=== PATIENT | female | born 1935 | race Caucasian/White ===

== ENCOUNTER 2019-11-11 15:57 | Outpatient (CLI) | payer MEDICARE, OTHER, SELFPAY ==
--- NOTE | ~2019-11-11 | XR_ITS ---
EXAMINATION: XR lumbar spine 2-3V DATE: 11/11/2019 16:27 INDICATION: Chronic back pain TECHNIQUE: Anteroposterior and lateral views of the lumbar spine, and cone-down lateral view of the l umbosacral junction were obtained. COMPARISON: None. FINDINGS: There is grade 1 anterolisthesis of L4 on L5. There is moderate loss of intervertebral disc space height at L4-5 and L5-S1 and mild loss of intervertebral disc space height throughout the tory scott of the lumbar spine. The vertebral body heights are normal. There is no fracture. Surgical clip s in the right upper quadrant are likely from prior cholecystectomy. IMPRESSION: 1. Moderate lumbar spondylosis without acute findings. Reviewed, dictated and finalized at location A.
== END 2019-11-11 15:58 | disposition home or self-care (01) ==
LOC: CHSIMG 16:03
PROVIDERS: PCP Internal Medicine; Visit Provider Internal Medicine
DX: M54.5 Low back pain (principal); G62.9 Polyneuropathy, unspecified
CPT/HCPCS: 72100

== ENCOUNTER 2019-11-17 09:48 | Outpatient (CLI) | payer MEDICARE, OTHER, SELFPAY | END 2019-11-17 09:49 | disposition home or self-care (01) | PROVIDERS: PCP Internal Medicine; Visit Provider Internal Medicine | DX: I48.91 Unspecified atrial fibrillation (principal); R00.8 Other abnormalities of heart beat | CPT/HCPCS: 93306 ==

== ENCOUNTER 2019-11-19 09:56 | Outpatient (CLI) | payer MEDICARE, OTHER, SELFPAY ==
--- NOTE | ~2019-11-19 | MR_ITS ---
EXAMINATION: MR lumbar spine wo [facility] EXAM DATE: 11/19/2019 11:41 INDICATION: Low back pain down into both hips and legs with numbness and tingling. TECHNIQUE: Multi-sequential, multiplanar MR images of the lumbar spine were obtained without contrast . Sagittal T1, T2, T2 fat saturation images. Axial T2 weighted images. There is no prior study for comparison. FINDINGS: There is moderate disc disease with 5 mm anterolisthesis L4 on L5. There is moderate to sev ere disc disease at L5-S1 with 3 mm retrolisthesis. There is 2 mm anterolisthesis L2 on L3. The verte bral bodies are otherwise aligned. Mild to moderate disc disease L3-4 and mild at the upper lumbar le vels. The conus medullaris terminates at the L1/2 level and has normal signal intensity and morpholog y. There are no suspicious marrow signal abnormalities. Paraspinal soft tissue is unremarkable. Level by level evaluation: T12-L1: Disc does not extend beyond the endplate margin. Facet arthropathy: Mild. Neural foraminal stenosis: No stenosis. Central canal stenosis: No stenosis. L1-L2: Disc does not extend beyond the endplate margin. Facet arthropathy: Mild. Neural foraminal stenosis: No stenosis. Central canal stenosis: No stenosis. L2-L3: There is a mild diffuse disc bulge. Facet arthropathy: Mild to moderate. Neural foraminal stenosis: No stenosis. Central canal stenosis: Mild. L3-L4: There is a mild to moderate diffuse disc bulge. Facet arthropathy: Moderate. Neural foraminal stenosis: Mild bilateral. Central canal stenosis: Mild to moderate. L4-L5: There is a moderate to large diffuse disc bulge. Facet arthropathy: Severe . Ligamentum flavum enlargement. Neural foraminal stenosis: Moderate left, mild to moderate right. Central canal stenosis: Severe. L5-S1: There is a moderate diffuse disc bulge. Facet arthropathy: Mild to moderate. Neural foraminal stenosis: Moderate bilateral. Central canal stenosis: Mild to moderate. IMPRESSION: 1. L4-5 grade 1 anterolisthesis, severe central canal stenosis. Reviewed, dictated and finalized at location A.
== END 2019-11-19 09:57 | disposition home or self-care (01) ==
LOC: CHSIMG 09:58
PROVIDERS: PCP Internal Medicine; Visit Provider Internal Medicine
DX: M54.5 Low back pain (principal); G62.9 Polyneuropathy, unspecified
CPT/HCPCS: 72148

== ENCOUNTER 2019-11-26 11:19 | Outpatient (CLI) | payer MEDICARE, OTHER, SELFPAY ==
--- NOTE | ~2019-11-26 | MR_ITS ---
EXAMINATION: MR brain/brain stem wo con DATE: 11/26/2019 12:04 INDICATION: Dizziness TECHNIQUE: Magnetic resonance imaging (MRI) of the brain and brainstem was performed without intraven ous contrast. Sequences included sagittal and axial T1-weighted SE, axial diffusion-weighted FS SE, a xial T2*-weighted GRE, axial T2-weighted FLAIR Propeller, and axial T2-weighted Propeller. Apparent d iffusion coefficient (ADC) maps were created. COMPARISON: CT dated 11/30/2017 FINDINGS: Mild generalized atrophy. There are scattered moderate periventricular and subcortical whit e matter changes, most likely related to small vessel ischemic disease (microangiopathy). No ventricu lomegaly or midline shift. Structures of the posterior fossa including 7/8th cranial nerve complexes are within normal limits. No evidence for acute infarction or hemorrhage. No abnormal masses or mass effect. Midline sagittal images are unremarkable. Orbits are symmetric without disconjugate gaze. Par anasal sinuses are unremarkable. IMPRESSION: 1. No acute intracranial abnormality. 2: Chronic age-related findings. Reviewed, dictated and finalized at location A.
== END 2019-11-26 11:20 | disposition home or self-care (01) ==
LOC: CHSIMG 11:22
PROVIDERS: PCP Internal Medicine; Visit Provider Internal Medicine
DX: R42 Dizziness and giddiness (principal); I27.20 Pulmonary hypertension, unspecified
CPT/HCPCS: 70551

== ENCOUNTER 2019-11-28 10:27 | Outpatient (CLI) | payer MEDICARE, OTHER, SELFPAY ==
--- NOTE | ~2019-11-28 | CT_ITS ---
EXAMINATION: CT chest w con EXAM DATE: 11/28/2019 11:23 INDICATION: Dizziness, pulmonary hypertension. TECHNIQUE: Spiral CT of the chest following intravenous injection of 75 mL Omnipaque 350. Axial, cor onal and sagittal images were reviewed. Coronal maximum intensity pixel images of chest reviewed. T he dose-length product (DLP) for this examination was 241.90 mGy-cm. The exposure was tailored accor ding to patient size (auto mA exposure control), and iterative reconstruction (ASIR) was used as brad tional dose reduction technique. There is no prior study for comparison. FINDINGS: The lungs are clear. There are no pleural or pericardial effusions. Tracheobronchial t ree is patent. There is no mediastinal, hilar or axillary lymphadenopathy. There is no pneumothor ax. There is cardiomegaly. There is mild coronary arterial calcification, arterial sclerosis. The main, central pulmonary arteries are dilated which can indicate elevated pulmonary arterial pressure, pulmonary arterial hypertension. There are cholecystectomy clips. There is mild to moderate thora cic spondylosis without osteoblastic or osteolytic lesions identified. There is a goiter. IMPRESSION: 1. No acute cardiopulmonary findings. 2. Cardiomegaly. Dilated central pulmonary arteries. 3. Goiter. Reviewed, dictated and finalized at location A.
[2019-11-28 11:10] LABS: Estimated Glomerular Filt Rate 53
== END 2019-11-28 10:28 | disposition home or self-care (01) ==
LOC: CHSIMG 10:29
PROVIDERS: PCP Internal Medicine; Visit Provider Internal Medicine
DX: I27.20 Pulmonary hypertension, unspecified (principal); R42 Dizziness and giddiness
CPT/HCPCS: 71260; Q9965

== ENCOUNTER 2021-07-17 10:46 | Outpatient (CLI) | payer MEDICARE, SELFPAY ==
[2021-07-17 11:08] LABS: Hematocrit 28.5 % (35.0-42.0); Hemoglobin 9.1 g/dL (11.7-13.8); Mean Corpuscular HGB Conc 31.9 g/dL (32.0-36.0); Mean Corpuscular Hemoglobin 31.7 pg (27.0-31.0); Mean Corpuscular Volume 99.3 fL (78.0-102.0); Mean Platelet Volume 9.3 fl (9.2-11.8); Platelet Count Result 197 K/mm3 (150-420); Red Blood Count 2.87 M/mm3 (4.20-5.40); Red Cell Distribution Width 14.7 % (11.6-14.4); White Blood Count 7.5 K/mm3 (4.8-10.8)
[2021-07-17 12:05] LABS: Anion Gap 13 mmol/L (8-16); Blood Urea Nitrogen 31 mg/dL (7-18); Calcium 9.6 mg/dL (8.5-10.1); Carbon Dioxide 27 mmol/L (21-32); Chloride 102 mmol/L (98-108); Estimated Glomerular Filt Rate 41; Glucose 117 mg/dL (70-99); Osmolality Calculated 301 mOsm/kg (285-295); Sodium 142 mmol/L (136-145)
[2021-07-17 16:40] LABS: Immature Reticulocyte Fraction 34.3 % (2.0-16.52); Reticulocyte Hemoglobin Conten 34.6 pg (28.0-35.0); Reticulocyte Percent 5.14 % (0.50-1.50); Reticulocytes Absolute 0.15 M/mm3 (0.02-0.1)
[2021-07-17 17:23] LABS: Ferritin 60 ng/mL (8-252); Iron 136 ug/dL (50-170); Vitamin B12 657 pg/mL (193-986)
[2021-07-21 07:52] LABS: Red Blood Cell Folate >1000 ng/mL RBC (>280)
== END 2021-07-17 10:47 | disposition home or self-care (01) ==
LOC: CHSLAB 10:50
PROVIDERS: PCP Internal Medicine; Visit Provider Internal Medicine Cardiovascular Disease
DX: D64.9 Anemia, unspecified (principal)
CPT/HCPCS: 36415; 80048; 82607; 82728; 82747; 83540; 85027; 85046

== ENCOUNTER 2021-09-23 11:44 | Outpatient (CLI) | payer MEDICARE, OTHER, SELFPAY ==
--- NOTE | ~2021-09-23 | US_ITS ---
EXAMINATION: US venous doppler [facility] DATE: 09/23/2021 12:25 INDICATION: Bilateral lower limb swelling TECHNIQUE: Grayscale ultrasound images without and with compression and Doppler ultrasound images of the bilateral lower extremity veins were obtained. COMPARISON: None. FINDINGS: The visualized portions of right common femoral vein, profunda (deep) femoral vein, femoral vein, pop liteal vein, posterior tibial veins, peroneal veins, gastrocnemius vein and greater saphenous vein ou tflow are patent. The visualized portions of left common femoral vein, profunda femoral vein, femoral vein, popliteal v ein, posterior tibial veins, peroneal veins, gastrocnemius vein and greater saphenous vein outflow ar e patent. IMPRESSION: 1. No deep venous thrombosis in either lower limb. Reviewed, dictated and finalized at location A.
[2021-09-23 12:10] LABS: Basophils Absolute Auto 0.05 K/mm3 (0.00-0.10); Basophils Percent Auto 0.7 % (0.0-1.0); Eosinophils Absolute Auto 0.19 K/mm3 (0.02-0.50); Eosinophils Percent Auto 2.5 % (1.0-6.0); Hematocrit 33.3 % (35.0-42.0); Hemoglobin 10.2 g/dL (11.7-13.8); Immature Granulocyte Absolute 0.03 K/mm3 (0.00-0.00); Immature Granulocyte Percent A 0.4 % (0.0-0.0); Lymphocytes Absolute Auto 1.16 K/mm3 (1.10-4.50); Lymphocytes Percent Auto 15.2 % (18.0-42.0); Mean Corpuscular HGB Conc 30.6 g/dL (32.0-36.0); Mean Corpuscular Volume 91.5 fL (78.0-102.0); Mean Platelet Volume 9.6 fl (9.2-11.8); Monocytes Absolute Auto 0.62 K/mm3 (0.10-0.90); Monocytes Percent Auto 8.1 % (2.0-11.0); Neutrophils Absolute Auto 5.6 K/mm3 (1.7-7.2); Neutrophils Percent Auto 73.1 % (50.0-70.0); Platelet Count Result 190 K/mm3 (150-420); Red Blood Count 3.64 M/mm3 (4.20-5.40); Red Cell Distribution Width 17.2 % (11.6-14.4); White Blood Count 7.6 K/mm3 (4.8-10.8)
[2021-09-23 12:29] LABS: NT Pro B Type Natriuretic Pept 1390 pg/mL (0-450)
== END 2021-09-23 11:45 | disposition home or self-care (01) ==
LOC: CHSLAB 11:46
PROVIDERS: PCP Internal Medicine; Visit Provider Internal Medicine
DX: M79.89 Other specified soft tissue disorders (principal); I50.9 Heart failure, unspecified
CPT/HCPCS: 36415; 83880; 85025; 93970

== ENCOUNTER 2021-10-01 10:57 | Outpatient (CLI) | payer MEDICARE, OTHER, SELFPAY ==
[2021-10-01] MEDS: IRON SUCROSE COMPLEX 500 MG in SODIUM CHLORIDE 0.9% IV 250 ML 62.5 MG IVPB (11:25)
[2021-10-01 11:28] VITALS: BMI 26.3
[2021-10-01 11:43] VITALS: BP 129/53; PULSE 76; RESP 14; TEMP 36.6; O2SAT 98
--- NOTE | 2021-10-01 15:05 | PC.NURSE ---
Patient here for # 1 of 2 IV Venofer infusions 2 weeks apart. Education on medication given. All concerns answered. Patient accompanied by daughter. IV Venofer administered SEE MAR. Tolerated well. Safe exit of hospital. Will return October 15, 2021 at 10:30.
== END 2021-10-01 10:58 | disposition home or self-care (01) ==
LOC: CHSTREATRM 11:00
PROVIDERS: PCP Internal Medicine; Visit Provider Internal Medicine
DX: D50.9 Iron deficiency anemia, unspecified (principal)
CPT/HCPCS: 96365; 96366; J1756; J7050

== ENCOUNTER 2021-10-15 10:46 | Outpatient (CLI) | payer MEDICARE, OTHER, SELFPAY ==
[2021-10-15 10:50] VITALS: BMI 26.3
[2021-10-15 11:05] VITALS: BP 110/62; PULSE 72; RESP 14; TEMP 36.4; O2SAT 96
[2021-10-15] MEDS: IRON SUCROSE COMPLEX 500 MG in SODIUM CHLORIDE 0.9% IV 250 ML 62.5 MG IVPB (11:30)
--- NOTE | 2021-10-15 11:50 | PC.NURSE ---
Patient here for #2 of 2 IV Venofer infusions. Education given. No concerns voiced. IV Venofer administered SEE MAR.
--- NOTE | 2021-10-15 15:14 | PC.NURSE ---
Tolerated IV Venofer infusion well. Safe exit of hospital.
== END 2021-10-15 10:47 | disposition home or self-care (01) ==
LOC: CHSTREATRM 10:48
PROVIDERS: PCP Internal Medicine; Visit Provider Internal Medicine
DX: D50.9 Iron deficiency anemia, unspecified (principal)
CPT/HCPCS: 96365; 96366; J1756; J7050

== ENCOUNTER 2022-01-02 10:06 | Outpatient (CLI) | payer MEDICARE, OTHER, SELFPAY ==
--- NOTE | ~2022-01-02 | CT_ITS ---
EXAMINATION: CT diagnostic chest wo con DATE: 01/02/2022 10:34 INDICATION: Mediastinal lymph node enlargement TECHNIQUE: Computed tomography (CT) of the chest was performed without intravenous contrast. The dose -length product (DLP) was 156.14 mGy-cm. Automated exposure control and iterative reconstruction tech nique were employed. COMPARISON: 11/28/2019 FINDINGS: Multinodular goiter is again noted. There is enlargement of the main and central pulmonary arteries, consistent with pulmonary hypertension. There are no pathologically enlarged thoracic lymph nodes. Cardiomegaly is noted. Calcified pulmonary nodules and calcified right hilar lymph nodes are consistent with old granulomatous disease. No pleural effusion or pneumothorax. There is moderate tho racic spondylosis. The gallbladder is surgically absent. Surgical changes are noted in the proximal r ight humerus. IMPRESSION: 1. No thoracic lymphadenopathy is identified. 2. Findings consistent with pulmonary hypertension. Reviewed, dictated and finalized at location B.
== END 2022-01-02 10:07 | disposition home or self-care (01) ==
PROVIDERS: PCP Internal Medicine; Visit Provider Internal Medicine
DX: R59.0 Localized enlarged lymph nodes (principal)
CPT/HCPCS: 71250

== ENCOUNTER 2022-03-13 10:00 | Outpatient (RCR) | payer MEDICARE, OTHER, SELFPAY ==
--- NOTE | 2022-02-04 14:53 | OTOPEVAL ---
Thank you for referring Starr Whyte to [facility].? The patient is scheduled to be seen for therapy? ____x/week for ___ weeks. Please review, sign, date and return this plan of care HELEN. I agree with and certify that the following plan of care is medically necessary. Referring Physician Date Admitting Provider: Attending Provider: Jimbo Rey MD Referring Provider: *OT Outpatient Evaluation Start: 02/04/22 11:02 Freq: Status: Active Protocol: Document 02/04/22 10:59 [facility] (Rec: 02/04/22 12:03 [facility] [email or web address]) Therapy Assessment Status Assessment Status Assessment Status Evaluation Outpatient Past Medical History Past Medical History Source of Past Medical History Patient Other Source of Past Medical History Patient reports a R shoulder surgery in 2018. Neurological History Hx Cerebrovascular Accident (CVA) Yes Evaluation Information Problem Diagnosis CVA Onset July 2021 Cause UE weakness Additional Evaluation Detail 2x/week for 8 visits Subjective Information The patient reports that she Query Text:As Reported By Patient/ is unsure the exact date of Family her CVA, the patient thinks the stroke was in August of 2021. The patient has recieved skilled PT and OT at [facility] and in home health treatment. The patient has assistance from her children with bathing, housekeeping, meal preparation, laundry. The patient reported performing dressing, toileting, grooming. Prior Level of Function Activity Level (Last 3 Months) Hand Dominance Right Activity of Daily Living Ability Independent Indoor/Home Mobility Independent Community Mobility Independent Stairs Ability Independent Functional Cognition (Planning, Shopping Independent , Taking Medications) Cooking Yes Cleaning Yes Laundry Yes Shopping Yes Driving Yes Home Setting Home Type House Environmental Barriers Stairs, 2-4 Living Situation Alone Support Available Local Family Support Cargiver Responsibilities Comment Housekeeping, meal preparation , bathing, and laundry/grocery shopping. Mobility Assistive Devices (Used Last 3 Cane Months)
--- NOTE | 2022-02-04 14:54 | OTOPEVAL ---
Thank you for referring Starr Whyte to [facility].? The patient is scheduled to be seen for therapy? ____x/week for ___ weeks. Please review, sign, date and return this plan of care HELEN. I agree with and certify that the following plan of care is medically necessary. Referring Physician Date Admitting Provider: Attending Provider: Jimbo Rey MD Referring Provider: *OT Outpatient Evaluation Start: 02/04/22 11:02 Freq: Status: Active Protocol: Document 02/04/22 10:59 [facility] (Rec: 02/04/22 12:03 [facility] [email or web address]) Therapy Assessment Status Assessment Status Assessment Status Evaluation Outpatient Past Medical History Past Medical History Source of Past Medical History Patient Other Source of Past Medical History Patient reports a R shoulder surgery in 2018. Neurological History Hx Cerebrovascular Accident (CVA) Yes Evaluation Information Problem Diagnosis CVA Onset July 2021 Cause UE weakness Additional Evaluation Detail 2x/week for 8 visits Subjective Information The patient reports that she Query Text:As Reported By Patient/ is unsure the exact date of Family her CVA, the patient thinks the stroke was in August of 2021. The patient has recieved skilled PT and OT at [facility] and in home health treatment. The patient has assistance from her children with bathing, housekeeping, meal preparation, laundry. The patient reported performing dressing, toileting, grooming. Prior Level of Function Activity Level (Last 3 Months) Hand Dominance Right Activity of Daily Living Ability Independent Indoor/Home Mobility Independent Community Mobility Independent Stairs Ability Independent Functional Cognition (Planning, Shopping Independent , Taking Medications) Cooking Yes Cleaning Yes Laundry Yes Shopping Yes Driving Yes Home Setting Home Type House Environmental Barriers Stairs, 2-4 Living Situation Alone Support Available Local Family Support C[employer] Responsibilities Comment Housekeeping, meal preparation , bathing, and laundry/grocery shopping. Mobility Assistive Devices (Used Last 3 Cane Months)
--- NOTE | 2022-02-04 20:48 | PTOPEVAL ---
Thank you for referring Starr Whyte to [facility].? The patient is scheduled to be seen for therapy? ____x/week for ___ weeks. Please review, sign, date and return this plan of care HELEN. I agree with and certify that the following plan of care is medically necessary. Referring Physician Date Admitting Provider: Attending Provider: Jimbo Rey MD Referring Provider: *PT Outpatient Evaluation Start: 02/04/22 10:06 Freq: Status: Active Protocol: Document 02/04/22 10:05 [facility] (Rec: 02/04/22 11:03 [facility] [id number]) Therapy Assessment Status Assessment Status Assessment Status Evaluation Evaluation Information Problem Diagnosis CVA, gait abnormality, generalized weakness Onset 08/27/21 Subjective Information patient reports she had a Query Text:As Reported By Patient/ stroke CVA back in August of Family 2021. she reports she has had quite a bit of therapy since her stroke. she reports she is unsure how bad her stroke was . she reports she does not remember if she had any weakness. she reports now she continues to struggle with feeling like she is back to normal. she reports she feels unsteady walking in the yard, she is not cooking, and is just a little slower and weaker with home ADL's. she reports she is not driving. Prior Level of Function Comments Additional Prior Level of Function prior to her stroke, she was Comments independent with nearly all activities. she reports she still had a then, but reports he has since . she reports she has family close by that stops by to help with things like compression stockings, cooking , and cleaning. Pain Assessment Timing of Pain Assessment Timing of Pain Assessment Assessment Self Report Self Report Pain Level 0 Pain Score Pain Score 0: Self Report Lower Extremity Range of Motion General Lower Extremity Range of Motion Reason Not Measured WFL/Left,WFL/Right Lower Extremity Muscle Strength Testing Hip Strength Bilateral Hip Flexion Strength 4 Good Hip Extension Strength 4 Good Hip Abdu
--- NOTE | 2022-02-11 14:33 | STOPEVAL ---
Thank you for referring Starr Whyte to [facility].? The patient is scheduled to be seen for therapy? 2x/week for 10 sessions. Please review, sign, date and return this plan of care HELEN. I agree with and certify that the following plan of care is medically necessary. Referring Physician Date Admitting Provider: Attending Provider: Jimbo Rey MD Referring Provider: * Outpatient Evaluation Start: 02/11/22 14:12 Freq: Status: Active Protocol: Document 02/11/22 13:00 [facility] (Rec: 02/11/22 14:33 [facility] [id number]) Therapy Assessment Status Assessment Status Assessment Status Evaluation Outpatient Past Medical History Past Medical History Source of Past Medical History Patient Other Source of Past Medical History Patient reports a R shoulder surgery in 2018. Neurological History Hx Cerebrovascular Accident (CVA) Yes Cardiovascular History Hx Congestive Heart Failure Yes Hx Hypertension Yes Respiratory History Hx Respiratory Disorders No Significant History Gastrointestinal History Hx Gastrointestinal Disorders No Significant History Genitourinary History Hx Genitourinary Disorders No Significant History Musculoskeletal History Hx Musculoskeletal Disorders No Significant History Hematological History Hx Hematological Disorders No Significant History Endocrine History Hx Endocrine Disorders No Significant History HEENT History Hx HEENT Disorders No Significant History Integumentary History Hx Skin Disorders No Significant History Reproductive History Hx Reproductive Disorders No Significant History Psychosocial History Hx Psychiatric Disorders No Significant History Pain History History of Any Previous or Ongoing No Significant History Instance of Pain Anesthesia History Hx Anesthesia Reactions No Significant History Evaluation Information Problem Diagnosis CVA I63.9 Onset July 2021 Subjective Information Patient was referred for an ST Query Text:As Reported By Patient/ evaluation due to a CVA with Family continued difficulties in short term memory skills. Pain Assessment Timing of Pain Assessment Timing of Pain Assessment Assessment Self Report Self Report Pain Level 0 Pain Score Pain Score 0: Self Report Cognitive Evaluation Attention Assessment Selective Attention Overall Attention Ability No Impairment Orientation/Memory Assessment Immediate Memory 70 Query Text:% Accuracy Recent Memory 100 Query Text:% Accuracy Remote Memory 100 Query Text:% Accuracy Prospective Memory
--- NOTE | 2022-03-06 15:55 | PTOPEVAL1 ---
Evaluation Information Assessment Status Discharge Diagnosis CVA, gait abnormality, generalized weakness Onset 08/27/21 Subjective Information patient and her daughter report 3 therapies in one day is a bit much for the patient. the daughter reports she would like to consider DC PT and continue with OT and ST therapies. Reported Pain Level Pain Score 0: Self Report Pain Score 0: Self Report Additional Pain Score Comments Pt. has no c/o pain. Assessment PT Clinical Summary mrs. ruiz presents to skilled PT services for her 6th skilled PT visit. as of this date, she has made progress towards nearly all goals, but has only met 25-40% of goals as of this date. due to patient inability to perform 3 therapies in 1 day, and needing more UE and speech rehab at this time , she will DC skilled PT and continue with PT HEP independent at home. Plan of Care Treatment Frequency and DC to independent PT HEP Duration These treatments will address the objective and functional deficits as defined above. The patient will be advanced safely and appropriately in order for the patient to progress towards his/her prior level of function. Additional exercises will be introduced and as well as a comprehensive home exercise program upon discharge, if needed, ?to ensure carryover of functional gains achieved in the clinic. This treatment plan has been reviewed and agreement upon by the patient.
--- NOTE | 2022-03-11 09:29 | PCSTNOTE ---
Appointment cancelled on March 06 due to KETTLE GIRL being out of the office.
--- NOTE | 2022-03-24 11:07 | OTOPEVDC ---
Assessment and note entered by Delicia Glover OT Thank you for referring Starr Whyte to [facility].? An evaluation has been completed. No further treatment is needed. Evaluation Information Assessment Status Discharge Reported Pain Level Pain Score 0: Self Report Assessment OT Clinical Summary The patient has demonstrated significant progress in UE strength, refueling ramp supervisor strength, pinch strength, and fine motor coordination. The patient has met UE strength and refueling ramp supervisor strength goals at this time resulting in increased independence with leisure tasks of crafting. The patient has not met goals of pinch strength and fine motor coordination but demonstrates baseline functioning at this time. The patient has demonstrated independence with opening containers, buttoning/zipping closures on clothing, and performing craft activities with good accuracy performing activities slowly, as reported by patient as normal. The patient has made continued progress with all goals and does not require OT at this time. The patient is discharged due to meeting LTGs and functioning with B UE at baseline. Plan of Care OT Services Indicated No Treatment Frequency and Discharged. Duration
--- NOTE | 2022-04-01 11:43 | STOPREEVAL ---
Assessment and note entered by Priscilla Murry UI DESIGNER Evaluation Information Assessment Status Re-evaluation Reported Pain Level Pain Score 0: Self Report Assessment ST Clinical Summary Patient was referred for an ST evaluation due to continued difficulties with memory and communication after a stroke earilier this year. The patient currently presents with mild cognitive -communication deficits through clinicial observation and testing along with informal assessment and family concerns. The SLUMS was readminstered and the patient recieved a score of 24/30 which currently is in the mid neuro cognitive disorder category (improvement from 8-16 -22 with a score of 18/30). The patient continues to demonstrat difficulty in recalling words with a delay in presentation, solving simple number tasks, divergent naming, visual perceptual tasks and sequencing tasks. Recommendation for ST 2x/wk x 10 sessions to continue to target the patient's cognitive-communication skills to improve her ability to return to prior level of function. Plan of Care Interventions Treatment for Cognitive F ST Services Indicated Yes Treatment Frequency and 2x/week for 10 sessions Duration These treatments will address the objective and functional deficits as defined above. The patient will be advanced safely and appropriately in order for the patient to progress towards his/her prior level of function. Additional exercises will be introduced and as well as a comprehensive home exercise program upon discharge, if needed, ?to ensure carryover of functional gains achieved in the clinic. This treatment plan has been reviewed and agreement upon by the patient.
--- NOTE | 2022-04-10 15:14 | PCSTNOTE ---
Patient called & cancelled scheduled appointment this date.
--- NOTE | 2022-04-15 11:52 | PCSTNOTE ---
Patient called & cancelled scheduled appointment this date due to having COVID
--- NOTE | 2022-04-17 10:00 | PCSTNOTE ---
Patient called & cancelled scheduled appointment this date due to having COVID
--- NOTE | 2022-04-22 11:05 | PCSTNOTE ---
Patient called & cancelled scheduled appointment this date due to being in the hospital.
--- NOTE | 2022-04-24 13:30 | PCSTNOTE ---
Patient called & cancelled scheduled appointment this date due to patient being in the hospital.
--- NOTE | 2022-04-29 14:28 | PCSTNOTE ---
Patient cancelled this date due to recent sickness with COVID and hospitalization.
--- NOTE | 2022-05-12 11:51 | PCSTNOTE ---
Admitting Provider: Attending Provider: Jimbo Rey MD Patient:Starr Whyte Date of :1935 Patient has not returned for any further treatments since 04/08/2022, therefore she will be discharged at this time. Patient?s initial visit was on 02/11/22. The goals have been partially met. Patient was recently re-evaluated with goals to continue to target short term, visual perceptual skills, and problem solving skills. Patient was diagnosed with COVID and was the hospitalized and has not returned for ST treatment. Patient made consistent progress while in ST treatment. Thank you for referring this patient to [facility]. Please review, sign, date and return this discharge summary HELEN. I have been updated about the patient's current status and I agree with discharge from the above service at this time. Referring Physician Date
== END 2022-04-08 23:59 | disposition home or self-care (01) ==
LOC: CHSST 10:00
PROVIDERS: PCP Internal Medicine; Visit Provider Internal Medicine
DX: R26.81 Unsteadiness on feet (principal); I69.322 Dysarthria following cerebral infarction
CPT/HCPCS: 92507; 96125; 97110; 97112; 97161; 97165; 97530

== ENCOUNTER 2022-06-14 20:23 | Emergency (ER) | payer MEDICARE, OTHER, SELFPAY ==
--- NOTE | ~2022-06-14 | XR_ITS ---
EXAMINATION: XR knee LT 3V DATE: 06/14/2022 20:59 INDICATION: Nontraumatic left knee pain TECHNIQUE: Anteroposterior, oblique and crosstable lateral views of the left knee were obtained COMPARISON: None. FINDINGS: Alignment is normal. No fracture. Mild tricompartmental osteoarthritis at the left knee with mild aidee int space narrowing at the medial compartment and small marginal osteophytes in all 3 compartments. M inimal left knee joint effusion without layering lipohemarthrosis. Small enthesophyte at the patellar insertion of the distal quadriceps tendon. Basilar calcific a cyst at the distal thigh and proximal calf. IMPRESSION: 1. Mild tricompartmental osteoarthritis at the left knee with minimal likely reactive joint effusion. Reviewed, dictated and finalized at location A. ERY TESTER FIELD IMPRESSION: 1. Mild tricompartmental osteoarthritis at the left knee with minimal likely re active joint effusion.
[2022-06-14 20:30] VITALS: BP 149/55; PULSE 65; RESP 18; TEMP 37.1; O2SAT 99
--- NOTE | 2022-06-14 20:38 | ED.LOWEXIN ---
HPI - Extremity Injury (Lower) General Chief Complaint: Extremity Injury, Lower Stated Complaint: Left Leg Pain Source: patient Mode of arrival: wheelchair History of Present Illness HPI Narrative: 86-year-old female with a history of hypertension, diabetes mellitus, dyslipidemia, diastolic dysfunction, atrial fibrillation on Eliquis, chronic low back pain with lumbar spinal stenosis presents to the ER with 1 day history of -- left knee pain which got worse while she was walking. Subsequently she was unable to walk. She has decreased range of motion of the left knee. No history of trauma. Onset (ago): day(s) ( Started 1 day ago) Injury: Left: knee Relieving factors: immobilization Exacerbating factors: weight bearing and movement Other symptoms: none Related Data Home Medications Medication Instructions Recorded Confirmed diltiazem HCl 180 mg capsule,24 180 mg PO DAILY 07/05/19 06/14/22 hr,extended release atorvastatin 10 mg tablet 10 mg PO DAILY 10/01/21 06/14/22 buspirone 5 mg tablet 10 mg PO BID 10/01/21 06/14/22 furosemide 20 mg tablet 20 mg PO EVERY OTHER DAY 10/01/21 06/14/22 linagliptin 5 mg tablet (Tradjenta) 5 mg PO QAM 10/01/21 06/14/22 pantoprazole 40 mg tablet,delayed 40 mg PO BID 10/01/21 06/14/22 release apixaban 2.5 mg tablet (Eliquis) 2.5 mg PO BID 06/14/22 06/14/22 calcitriol 0.5 mcg capsule 0.5 mcg PO DAILY 06/14/22 06/14/22 galantamine 8 mg tablet 8 mg PO BID 06/14/22 06/14/22 loteprednol etabonate 0.5 % eye 1 drp EACH EYE DAILY 06/14/22 06/14/22 drops,suspension vitamin B complex (B 1 tablet PO DAILY 06/14/22 06/14/22 Complex-Vitamin B12 tablet) Allergies Allergy/AdvReac Type Severity Reaction Status Date / Time No Known Allergies Allergy Verified 12/27/19 10:18 Review of Systems Review of Systems: All systems reviewed & are unremarkable except as noted in HPI and below Constitutional: Constitutional: Reports as per HPI and Reports no additional constitutional complaints Eyes: Eyes: Reports as per HPI and Reports no additional eye complaints ENT: Reports system reviewed and no additional complaints, except as documented and Reports as per HPI Cardiovascular: Cardiovascular: Reports as per HPI and Reports no additional cardiovascular complaints Respiratory: Respiratory: Reports as per HPI and Reports no additional respiratory complaints Gastrointestinal: Gastrointestinal: Reports as per HPI and Reports no additional gastrointestinal complaints Genitourinary: Genitourinary: Reports no additional female genitourinary complaints and Reports as per HPI Musculoskeletal: Musculoskeletal: Reports no additional musculoskeletal complaints, Reports as per HPI and Reports back pain Comments: chronic back pain. Left knee pain which has acutely become painful . unable to place weight. Integumentary/Breasts: Skin/Breast: Reports system reviewed and no additional complaints, except as docu and Reports as per HPI Neurologic: Reports system reviewed and no additional complaints, except as documented and Reports as per HPI Psychiatric: Psychiatric: Reports no additional psychiatric complaints and Reports as per HPI Endocrine: Endocrine: Reports no additional endocrine complaints and Reports as per HPI Hematologic/Lymphatic: Hematologic/Lymphatic: Reports no additional hematologic/lymphatic complaints and Reports as per HPI Allergic/Immunologic: Allergic/Immunologic: Reports no additional allergic/immunologic complaints and Reports as per HPI PMFSH Past Medical History Medical History Atrial fibrillation External hemorrhoid Hypertension Osteoarthritis Overweight Surgical History Surgical History History of cholecystectomy Hx of tonsillectomy Family History Family History Mother Hypertension Father AAA (abdomina
--- NOTE | 2022-06-14 21:34 | PC.NURSE ---
POC for f/u, ice and possible therapy discussed c pt. and family. Instructions given on minimal wt bearing next few days and use of her walker for support. Pt and daughters stated understanding.
[2022-06-14 21:37] VITALS: BP 145/68; PULSE 79; RESP 18; TEMP 37.2; O2SAT 97
== END 2022-06-14 21:45 | disposition home or self-care (01) ==
PROVIDERS: Emergency Provider Internal Medicine Critical Care Medicine; PCP Internal Medicine
DX: M17.12 Unilateral primary osteoarthritis, left knee (principal); I10 Essential (primary) hypertension; E11.9 Type 2 diabetes mellitus without complications; E78.5 Hyperlipidemia, unspecified; I48.91 Unspecified atrial fibrillation; Z79.01 Long term (current) use of anticoagulants
CPT/HCPCS: 73562; 99283

== ENCOUNTER 2022-06-17 09:49 | Outpatient (CLI) | payer MEDICARE, OTHER, SELFPAY ==
[2022-06-17] MEDS: IRON SUCROSE COMPLEX 300 MG in SODIUM CHLORIDE 0.9% IV 250 ML 125 MG IVPB (10:05)
[2022-06-17 10:08] VITALS: BMI 26.6
[2022-06-17 10:09] VITALS: BP 130/53; PULSE 72; RESP 14; TEMP 36.4; O2SAT 99
--- NOTE | 2022-06-17 12:29 | PC.NURSE ---
Patient here for #1 of 3 q 2 weeks IV Venofer. Education given. Patient had Venofer in September 2021. Reports had no problems with it. IV Venofer administered. See MAR. Tolerated well. Safe exit of hospital with dtr. Jul 01, 2022 1000.
== END 2022-06-17 09:50 | disposition home or self-care (01) ==
LOC: CHSTREATRM 09:53
PROVIDERS: PCP Internal Medicine; Visit Provider Internal Medicine
DX: D50.9 Iron deficiency anemia, unspecified (principal)
CPT/HCPCS: 96365; 96366; J1756; J7050

== ENCOUNTER 2022-07-01 09:37 | Outpatient (CLI) | payer MEDICARE, OTHER, SELFPAY ==
--- NOTE | 2022-07-01 10:54 | PC.NURSE ---
Patient here for #2 of 3 Venofer infusions. Attempted 7 times for IV with 3 nurses trying. Will hold off this week and retry Jul 08, 2022 Tue. Patient and granddaughter in agreement with decision.
== END 2022-07-01 09:38 | disposition home or self-care (01) ==
LOC: CHSTREATRM 09:40
PROVIDERS: PCP Internal Medicine; Visit Provider Internal Medicine
DX: D50.9 Iron deficiency anemia, unspecified (principal)
CPT/HCPCS: 99199; J1756; J7050

== ENCOUNTER 2022-07-07 12:19 | Outpatient (NON) | payer MEDICARE, OTHER, SELFPAY ==
[2022-07-07 13:28] LABS: Eosinophils Absolute Auto 0.02 K/mm3 (0.02-0.50); Eosinophils Percent Auto 0.3 % (1.0-6.0); Hematocrit 34.7 % (35.0-42.0); Hemoglobin 10.7 g/dL (11.7-13.8); Immature Granulocyte Absolute 0.04 K/mm3 (0.00-0.00); Immature Granulocyte Percent A 0.6 % (0.0-0.0); Lymphocytes Absolute Auto 0.63 K/mm3 (1.10-4.50); Lymphocytes Percent Auto 9.3 % (18.0-42.0); Mean Corpuscular HGB Conc 30.8 g/dL (32.0-36.0); Mean Corpuscular Volume 87.6 fL (78.0-102.0); Mean Platelet Volume 10.8 fl (9.2-11.8); Monocytes Absolute Auto 0.73 K/mm3 (0.10-0.90); Monocytes Percent Auto 10.7 % (2.0-11.0); Neutrophils Absolute Auto 5.4 K/mm3 (1.7-7.2); Neutrophils Percent Auto 79.1 % (50.0-70.0); Platelet Count Result 131 K/mm3 (150-420); Red Blood Count 3.96 M/mm3 (4.20-5.40); Red Cell Distribution Width 17.5 % (11.6-14.4); White Blood Count 6.8 K/mm3 (4.8-10.8)
[2022-07-07 13:45] LABS: Anion Gap 9 mmol/L (8-16); Blood Urea Nitrogen 33 mg/dL (7-18); Calcium 9.4 mg/dL (8.5-10.1); Carbon Dioxide 24 mmol/L (21-32); Chloride 99 mmol/L (98-108); Estimated Glomerular Filt Rate 57; Glucose 141 mg/dL (70-99); Osmolality Calculated 283 mOsm/kg (285-295); Sodium 132 mmol/L (136-145)
[2022-07-07 13:46] LABS: Potassium 5.2 mmol/L (3.5-5.1)
== END 2022-07-07 12:20 | disposition home or self-care (01) ==
LOC: CHSLAB 12:21
PROVIDERS: Visit Provider Internal Medicine
DX: R79.89 Other specified abnormal findings of blood chemistry (principal)
CPT/HCPCS: 36415; 80048; 85025

== ENCOUNTER 2022-07-08 09:12 | Outpatient (CLI) | payer MEDICARE, OTHER, SELFPAY ==
[2022-07-08 09:41] VITALS: BMI 26.6
[2022-07-08 09:47] VITALS: BP 160/69; PULSE 92; RESP 14; O2SAT 98
[2022-07-08] MEDS: IRON SUCROSE COMPLEX 300 MG in SODIUM CHLORIDE 0.9% IV 250 ML 166.67 MG IVPB (09:55)
--- NOTE | 2022-07-08 11:22 | PC.NURSE ---
Patient here for #2 of 3 IV Venofer infusions. No concerns voiced. Education given. IV Venofer administered. SEE MAR. Tolerated well. Will return 07/22/22 at 0930 for #3. Safe exit of hospital with granddaughter.
== END 2022-07-08 09:13 | disposition home or self-care (01) ==
PROVIDERS: PCP Internal Medicine; Visit Provider Internal Medicine
DX: D50.9 Iron deficiency anemia, unspecified (principal)
CPT/HCPCS: 96365; 96366; J1756; J7050

== ENCOUNTER 2022-07-22 09:17 | Outpatient (CLI) | payer MEDICARE, OTHER, SELFPAY ==
[2022-07-22 09:25] VITALS: BMI 26.6
[2022-07-22 09:32] VITALS: BP 113/58; PULSE 72; RESP 14; TEMP 36.6; O2SAT 98
[2022-07-22] MEDS: IRON SUCROSE COMPLEX 300 MG in SODIUM CHLORIDE 0.9% IV 250 ML 125 MG IVPB (10:15)
--- NOTE | 2022-07-22 12:08 | PC.NURSE ---
Patient here for #3 of 3 IV Venofer infusions. Education given. No concerns voiced. IV Venofer administered. SEE MAR. Tolerated well. Safe exit of hospital per w/c with dtr.
== END 2022-07-22 09:18 | disposition home or self-care (01) ==
LOC: CHSTREATRM 09:23
PROVIDERS: PCP Internal Medicine; Visit Provider Internal Medicine
DX: D50.9 Iron deficiency anemia, unspecified (principal)
CPT/HCPCS: 96365; 96366; J1756; J7050

== ENCOUNTER 2022-08-07 11:14 | Outpatient (NON) | payer MEDICARE, SELFPAY ==
[2022-08-07 11:31] LABS: Basophils Absolute Auto 0.04 K/mm3 (0.00-0.10); Basophils Percent Auto 0.8 % (0.0-1.0); Hematocrit 38.3 % (35.0-42.0); Hemoglobin 11.9 g/dL (11.7-13.8); Immature Granulocyte Absolute 0.02 K/mm3 (0.00-0.00); Immature Granulocyte Percent A 0.4 % (0.0-0.0); Lymphocytes Absolute Auto 0.98 K/mm3 (1.10-4.50); Mean Corpuscular HGB Conc 31.1 g/dL (32.0-36.0); Mean Corpuscular Hemoglobin 27.9 pg (27.0-31.0); Mean Corpuscular Volume 89.9 fL (78.0-102.0); Mean Platelet Volume 10.3 fl (9.2-11.8); Monocytes Absolute Auto 0.48 K/mm3 (0.10-0.90); Monocytes Percent Auto 9.8 % (2.0-11.0); Neutrophils Absolute Auto 3.3 K/mm3 (1.7-7.2); Platelet Count Result 170 K/mm3 (150-420); Red Blood Count 4.26 M/mm3 (4.20-5.40); Red Cell Distribution Width 17.6 % (11.6-14.4); White Blood Count 4.9 K/mm3 (4.8-10.8)
[2022-08-07 11:42] LABS: Anion Gap 9 mmol/L (8-16); Blood Urea Nitrogen 22 mg/dL (7-18); Calcium 9.5 mg/dL (8.5-10.1); Carbon Dioxide 30 mmol/L (21-32); Chloride 103 mmol/L (98-108); Estimated Glomerular Filt Rate 40; Glucose 188 mg/dL (70-99); Osmolality Calculated 302 mOsm/kg (285-295); Potassium 3.8 mmol/L (3.5-5.1); Sodium 142 mmol/L (136-145)
== END 2022-08-07 11:15 | disposition home or self-care (01) ==
LOC: CHSLAB 11:16
PROVIDERS: Visit Provider Internal Medicine
DX: D50.9 Iron deficiency anemia, unspecified (principal); E86.0 Dehydration
CPT/HCPCS: 80048; 85025

== ENCOUNTER 2022-09-15 10:35 | Outpatient (NON) | payer MEDICARE, SELFPAY ==
[2022-09-15 10:51] LABS: Basophils Absolute Auto 0.04 K/mm3 (0.00-0.10); Basophils Percent Auto 0.7 % (0.0-1.0); Eosinophils Absolute Auto 0.16 K/mm3 (0.02-0.50); Eosinophils Percent Auto 2.9 % (1.0-6.0); Hematocrit 37.8 % (35.0-42.0); Hemoglobin 11.9 g/dL (11.7-13.8); Immature Granulocyte Absolute 0.02 K/mm3 (0.00-0.00); Immature Granulocyte Percent A 0.4 % (0.0-0.0); Lymphocytes Absolute Auto 1.07 K/mm3 (1.10-4.50); Lymphocytes Percent Auto 19.4 % (18.0-42.0); Mean Corpuscular HGB Conc 31.5 g/dL (32.0-36.0); Mean Corpuscular Hemoglobin 28.6 pg (27.0-31.0); Mean Corpuscular Volume 90.9 fL (78.0-102.0); Mean Platelet Volume 10.7 fl (9.2-11.8); Monocytes Absolute Auto 0.57 K/mm3 (0.10-0.90); Monocytes Percent Auto 10.3 % (2.0-11.0); Neutrophils Absolute Auto 3.7 K/mm3 (1.7-7.2); Neutrophils Percent Auto 66.3 % (50.0-70.0); Platelet Count Result 159 K/mm3 (150-420); Red Blood Count 4.16 M/mm3 (4.20-5.40); Red Cell Distribution Width 16.6 % (11.6-14.4); White Blood Count 5.5 K/mm3 (4.8-10.8)
[2022-09-15 10:53] LABS: Appearance Urine Clear (Clear); Bilirubin Urine Negative (Negative); Blood Urine Trace-Intact (Negative); Color Urine Light Yellow (Yellow); Glucose Urine UA Negative (Negative); Ketones Urine Negative (Negative); Leukocyte Esterase Ur Trace LEU/UL (Negative); Nitrate Urine Negative (Negative); Protein Urine Negative (Negative); Specific Grav Ur 1.025 (1.010-1.020); Urobilinogen Urine 0.2 mg/dL (0.2-1.0)
[2022-09-15 11:04] LABS: Add Urine Microscopic? YES; Bacteria Urine Trace /hpf; Squamous Epithelial Cell Urine Few /hpf (Few)
[2022-09-15 11:13] LABS: MALB Creatinine Ratio 12.2 mg/g (0-30); Microalbumin Urine Random < 13.0 mg/L
[2022-09-15 11:40] LABS: Alanine Aminotransferase 23 U/L (14-59); Albumin Level 3.9 g/dL (3.4-5.0); Alkaline Phosphatase 42 U/L (46-116); Anion Gap 10 mmol/L (8-16); Aspartate Amino Transferase 19 U/L (15-37); Bilirubin,Total 0.6 mg/dL (0.00-1.00); Blood Urea Nitrogen 26 mg/dL (7-18); Calcium 10.1 mg/dL (8.5-10.1); Carbon Dioxide 30 mmol/L (21-32); Chloride 106 mmol/L (98-108); Cholesterol 135 mg/dL (0-200); Creatine Kinase 50 U/L (26-192); Estimated Glomerular Filt Rate 42; Ferritin 170 ng/mL (8-252); Free T3 3.03 pg/mL (2.18-3.98); Free T4 Free Thyroxine 1.05 ng/dL (0.76-1.46); Glucose 137 mg/dL (70-99); HDL Direct 67 mg/dL (40-60); Iron 64 ug/dL (50-170); LDL Cholesterol Calculated 53 mg/dL (<130); Magnesium 1.8 mg/dL (1.8-2.4); Osmolality Calculated 308 mOsm/kg (285-295); Potassium 4.3 mmol/L (3.5-5.1); Sodium 146 mmol/L (136-145); Thyroid Stimulating Hormone 2.39 uIU/mL (0.36-3.74); Triglycerides 74 mg/dL (0-150); Vitamin B12 127 pg/mL (193-986)
[2022-09-15 16:33] LABS: Hemoglobin A1C 7.2 % (<5.7)
[2022-09-15 16:40] LABS: NT Pro B Type Natriuretic Pept 1437 pg/mL (0-450)
[2022-09-17 21:17] LABS: Vitamin D 25 Hydroxy 26 ng/mL (30-100)
== END 2022-09-15 10:36 | disposition home or self-care (01) ==
LOC: CHSLAB 10:38
PROVIDERS: Internal Medicine; Visit Provider Specialist
DX: I48.0 Paroxysmal atrial fibrillation (principal); I50.32 Chronic diastolic (congestive) heart failure; Z79.899 Other long term (current) drug therapy
CPT/HCPCS: 36415; 80053; 80061; 81001; 82043; 82306; 82550; 82607; 82728; 83036; 83540; 83735; 83880; 84439; 84443; 84481; 85025

== ENCOUNTER 2022-12-25 10:36 | Outpatient (NON) | payer MEDICARE, SELFPAY ==
[2022-12-25 10:48] LABS: Basophils Absolute Auto 0.05 K/mm3 (0.00-0.10); Basophils Percent Auto 0.8 % (0.0-1.0); Eosinophils Absolute Auto 0.16 K/mm3 (0.02-0.50); Eosinophils Percent Auto 2.6 % (1.0-6.0); Hematocrit 38.6 % (35.0-42.0); Hemoglobin 12.7 g/dL (11.7-13.8); Immature Granulocyte Absolute 0.01 K/mm3 (0.00-0.00); Immature Granulocyte Percent A 0.2 % (0.0-0.0); Lymphocytes Absolute Auto 1.42 K/mm3 (1.10-4.50); Lymphocytes Percent Auto 22.7 % (18.0-42.0); Mean Corpuscular HGB Conc 32.9 g/dL (32.0-36.0); Mean Corpuscular Hemoglobin 30.9 pg (27.0-31.0); Mean Corpuscular Volume 93.9 fL (78.0-102.0); Mean Platelet Volume 10.7 fl (9.2-11.8); Monocytes Absolute Auto 0.55 K/mm3 (0.10-0.90); Monocytes Percent Auto 8.8 % (2.0-11.0); Neutrophils Absolute Auto 4.1 K/mm3 (1.7-7.2); Neutrophils Percent Auto 64.9 % (50.0-70.0); Platelet Count Result 156 K/mm3 (150-420); Red Blood Count 4.11 M/mm3 (4.20-5.40); White Blood Count 6.3 K/mm3 (4.8-10.8)
[2022-12-25 10:56] LABS: Appearance Urine Clear (Clear); Bilirubin Urine Negative (Negative); Blood Urine Trace-Intact (Negative); Color Urine Light Yellow (Yellow); Glucose Urine UA Negative (Negative); Ketones Urine Negative (Negative); Leukocyte Esterase Ur Trace LEU/UL (Negative); Nitrate Urine Negative (Negative); Protein Urine Negative (Negative); Specific Grav Ur 1.015 (1.010-1.020); Urobilinogen Urine 0.2 mg/dL (0.2-1.0)
[2022-12-25 11:08] LABS: Hemoglobin A1C 7.3 % (<5.7)
[2022-12-25 11:10] LABS: Add Urine Microscopic? YES; RBC Urine 0-2 /hpf (0-2); Squamous Epithelial Cell Urine Occasional /hpf (Few); WBC Urine 0-3 /hpf (0-3)
[2022-12-25 11:11] LABS: Bacteria Urine Rare /hpf
[2022-12-25 11:48] LABS: Alanine Aminotransferase 25 U/L (14-59); Albumin Level 4.1 g/dL (3.4-5.0); Alkaline Phosphatase 41 U/L (46-116); Anion Gap 7 mmol/L (8-16); Aspartate Amino Transferase 20 U/L (15-37); Bilirubin,Total 0.5 mg/dL (0.00-1.00); Blood Urea Nitrogen 34 mg/dL (7-18); Calcium 10.1 mg/dL (8.5-10.1); Carbon Dioxide 32 mmol/L (21-32); Chloride 106 mmol/L (98-108); Cholesterol 135 mg/dL (0-200); Creatine Kinase 58 U/L (26-192); Estimated Glomerular Filt Rate 39; Ferritin 122 ng/mL (8-252); Free T3 2.76 pg/mL (2.18-3.98); Glucose 144 mg/dL (70-99); HDL Direct 67 mg/dL (40-60); Iron 64 ug/dL (50-170); LDL Cholesterol Calculated 55 mg/dL (<130); NT Pro B Type Natriuretic Pept 1093 pg/mL (0-450); Osmolality Calculated 310 mOsm/kg (285-295); Potassium 4.4 mmol/L (3.5-5.1); Sodium 145 mmol/L (136-145); Thyroid Stimulating Hormone 3.71 uIU/mL (0.36-3.74); Total Protein 7.2 g/dL (6.4-8.2); Triglycerides 64 mg/dL (0-150); Vitamin B12 1256 pg/mL (193-986)
[2022-12-28 06:43] LABS: Vitamin D 25 Hydroxy 30 ng/mL (30-100)
== END 2022-12-25 10:37 | disposition home or self-care (01) ==
LOC: CHSLAB 10:38
PROVIDERS: Visit Provider Internal Medicine
DX: I50.9 Heart failure, unspecified (principal); D50.9 Iron deficiency anemia, unspecified; E03.9 Hypothyroidism, unspecified; N39.0 Urinary tract infection, site not specified; M81.0 Age-related osteoporosis without current pathological fracture; E11.65 Type 2 diabetes mellitus with hyperglycemia
CPT/HCPCS: 36415; 80053; 80061; 81001; 82306; 82550; 82607; 82728; 83036; 83540; 83880; 84439; 84443; 84481; 85025

== ENCOUNTER 2023-03-30 10:19 | Outpatient (NON) | payer MEDICARE, SELFPAY ==
[2023-03-30 11:18] LABS: Basophils Absolute Auto 0.07 K/mm3 (0.00-0.10); Basophils Percent Auto 1.1 % (0.0-1.0); Eosinophils Absolute Auto 0.22 K/mm3 (0.02-0.50); Eosinophils Percent Auto 3.4 % (1.0-6.0); Hematocrit 38.1 % (35.0-42.0); Hemoglobin 12.1 g/dL (11.7-13.8); Immature Granulocyte Absolute 0.02 K/mm3 (0.00-0.00); Immature Granulocyte Percent A 0.3 % (0.0-0.0); Lymphocytes Absolute Auto 1.62 K/mm3 (1.10-4.50); Mean Corpuscular HGB Conc 31.8 g/dL (32.0-36.0); Mean Corpuscular Hemoglobin 29.7 pg (27.0-31.0); Mean Corpuscular Volume 93.4 fL (78.0-102.0); Mean Platelet Volume 10.9 fl (9.2-11.8); Monocytes Percent Auto 10.8 % (2.0-11.0); Neutrophils Absolute Auto 3.8 K/mm3 (1.7-7.2); Neutrophils Percent Auto 59.4 % (50.0-70.0); Platelet Count Result 152 K/mm3 (150-420); Red Blood Count 4.08 M/mm3 (4.20-5.40); Red Cell Distribution Width 13.2 % (11.6-14.4); White Blood Count 6.5 K/mm3 (4.8-10.8)
[2023-03-30 11:19] LABS: Appearance Urine Clear (Clear); Bilirubin Urine Negative (Negative); Blood Urine Trace-Intact (Negative); Color Urine Light Yellow (Yellow); Glucose Urine UA Negative (Negative); Ketones Urine Negative (Negative); Leukocyte Esterase Ur Trace LEU/UL (Negative); Nitrate Urine Negative (Negative); Protein Urine Negative (Negative); Specific Grav Ur 1.025 (1.010-1.020); Urobilinogen Urine 0.2 mg/dL (0.2-1.0)
[2023-03-30 11:25] LABS: Add Urine Microscopic? YES
[2023-03-30 11:26] LABS: Bacteria Urine Trace /hpf; Creatinine Urine 93.87 mg/dL (40-278); MALB Creatinine Ratio 18.7 mg/g (0-30); Microalbumin Urine Random 17.6 mg/L; RBC Urine 0-2 /hpf (0-2); Squamous Epithelial Cell Urine Few /hpf (Few); WBC Urine 0-3 /hpf (0-3)
[2023-03-30 12:06] LABS: Alanine Aminotransferase 20 U/L (14-59); Albumin Level 3.9 g/dL (3.4-5.0); Alkaline Phosphatase 46 U/L (46-116); Anion Gap 11 mmol/L (8-16); Aspartate Amino Transferase 15 U/L (15-37); Bilirubin,Total 0.4 mg/dL (0.00-1.00); Blood Urea Nitrogen 33 mg/dL (7-18); Calcium 11.1 mg/dL (8.5-10.1); Carbon Dioxide 27 mmol/L (21-32); Chloride 106 mmol/L (98-108); Cholesterol 137 mg/dL (0-200); Estimated Glomerular Filt Rate 35; Ferritin 86 ng/mL (8-252); Glucose 128 mg/dL (70-99); HDL Direct 61 mg/dL (40-60); Iron 47 ug/dL (50-170); LDL Cholesterol Calculated 61 mg/dL (<130); NT Pro B Type Natriuretic Pept 1713 pg/mL (0-450); Osmolality Calculated 307 mOsm/kg (285-295); Potassium 4.3 mmol/L (3.5-5.1); Sodium 144 mmol/L (136-145); Triglycerides 73 mg/dL (0-150); Vitamin B12 1325 pg/mL (193-986)
== END 2023-03-30 10:20 | disposition home or self-care (01) ==
LOC: CHSLAB 10:22
PROVIDERS: Visit Provider Internal Medicine
DX: D50.9 Iron deficiency anemia, unspecified (principal); I50.9 Heart failure, unspecified; I10 Essential (primary) hypertension; E53.8 Deficiency of other specified B group vitamins; E11.65 Type 2 diabetes mellitus with hyperglycemia; N39.0 Urinary tract infection, site not specified; E78.2 Mixed hyperlipidemia
CPT/HCPCS: 36415; 80053; 80061; 81001; 82043; 82607; 82728; 83036; 83540; 83880; 85025

== ENCOUNTER 2023-04-17 09:16 | Outpatient (CLI) | payer MEDICARE, OTHER, SELFPAY ==
[2023-04-17 09:37] VITALS: BMI 27.3
[2023-04-17] MEDS: IRON SUCROSE COMPLEX 300 MG in SODIUM CHLORIDE 0.9% IV 250 ML 125 MG IVPB (09:40)
[2023-04-17 09:47] VITALS: BP 122/69; PULSE 68; RESP 14; TEMP 36.4; O2SAT 98
--- NOTE | 2023-04-17 11:54 | PC.NURSE ---
Patient here for IV Venofer infusion. Education given. No concerns voiced. IV Venofer infusion administered. SEE MAR. Tolerated well. Safe exit of hospital ambulatory with dtr.
== END 2023-04-17 09:17 | disposition home or self-care (01) ==
LOC: CHSTREATRM 09:18
PROVIDERS: PCP Internal Medicine; Visit Provider Internal Medicine
DX: D50.9 Iron deficiency anemia, unspecified (principal)
CPT/HCPCS: 96365; 96366; J1756; J7050

== ENCOUNTER 2023-07-09 10:39 | Outpatient (NON) | payer MEDICARE, SELFPAY ==
[2023-07-09 11:05] LABS: Basophils Absolute Auto 0.06 K/mm3 (0.00-0.10); Basophils Percent Auto 1.2 % (0.0-1.0); Eosinophils Absolute Auto 0.24 K/mm3 (0.02-0.50); Eosinophils Percent Auto 4.7 % (1.0-6.0); Hematocrit 36.5 % (35.0-42.0); Immature Granulocyte Absolute 0.01 K/mm3 (0.00-0.00); Immature Granulocyte Percent A 0.2 % (0.0-0.0); Lymphocytes Absolute Auto 1.08 K/mm3 (1.10-4.50); Lymphocytes Percent Auto 21.1 % (18.0-42.0); Mean Corpuscular HGB Conc 32.9 g/dL (32.0-36.0); Mean Corpuscular Hemoglobin 30.4 pg (27.0-31.0); Mean Corpuscular Volume 92.4 fL (78.0-102.0); Mean Platelet Volume 10.5 fl (9.2-11.8); Monocytes Absolute Auto 0.57 K/mm3 (0.10-0.90); Monocytes Percent Auto 11.1 % (2.0-11.0); Neutrophils Absolute Auto 3.2 K/mm3 (1.7-7.2); Neutrophils Percent Auto 61.7 % (50.0-70.0); Platelet Count Result 152 K/mm3 (150-420); Red Blood Count 3.95 M/mm3 (4.20-5.40); Red Cell Distribution Width 13.9 % (11.6-14.4); White Blood Count 5.1 K/mm3 (4.8-10.8)
[2023-07-09 11:06] LABS: Appearance Urine Clear (Clear); Bilirubin Urine Negative (Negative); Blood Urine Negative (Negative); Color Urine Light Yellow (Yellow); Glucose Urine UA Negative (Negative); Ketones Urine Negative (Negative); Leukocyte Esterase Ur Trace (Negative); Nitrate Urine Negative (Negative); Protein Urine Negative (Negative); Urobilinogen Urine 0.2 mg/dL (0.2-1.0); pH Urine 5.5 (5.0-8.0)
[2023-07-09 11:13] LABS: Add Urine Microscopic? YES; Bacteria Urine Trace /hpf; RBC Urine None seen /hpf (0-2); Squamous Epithelial Cell Urine Occasional /hpf (Few); WBC Urine 0-3 /hpf (0-3)
[2023-07-09 13:32] LABS: Creatinine Urine 98.19 mg/dL (40-278); MALB Creatinine Ratio 13.2 mg/g (0-30); Microalbumin Urine Random < 13.0 mg/L
[2023-07-09 13:44] LABS: Alanine Aminotransferase 26 U/L (14-59); Albumin Level 3.6 g/dL (3.4-5.0); Alkaline Phosphatase 33 U/L (46-116); Anion Gap 8 mmol/L (8-16); Aspartate Amino Transferase 16 U/L (15-37); Bilirubin,Total 0.6 mg/dL (0.00-1.00); Blood Urea Nitrogen 31 mg/dL (7-18); Calcium 9.9 mg/dL (8.5-10.1); Carbon Dioxide 29 mmol/L (21-32); Chloride 105 mmol/L (98-108); Cholesterol 136 mg/dL (0-200); Creatine Kinase 52 U/L (26-192); Estimated Glomerular Filt Rate 33; Ferritin 141 ng/mL (8-252); Free T3 2.42 pg/mL (2.18-3.98); Free T4 Free Thyroxine 1.04 ng/dL (0.76-1.46); Glucose 132 mg/dL (70-99); HDL Direct 63 mg/dL (40-60); Iron 64 ug/dL (50-170); LDL Cholesterol Calculated 56 mg/dL (<130); NT Pro B Type Natriuretic Pept 1337 pg/mL (0-450); Osmolality Calculated 302 mOsm/kg (285-295); Sodium 142 mmol/L (136-145); Thyroid Stimulating Hormone 2.49 uIU/mL (0.36-3.74); Total Protein 7.3 g/dL (6.4-8.2); Triglycerides 84 mg/dL (0-150)
== END 2023-07-09 10:40 | disposition home or self-care (01) ==
LOC: CHSLAB 10:43
PROVIDERS: Visit Provider Internal Medicine
DX: E11.42 Type 2 diabetes mellitus with diabetic polyneuropathy (principal); E06.1 Subacute thyroiditis; D50.9 Iron deficiency anemia, unspecified; I48.19 Other persistent atrial fibrillation; I50.812 Chronic right heart failure; N18.30 Chronic kidney disease, stage 3 unspecified
CPT/HCPCS: 36415; 80053; 80061; 81001; 82043; 82550; 82728; 83036; 83540; 83880; 84439; 84443; 84481; 85025

== ENCOUNTER 2023-10-22 12:34 | Outpatient (NON) | payer MEDICARE, SELFPAY ==
[2023-10-22 13:27] LABS: Basophils Absolute Auto 0.06 K/mm3 (0.00-0.10); Eosinophils Absolute Auto 0.21 K/mm3 (0.02-0.50); Eosinophils Percent Auto 3.6 % (1.0-6.0); Hematocrit 40.5 % (35.0-42.0); Hemoglobin 12.5 g/dL (11.7-13.8); Immature Granulocyte Absolute 0.02 K/mm3 (0.00-0.00); Immature Granulocyte Percent A 0.3 % (0.0-0.0); Lymphocytes Absolute Auto 1.41 K/mm3 (1.10-4.50); Lymphocytes Percent Auto 24.3 % (18.0-42.0); Mean Corpuscular HGB Conc 30.9 g/dL (32-36); Mean Corpuscular Hemoglobin 28.7 pg (27.0-31.0); Mean Corpuscular Volume 92.9 fL (78.0-102.0); Monocytes Absolute Auto 0.59 K/mm3 (0.10-0.90); Monocytes Percent Auto 10.2 % (2.0-11.0); Neutrophils Absolute Auto 3.52 K/mm3 (1.70-7.20); Neutrophils Percent Auto 60.6 % (50.0-70.0); Platelet Count Result 163 K/mm3 (150-420); Red Blood Count 4.36 M/mm3 (4.20-5.40); Red Cell Distribution Width 13.2 % (11.6-14.4); White Blood Count 5.8 K/mm3 (4.8-10.8)
[2023-10-22 13:37] LABS: Appearance Urine Clear (Clear); Bilirubin Urine Negative (Negative); Blood Urine Negative (Negative); Color Urine Light Yellow (Yellow); Glucose Urine UA Negative (Negative); Ketones Urine Negative (Negative); Leukocyte Esterase Ur Trace LEU/UL (Negative); Nitrate Urine Negative (Negative); Protein Urine Negative (Negative); Specific Grav Ur 1.025 (1.010-1.020); Urobilinogen Urine 0.2 mg/dL (0.2-1.0)
[2023-10-22 14:11] LABS: Add Urine Microscopic? YES; Bacteria Urine Trace /hpf; RBC Urine None seen /hpf (0-2); Squamous Epithelial Cell Urine Few /hpf (Few); WBC Urine None seen /hpf (0-3)
[2023-10-22 14:14] LABS: Alanine Aminotransferase 24 U/L (14-59); Albumin Level 4.1 g/dL (3.4-5.0); Alkaline Phosphatase 42 U/L (46-116); Anion Gap 7 mmol/L (4-12); Aspartate Amino Transferase 31 U/L (15-37); Bilirubin,Total 0.6 mg/dL (0.00-1.00); Blood Urea Nitrogen 30 mg/dL (7-18); Calcium 10.3 mg/dL (8.5-10.1); Carbon Dioxide 32 mmol/L (21-32); Chloride 105 mmol/L (98-108); Cholesterol 136 mg/dL (0-200); Creatine Kinase 86 U/L (26-192); Estimated Glomerular Filt Rate 41; Ferritin 87 ng/mL (8-252); Glucose 118 mg/dL (70-99); HDL Direct 63 mg/dL (40-60); Iron 69 ug/dL (50-170); LDL Cholesterol Calculated 54 mg/dL (<130); NT Pro B Type Natriuretic Pept 1530 pg/mL (0-450); Osmolality Calculated 305 mOsm/kg (285-295); Potassium 4.6 mmol/L (3.5-5.1); Sodium 144 mmol/L (136-145); Total Protein 7.8 g/dL (6.4-8.2); Triglycerides 94 mg/dL (0-150)
[2023-10-22 14:20] LABS: Hemoglobin A1C 6.7 % (<5.7)
== END 2023-10-22 12:35 | disposition home or self-care (01) ==
LOC: CHSLAB 12:36
PROVIDERS: Visit Provider Internal Medicine
DX: D50.9 Iron deficiency anemia, unspecified (principal); I50.812 Chronic right heart failure; G62.9 Polyneuropathy, unspecified; I48.19 Other persistent atrial fibrillation; I10 Essential (primary) hypertension; E11.42 Type 2 diabetes mellitus with diabetic polyneuropathy
CPT/HCPCS: 36415; 80053; 80061; 81001; 82550; 82728; 83036; 83540; 83880; 85025

== ENCOUNTER 2024-02-04 10:46 | Outpatient (NON) | payer MEDICARE, SELFPAY ==
[2024-02-04 11:04] LABS: Hematocrit 37.3 % (35.0-42.0); Hemoglobin 12.4 g/dL (11.7-13.8); Mean Corpuscular HGB Conc 33.2 g/dL (32-36); Mean Corpuscular Hemoglobin 30.4 pg (27.0-31.0); Mean Corpuscular Volume 91.4 fL (78.0-102.0); Mean Platelet Volume 10.4 fl (9.2-11.8); Platelet Count Result 140 K/mm3 (150-420); Red Blood Count 4.08 M/mm3 (4.20-5.40); Red Cell Distribution Width 13.8 % (11.6-14.4)
[2024-02-04 11:05] LABS: Add Urine Microscopic? YES; Appearance Urine Clear (Clear); Bilirubin Urine Negative (Negative); Blood Urine Negative (Negative); Color Urine Light Yellow (Yellow); Glucose Urine UA Negative (Negative); Ketones Urine Negative (Negative); Leukocyte Esterase Ur Trace LEU/UL (Negative); Nitrate Urine Negative (Negative); Protein Urine Negative (Negative); Specific Grav Ur 1.015 (1.010-1.020); Urobilinogen Urine 0.2 mg/dL (0.2-1.0)
[2024-02-04 11:14] LABS: Bacteria Urine Trace /hpf; RBC Urine None seen /hpf (0-2); Squamous Epithelial Cell Urine Rare /hpf (Few); WBC Urine 0-3 /hpf (0-3)
[2024-02-04 11:45] LABS: Hemoglobin A1C 6.9 % (<5.7)
[2024-02-04 11:50] LABS: Alanine Aminotransferase 21 U/L (14-59); Albumin Level 3.9 g/dL (3.4-5.0); Alkaline Phosphatase 49 U/L (46-116); Anion Gap 6 mmol/L (4-12); Aspartate Amino Transferase 21 U/L (15-37); Bilirubin,Total 0.6 mg/dL (0.00-1.00); Blood Urea Nitrogen 33 mg/dL (7-18); Carbon Dioxide 33 mmol/L (21-32); Chloride 105 mmol/L (98-108); Estimated Glomerular Filt Rate 30; Ferritin 84 ng/mL (8-252); Glucose 141 mg/dL (70-99); Iron 58 ug/dL (50-170); NT Pro B Type Natriuretic Pept 1760 pg/mL (0-450); Osmolality Calculated 307 mOsm/kg (285-295); Potassium 4.4 mmol/L (3.5-5.1); Sodium 144 mmol/L (136-145); Total Protein 7.4 g/dL (6.4-8.2); Vitamin B12 1399 pg/mL (193-986)
== END 2024-02-04 10:47 | disposition home or self-care (01) ==
LOC: CHSLAB 10:48
PROVIDERS: Visit Provider Internal Medicine
DX: G62.9 Polyneuropathy, unspecified (principal); D50.9 Iron deficiency anemia, unspecified; I10 Essential (primary) hypertension; I48.19 Other persistent atrial fibrillation; E11.9 Type 2 diabetes mellitus without complications; E53.8 Deficiency of other specified B group vitamins; I50.9 Heart failure, unspecified
CPT/HCPCS: 80053; 81001; 82607; 82728; 83036; 83540; 83880; 85027

== ENCOUNTER 2024-04-19 10:55 | Outpatient (CLI) | payer MEDICARE, SELFPAY ==
--- NOTE | ~2024-04-19 | XR_ITS ---
EXAMINATION: XR bone survey comp/metastic DATE: 04/19/2024 12:10 INDICATION: Hypercalcemia. TECHNIQUE: 30 views of a skeletal survey were obtained. COMPARISON: None. FINDINGS: There is no pneumonia, pleural effusion, or pneumothorax. Cardiomegaly is noted. There is a n old healed fracture of proximal right humerus with instrumentation. There are anterior and posterio r fusion procedures at L4-L5. Surgical clips in the right upper quadrant are likely from cholecystect tonia. IMPRESSION: 1. No evidence of malignancy. Reviewed, dictated and finalized at location A.
== END 2024-04-19 10:56 | disposition home or self-care (01) ==
PROVIDERS: PCP Internal Medicine; Visit Provider Internal Medicine
DX: E83.52 Hypercalcemia (principal)
CPT/HCPCS: 77075

== ENCOUNTER 2024-06-01 12:26 | Outpatient (CLI) | payer MEDICARE, OTHER, SELFPAY ==
[2024-06-01 12:50] LABS: Basophils Absolute Auto 0.06 K/mm3 (0.00-0.10); Basophils Percent Auto 0.8 % (0.0-1.0); Eosinophils Absolute Auto 0.26 K/mm3 (0.02-0.50); Eosinophils Percent Auto 3.3 % (1.0-6.0); Hematocrit 39.1 % (35.0-42.0); Hemoglobin 12.5 g/dL (11.7-13.8); Immature Granulocyte Absolute 0.04 K/mm3 (0.00-0.00); Immature Granulocyte Percent A 0.5 % (0.0-0.0); Lymphocytes Absolute Auto 0.99 K/mm3 (1.10-4.50); Lymphocytes Percent Auto 12.4 % (18.0-42.0); Mean Corpuscular Hemoglobin 28.7 pg (27.0-31.0); Mean Corpuscular Volume 89.7 fL (78.0-102.0); Mean Platelet Volume 9.9 fl (9.2-11.8); Monocytes Absolute Auto 0.71 K/mm3 (0.10-0.90); Monocytes Percent Auto 8.9 % (2.0-11.0); Neutrophils Absolute Auto 5.91 K/mm3 (1.70-7.20); Neutrophils Percent Auto 74.1 % (50.0-70.0); Platelet Count Result 176 K/mm3 (150-420); Red Blood Count 4.36 M/mm3 (4.20-5.40); Red Cell Distribution Width 13.6 % (11.6-14.4)
[2024-06-01 13:34] LABS: Alanine Aminotransferase 18 U/L (14-59); Albumin Level 4.1 g/dL (3.4-5.0); Alkaline Phosphatase 61 U/L (46-116); Anion Gap 8 mmol/L (4-12); Aspartate Amino Transferase 18 U/L (15-37); Bilirubin,Total 0.8 mg/dL (0.00-1.00); Blood Urea Nitrogen 23 mg/dL (7-18); Calcium 10.1 mg/dL (8.5-10.1); Carbon Dioxide 30 mmol/L (21-32); Chloride 103 mmol/L (98-108); Estimated Glomerular Filt Rate 36; Glucose 117 mg/dL (70-99); Osmolality Calculated 296 mOsm/kg (285-295); Sodium 141 mmol/L (136-145); Total Protein 7.8 g/dL (6.4-8.2)
[2024-06-02 07:43] LABS: Vitamin D 25 Hydroxy 23 ng/mL (30-100)
[2024-06-02 09:23] LABS: Protein, Total 7.7 g/dL (6.1-8.1)
[2024-06-02 11:33] LABS: Ionized Calcium 5.4 mg/dL (4.7-5.5)
[2024-06-03 04:14] LABS: Immunoglobulin A 280 mg/dL (70-320); Immunoglobulin G 1476 mg/dL (600-1540); Immunoglobulin M 289 mg/dL (50-300)
[2024-06-03 05:38] LABS: Creatinine, Random Urine 25 mg/dL (20-275); Total Protein/Creatinine Ratio 160 mg/g creat (24-184)
[2024-06-03 11:55] LABS: Kappa\\Lambda Light Chains 2.94 (0.26-1.65); Lambda Light Chain 19.1 mg/L (5.7-26.3)
[2024-06-03 13:09] LABS: Abnormal Protein Band 1 0.2 g/dL (NONE DETECTED); Albumin 4.2 g/dL (3.8-4.8); Alpha 1 Globulin 0.4 g/dL (0.2-0.3); Alpha 2 Globulin 0.9 g/dL (0.5-0.9); Beta 1 Globulin 0.5 g/dL (0.4-0.6); Gamma Globulin 1.3 g/dL (0.8-1.7)
== END 2024-06-01 12:27 | disposition home or self-care (01) ==
PROVIDERS: PCP Internal Medicine; Visit Provider Internal Medicine Hematology
DX: D47.2 Monoclonal gammopathy (principal); M81.0 Age-related osteoporosis without current pathological fracture
CPT/HCPCS: 36415; 80053; 82306; 82330; 82570; 82784; 83883; 84155; 84156; 84165; 84166; 85025; 86334

== ENCOUNTER 2024-08-22 15:11 | Outpatient (CLI) | payer MEDICARE, OTHER, SELFPAY ==
--- NOTE | ~2024-08-22 | XR_ITS ---
Thoracic spine: Clinical Indication: Back pain AP and lateral views were performed. Probable mild compression deformity of T11. There is mild to moderate degenerative disc change throug hout the thoracic spine. 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 Paravertebral soft tissues appear n ormal. Impression: Probable mild compression deformity of T11, age indeterminate. Moderate degenerative spondylitic changes, as above. Reviewed, dictated and finalized at location . IC RELATIONS COORDINATOR Impression: Probable mild compression deformity of T11, age indeterminate. Moderate degenerative spondylitic changes, as above.
--- NOTE | ~2024-08-22 | XR_ITS ---
Lumbosacral Spine: AP and lateral views Clinical History: Pain COMPARISON: 11/11/2019 Findings: Status post interval posterior and interbody fusion from L4 to L5. Underlying 9 mm anteroli sthesis of L4 over L5 persists. There is moderate degenerative disc narrowing at L3-L4. There is adva nced degenerative disc narrowing at L5-S1. There is moderate facet arthropathy throughout the lumbar spine. The sacroiliac joints are normally outlined. Impression: Status post L4-L5 fusion, as above, with persistent underlying anterolisthesis of L4 over L5. Moderate degenerative spondylitic changes otherwise, as above. Reviewed, dictated and finalized at location M. DRIVER Impression: Status post L4-L5 fusion, as above, with persistent underlying anterolisthesis of L4 over L5. Moderate degenerative spondylitic changes otherwise, as above.
--- OUTSIDE RECORDS SUMMARY | 2024-08-22 17:47 | XMS_ITS | Patient Health Record ---
Author Organization [facility] Address [address] [place], [place] [id number] Care Team Providers Care Adult Remedial Education Instructor Name Role Phone Jimbo Rey Unavailable Unavailable LUCY MELCHOR Unavailable [phone] MANNY GUERRERO Unavailable [phone] Allergies No Known Allergies Reason For Referral No Information Medications Medication SIG (Take, Route, Frequency, Duration) Notes Start Date End Date Status Galantamine Hydrobromide 8 MG Oral for 90 Days Active Tradjenta 5 MG TAKE 1 TABLET BY KATIE TH EVERY DAY Oral for 30 Days Active Klor-Con M20 20 MEQ Oral for 90 Days Active Atorvastatin Calcium 10 MG TAKE 1 TABLET BY MOUTH EVERY DAY Oral for 90 Days Active Losartan Potassium 100 MG Oral for 90 Days Active Vitamin B-12 1000 MCG DISSOLVE 1 TABLET UNDER TONGUE EVERY DAY Sublingual for 90 Days Active Metoprolol Succinate ER 25 MG Oral for 90 Days Active Clotrimazole-Betamethasone 1-0.05 % 1 application Externally Twice a day 11/19/2023 Active Furosemide 40 MG TAKE 1 TABLET BY KATIE TH EVERY DAY Oral for 90 Days Active Calcitriol 0.5 MCG TAKE 1 CAPSULE BY MO UTH EVERY DAY Oral for 90 Days Active busPIRone HCl 10 MG Oral for 90 Days Active Pantoprazole Sodium 40 MG Oral for 90 Days Active Eliquis 2.5 MG TAKE 1 TABLET BY KATIE TH TWICE A DAY Oral for 90 Days Active Loteprednol Etabonate 0.5 % Ophthalmic for 50 Days Active dilTIAZem HCl ER Coated Beads 180 MG TAKE 1 CAPSULE BY MOUTH EVERY DAY Oral for 90 Days Active Immunizations Vaccine Route Administration Date Status Comme nts Influenza, high dose seasonal Unknown 04/30/2023 Admini stered Vital Signs Height-cm 160.02 cm 11/19/2023 Weight-kg 69.4 kg 11/19/2023 Height 63 in 11/19/2023 Weight 153 lbs 11/19/2023 BMI 27.1 kg/m2 11/19/2023 Encounters Encounter Location Date Provider Diagnosis [address] [id number] 09/17/2023 MANNY GUERRERO Pain in left foot M79.672 ; Onychomycosis B35.1 ; Other hammer toe(s) (acquired), right foot M20.41 ; Other hammer toe(s) (acquired), left foot M20.42 ; Pain in right toe(s) M79.674 ; Pain in left toe(s) M79.675 ; 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, bilateral legs I70.203 and Acquired keratosis [keratoderma] palmaris et plantaris L85.[address] [id number] 11/19/2023 MANNY GUERRERO Onychomycosis B35.1 ; Tinea pedis B35.3 ; Pain in left foot M79.672 ; Other hammer toe(s) (acquired), right foot M20.41 ; Other hammer toe(s) (acquired), left foot M20.42 ; Pain in right toe(s) M79.674 ; Pain in left toe(s) M79.675 ; 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 The patient was told to keep feet dry and change socks. The patient was told to be careful with old shoes and excessive sweating. The patient was educated regarding both OTC and prescription treatments. 11/19/2023 Onychomycosis (ICD-10 - B35.1) Aseptic debridement of elongated thickened nails x 10 using sterile nippers, nails were debrided in length and thickness by 30% utilizing a nail nipper without incident. The patient was educated regarding all treatment options that include topical and oral antifungal treatments. I discussed the options of taking a sample of the nail to confirm diagnosis. Nail clippings were not sent for pathology analysis. The patient was educated why and how the fungal infection evolved in their feet and the patient was given information regarding how to prevent further infection. The patient was told to keep feet dry and change socks. The patient was told to be careful with old shoes and excessive sweating. The patient was educated regarding both OTC and prescription treatments. 11/19/2023 Pain in left foot (ICD-10 - M79.672) 09/17/2023 Other hammer toe(s) (acquired), right foot (ICD-10 - M20.41) The patient was educated regarding how to mechanically stabilize their deformity. The patient was given education about shoe recommendations specific for the condition. The patient was educated about custom orthotics and how appropriate shoes and orthotics can prevent further worsening of the deformity. The patient was educated about how bad shoe habits can worsen the condition. NSAIDS, P.T., injections and other conservative treatments were discussed. Both surgical and non surgical treatments were discussed, but conservative options were emphasized. 09/17/2023 Other hammer toe(s) (acquired), left foot (ICD-10 - M20.42) 11/19/2023 Other hammer toe(s) (acquired), right foot (ICD-10 - M20.41) The patient was educated regarding how to mechanically stabilize their deformity. The patient was given education about shoe recommendations specific for the condition. The patient was educated about custom orthotics and how appropriate shoes and orthotics can prevent further worsening of the deformity. The patient was educated about how bad shoe habits can worsen the condition. NSAIDS, P.T., injections and other conservative treatments were discussed. Both surgical and non surgical treatments were discussed, but conservative options were emphasized. 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 After removal of overlying extensive hyperkeratosis, healthy tissue was noted and care was taken to assure that no undermining or probing was present. It should be noted that no probing was noted and no infection or drainage was noted. 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 After removal of overlying extensive hyperkeratosis, healthy tissue was noted and care was taken to assure that no undermining or probing was present. It should be noted that no probing was noted and no infection or drainage was noted. Plan Of Treatment No Information Insurance Providers Payer Name Payer Address Payer Phone Subscriber Number Group Number Insured Name Patient Relationship to Insured Coverage Start Date Coverage End Date Medicare Part B [facility] [address] [id number], [place] Self - patient is the insured [place] [employer] [address] [place] [id number] [place] Self - patient is the insured Medical (General) History Medical History History ICD Code stroke Open sores hypertension
--- OUTSIDE RECORDS SUMMARY | 2024-08-22 17:47 | XMS_ITS | Referral Summary ---
Author Organization [facility] Address [address] [place] [address] Care Team Providers Care Social Contact Worker Name Role Phone Jimbo Rey MD Primary Care Provider [phone] Allergies No known active allergies Medications dilTIAZem CD 180 mg 24 hr capsule 1 capsule 0 Active losartan (COZAAR) 100 mg tablet Take 1 tablet by mouth daily 0 Active potassium chloride ER 20 mEq CR tablet Take 1 tablet by mouth daily with breakfast [address] (PROTONIX) 40 mg EC tablet 2 Active atorvastatin (LIPITOR) 40 mg tablet Take 1 tablet (40 mg total) by mouth nightly 30 tablet 2 Active linaGLIPtin (TRADJENTA) 5 mg tabletIndications :type 2 diabetes mellitus 5 mg Active loteprednol (LOTEMAX) 0.5 % ophthalmic suspension INSTILL 1 DROP INTO BOTH EYES DAILY 2 Active furosemide (LASIX) 20 mg tablet Take 20 mg by mouth daily 2 Active cyanocobalamin (Vitamin B-12) 50 mcg tablet Take 500 mcg by mouth daily Active busPIRone (BUSPAR) 5 mg tablet Take 10 mg by mouth 2 (two) times a day 2 Active calcitRIOL (ROCALTROL) 0.5 mcg capsule Take by mouth daily 2 Active metoprolol XL (TOPROL-XL) 25 mg extended release tablet Take 25 mg by mouth daily Active apixaban (ELIQUIS) 2.5 mg tabletIndications :atrial fibrillation Take 1 tablet (2.5 mg total) by mouth 2 (two) times a day 60 tablet 3 2 Active Active Problems Problem Noted Date Diagnosed Date GIB (gastrointestinal bleeding) 01/04/2022 Assessment & Plan (01/04/2022 9:34 PM CDT): Having rectal bleeding after being placed on Xarelto for Afib and h/o MCA stroke. Was on Xarelto previously, had rectal bleeding, and it was being held. Xarelto was just restarted again 2 weeks ago and now she returns with rectal bleeding -- Had cscope June 2020 that was unremarkable -- EGD in September 2021 showed acute gastritis -- Capsule in October 2021 was unremarkable -- CTA at OSH showed concern for bleeding in ascending colon -- Hg today dropped from 11 to 7.4 -- s/p K centra and 1 unit pRBC at the OSH -- hg now stabilized -- Hold aspirin and Xarelto -- NPO, IVF -- Follow H/H and transfuse to keep hemoglobin > 7. -- Consult GI -- IV PPI BID -- Have discussed with her daughters the challenge over the risk/benefit of anticoagulation going forward if she continues to bleed with anticoagulation History of right MCA stroke 01/04/2022 Assessment & Plan (01/04/2022 9:37 PM CDT): S/p thrombectomy. Holding anticoagulation and ASA as above. Continue statin. Non-toxic multinodular goiter 10/10/2021 Assessment & Plan (10/10/2021 2:21 PM CDT): Diagnosed during hospitalization in August/2021 Thyroid ultrasound showed 3 nodules Right lobe nodule 2.5 cm Left mid lobe 2.1 cm Left inferior lobe nodule 2.0 cm Patient is clinically euthyroid TSH 1.7 on 09/11/21 Plan: The abnormal thyroid ultrasound reviewed and explained to patient Thyroid cancer will need to be ruled out. I recommended FNA biopsy of the 2 nodules identified by radiology as meet criteria for biopsy ( right lobe and left inferior lobe) Nodules then can be monitored with ultrasound in 6 month, if benign, but surgery will be needed if biopsy showing cancer Patient and her daughter understand and agree with above plan. Melena 09/13/2021 Overview (09/13/2021): Added automatically from request for surgery [id number] Encounter for screening colonoscopy 09/13/2021 Overview (09/13/2021): Added automatically from request for surgery [id number] Chest pain 09/08/2021 Enlarged thyroid gland 09/08/2021 Overview (09/08/2021): Per CT angiogram of chest on 09/08/2021: Enlarged nodular thyroid gland, left greater than right Lymphadenopathy 09/08/2021 Overview (09/08/2021): Per CT angiogram of chest on 09/08/2021: Nonspecific, mildly enlarged right paratracheal lymph node measuring 1.3 cm. Recommend follow-up chest CT in 3 months for further evaluation. Acute ischemic right middle cerebral artery (MCA ) stroke 08/21/2021 Overview (09/08/2021): s/p thrombectomy for M1 occlusion, TICI 3 at [facility] on 08/21/2021. Acute stroke due to ischemia 08/21/2021 Coronary artery calcification seen on CT scan Polyneuropathy, unspecified 06/11/2020 Presbycusis, bilateral 06/11/2020 Essential hypertension 06/11/2020 Assessment & Plan (01/04/2022 9:38 PM CDT): Continue home metoprolol. Holding losartan and dilt - will restart as pressures allow. Assessment & Plan (10/10/2021 2:21 PM CDT): Controlled with medication - continue medication per PCP Paroxysmal atrial fibrillation (CMS/HCC) 020 Assessment & Plan (01/04/2022 9:36 PM CDT): Continue home metoprolol. Holding dilt to watch her BP. Will monitor on tele. Holding xarelto and aspirin as above. 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 Will follow with SSI and accuchecks. Deficiency of other specified B group vitamins 1 08/12/2019 Vitamin D deficiency, unspecified 06/11/2020 Body mass index (BMI) of 30.0-30.9 in adult 05/29 Type 2 diabetes mellitus with unspecified compli cations 06/11/2020 Positive colorectal cancer screening using Colog uard test 06/11/2020 Overview (06/11/2020): Added automatically from request for surgery [id number] Chronic diastolic heart failure 01/05/2020 Assessment & Plan (01/04/2022 9:46 PM CDT): Currently euvolemic. Holding lasix for now. Acute blood loss anemia Immunizations Immunization Administration Dates Next Due Influenza, Quadrivalent, Rosalie l Culture-based MDCK, Antibiotic Free, Intramuscular 05/02/2021 Social History Tobacco Use Types Packs/Day Years Used Date Smoking Tobacco: Never Smokeless Tobacco: Never Social Connection and Isolat ion Panel [NHANES] Answer Date Recorded In a typical week, how many times do you talk on the phone with family, friends, or neighbors? More than three times a week 01/07/2022 How often do you get togethe r with friends or relatives? Never 01/07/2022 How often do you attend chur or tenriism services? 1 to 4 times per year 01/07/2022 Do you belong to any clubs o r organizations such as baptism groups, unions, fraternal or athletic groups, or school groups? No 01/07/2022 How often do you attend meet ings of the clubs or organizations you belong to? Never 01/07/2022 Are you , , di vorced, , never , or living with a partner? 01/07/2022 AUDIT-C Answer Date Recorded Q1: How often do you have a drink containing alc ohol? Monthly or less 09/08/2021 Q2: How many drinks containi ng alcohol do you have on a typical day when you are drinking? 1 or 2 09/08/2021 Q3: How often do you have si x or more drinks on one occasion? Never 09/08/2021 Overall Financial Resource Strain (CARDIA) Answe r Date Recorded How hard is it for you to pa y for the very basics like food, housing, medical care, and heating? Not hard at all 01/07/2022 PHQ-2 Answer Date Recorded PHQ-2 Total Score (If total score is 3 or more points, staff should administer the PHQ-9) 0 08/22/2021 PRAPARE - Transportation Answer Date Re corded In the past 12 months, has l ack of transportation kept you from medical appointments or from getting medications? No 12/27 In the past 12 months, has l ack of transportation kept you from meetings, work, or from getting things needed for daily living? 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 Not on file Not on file Not on file Last Filed Vital Signs Vital Sign Reading Time Taken Comments Blood Pressure 130/64 04/12/2022 3:10 PM CDT Pulse 69 04/12/2022 3:10 PM CDT Temperature 36.7 C (98 F) 04/12/2022 3:10 PM CDT Respiratory Rate 16 04/12/2022 3:10 PM CDT Oxygen Saturation 94% 04/12/2022 3:10 PM CDT Inhaled Oxygen Concentration - - Weight 68 kg (150 lb) 04/12/2022 3:10 PM CDT Height 160 cm (5' 3 ) 04/12/2022 3:10 PM CDT Body Mass Index 26.57 04/12/2022 3:10 PM CDT Plan of Treatment Not on file Medical Devices Implanted Type Area Consultant Technology Device Identifier Shelf Expiration Date Model / Serial / Lot [employer] [id number] Parametric 4mm 50mm 40mm Radiopaque Revascularization - [id number] Implanted:Qty: 1 on 08/21/2021 at [facility] [employer] 06/12/2024 [id number] / / [id number] Description:NOT INPLANT Angio-Seal Evolution 8fr Vascular Closure - [id number] Implanted:Qty: 1 on 08/21/2021 at [facility] Gen9 04/28/2022 [id number] / / [id number] Procedures Procedure Name Priority Date/Time Associated Diagnosis Comments EGFR Routine 01/07/2022 7:10 AM CDT HEMOGLOBIN A1C STAT 08/21/2021 11:01 AM HOME HEALTH SCHEDULER LIPID PANEL STAT 08/21/2021 11:01 AM HOME HEALTH SCHEDULER from Last 3 Months or Most Recently Relevant to Health Maintenance Results * eGFR (01/07/2022 7:10 AM CDT) eGFR 48 mL/min/1. 73 m2 [facility] Comment: Interpretive Data Reference Interval Normal >/= 90 mL/min/1.73m2 Mildly decreased* 60 - 89 mL/min/1.73m2 Mildly to moderately decreased 45 - 59 mL/min/1.73m2 Moderately to severely decreased 30 - 44 mL/min/1.73m2 Severely decreased 15 - 29 mL/min/1.73m2 Kidney Failure < 15 mL/min/1.73m2 *Relative to young adult level Estimated glomerular filtration rate is determined by the 2020 CKD-EPI equation recommended by the National Kidney Foundation (A Unifying Approach to GFR Estimation: Recommendations of the NKF-ASK Task Force on Reassessing the Inclusion of Race in Diagnosing Kidney Disease, JASN 2020). The CKD-EPI equation should not be used for patients with unstable renal function and has not been validated in children and those over 70. Current interpretive data was last reviewed 2021. Blood 01/07/2022 7:10 AM CDT 01/07/2022 8:04 AM CDT Michel Deutsch MD LAB BLOOD ORDERABLES Final Result [facility] [address] Department [place] [address] * (ABNORMAL) Hemoglobin A1c (08/21/2021 11:01 AM HOME HEALTH SCHEDULER) Hgb A1C 6.6(H) 4.0 - 5.6 % [facility] ([place]) Estimated Average Glucose 143 mg/dL [facility] ([place]) Comment: The ADA recommends reporting an estimated Average Glucose (eAG) with all Hemoglobin A1c results using the equation derived from a study of 507 normal and diabetic adults. Minority populations were underrepresented and children were not included. (Diabetes Care 31:2646-8034, 2008). The eAG is not equivalent to a fasting glucose. Blood 08/21/2021 11:0 1 AM HOME HEALTH SCHEDULER 08/21/2021 11:04 AM HOME HEALTH SCHEDULER Tor Esteban MD LAB BLOOD ORDERABLES Fi nal Result Performing Organization Address City/[facility]/ZIP Co de Phone Number [facility] ([place]) 1 [facility] Department [place] [address] * Lipid panel (08/21/2021 11:01 AM HOME HEALTH SCHEDULER) Cholesterol 153 30 - 199 mg/dL [facility] ([place]) Comment: Interpretive Data Ages < or = 19 years Acceptable: <170 mg/dL Borderline high: 170-199 mg/dL High: >or= 200 mg/dL Ages > or = 20 years Desirable: <200 mg/dL Borderline high: 200-239 mg/dL High: >or= 240 mg/dL Literature References: 1. Expert Panel on Integrated Guidelines for Cardiovascular Health and Risk Reduction in Children and Adolescents. Pediatrics 2011;128:S213 2. NCEP Expert Panel. Circulation 2004;110:227 Current Interpretive Data was last revised on 2018. Triglycerides 65 <=149 mg/dL [facility] ([place]) Comment: Interpretive Data Ages < or = 9 years Acceptable: <75 mg/dL Borderline high: 75-99 mg/dL High: >or= 100 mg/dL Ages 10 to 20 years Acceptable: <90 mg/dL Borderline high: 90-129 mg/dL High: >or= 130 mg/dL Ages > or = 20 years Desirable: <150 mg/dL Borderline high: 150-199 mg/dL High: 200-499 mg/dL Very high: >or= 499 mg/dL Literature References: 1. Expert Panel on Integrated Guidelines for Cardiovascular Health and Risk Reduction in Children and Adolescents. Pediatrics 2011;128:S213 2. NCEP Expert Panel. Circulation 2004;110:227 Current Interpretive Data was last revised on 2018. HDL 65 >=40 mg/dL [facility] ([place]) Comment: Interpretive Data Ages < or = 19 years Acceptable: >45 mg/dL Borderline low: 40-45 mg/dL Low: <40 mg/dL Ages > or = 20 years Desirable: >or= 60 mg/dL Low: <40 mg/dL Literature References: 1. Expert Panel on Integrated Guidelines for Cardiovascular Health and Risk Reduction in Children and Adolescents. Pediatrics 2011;128:S213 2. NCEP Expert Panel. Circulation 2004;110:227 Current Interpretive Data was last revised on 2018. LDL, calculated 75 <=129 mg/dL [facility] ([place]) Comment: Interpretive Data Ages < or = 19 years Acceptable: <110 mg/dL Borderline high: 110-129 mg/dL High: >or= 130 mg/dL Ages > or = 20 years Optimal: <100 mg/dL Near optimal: 100-129 mg/dL Borderline high: 130-159 mg/dL High: >160 mg/dL Literature References: 1. Expert Panel on Integrated Guidelines for Cardiovascular Health and Risk Reduction in Children and Adolescents. Pediatrics 2011;128:S213 2. NCEP Expert Panel. Circulation 2004;110:227 Current Interpretive Data was last revised on 2018. Non-HDL Cholesterol 88 mg/dL [facility] ([place]) Comment: Interpretive Data Ages < or = 19 years Acceptable: <120 mg/dL Borderline high: 120-144 mg/dL High: >145 mg/dL Ages > or = 20 years When triglycerides are >200 mg/dL, Non-HDL cholesterol is a secondary target of therapy with treatment goals that are 30 mg/dL greater than the LDL cholesterol target. Literature References: 1. Expert Panel on Integrated Guidelines for Cardiovascular Health and Risk Reduction in Children and Adolescents. Pediatrics 2011;128:S213 2. NCEP Expert Panel. Circulation 2004;110:227 Current Interpretive Data was last revised on 2018. Chol/HDL ratio 2 [facility] ([place]) Blood 08/21/2021 11:0 1 AM HOME HEALTH SCHEDULER 08/21/2021 11:04 AM HOME HEALTH SCHEDULER us Tor Esteban MD LAB BLOOD ORDERABLES Fi nal Result [facility] ([place]) 1 [facility] Department [place] [address] from Last 3 Months or Most Recently Relevant to Health Maintenance Insurance [facility]ICARE [facility] MEDICARE [place] MEDICARE [place] Advance Directives For more information, please contact: [phone] * Full Code (Latest Code Status on File) Date Activated Date Inactivated Comments 01/04/2022 5:06 PM 01/07/2022 7:58 PM * Full Code Date Activated Date Inactivated Comments 09/27/2021 10:16 AM 09/27/2021 4:46 PM * Full Code Date Activated Date Inactivated Comments 09/27/2021 10:16 AM 09/27/2021 10:16 AM * Full Code Date Activated Date Inactivated Comments 09/08/2021 4:06 AM 09/10/2021 12:20 AM * Full Code Date Activated Date Inactivated Comments 08/21/2021 3:08 PM 08/27/2021 9:07 PM Care Teams Social Contact Worker Relationship Specialty Start Date End Date Jimbo Rey MD [address] [place] [address] PCP - General Internal Medicine 06/11/20
--- OUTSIDE RECORDS SUMMARY | 2024-08-22 17:47 | XMS_ITS ---
Author Organization [facility] Address [address] [place], [place] [id number] Care Team Providers Care Generation Mechanic Helper Name Role Phone Jimbo Rey Unavailable Unavailable SNOOK, LUCY Unavailable [phone] REASON FOR VISIT *General care Encounters Encounter Location Date Provider Diagnosis [address] [id number] 08/18/2024 LUCY NORMANK Plan Of Treatment No Information Progress Notes * Nimisha WHYTEOB:[birth year] (88 yo F)Acc No.[id number]:08/18/2024 Patient: Starr MCGRAW Provider: Yinka Melchor DPM :1935 A ge:88 Y S ex:Female Date:08/18/2024 Address:[address] [id number] Subjective: * Chief Complaints: * 1 . *General care. * Medical History: Objective: * Vitals: Assessment: Plan: * Treatment: * Billing Information: * Visit Code: * Procedure Codes: * Electronic signature of LUCY MELCHOR DPM on 08/22/2024 at 05:47 PM BIOCHEMISTRY SPECIALIST Sign off status: Pending * Provider: Yinka Melchor DPM Date: 08/18/2024 Generated for Printi ng/Faxing/eTransmitting on: 0 08/22/2024 05:47 PM BIOCHEMISTRY SPECIALIST
--- OUTSIDE RECORDS SUMMARY | 2024-08-22 17:47 | XMS_ITS | Encounter Summary ---
Author Organization [facility] Address [address] [place] [address] Care Team Providers Care Supervisor Name Role Phone Jimbo Rey MD Primary Care Provider [phone] Encounter Details Date Type Department Care Team (Late st Contact Info) Description 10/16/2021 Telephone [facility] [address] [place] [id number] Mary Castellano, LORENZO Social History Tobacco Use Types Packs/Day Years Used Date Smoking Tobacco: Never Smokeless Tobacco: Never AUDIT-C Answer Date Recorded Q1: How often do you have a drink containing alc ohol? Monthly or less 09/08/2021 Q2: How many drinks containi ng alcohol do you have on a typical day when you are drinking? 1 or 2 09/08/2021 Q3: How often do you have si x or more drinks on one occasion? 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
--- OUTSIDE RECORDS SUMMARY | 2024-08-22 17:47 | XMS_ITS ---
Author Organization [facility] Address [address] [place], [place] [id number] Care Team Providers Care Mesh Cutter Name Role Phone Jimbo Rey Unavailable Unavailable MANNY GUERRERO Unavailable [phone] REASON FOR VISIT *General care Encounters Encounter Location Date Provider Diagnosis [address] [phone] 01/21/2024 MANNY GUERRERO Plan Of Treatment No Information Progress Notes * Nimisha WHYTEOB:[birth year] (88 yo F)Acc No.[id number]:01/21/2024 Patient: Starr MCGRAW Provider: Tori GUERRERO :1935 A ge:88 Y S ex:Female Date:01/21/2024 Address:[address] [id number] Subjective: * Chief Complaints: * 1 . *General care. * Medical History: Objective: * Vitals: Assessment: Plan: * Treatment: * Billing Information: * Visit Code: * Procedure Codes: * Electronic signature of ANNA GUERRERO DPM on 08/22/2024 at 05:46 PM MUSIC PROFESSIONALS Sign off status: Pending * Provider: Tori GUERRERO Date: 0 01/21/2024 Generated for Dora ng/Famarug/eTransmitting on: 0 08/22/2024 05:46 PM MUSIC PROFESSIONALS
--- OUTSIDE RECORDS SUMMARY | 2024-08-22 17:47 | XMS_ITS ---
Author Organization [facility] Address [address] [place], [place] [id number] Care Team Providers Care Die Engraver Name Role Phone Racquel Reyilya Unavailable Unavailable MANNY GUERRERO Unavailable [phone] REASON FOR VISIT *General care Medications Medication SIG (Take, Route, Frequency, Duration) Notes Start Date End Date Status Losartan Potassium 100 MG Oral for 90 Days Active Metoprolol Succinate ER 25 MG Oral for 90 Days Active Calcitriol 0.5 MCG TAKE 1 CAPSULE BY MO UTH EVERY DAY Oral for 90 Days Active Loteprednol Etabonate 0.5 % Ophthalmic for 50 Days Active dilTIAZem HCl ER Coated Beads 180 MG TAKE 1 CAPSULE BY MOUTH EVERY DAY Oral for 90 Days Active Tradjenta 5 MG TAKE 1 TABLET BY KATIE TH EVERY DAY Oral for 30 Days Active Klor-Con M20 20 MEQ Oral for 90 Days Active Galantamine Hydrobromide 8 MG Oral for 90 Days Active Pantoprazole Sodium 40 MG Oral for 90 Days Active Eliquis 2.5 MG TAKE 1 TABLET BY KATIE TH TWICE A DAY Oral for 90 Days Active Atorvastatin Calcium 10 MG TAKE 1 TABLET BY MOUTH EVERY DAY Oral for 90 Days Active Vitamin B-12 1000 MCG DISSOLVE 1 TABLET UNDER TONGUE EVERY DAY Sublingual for 90 Days Active Clotrimazole-Betamethasone 1-0.05 % 1 application Externally Twice a day 11/19/2023 Active Furosemide 40 MG TAKE 1 TABLET BY KATIE TH EVERY DAY Oral for 90 Days Active busPIRone HCl 10 MG Oral for 90 Days Active Vital Signs Weight 153 lbs 11/19/2023 Weight-kg 69.4 kg 11/19/2023 Height 63 in 11/19/2023 Height-cm 160.02 cm 11/19/2023 BMI 27.1 kg/m2 11/19/2023 Encounters Encounter Location Date Provider Diagnosis [address] [id number] 11/19/2023 MANNY GUERRERO Onychomycosis B35.1 ; Tinea pedis B35.3 ; Pain in left foot M79.672 ; Other hammer toe(s) (acquired), right foot M20.41 ; Other hammer toe(s) (acquired), left foot M20.42 ; Pain in right toe(s) M79.674 ; Pain in left toe(s) M79.675 ; Unspecified atherosclerosis of [place] arteries of extremities, bilateral legs I70.203 and Acquired keratosis [keratoderma] palmaris et plantaris L85.1 Assessments Encounter Date Diagnosis (ICD Code) Assessment Notes Treatment Notes Treatment Clinical Notes Section Notes 11/19/2023 Onychomycosis (ICD-10 - B35.1) Aseptic debridement [...] regarding both OTC and prescription treatments. 11/19/2023 Tinea pedis (ICD-10 - B35.3) The [...] Pain in left foot (ICD-10 - M79.672) 11/19/2023 Other hammer toe(s) (acquired), right foot [...] (acquired), left foot (ICD-10 - M20.42) 11/19/2023 Pain in right toe(s) (ICD-10 - M79.674) 11/19/2023 Pain in left toe(s) (ICD-10 - M79.675) 11/19/2023 Unspecified atherosclerosis of [place] arteries of extremities, bilateral legs (ICD-10 - [...] or drainage was noted. Plan Of Treatment Medication Medication Name Sig Start Date Stop Date Notes Clotrimazole-Betamethasone 1-0.05 % 1 application Externally Twice a day 11/19/2023 Treatment Notes Assessment Notes Onychomycosis Aseptic debridement of elongated thickened nails x [...] educated regarding both OTC and prescription treatments. Tinea pedis The patient was educ ated why and how the fungal infection evolved in their feet and the patient was given information regarding how to prevent further infection. The patient was told to keep feet dry and change socks. The patient was told to be careful with old shoes and excessive sweating. The patient was educated regarding both OTC and prescription treatments. Other hammer toe(s) (acquired), right fo ot The patient was educated regarding how to [...] were discussed, but conservative options were emphasized. 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 After removal of overlying extensive hyperkeratosis, healthy tissue was noted and care was taken to assure that no undermining or probing was present. It should be noted that no probing was noted and no infection or drainage was noted. Next Appt Details Follow Up: 3 Months, Reason: Progress Notes * Nimisha WHYTEOB:[birth year] (88 yo F)Acc No.[id number]:11/19/2023 Patient: Shanon MCGRAWn Provider: Tori GUERRERO :1935 A ge:88 Y S ex:Female Date:11/19/2023 Address:[facility] [address] [facility], [id number] Subjective: * Chief Complaints: * 1 . *General care. * HPI: H PI: General care P atient presents to the office for diabetic foot care. Patient states that their nails are thickened, elongated and painful. Patient states that it is aggravated by shoe gear. Onset is gradual., Patient is taking prescription blood thinners., Date last seen by Dr. Rey was October., Initials As. * ROS: G eneral / Constitutional: Patient denies w eakness. R espiratory: Patient denies c hronic cough, shortness of breath, sputum production. C ardiovascular: Patient denies c hest pain, history of HI, irregular heartbeat. M usculoskeletal: Patient denies a rthritis, joint stiffness. P atient complains of h ammertoes. P eripheral Vascular: Patient denies b lanching of skin, cold extremities, decreased sensation in extremities. S kin: Patient complains of f ungal nails, nail changes, calluses and corns. N eurologic: Patient denies d izziness, gait abnormality, headache. * Medical History: * Medications: T aking Atorvastatin Calcium 10 MG Tablet TAKE 1 TABLET BY MOUTH EVERY DAY Oral , Taking Vitamin B-12 1000 MCG Tablet Sublingual DISSOLVE 1 TABLET UNDER TONGUE EVERY DAY Sublingual , Taking Furosemide 40 MG Tablet TAKE 1 TABLET BY MOUTH EVERY DAY Oral , Taking busPIRone HCl 10 MG Tablet Oral , Taking Galantamine Hydrobromide 8 MG Tablet Oral , Taking Tradjenta 5 MG Tablet TAKE 1 TABLET BY MOUTH EVERY DAY Oral , Taking Klor-Con M20 20 MEQ Tablet Extended Release Oral , Taking Pantoprazole Sodium 40 MG Tablet Delayed Release Oral , Taking Eliquis 2.5 MG Tablet TAKE 1 TABLET BY MOUTH TWICE A DAY Oral , Taking Loteprednol Etabonate 0.5 % Suspension Ophthalmic , Taking dilTIAZem HCl ER Coated Beads 180 MG Capsule Extended Release 24 Hour TAKE 1 CAPSULE BY MOUTH EVERY DAY Oral , Taking Losartan Potassium 100 MG Tablet Oral , Taking Metoprolol Succinate ER 25 MG Tablet Extended Release 24 Hour Oral , Taking Calcitriol 0.5 MCG Capsule TAKE 1 CAPSULE BY MOUTH EVERY DAY Oral Objective: * Vitals: W t: 153 lbs, Wt-k.4 kg, Ht: 63 in, Ht-cm: 160.02 cm, BMI: 27.1 Index, Body Surface Area: 1.75. * Examination: P hysical Examination: V ascular: Dorsalis Pedis pulse noted at 1/4 right foot and 1/4 left foot and Posterior Tibial pulse noted at 1/4 right foot and 1/4 left foot, Capillary refill times noted to be less than three seconds x ten, Temperature gradient noted to be warm to cool to bilateral foot, pedal hair present to bilateral foot and no varicosities are noted Dermatologic: there are no open lesions, no signs of active clinical infection, no erythema noted, no ecchymoses, nails are elongated thickened and dystrophic with subungual debris x ten, hyperkeratotic tissue plantar first metatarsal head left foot, diffuse xerosis with annular scaling noted to left ankle Musculoskeletal: there is pain to palpation onto nail plate x ten, no calf pain noted bilaterally, arch height noted at 2/5 non-weight bearing bilaterally, first metatarsophalangeal joint range of motion 30 deg non-weight bearing bilaterally, flexible fifth digit hammer toe deformity noted to bilateral foot reducible with kelikian push up test, pain to palpation sub first metatarsal head hyperkeratotic tissue left foot Neurology: protective sensation intact to light touch bilateral digits one through five, vibratory sensation intact to first metatarsophalangeal joint bilaterally. Assessment: * Assessment: 1. O nychomycosis - B35.1 (Primary) 2 . T inea pedis - B35.3 3 . P ain in left foot - M79.672 4 . O ther hammer toe(s) (acquired), right foot - M20.41 5 . O ther hammer toe(s) (acquired), left foot - M20.42 6 . P ain in right toe(s) - M79.674 7 . P ain in left toe(s) - M79.675 8 . U nspecified atherosclerosis of [place] arteries of extremities, bilateral legs - I70.203 9 . A cquired keratosis [keratoderma] palmaris et plantaris - L85.1 Plan: * Treatment: 2. T inea pedis Notes: The patient was educated why and how the fungal infection evolved in their feet and the patient was given information regarding how to prevent further infection. The patient was told to keep feet dry and change socks. The patient was told to be careful with old shoes and excessive sweating. The patient was educated regarding both OTC and prescription treatments. 3. O ther hammer toe(s) (acquired), right foot Notes: The patient was educated regarding how to [...] were discussed, but conservative options were emphasized. 4. U nspecified atherosclerosis of [place] arteries of extremities, bilateral legs Notes: Patient educated on risks and aggravating factors of PVD, including conservative treatment options such as a diet and exercise regimen to aid in slowing progression of vascular disease ? 5. 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 After removal of overlying extensive hyperkeratosis, healthy tissue was noted and care was taken to assure that no undermining or probing was present. It should be noted that no probing was noted and no infection or drainage was noted. 6. O thers Start Clotrimazole-Betamethasone Cream, 1-0.05 %, 1 application, Externally, Twice a day, 1, Refills 2. * Procedure Codes: 1 1056 TRIM SKIN LESIONS, 2 TO 4, Modifiers: Q8 , 29486 DEBRIDE NAIL, 6 OR MORE, Modifiers: 59 , Q8 * Follow Up: 3 Months * Billing Information: * Visit Code: * Procedure Codes: 04597 TRIM SKIN LESIONS, 2 TO 4. Modifiers: Q8 59579 DEBRIDE NAIL, 6 OR MORE. 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 Patient states that their nails are thickened, elongated and painful. Patient states that it is aggravated by shoe gear. Onset is gradual., Patient is taking prescription blood thinners., Date last seen by Dr. Rey was October., Initials As Examination Category Sub-Category Detail Notes Category Not es Physical Examination Vascular: Dorsalis Pedis pulse noted at 1/4 right foot and 1/4 left foot and Posterior Tibial pulse noted at 1/4 right foot and 1/4 left foot, Capillary refill times noted to be less than three seconds x ten, Temperature gradient noted to be warm to cool to bilateral foot, pedal hair present to bilateral foot and no varicosities are noted Dermatologic: there are no open lesions, no signs of active clinical infection, no erythema noted, no ecchymoses, nails are elongated thickened and dystrophic with subungual debris x ten, hyperkeratotic tissue plantar first metatarsal head left foot, diffuse xerosis with annular scaling noted to left ankle Musculoskeletal: there is pain to palpation onto nail plate x ten, no calf pain noted bilaterally, arch height noted at 2/5 non-weight bearing bilaterally, first metatarsophalangeal joint range of motion 30 deg non-weight bearing bilaterally, flexible fifth digit hammer toe deformity noted to bilateral foot reducible with kelikian push up test, pain to palpation sub first metatarsal head hyperkeratotic tissue left foot Neurology: protective sensation intact to light touch bilateral digits one through five, vibratory sensation intact to first metatarsophalangeal joint bilaterally
--- OUTSIDE RECORDS SUMMARY | 2024-08-22 17:47 | XMS_ITS | Clinical Summary ---
Author Organization [facility] Address [address] [place] [address] Care Team Providers Care Lining Layer Name Role Phone Jimbo Rey MD Primary Care Provider Allergies No known active allergies Medications dilTIAZem [...] (09/13/2021): Added automatically from request for surgery [id number] Encounter for screening colonoscopy 09/13/2021 Overview (09/13/2021): Added automatically from request for surgery [id number] Chest pain 09/08/2021 Enlarged thyroid gland 09/08/2021 [...] thrombectomy for M1 occlusion, TICI 3 at [facility] on 08/21/2021. Acute stroke due to [...] (06/11/2020): Added automatically from request for surgery [id number] Chronic diastolic heart failure 01/05/2020 Assessment & Plan (01/04/2022 9:46 PM CDT): Currently euvolemic. Holding lasix for now. Acute blood loss anemia Immunizations Immunization Administration Dates Next Due Influenza, Quadrivalent, Rosalie l Culture-based MDCK, Antibiotic Free, Intramuscular 05/02/2021 Surgical History Surgery Date Site/Laterality Comments CATARACT EXTRACTION, BILATERAL HUMERUS FRACTURE SURGERY dx'd in 2018; surgical reduction, internal fixation: Right: CHOLECYSTECTOMY OPEN COLONOSCOPY 06/29/2009 - 06/28/2010 [place] Medical History Medical History Date Comments Polyneuropathy, unspecified 06/11/2020 Presbycusis, bilateral 06/11/2020 Essential hypertension 06/11/2020 Paroxysmal atrial fibrillati on (CMS/HCC) (HCC) 06/11/2020 Other premature depolarization 06/11/2020 Leukoderma, not elsewhere classified 06/11/2020 Low back pain 06/11/2020 Age-related osteoporosis wit hout current pathological fracture 06/11/2020 Dizziness and giddiness 06/11/2020 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 0-30.9 in adult 06/11/2020 Type 2 diabetes mellitus wit h unspecified complications (HCC) 06/11/2020 Enlarged thyroid gland 09/08/[address] an giogram of chest on 09/07/2021: Enlarged nodular thyroid gland, left greater than right Lymphadenopathy 09/08/[address] angiogram of chest on 09/08/2021: Nonspecific, mildly enlarged right paratracheal lymph node measuring 1.3 cm. Recommend follow-up chest CT in 3 months for further evaluation. CHF (congestive heart failur e) (CMS/HCC) (HCC) Stroke (HCC) 5 weeks ago Family History Medical History Relation Name Comments Stroke Father Hypertension Mother Nonhealing lower extremity wound Mother Stroke Paternal Grandfather Relation Name Status Comments Father Mother Paternal Grandfather Social History Tobacco Use Types Packs/Day Years [...] How often do you attend chur or moravian services? 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 Not on file Not on file Obstetrics History Last Filed Vital Signs Vital Sign Reading [...] 04/12/2022 3:10 PM CDT Plan of Treatment Health Maintenance Due Date Last Done Comments Albumin Creatinine Ratio, Urine 1935 Dilated Eye Exam 1935 Foot Exam 1935 DTaP/Tdap/Td Vaccine (1 - Tdap) 1948 Hepatitis B Screening 11/14/1955 Pneumococcal vaccine 65+ (1 of 2 - PCV) 1956 Zoster Vaccine (1 of 2) 11/14/1987 Well Visit 65+ 2002 Hemoglobin A1C 02/18/2022 08/21/2021, 08/21/2021 Depression Screening 08/21/2022 08/21/2021 Lipid Panel 08/21/2022 08/21/2021, 08/21/2021 Fall Risk Assessment 01/07/2023 01/07/2022 eGFR 01/07/2023 01/07/2022, 12/27, 01/05/2022, Additional history exists Covid-19 Vaccine (3 - 2023-2 5 season) 2024 10/06/2020, 09/13/2020 Influenza Vaccine (#1) 2024 05/02/2021 Medical Devices Implanted Type Area Race And Sports Book Writer Device Identifier Shelf Expiration Date Model / Serial / Lot [employer] [id number] Parametric 4mm 50mm 40mm Radiopaque Revascularization - [id number] Implanted:Qty: 1 on 08/21/[address] [facility] [employer] 06/12/2024 [id number] / / [id number] Description:NOT INPLANT Angio-Seal Evolution 8fr Vascular Closure - [id number] Implanted:Qty: 1 on 08/21/[address] [facility] Home [employer]fort Zones Yenifer 04/28/2022 [id number] / / [id number] Procedures Procedure Name Priority Date/Time Associated Diagnosis Comments EGFR Routine 01/07/2022 7:10 AM CDT HEMOGLOBIN A1C STAT 08/21/2021 11:01 AM SUGAR CANE PLANTER LIPID PANEL STAT 08/21/2021 11:01 AM SUGAR CANE PLANTER from Last 3 Months or Most Recently Relevant to Health Maintenance Results * eGFR (01/07/2022 7:10 AM CDT) eGFR 48 mL/min/1. 73 m2 [facility] Comment: Interpretive Data Reference Interval Normal >/= [...] Deutsch MD LAB BLOOD ORDERABLES Final Result [facility] [address] Department [place] [address] * (ABNORMAL) Hemoglobin A1c (08/21/2021 11:01 AM SUGAR CANE PLANTER) Hgb A1C 6.6(H) 4.0 - 5.6 % [facility] ([facility]) Estimated Average Glucose 143 mg/dL [facility] ([facility]) Comment: The ADA recommends reporting an estimated Average Glucose (eAG) with all Hemoglobin A1c results using the equation derived from a study of 507 normal and diabetic adults. Minority populations were underrepresented and children were not included. (Diabetes Care 31:1197-2784, 2008). The eAG is not equivalent to a fasting glucose. Blood 08/21/2021 11:0 1 AM SUGAR CANE PLANTER 08/21/2021 11:04 AM SUGAR CANE PLANTER Tor Esteban MD LAB BLOOD ORDERABLES Fi nal Result [facility] ([facility]) [facility] Department [place] [address] * Lipid panel (08/21/2021 11:01 AM SUGAR CANE PLANTER) Cholesterol 153 30 - 199 mg/dL [facility] ([facility]) Comment: Interpretive Data Ages < or [...] on 2018. HDL 65 >=40 mg/dL [facility] ([facility]) Comment: Interpretive Data Ages < or [...] on 2018. LDL, calculated 75 <=129 mg/dL [facility] ([facility]) Comment: Interpretive Data Ages < or [...] [facility] ([facility]) Blood 08/21/2021 11:0 1 AM SUGAR CANE PLANTER 08/21/2021 11:04 AM SUGAR CANE PLANTER us Tor Esteban MD LAB BLOOD ORDERABLES Fi nal Result [facility] ([facility]) 1 [facility] Department [place] [address] from Last 3 Months or Most Recently Relevant to Health Maintenance Insurance MEDICARE [facility] MEDICARE [facility] MEDICARE [facility] Advance Directives For more information, please contact: [phone] * Full Code (Latest Code Status on [...] 3:08 PM 08/27/2021 9:07 PM Care Teams Lining Layer Relationship Specialty Start Date End Date Jimbo Rey MD [address] [place] [address] PCP - General Internal Medicine 06/11/20
== END 2024-08-22 15:12 | disposition home or self-care (01) ==
PROVIDERS: PCP Internal Medicine; Visit Provider Nurse Practitioner Family
DX: M54.6 Pain in thoracic spine (principal); Z98.1 Arthrodesis status; M43.16 Spondylolisthesis, lumbar region
CPT/HCPCS: 72072; 72100

== ENCOUNTER 2024-08-25 07:32 | Outpatient (CLI) | payer MEDICARE, OTHER, SELFPAY | END 2024-08-25 07:33 | disposition home or self-care (01) | LOC: CHSIMG 07:33 | PROVIDERS: PCP Internal Medicine; Visit Provider Nurse Practitioner Family | DX: M54.6 Pain in thoracic spine (principal); S22.080A Wedge compression fracture of T11-T12 vertebra, initial encounter for closed fracture; S32.010A Wedge compression fracture of first lumbar vertebra, initial encounter for closed fracture; M43.04 Spondylolysis, thoracic region; M48.04 Spinal stenosis, thoracic region | CPT/HCPCS: 72146 ==

== ENCOUNTER 2024-09-22 10:09 | Outpatient (CLI) | payer MEDICARE, OTHER, SELFPAY ==
--- NOTE | ~2024-09-22 | MR_ITS ---
EXAMINATION: MR lumbar spine wo/w con DATE: 09/22/2024 12:39 INDICATION: Low back pain. TECHNIQUE: Magnetic resonance imaging (MRI) of the lumbar spine was performed without and with intrav enous contrast. COMPARISON: Lumbar spine MRI 11/19/2019, thoracic spine MRI 08/25/2024, radiographs 08/22/2024 FINDINGS: There is 3 mm anterolisthesis of L3 on L4, 5 mm anterolisthesis of L4 on L5, and 3 mm retro listhesis of L5 on S1. There is a compression fracture of T11 with 1/5 loss of height and changes of vertebroplasty. There is a burst fracture of L1 with 3/5 loss of height and changes of vertebroplasty . There is a burst fracture of superior endplate of L3 with less than 1/5 loss of height and edema-li ke marrow signal intensity. There are changes of anterior and posterior fusion procedures at L4-L5 wi th instrumentation. There is moderately decreased disc height at L3-L4 and severely decreased disc he ight at L5-S1. The following disc levels are specifically discussed: L1-L2: The disc is bulging. There is mild bilateral facet joint osteoarthritis. There is mild bilater al neural foraminal stenosis. There is mild central canal stenosis. L2-L3: The disc is bulging. There is severe bilateral facet joint osteoarthritis. There is mild bilat eral neural foraminal stenosis. There is mild central canal stenosis. L3-L4: The disc is bulging. There is severe bilateral facet joint osteoarthritis. There is mild bilat eral neural foraminal stenosis. There is mild central canal stenosis. L4-L5: There is severe bilateral facet joint hypertrophy. There is mild bilateral neural foraminal st enosis. There is moderate central canal stenosis. L5-S1: The disc is bulging with superimposed right central extrusion. There is severe bilateral facet joint osteoarthritis. There is mild bilateral neural foraminal stenosis. There is mild central canal stenosis. IMPRESSION: 1. Acute versus subacute L3 burst fracture. 2. T11 compression fracture and L1 burst fracture with changes of recent vertebroplasty. 3. Anterior and posterior fusion procedures at L4-L5. 4. Severe lumbar spondylosis. Reviewed, dictated and finalized at location A. IMPRESSION: 1. Acute versus subacute L3 burst fracture. 2. T11 compression fracture and L1 burst fracture with changes of recent verteb roplasty. 3. Anterior and posterior fusion procedures at L4-L5. 4. Severe lumbar spondylosis.
--- OUTSIDE RECORDS SUMMARY | 2024-09-22 11:09 | XMS_ITS ---
Author Organization [facility] Address [address] [place], [place] [id number] Care Team Providers Care Silk Screen Printer Name Role Phone Racquel Reyilya Unavailable Unavailable MANNY GUERRERO Unavailable [phone] REASON FOR VISIT *General care Medications Medication [...] 11/19/2023 Encounters Encounter Location Date Provider Diagnosis [address] [id number] 11/19/2023 MANNY GUERRERO Onychomycosis B35.1 ; Tinea pedis B35.3 ; Pain in left foot M79.672 ; Other hammer toe(s) (acquired), right foot M20.41 ; Other hammer toe(s) (acquired), left foot M20.42 ; Pain in right toe(s) M79.674 ; Pain in left toe(s) M79.675 ; 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 Unspecified atherosclerosis of greenville arteries of extremities, bilateral legs Patient educated [...] * Nimisha WHYTEOB:[birth year] (88 yo F)Acc No.[id number]:11/19/2023 Patient: Shanon MCGRAWn Provider: Tori GUERRERO :1935 A ge:88 Y S ex:Female Date:11/19/2023 Address:[facility] [place], [facility], [id number] Subjective: * Chief Complaints: * 1 . [...] Patient denies c hest pain, history of MN, irregular heartbeat. M usculoskeletal: Patient denies a [...] M79.675 8 . U nspecified atherosclerosis of green[place] arteries of extremities, bilateral legs - I70.203 [...] were emphasized. 4. U nspecified atherosclerosis of greenville arteries of extremities, bilateral legs Notes: Patient [...] LESIONS, 2 TO 4, Modifiers: Q8 , 86330 DEBRIDE NAIL, 6 OR MORE, Modifiers: 59 , Q8 * Follow Up: 3 Months * Billing Information: * Visit Code: * Procedure Codes: 05747 TRIM SKIN LESIONS, 2 TO 4. Modifiers: Q8 45925 DEBRIDE NAIL, 6 OR MORE. Modifiers: 59, Q8 * Sign off status: Completed true * Provider: Tori GUERRERO Date: 0 11/19/2023 Generated for Dora mata/Wang/Naldo on: 0 09/22/2024 11:09 AM CDT History and Physical Notes * HPI (History [...]
--- OUTSIDE RECORDS SUMMARY | 2024-09-22 11:09 | XMS_ITS ---
Author Organization [facility] Address [address] [place], [place] [address] Care Team Providers Care County Sheriff Name Role Phone Jimbo Rey Unavailable Unavailable MANNY GUERRERO Unavailable [phone] REASON FOR VISIT *General care Encounters Encounter Location Date Provider Diagnosis [address] [id number] 01/21/2024 MANNY GUERRERO Plan Of Treatment No Information Progress Notes * Nimisha WHYTEOB:[birth year] (88 yo F)Acc No.[id number]:01/21/2024 Patient: Starr MCGRAW Provider: Tori GUERRERO :1935 A ge:88 Y S ex:Female Date:01/21/2024 Address:[address] [facility] Subjective: * Chief Complaints: * 1 . *General care. * Medical History: Objective: * Vitals: Assessment: Plan: * Treatment: * Billing Information: * Visit Code: * Procedure Codes: * Electronic signature of ANNA GUERRERO DPM on 09/22/2024 at 11:09 AM CDT Sign off status: Pending * Provider: Tori GUERRERO Date: 0 01/21/2024 Generated for Dora mata/Wang/eTransmitting on: 0 09/22/2024 11:09 AM CDT
--- OUTSIDE RECORDS SUMMARY | 2024-09-22 11:10 | XMS_ITS ---
Author Organization [facility] Address [address] [place], [place] [id number] Care Team Providers Care Transplant Worker Name Role Phone Jimbo Rey Unavailable Unavailable SNOOK, LUCY Unavailable [phone] REASON FOR VISIT *General care Encounters Encounter Location Date Provider Diagnosis [address] [id number] 08/18/2024 LUCY NORMANK Plan Of Treatment No Information Progress Notes * Nimisha WHYTEOB:[birth year] (88 yo F)Acc No.[id number]:08/18/2024 Patient: Starr MCGRAW Provider: Yinka Melchor DPM :1935 A ge:88 Y S ex:Female Date:08/18/2024 [facility]:[address] [facility] Subjective: * Chief Complaints: * 1 . *General care. * Medical History: Objective: * Vitals: Assessment: Plan: * Treatment: * Billing Information: * Visit Code: * Procedure Codes: * Electronic signature of LUCY MELCHOR DPM on 09/22/2024 at 11:10 AM CDT Sign off status: Pending * Provider: Yinka Melchor DPM Date: 0 08/18/2024 Generated for Printi ng/Faxing/eTransmitting on: 0 09/22/2024 11:10 AM CDT
--- OUTSIDE RECORDS SUMMARY | 2024-09-22 11:10 | XMS_ITS | Encounter Summary ---
Author Organization [facility] Address [address] [place] [address] Care Team Providers Care Mounted Police Name Role Phone Jimbo Rey MD Primary Care Provider [phone] Encounter Details Date Type Department Care Team (Late st Contact Info) Description 10/16/2021 Telephone [facility] [address] [place] [address] Mary Castellano, LORENZO Social History Tobacco Use [...] on file Legal Sex Female 7:02 PM BUSINESS APPLICATIONS DEVELOPER Gender Identity Not on file Sexual Orientation [...] on filedocumented in this encounter Care Teams Mounted Police Relationship Specialty Start Date End Date Jimbo Rey MD [address] [place] [address] PCP - General Internal Medicine 06/11/20 documented as of this encounter
--- OUTSIDE RECORDS SUMMARY | 2024-09-22 11:10 | XMS_ITS | Clinical Summary ---
Author Organization [facility] Address [address] [place] [address] Care Team Providers Care Director Of Transportation Name Role Phone Jimbo Rey MD Primary [...] (09/13/2021): Added automatically from request for surgery [id number] Encounter for screening colonoscopy 09/13/2021 Overview (09/13/2021): Added automatically from request for surgery [id number] Chest pain 09/08/2021 Enlarged thyroid gland 09/08/2021 [...] thrombectomy for M1 occlusion, TICI 3 at [facility] on 08/21/2021. Acute stroke due to ischemia [...] (06/11/2020): Added automatically from request for surgery [id number] Chronic diastolic heart failure 01/05/2020 Assessment & Plan (01/04/2022 9:46 PM CDT): Currently euvolemic. Holding lasix for now. Acute blood loss anemia Encounters Date Type Department Care Team Description 09/06/2024 8:00 AM CDT - 09/06/2024 11:59 PM [place] [address] Discharge Disposition: Discharge to home or self care from Last 3 Months Immunizations Immunization Administration Dates Next Due Influenza, Quadrivalent, Rosalie l Culture-based MDCK, Antibiotic Free, Intramuscular 05/02/2021 Surgical History Surgery Date Site/Laterality Comments CATARACT EXTRACTION, BILATERAL HUMERUS FRACTURE SURGERY dx'd in 2018; surgical reduction, internal fixation: Right: CHOLECYSTECTOMY OPEN COLONOSCOPY 06/29/2009 - 06/28/2010 Nikole Medical History Medical History Date Comments Polyneuropathy, unspecified 06/11/2020 Presbycusis, bilateral 06/11/2020 Essential hypertension 06/11/2020 Paroxysmal atrial fibrillation (HCC) 06/11/2020 Other premature depolarization 06/11/2020 Leukoderma, [...] months for further evaluation. CHF (congestive heart failure) (HCC) Stroke (HCC) 5 weeks ago Family [...] 01/07/2022 How often do you attend chur ch or rastafari services? 1 to 4 times per year 01/07/2022 Do you belong to any clubs o r organizations such as anabaptist groups, unions, fraternal or athletic groups, or [...] on file Legal Sex Female 7:02 PM MAIL DISTRIBUTOR Gender Identity Not on file Sexual Orientation [...] 2024 05/02/2021 Medical Devices Implanted Type Area Wheel Mill Operator Device Identifier Shelf Expiration Date Model / Serial / Lot Med[employer]onic [employer] [id number] Parametric 4mm 50mm 40mm Radiopaque Revascularization - [id number] Implanted:Qty: 1 on 08/21/2021 at [facility] [employer] 06/12/2024 SFR4-4 -40- 10 / / [id number] Description:NOT INPLANT Angio-Seal Evolution 8fr Vascular Closure - [id number] Implanted:Qty: 1 on 08/21/2021 at [facility] [employer] 04/28/2022 [id number] / / [id number] Procedures Procedure Name Priority Date/Time Associated Diagnosis Comments SURGICAL PATHOLOGY Routine 09/06/2024 9: 15 AM CDT EGFR Routine 01/07/2022 7:10 AM CDT HEMOGLOBIN A1C STAT 08/21/2021 11:01 AM MAIL DISTRIBUTOR LIPID PANEL STAT 08/21/2021 11:01 AM MAIL DISTRIBUTOR from Last 3 Months or Most Recently Relevant to Health Maintenance Results * Surgical pathology (09/06/2024 9:15 AM CDT) Bone - Biopsy / Curettings 09/06/2024 9:15 AM CDT 09/07/2024 9:15 AM CDT Narrative 09/13/2024 4:24 PM CDT EPIC results best viewed via link to PDF [facility] Department of Pathology [address] [place], [place] [address] Note to Patients: This report may contain a detailed description of human tissue sent by a health care provider to the laboratory for pathologic evaluation. The content of this report is essential for diagnosis and may provide important critical findings. This information may be unfamiliar to patients to review without a medical professional present. It is advised that the patient review this report in the presence of a health care provider who can answer questions and explain the details. Final Report Patient Name: STRAR WHYTE Address: [address] [place], [place] [id number] Gender: F : 1935 (Age: 88) Service: Location: N : [id number] [facility] #: [id number] Patient Type: SPECIMEN Taken: 09/06/2024 Received: 09/07/2024 Accessioned: 09/07/2024 Reported: 09/13/2024 Physician(s):Douglas Kim M.D. Diagnosis: A. Vertebral body, T11, biopsy: - Predominantly blood B. Vertebral body, L1, biopsy: - Fragmented bone marrow with scattered hematopoietic elements, plasma cells, reactive changes and intramedullary fibrosis - No definitive evidence of metastatic carcinoma - See microscopic description Andi Cantu M.D. Report Electronically Reviewed and Signed Out By Andi Cantu M.D. 09/13/2024 16:24:15 Specimen(s) Received: A: T 11 vertebral body biopsy B: L 1 vertebral body biopsy Microscopic Description: Microscopic examination substantiates the above diagnosis. Part B: Histologic sections of the submitted bone marrow show rare hematopoietic elements with scattered plasma cells. Appropriately controlled immunohistochemical stains were performed. CD117 shows weak staining, raising the possibility of possible mast cells. AE1/AE3 is negative for a metastatic carcinoma, S100 is negative, Actin highlights the area of fibrosis and CD34 highlights the vessels. Clinical and radiologic correlation is recommended with continued clinical follow-up as needed. Intradepartmental consultation: Dr. Ron who concurs with the above findings. Clinical History: T 11 & L 1 fractureT 11 & L 1 kypholasty & vertebral body biopsy Gross Description: The specimen is submitted in two formalin containers labeled STARR WHYTE . A. The first container is labeled T11 and L1 kypho (T11 on lid) . It is a core of hemorrhagic softened bone measuring 1 cm. All in A. B. The second container is labeled T11 and L1 kypho (L1 on lid) . It is 1 core cortez tissue measuring 7 mm. The specimen is decalcified.. All in B. T.Bette. Monico Luna PStacy/Meghann Barrera M.D. REPORT IMAGES AND SCANNED DOCUMENTS, IF INCLUDED, ONLY VIEWABLE IN PDF VERSION OF REPORT The performance characteristics of some immunohistochemical stains, fluorescence in-situ hybridization tests and immunophenotyping by flow cytometry cited in this report (if any) were determined by the Surgical Pathology Department at [facility] as part of an ongoing lead quality technician program and in compliance with federally mandated regulations drawn from the Clinical Laboratory Improvement Act of 1988 (CLIA '88). Some of these tests rely on the use of analyte specific reagents and are subject to specific labeling requirements by the US Food and Drug Administration. Such diagnostic tests may only be performed in a facility that is certified by the Department of Health and Human Services as a high complexity laboratory under CLIA '88. The FDA has determined that such clearance or approval is not necessary. This test is used for clinical purposes. It should not be regarded as investigational or for research. Nevertheless, federal rules concerning the medical use of analyte specific reagents require that the following disclaimer be attached to the report: This test was developed and its performance characteristics determined by the Surgical Pathology Department [facility]. It has not been cleared or approved by the U. S. Food and Drug Administration. Note for decalcified specimens: This assay has not been validated on decalcified tissues. Results should be interpreted with caution given the possibility of false negativity on decalcified specimens us Delfina Kim MD LAB PATHOLOGY ORDERABLES F inal Result * eGFR (01/07/2022 7:10 AM CDT) eGFR 48 mL/min/1. 73 m2 [facility] Comment: Interpretive Data Reference Interval [...] 7:10 AM CDT 01/07/2022 8:04 AM CDT us Michel Deutsch MD LAB BLOOD ORDERABLES Final Result [facility] [address] Department [place] [address] * (ABNORMAL) Hemoglobin A1c (08/21/2021 11:01 AM MAIL DISTRIBUTOR) Hgb A1C 6.6(H) 4.0 - 5.6 % [facility] ([facility]) Estimated Average Glucose 143 mg/dL [facility] ([place]) Comment: The ADA recommends reporting an estimated Average Glucose (eAG) with all Hemoglobin A1c results using the equation derived from a study of 507 normal and diabetic adults. Minority populations were underrepresented and children were not included. (Diabetes Care 31:4219-0852, 2008). The eAG is not equivalent to a fasting glucose. Blood 08/21/2021 11:0 1 AM MAIL DISTRIBUTOR 08/21/2021 11:04 AM MAIL DISTRIBUTOR us Tor Esteban MD LAB BLOOD ORDERABLES Fi nal Result [facility] ([place]) 1 [facility] Department [place] [address] * Lipid panel (08/21/2021 11:01 AM MAIL DISTRIBUTOR) Cholesterol 153 30 - 199 mg/dL [facility] [...] on 2018. HDL 65 >=40 mg/dL [facility] ([facility]) Comment: Interpretive Data Ages < [...] [facility] (BUDDY) Blood 08/21/2021 11:0 1 AM MAIL DISTRIBUTOR 08/21/2021 11:04 AM MAIL DISTRIBUTOR us Tor Esteban MD LAB BLOOD ORDERABLES Fi nal Result [facility] ([place]) 1 [facility] Department [place] [address] from Last 3 Months or Most Recently Relevant to Health Maintenance Insurance MEDICARE [place] MEDICARE [facility] MEDICARE [facility] Advance Directives For more information, please contact: [phone] * Full Code (Latest Code Status on [...] 3:08 PM 08/27/2021 9:07 PM Care Teams Director Of Transportation Relationship Specialty Start Date End Date Jimbo Rey MD [address] [place] [address] PCP - General Internal Medicine 06/11/20
--- OUTSIDE RECORDS SUMMARY | 2024-09-22 11:10 | XMS_ITS | Patient Health Record ---
Author Organization [facility] Address [address] [place], [place] [address] Care Team Providers Care Mat Repairer Name Role Phone Jimbo Rey Unavailable Unavailable LUCY MELCHOR Unavailable [phone] MANNY GUERRERO Unavailable [phone] Allergies No Known Allergies Reason For Referral [...] 11/19/2023 Encounters Encounter Location Date Provider Diagnosis [address] [id number] 11/19/2023 MANNY GUERRERO Onychomycosis B35.1 ; Tinea pedis B35.3 ; Pain in left foot M79.672 ; Other hammer toe(s) (acquired), right foot M20.41 ; Other hammer toe(s) (acquired), left foot M20.42 ; Pain in right toe(s) M79.674 ; Pain in left toe(s) M79.675 ; Unspecified atherosclerosis of qu[place] arteries of extremities, bilateral legs I70.203 and Acquired keratosis [keratoderma] palmaris et plantaris L85.1 Assessments Encounter Date Diagnosis (ICD Code) Assessment Notes Treatment Notes Treatment Clinical Notes Section Notes 11/19/2023 Tinea pedis (ICD-10 - B35.3) The [...] (ICD-10 - M79.675) 11/19/2023 Unspecified atherosclerosis of quile[place] arteries of extremities, bilateral legs (ICD-10 - [...] Date Coverage End Date Medicare Part B [facility] [address] [place] [address] [id number] Starr Whyte Self - patient is the insured [facility] [employer] [address] [place] [id number] Starr Whyte Self - patient is the insured Medical (General) History Medical History History ICD Code stroke Open sores hypertension
--- OUTSIDE RECORDS SUMMARY | 2024-09-22 11:10 | XMS_ITS | Referral Summary ---
Author Organization [facility] Address [address] [place] [address] Care Team Providers Care Marketing Development Manager Name Role Phone Jimbo Rey MD Primary Care Provider [phone] Encounters Date Type Department Care Team Description 09/06/2024 8:00 AM CDT - 09/06/2024 11:59 PM CDT Hospital Encounter [address] [address] Discharge Disposition: Discharge to home or self care from Last 3 Months Allergies No known active allergies Medications dilTIAZem [...] (09/13/2021): Added automatically from request for surgery [id number] Encounter for screening colonoscopy 09/13/2021 Overview (09/13/2021): Added automatically from request for surgery [id number] Chest pain 09/08/2021 Enlarged thyroid gland 09/08/2021 [...] thrombectomy for M1 occlusion, TICI 3 at [facility] on 08/21/2021. Acute stroke due [...] continue medication per PCP Paroxysmal atrial fibrillation ([facility]/HCC) 020 Assessment & Plan (01/04/2022 9:36 PM [...] (06/11/2020): Added automatically from request for surgery [id number] Chronic diastolic heart failure 01/05/2020 Assessment & [...] often do you attend chur ch or church services? 1 to 4 times per year 01/07/2022 Do you belong to any clubs o r organizations such as jewish groups, unions, fraternal or athletic groups, or [...] on file Legal Sex Female 7:02 PM RUG REPAIRER Gender Identity Not on file Sexual Orientation [...] on file Medical Devices Implanted Type Area Ski Lift Attendant Device Identifier Shelf Expiration Date Model / Serial / Lot [employer] [id number] Parametric 4mm 50mm 40mm Radiopaque Revascularization - [id number] Implanted:Qty: 1 on 08/21/2021 at [facility] [employer] 06/12/2024 SFR4-4 -40- 10 / / [id number] Description:NOT INPLANT Angio-Seal Evolution 8fr Vascular Closure - [id number] Implanted:Qty: 1 on 08/21/2021 at [facility] [employer] 04/28/2022 [id number] / / [id number] Procedures Procedure Name Priority Date/Time Associated Diagnosis Comments SURGICAL PATHOLOGY Routine 09/06/2024 9: 15 AM CDT EGFR Routine 01/07/2022 7:10 AM CDT HEMOGLOBIN A1C STAT 08/21/2021 11:01 AM RUG REPAIRER LIPID PANEL STAT 08/21/2021 11:01 AM RUG REPAIRER from Last 3 Months or Most Recently Relevant to Health Maintenance Results * Surgical pathology (09/06/2024 9:15 AM CDT) Bone - Biopsy / Curettings 09/06/2024 9:15 AM CDT 09/07/2024 9:15 AM CDT Narrative 09/13/2024 4:24 PM CDT EPIC results best viewed via link to PDF [facility] Department of Pathology [address] [place] [address], [place] [address] Note to Patients: This report may contain [...] explain the details. Final Report Patient Name: STARR WHYTE Address: [address] [place] [id number] Gender: F : 1935 (Age: 88) Service: Location: N : [id number] [facility] #: [id number] Patient Type: SPECIMEN Taken: 09/06/2024 Received: 09/07/2024 [...] in two formalin containers labeled STARR WHYTE Ruben Amos. The first container is labeled T11 and L1 kypho (T11 on lid) . It is a core of hemorrhagic softened bone measuring 1 cm. All in A. B. The second container is labeled T11 and L1 kypho (L1 on lid) . It is 1 core cortez tissue measuring 7 mm. The specimen is decalcified.. All in B. T.A. Fidel Luna., P.Bette./Meghann Barrera M.D. REPORT IMAGES AND SCANNED DOCUMENTS, IF INCLUDED, ONLY VIEWABLE IN PDF VERSION OF REPORT The performance characteristics of some immunohistochemical stains, fluorescence in-situ hybridization tests and immunophenotyping by flow cytometry cited in this report (if any) were determined by the Surgical Pathology Department at [facility] as part of an ongoing quality control checker program and in compliance with federally mandated [...] characteristics determined by the Surgical Pathology Department [facility]. It has not been cleared or approved [...] CDT) eGFR 48 mL/min/1. 73 m2 [facility] Comment: Interpretive Data Reference Interval Normal [...] Deutsch MD LAB BLOOD ORDERABLES Final Result Performing Organization Address City/[facility]/ZIP Co de Phone Number [facility] [address] Department [place] [address] * (ABNORMAL) Hemoglobin A1c (08/21/2021 11:01 AM RUG REPAIRER) Hgb A1C 6.6(H) 4.0 - 5.6 % [facility] (BUDDY) Estimated Average Glucose 143 mg/dL [facility] ([place]) Comment: The ADA recommends reporting an estimated Average Glucose (eAG) with all Hemoglobin A1c results using the equation derived from a study of 507 normal and diabetic adults. Minority populations were underrepresented and children were not included. (Diabetes Care 31:8742-7042, 2008). The eAG is not equivalent to a fasting glucose. Blood 08/21/2021 11:0 1 AM RUG REPAIRER 08/21/2021 11:04 AM RUG REPAIRER Tor Esteban MD LAB BLOOD ORDERABLES Fi nal Result [facility] ([place]) 1 [facility] Department [place] [address] * Lipid panel (08/21/2021 11:01 AM RUG REPAIRER) Cholesterol 153 30 - 199 mg/dL [facility] [...] revised on 2018. Chol/HDL ratio 2 [facility] (BUDDY) Blood 08/21/2021 11:0 1 AM RUG REPAIRER 08/21/2021 11:04 AM RUG REPAIRER Tor Esteban MD LAB BLOOD ORDERABLES Fi nal Result [facility] ([place]) 1 [facility] Department [place] [address] from Last 3 Months or Most Recently Relevant to Health Maintenance Insurance MEDICARE [place]IC[place] MEDICARE [employer] [facility] Advance Directives For more information, please contact: [phone] * Full Code (Latest Code Status on [...] 3:08 PM 08/27/2021 9:07 PM Care Teams Marketing Development Manager Relationship Specialty Start Date End Date Jimbo Rey MD [address] [place] [address] PCP - General Internal Medicine 06/11/20
== END 2024-09-22 10:10 | disposition home or self-care (01) ==
PROVIDERS: PCP Internal Medicine; Visit Provider Pain Medicine Pain Medicine
DX: M80.08XS Age-related osteoporosis with current pathological fracture, vertebra(e), sequela (principal); Z98.1 Arthrodesis status; M47.816 Spondylosis without myelopathy or radiculopathy, lumbar region
CPT/HCPCS: 72158; A9577

== ENCOUNTER 2024-10-19 10:08 | Outpatient (CLI) | payer MEDICARE, OTHER, SELFPAY ==
[2024-10-19 10:27] LABS: Hematocrit 38.7 % (35.0-42.0); Hemoglobin 12.2 g/dL (11.7-13.8); Mean Corpuscular HGB Conc 31.5 g/dL (32-36); Mean Corpuscular Hemoglobin 28.8 pg (27.0-31.0); Mean Corpuscular Volume 91.3 fL (78.0-102.0); Mean Platelet Volume 9.9 fl (9.2-11.8); Platelet Count Result 188 K/mm3 (150-420); Red Blood Count 4.24 M/mm3 (4.20-5.40); Red Cell Distribution Width 14.6 % (11.6-14.4); White Blood Count 6.5 K/mm3 (4.8-10.8)
[2024-10-19 11:16] LABS: Alanine Aminotransferase 19 U/L (14-59); Albumin Level 3.7 g/dL (3.4-5.0); Alkaline Phosphatase 108 U/L (46-116); Anion Gap 13 mmol/L (4-12); Aspartate Amino Transferase 20 U/L (15-37); Bilirubin,Total 0.7 mg/dL (0.00-1.00); Blood Urea Nitrogen 26 mg/dL (7-18); Calcium 9.6 mg/dL (8.5-10.1); Carbon Dioxide 24 mmol/L (21-32); Chloride 105 mmol/L (98-108); Estimated Glomerular Filt Rate 29; Glucose 138 mg/dL (70-99); Magnesium 1.9 mg/dL (1.8-2.4); Osmolality Calculated 300 mOsm/kg (285-295); Potassium 4.6 mmol/L (3.5-5.1); Sodium 142 mmol/L (136-145); Total Protein 7.6 g/dL (6.4-8.2)
--- OUTSIDE RECORDS SUMMARY | 2024-10-19 11:31 | XMS_ITS ---
Author Organization [facility] Address [address] [place], [place] [address] Care Team Providers Care Silk Printer Name Role Phone Racquel Reyilya Unavailable Unavailable MANNY GUERRERO Unavailable [phone] REASON FOR VISIT *General care Medications Medication [...] Oral for 90 Days Active Vital Signs Height 63 in 11/19/2023 Weight 153 lbs 11/19/2023 BMI 27.1 kg/m2 11/19/2023 Height-cm 160.02 cm 11/19/2023 Weight-kg 69.4 kg 11/19/2023 Encounters Encounter Location Date Provider Diagnosis [address] [id number] 11/19/2023 MANNY GUERRERO Onychomycosis B35.1 ; Tinea pedis B35.3 ; Pain in left foot M79.672 ; Other hammer toe(s) (acquired), right foot M20.41 ; Other hammer toe(s) (acquired), left foot M20.42 ; Pain in right toe(s) M79.674 ; Pain in left toe(s) M79.675 ; Unspecified atherosclerosis of [place] arteries of extremities, bilateral legs I70.203 and [...] (ICD-10 - M79.675) 11/19/2023 Unspecified atherosclerosis of [place] arteries of extremities, bilateral legs (ICD-10 - [...] conservative options were emphasized. Unspecified atherosclerosis of [place] arteries of extremities, bilateral legs Patient educated [...] * Nimisha WHYTEOB:[birth year] (88 yo F)Acc No.[id number]:11/19/2023 Patient: Shanon MCGRAWn Provider: Tori GUERRERO :1935 A ge:88 Y S ex:Female Date:11/19/2023 Address:[facility] [address], [facility], [id number] Subjective: * Chief Complaints: * 1 . [...] M79.675 8 . U nspecified atherosclerosis of [place] arteries of extremities, bilateral legs - I70.203 [...] were emphasized. 4. U nspecified atherosclerosis of [place] arteries of extremities, bilateral legs Notes: Patient [...] LESIONS, 2 TO 4, Modifiers: Q8 , 01126 DEBRIDE NAIL, 6 OR MORE, Modifiers: 59 , Q8 * Follow Up: 3 Months * Billing Information: * Visit Code: * Procedure Codes: 10054 TRIM SKIN LESIONS, 2 TO 4. Modifiers: Q8 24570 DEBRIDE NAIL, 6 OR MORE. Modifiers: 59, Q8 * Sign off status: Completed true * Provider: Tori GUERRERO Date: 0 11/19/2023 Generated for Dora mata/Wang/Naldo on: 0 10/19/2024 11:31 AM CDT History and Physical Notes * [...]
--- OUTSIDE RECORDS SUMMARY | 2024-10-19 11:32 | XMS_ITS | Referral Summary ---
Author Organization [facility] Address [address] [place] [address] Care Team Providers Care Probation Officer Name Role Phone Jimbo Rey MD Primary Care Provider Encounters Date Type Department Care Team Description 10/03/2024 8:00 AM CDT - 10/03/2024 11:59 PM CDT Hospital Encounter [place] [id number] Discharge Disposition: Discharge to home or self care 09/06/2024 8:00 AM CDT - 09/06/2024 11:59 PM CDT Hospital Encounter [address] [address] Discharge Disposition: Discharge to home or self [...] (09/13/2021): Added automatically from request for surgery [id number] Encounter for screening colonoscopy 09/13/2021 Overview (09/13/2021): Added automatically from request for surgery [id number] Chest pain 09/08/2021 Enlarged thyroid gland 09/08/2021 [...] thrombectomy for M1 occlusion, TICI 3 at [facility] on 08/21/2021. Acute stroke due to [...] (06/11/2020): Added automatically from request for surgery [id number] Chronic diastolic heart failure 01/05/2020 Assessment & [...] often do you attend chur ch or restorationist services? 1 to 4 times per year 01/07/2022 Do you belong to any clubs o r organizations such as pentecostal groups, unions, fraternal or athletic groups, or [...] on file Legal Sex Female 7:02 PM DOGGER Gender Identity Not on file Sexual Orientation [...] on file Medical Devices Implanted Type Area Chicle Grinder Feeder Device Identifier Shelf Expiration Date Model / Serial / Lot [employer] [id number] Parametric 4mm 50mm 40mm Radiopaque Revascularization - [id number] Implanted:Qty: 1 on 08/21/2021 at [facility] [employer] 06/12/2024 [id number] / / [id number] Description:NOT INPLANT Angio-Seal Evolution 8fr Vascular Closure - [id number] Implanted:Qty: 1 on 08/21/2021 at [facility] [employer] 04/28/2022 [id number] / / [id number] Procedures Procedure Name Priority Date/Time Associated Diagnosis Comments SURGICAL PATHOLOGY Routine 10/03/2024 10 :33 AM CDT SURGICAL PATHOLOGY Routine 09/06/2024 9: 15 AM CDT EGFR Routine 01/07/2022 7:10 AM CDT HEMOGLOBIN A1C STAT 08/21/2021 11:01 AM DOGGER LIPID PANEL STAT 08/21/2021 11:01 AM DOGGER from Last 3 Months or Most Recently Relevant to Health Maintenance Results * Surgical pathology (10/03/2024 10:33 AM CDT) Bone - Biopsy / Curettings 10/03/2024 10:33 AM CDT 10/04/2024 10:33 AM CDT Narrative 10/07/2024 5:00 PM CDT EPIC results best viewed via link to PDF [facility] Department of Pathology [address] [place] [address] Note to Patients: This report may [...] Final Report Patient Name: STARR WHYTE Address: [address] [place] [id number] Gender: F : 1935 (Age: 88) Service: Location: N : [id number] [facility] #: [id number] Patient Type: SPECIMEN Taken: 10/03/2024 Received: 10/04/2024 Accessioned: 10/04/2024 Reported: 10/07/2024 Physician(s):Douglas Kim M.D. Diagnosis: Vertebral body, L3, kyphoplasty: - Fragmented bony trabeculae, bony remodeling and reactive fibrosis, clinically L3 vertebral fracture. Meghann Barrera M.D. Report Electronically Reviewed and Signed Out By Meghann Barrera M.D. 10/07/2024 17:00:23 Specimen(s) Received: A: L3 vertebral body biopsy Microscopic Description: Microscopic examination of the decalcified sections from the L3 vertebral body, examined at multiple levels show a core bone with fragmented bony trabeculae, bone remodeling, reactive fibrosis and hemorrhage, compatible with a healing fracture. There is no evidence of metastatic carcinoma by routine light microscopy on review of the negative pankeratin AE1/AE3 (performed with appropriate controls). Recommend follow up as clinically indicated. Clinical History: L3 vertebral fracture Procedure: L3 kyphoplastyt / L3 vertebral biopsy Gross Description: The specimen is submitted in a single container labeled STARR ARORALEY and L3 vertebral biopsy . It is a core of red-cortez bone measuring 1.2 in length. The specimen is decalcified and all in one cassette. Maryuri Luna R.N., P.A./Vidya Gilmore M.D. REPORT IMAGES AND SCANNED DOCUMENTS, IF INCLUDED, ONLY VIEWABLE IN PDF VERSION OF REPORT The performance characteristics of some immunohistochemical stains, fluorescence in-situ hybridization tests and immunophenotyping by flow cytometry cited in this report (if any) were determined by the Surgical Pathology Department at [facility] as part of an ongoing quality assurance analyst program and in compliance with federally mandated [...] characteristics determined by the Surgical Pathology Department [facility]. It has not been cleared or approved by the U. S. Food and Drug Administration. Note for decalcified specimens: This assay has not been validated on decalcified tissues. Results should be interpreted with caution given the possibility of false negativity on decalcified specimens Delfina Kim MD LAB PATHOLOGY ORDERABLES F inal Result * Surgical pathology (09/06/2024 9:15 AM CDT) Bone - Biopsy / Curettings 09/06/2024 9:15 AM CDT 09/07/2024 9:15 AM CDT Narrative 09/13/2024 4:24 PM CDT EPIC results best viewed via link to PDF [facility] Department of Pathology [address] [place] [address] Note to Patients: This report may [...] Final Report Patient Name: STARR WHYTE Address: [address] [place] [id number] Gender: F : 1935 (Age: 88) Service: Location: N : [id number] [facility] #: [id number] Patient Type: SPECIMEN Taken: 09/06/2024 Received: 09/07/2024 [...] specimen is decalcified.. All in B. T.Bette. Fidel Luna., David.Bette./Meghann Barrera M.D. REPORT IMAGES AND SCANNED DOCUMENTS, IF INCLUDED, ONLY VIEWABLE IN PDF VERSION OF REPORT The performance characteristics of some immunohistochemical stains, fluorescence in-situ hybridization tests and immunophenotyping by flow cytometry cited in this report (if any) were determined by the Surgical Pathology Department at [facility] as part of an ongoing quality assurance analyst program and in compliance with federally mandated [...] characteristics determined by the Surgical Pathology Department [facility]. It has not been cleared or approved [...] CDT) eGFR 48 mL/min/1. 73 m2 [facility] Comment: Interpretive Data Reference Interval Normal [...] BLOOD ORDERABLES Final Result Performing Organization Address City/[facility]/ZIP Co de Phone Number [facility] [address] Department [place] [address] * (ABNORMAL) Hemoglobin A1c (08/21/2021 11:01 AM DOGGER) Hgb A1C 6.6(H) 4.0 - 5.6 % [facility] Estimated Average Glucose 143 mg/dL [facility] Comment: The ADA recommends reporting an estimated Average Glucose (eAG) with all Hemoglobin A1c results using the equation derived from a study of 507 normal and diabetic adults. Minority populations were underrepresented and children were not included. (Diabetes Care 31:7367-8952, 2008). The eAG is not equivalent to a fasting glucose. Blood 08/21/2021 11:0 1 AM DOGGER 08/21/2021 11:04 AM DOGGER Tor Esteban MD LAB BLOOD ORDERABLES Fi nal Result [facility] ([place]) 1 [facility] Department [place] [address] * Lipid panel (08/21/2021 11:01 AM DOGGER) Cholesterol 153 30 - 199 mg/dL [facility] ([place]) Comment: Interpretive Data Ages < or = [...] [facility] ([place]) Blood 08/21/2021 11:0 1 AM DOGGER 08/21/2021 11:04 AM DOGGER us Tor Esteban MD LAB BLOOD ORDERABLES nal Result [facility] ([place]) 1 [facility] Department [place] [address] from Last 3 Months or Most Recently Relevant to Health Maintenance Insurance [facility]IC[facility] Address: [facility] [address] [place] [address] [facility] [facility] [place] [facility] Advance Directives For more information, please contact: [phone] * Full Code (Latest Code Status on [...] 3:08 PM 08/27/2021 9:07 PM Care Teams Probation Officer Relationship Specialty Start Date End Date Jimbo Rey MD [address] [place] [address] PCP - General Internal Medicine 06/11/20
--- OUTSIDE RECORDS SUMMARY | 2024-10-19 11:32 | XMS_ITS ---
Author Organization [facility] Address [address] [place], [place] [phone] Care Team Providers Care Order Processing Clerk Name Role Phone Jimbo Rey Unavailable Unavailable SNOOK, LUCY Unavailable [phone] REASON FOR VISIT *General care Encounters Encounter Location Date Provider Diagnosis [address] [id number] 08/18/2024 LUCY NORMANK Plan Of Treatment No Information Progress Notes * Nimisha WHYTEOB:[birth year] (88 yo F)Acc No.[id number]:08/18/2024 Patient: Starr MCGRAW Provider: Yinka Melchor DPM :1935 A ge:88 Y S ex:Female Date:08/18/2024 [facility]:[address] [id number] Subjective: * Chief Complaints: * 1 . *General care. * Medical History: Objective: * Vitals: Assessment: Plan: * Treatment: * Billing Information: * Visit Code: * Procedure Codes: * Electronic signature of LUCY MELCHOR DPM on 10/19/2024 at 11:31 AM CDT Sign off status: Pending * Provider: Yinka Melchor DPM Date: 0 08/18/2024 Generated for Printi ng/Faxing/eTransmitting on: 0 10/19/2024 11:31 AM CDT
--- OUTSIDE RECORDS SUMMARY | 2024-10-19 11:32 | XMS_ITS ---
Author Organization [facility] Address [address] [place], [place] [phone] Care Team Providers Care Dust Collector Ore Crushing Name Role Phone Jimbo Rey Unavailable Unavailable MANNY GUERRERO Unavailable [phone] REASON FOR VISIT *General care Encounters Encounter Location Date Provider Diagnosis [address] [id number] 01/21/2024 MANNY GUERRERO Plan Of Treatment No Information Progress Notes * Nimisha WHYTEOB:[birth year] (88 yo F)Acc No.[id number]:01/21/2024 Patient: Shanon MCGRAWn Provider: Tori GUERRERO :1935 A ge:88 Y S ex:Female Date:01/21/2024 Address:[address] [id number] Subjective: * Chief Complaints: * 1 . *General care. * Medical History: Objective: * Vitals: Assessment: Plan: * Treatment: * Billing Information: * Visit Code: * Procedure Codes: * Electronic signature of ANNA GUERRERO DPM on 10/19/2024 at 11:31 AM CDT Sign off status: Pending * Provider: Tori GUERRERO Date: 0 01/21/2024 Generated for Dora ng/Falow/eTransmitting on: 0 10/19/2024 11:31 AM CDT
--- OUTSIDE RECORDS SUMMARY | 2024-10-19 11:32 | XMS_ITS | Encounter Summary ---
Author Organization [facility] Address [address] [place] [address] Care Team Providers Care Analysis Tester Name Role Phone Jimbo Rey MD Primary Care Provider [phone] Encounter Details Date Type Department Care Team (Late st Contact Info) Description 10/16/2021 Telephone [facility] [address] [place] [address] Mary Castellano, LORENZO Social History Tobacco Use [...] on file Legal Sex Female 7:02 PM COMMUNITY CULTURAL DEVELOPMENT OFFICER Gender Identity Not on file Sexual Orientation [...] on filedocumented in this encounter Care Teams Analysis Tester Relationship Specialty Start Date End Date Jimbo Rey MD [address] [place] [address] PCP - General Internal Medicine 06/11/20 documented as of this encounter
--- OUTSIDE RECORDS SUMMARY | 2024-10-19 11:32 | XMS_ITS | Patient Health Record ---
Author Organization [facility] Address [address] [place], [place] [address] Care Team Providers Care Shaper Setter Name Role Phone Jimbo Rey Unavailable Unavailable LUCY MELCHOR Unavailable [phone] MANNY GUERRERO Unavailable [phone] Allergies No Known Allergies Reason For Referral [...] 11/19/2023 Encounters Encounter Location Date Provider Diagnosis [address] [id number] 11/19/2023 MANNY GUERRERO Onychomycosis B35.1 ; Tinea pedis B35.3 ; Pain in left foot M79.672 ; Other hammer toe(s) (acquired), right foot M20.41 ; Other hammer toe(s) (acquired), left foot M20.42 ; Pain in right toe(s) M79.674 ; Pain in left toe(s) M79.675 ; Unspecified atherosclerosis of [place] arteries of extremities, bilateral legs I70.203 and [...] (ICD-10 - M79.675) 11/19/2023 Unspecified atherosclerosis of [place] arteries of extremities, bilateral legs (ICD-10 - [...] Date Coverage End Date Medicare Part B [facility] [address] [place] [address] [id number] Starr Whyte Self - patient is the insured [employer] [facility] [address] [place] [id number] Starr Whyte Self - patient is the insured Medical (General) History Medical History History ICD Code stroke Open sores hypertension
--- OUTSIDE RECORDS SUMMARY | 2024-10-19 11:32 | XMS_ITS | Clinical Summary ---
Author Organization [facility] Address [address] [place] [address] Care Team Providers Care Mineralogy Professor Name Role Phone Jimbo Rey MD Primary [...] (09/13/2021): Added automatically from request for surgery [id number] Encounter for screening colonoscopy 09/13/2021 Overview (09/13/2021): Added automatically from request for surgery [id number] Chest pain 09/08/2021 Enlarged thyroid gland 09/08/2021 [...] thrombectomy for M1 occlusion, TICI 3 at [facility] on 08/21/2021. Acute stroke due to [...] (06/11/2020): Added automatically from request for surgery [id number] Chronic diastolic heart failure 01/05/2020 Assessment & Plan (01/04/2022 9:46 PM CDT): Currently euvolemic. Holding lasix for now. Acute blood loss anemia Encounters Date Type Department Care Team Description 10/03/2024 8:00 AM CDT - 10/03/2024 11:59 PM CDT Hospital Encounter [place] [id number] Discharge Disposition: Discharge to home or self care 09/06/2024 8:00 AM CDT - 09/06/2024 11:59 PM CDT Hospital Encounter [address] [id number] Discharge Disposition: Discharge to home or self [...] How often do you attend chur or nondenominational services? 1 to 4 times per year 01/07/2022 Do you belong to any clubs o r organizations such as jainism groups, unions, fraternal or athletic groups, or [...] on file Legal Sex Female 7:02 PM AUDITING SPECIALIST Gender Identity Not on file Sexual Orientation [...] 12/27, 01/05/2022, Additional history exists Covid-19 Vaccine (2023-2 5 season) 2024 10/06/2020, 09/13/2020 Influenza Vaccine (Season Ended) 2025 05/02/20 21 Medical Devices Implanted Type Area Electrolysis Operator Device Identifier Shelf Expiration Date Model / Serial / Lot Medtronic Inc [id number] Parametric 4mm 50mm 40mm Radiopaque Revascularization - [id number] Implanted:Qty: 1 on 08/21/2021 at [facility] [employer] 06/12/2024 SFR4-4 -40- 10 / / [id number] Description:NOT INPLANT Angio-Seal Evolution 8fr Vascular Closure - [id number] Implanted:Qty: 1 on 08/21/2021 at [facility] [employer] 04/28/2022 [id number] / / [id number] Procedures Procedure Name Priority Date/Time Associated Diagnosis Comments SURGICAL PATHOLOGY Routine 10/03/2024 10 :33 AM CDT SURGICAL PATHOLOGY Routine 09/06/2024 9: 15 AM CDT EGFR Routine 01/07/2022 7:10 AM CDT HEMOGLOBIN A1C STAT 08/21/2021 11:01 AM AUDITING SPECIALIST LIPID PANEL STAT 08/21/2021 11:01 AM AUDITING SPECIALIST from Last 3 Months or Most Recently Relevant to Health Maintenance Results * Surgical pathology (10/03/2024 10:33 AM CDT) Bone - Biopsy / Curettings 10/03/2024 10:33 AM CDT 10/04/2024 10:33 AM CDT Narrative 10/07/2024 5:00 PM CDT EPIC results best viewed via link to PDF [facility] Department of Pathology [address] [place], [place] [id number] Note to Patients: This report may contain [...] Final Report Patient Name: STARR WHYTE Address: [address] [place] [address] Gender: F : 1935 (Age: 88) Service: Location: [facility] : [id number] [facility] #: [id number] Patient Type: SPECIMEN Taken: 10/03/2024 Received: 10/04/2024 [...] submitted in a single container labeled STARR WHYTE and L3 vertebral biopsy . It is [...] determined by the Surgical Pathology Department at [facility] as part of an ongoing food quality technician program and in compliance with [...] characteristics determined by the Surgical Pathology Department [facility]. It has not been cleared or approved [...] results best viewed via link to PDF [facility] Department of Pathology [address] [place] [address] Note to Patients: This report may [...] Final Report Patient Name: STARR WHYTE Address: [address] [place] [address] Gender: F : 1935 (Age: 88) Service: Location: N : [id number] [facility] #: [id number] Patient Type: SPECIMEN Taken: 09/06/2024 Received: 09/07/2024 [...] decalcified.. All in B. T.Bette. Monico Luna P.A./Meghann Barrera M.D. REPORT IMAGES AND SCANNED DOCUMENTS, IF INCLUDED, ONLY VIEWABLE IN PDF VERSION OF REPORT The performance characteristics of some immunohistochemical stains, fluorescence in-situ hybridization tests and immunophenotyping by flow cytometry cited in this report (if any) were determined by the Surgical Pathology Department at [facility] as part of an ongoing food quality technician program and in compliance with [...] characteristics determined by the Surgical Pathology Department [facility]. It has not been cleared or approved [...] AM CDT) eGFR 48 mL/min/1. 73 m2 [facility] Comment: Interpretive Data Reference Interval [...] Deutsch MD LAB BLOOD ORDERABLES Final Result [facility] [address] Department [place] [address] * (ABNORMAL) Hemoglobin A1c (08/21/2021 11:01 AM AUDITING SPECIALIST) Hgb A1C 6.6(H) 4.0 - 5.6 % [facility] ([place]) Estimated Average Glucose 143 mg/dL [facility] ([place]) Comment: The ADA recommends reporting an estimated Average Glucose (eAG) with all Hemoglobin A1c results using the equation derived from a study of 507 normal and diabetic adults. Minority populations were underrepresented and children were not included. (Diabetes Care 31:4805-3308, 2008). The eAG is not equivalent to a fasting glucose. Blood 08/21/2021 11:0 1 AM AUDITING SPECIALIST 08/21/2021 11:04 AM AUDITING SPECIALIST us Tor Esteban MD LAB BLOOD ORDERABLES Fi nal Result [facility] ([place]) 1 [facility] Department [place] [address] * Lipid panel (08/21/2021 11:01 AM AUDITING SPECIALIST) Cholesterol 153 30 - 199 mg/dL [facility] [...] [facility] ([place]) Blood 08/21/2021 11:0 1 AM AUDITING SPECIALIST 08/21/2021 11:04 AM AUDITING SPECIALIST us Tor Esteban MD LAB BLOOD ORDERABLES Fi nal Result [facility] ([place]) 1 [facility] Department [place] [address] from Last 3 Months or Most Recently Relevant to Health Maintenance Insurance MEDICARE [place] [employer] [place] MEDICARE [place] [address] [facility] Advance Directives For more information, please contact: [phone] * Full Code (Latest Code Status on [...] 3:08 PM 08/27/2021 9:07 PM Care Teams Mineralogy Professor Relationship Specialty Start Date End Date Jimbo Rey MD [address] [place] [address] PCP - General Internal Medicine 06/11/20
--- NOTE | 2024-10-19 14:15 | PC.NURSE ---
1100 here for fleets enema from local doctor office. tolerated enema fair. did have mod-large soft brown stool. encouraged fluids and extra fiber and to follow up with her family doctor his recommendations. dc per wc to family auto. verbalizes an understanding.
== END 2024-10-19 10:09 | disposition home or self-care (01) ==
PROVIDERS: PCP Internal Medicine; Visit Provider Internal Medicine
DX: N18.2 Chronic kidney disease, stage 2 (mild) (principal); E83.52 Hypercalcemia; K59.00 Constipation, unspecified
CPT/HCPCS: 36415; 80053; 83735; 85027

== ENCOUNTER 2024-12-11 20:19 | Emergency (ER) | payer MEDICARE, OTHER, SELFPAY ==
[2024-12-11] VITALS (9 sets, daily range): BP systolic 130–166; BP diastolic 60–94; PULSE 62–72; RESP 14–20; TEMP 36.4–36.7; O2SAT 94–98
--- NOTE | ~2024-12-11 | CT_ITS ---
History: Fall PROCEDURE: CT head without contrast. COMPARISON: 11/30/2017. Reference is made to an MRI examination of the brain dated 11/26/2019 TECHNIQUE: Axial imaging of the head performed from the skull base to the vertex without IV contrast. Sagittal a nd coronal reformations obtained. DLP: 681 mGy-cm FINDINGS: The ventricles are enlarged. The dilatation of the ventricles is proportional to the degree of sulcal prominence, not uncommon in the senescent brain. Decreased attenuation is identified within the periventricular white matter, likely secondary to micr ovascular ischemic disease, in a patient of this age. There is no mass, mass effect or midline shift. There is no abnormal extra-axial fluid collection or intracranial hemorrhage. Visualized paranasal sinuses are clear. The mastoid air cells are well aerated. No acute displaced fractures within the overlying cranium. Right posterior parietal scalp hematoma. Impression: No acute intracranial hemorrhage or suspicious mass effect. Reviewed, dictated and finalized at location A. Impression: No acute intracranial hemorrhage or suspicious mass effect.
--- NOTE | ~2024-12-11 | CT_ITS ---
History: Fall PROCEDURE: CT cervical spine without intravenous contrast. COMPARISON: None TECHNIQUE: Multiple contiguous axial images of the cervical spine were performed without the administration of i ntravenous contrast. DLP: 149 mGy-cm FINDINGS: Preservation of the normal curvature of the cervical spine is identified. Significant degenerative disease is identified, with osteophyte formation, disc space narrowing, endp late changes, vacuum phenomenon and facet hypertrophy. No acute fractures are present. Biapical scarring. No soft tissue abnormality is present. The airway is patent. Impression: Significant degenerative disease, without acute fracture. Reviewed, dictated and finalized at location A. Impression: Significant degenerative disease, without acute fracture.
--- NOTE | ~2024-12-11 | CT_ITS ---
CLINICAL INDICATION: Fall COMPARISON: 01/02/2022 (CT examination of the chest). Reference is also made to MRI examination of the thoracic spine dated 08/25/2024 which demonstrated acute/subacute compression fractures at T11 and L1 and MRI examination of the lumbar spine performed 09/22/2024, which demonstrated acute/subacute L3 bur st fracture, as well as T11 and L1 fractures post vertebroplasty. TECHNIQUE: Multiple contiguous axial images of the chest, abdomen and pelvis were performed without t he administration of intravenous contrast The dose-length product (DLP) was 679.22 mGy-cm. Automated exposure control and iterative reconstruction technique were employed. FINDINGS/OBSERVATIONS: LUNG:Interstitial thickening is detected bilaterally. The remainder of the lungs are otherwise clear. No evidence of contusion, pneumothorax or hemothorax. MEDIASTINUM: Limited evaluation without intravenous contrast. HEART:No retrosternal hematoma. The heart is enlarged, without pericardial effusion. SOFT TISSUES OF THE CHEST: Unremarkable. Liver: The liver demonstrates homogeneous attenuation and is not enlarged. No perihepatic fluid to suggest acute traumatic injury. Gallbladder and biliary system: The gallbladder is surgically absent. Pancreas: Limited evaluation of the pancreas secondary to the lack of intravenous contrast. No peripancreatic fluid is identified to suggest acute traumatic injury. Spleen: The spleen demonstrates homogeneous attenuation and is not enlarged. No perisplenic fluid is identified to suggest acute traumatic injury. Kidneys: Atrophy of the left kidney, in comparison to the right. The remainder of the bilateral kidneys are unremarkable, without hydronephrosis or renal calculi. No perirenal fluid is identified to suggest acute traumatic injury. Adrenal glands: Unremarkable. Gastrointestinal tract: Fecal stasis within the colon. No free fluid within the abdomen or pelvis. Vasculature: Densely calcified atherosclerotic disease.. Lymph nodes: Limited evaluation without intravenous contrast. Pelvic structures: The bladder is decompressed, and otherwise unremarkable. The uterus is anteverted and anteflexed, and contains multiple bulky calcifications suggesting prior fibroid disease. Body wall and musculoskeletal: No umbilical hernia. Fat-containing supraumbilical hernia. Within the lower thoracic and lumbar spines: Findings consistent with recent vertebroplasty of the vertebral bodies of T11, L1, and L3. Posterior fixation hardware identified within the vertebral bodies of L4 and L5 with intervertebral d isc spacers. Slight compression of the superior endplate of T12 and L2 are now identified, with transverse lucenci es suggesting possible acute fractures. No acute compression fractures are identified within the remainder of the thoracic spine. No acute rib fractures. No acute sternal fracture. IMPRESSION: Possible acute compression fractures within the superior endplates of T12 and L2 for which MRI may be performed for confirmation. No hollow or solid visceral organ injury. No additional acute fracture deformities. Reviewed, dictated and finalized at location A. IMPRESSION: Possible acute compression fractures within the superior endplates of T12 and L 2 for which MRI may be performed for confirmation. No hollow or solid visceral organ injury. No additional acute fracture deformities.
--- OUTSIDE RECORDS SUMMARY | 2024-12-11 20:20 | XMS_ITS ---
Author Organization [facility] Address [address] [place], [place] [id number] Care Team Providers Care Final Assembly Inspector Name Role Phone Jimbo Rey Unavailable Unavailable MANNY GUERRERO Unavailable [phone] REASON FOR VISIT *General care Encounters Encounter Location Date Provider Diagnosis [address] [id number] 01/21/2024 MANNY GUERRERO Plan Of Treatment No Information Progress Notes * Nimisha WHYTEOB:[birth year] (89 yo F)Acc No.[id number]:01/21/2024 Patient: Starr MCGRAW Provider: Tori GUERRERO :1935 A ge:88 Y S ex:Female Date:01/21/2024 Address:[address] [facility] Subjective: * Chief Complaints: * 1 . *General care. * Medical History: Objective: * Vitals: Assessment: Plan: * Treatment: * Billing Information: * Visit Code: * Procedure Codes: * Electronic signature of ANNA GUERRERO DPM on 12/11/2024 at 08:20 PM CDT Sign off status: Pending * Provider: Tori GUERRERO Date: 0 01/21/2024 Generated for Dora ng/Falow/eTransmitting on: 0 12/11/2024 08:20 PM CDT
--- OUTSIDE RECORDS SUMMARY | 2024-12-11 20:20 | XMS_ITS | Referral Summary ---
Author Organization [facility] Address [address] [place] [address] Care Team Providers Care Tool Dispatcher Name Role Phone Jimbo Rey MD Primary Care Provider [phone] Encounters Date Type Department Care Team Description 10/03/2024 8:00 AM CDT - 10/03/2024 11:59 PM CDT Hospital Encounter [address] [address] Discharge Disposition: Discharge to home or self [...] (09/13/2021): Added automatically from request for surgery [id number] Encounter for screening colonoscopy 09/13/2021 Overview (09/13/2021): Added automatically from request for surgery [id number] Chest pain 09/08/2021 Enlarged thyroid gland 09/08/2021 [...] thrombectomy for M1 occlusion, TICI 3 at [facility] on 08/21/2021. Acute stroke due to ischemia 08/21/2021 Coronary artery calcification seen on CT scan Polyneuropathy, unspecified 06/11/2020 Presbycusis, bilateral 06/11/2020 Essential hypertension 06/11/2020 Assessment & Plan (01/04/2022 9:38 PM CDT): Continue home metoprolol. Holding losartan and dilt - will restart as pressures allow. Assessment & Plan (10/10/2021 2:21 PM CDT): Controlled with medication - continue medication per PCP Paroxysmal atrial fibrillation ([facility]/HCC) 020 Assessment & Plan (01/04/2022 9:36 [...] (06/11/2020): Added automatically from request for surgery [id number] Chronic diastolic heart failure 01/05/2020 Assessment & [...] often do you attend chur ch or worship services? 1 to 4 times per year 01/07/2022 Do you belong to any clubs o r organizations such as congregation groups, unions, fraternal or athletic groups, or [...] on file Legal Sex Female 7:02 PM ADMINISTRATIVE MANAGER Gender Identity Not on file Sexual Orientation [...] 3:10 PM CDT Height 160 cm (5' 3) 04/12/2022 3:10 PM CDT Body Mass Index 26.57 04/12/2022 3:10 PM CDT Plan of Treatment Not on file Medical Devices Implanted Type Area Nuclear Design Engineer Device Identifier Shelf Expiration Date Model / Serial / Lot Med[employer]onic Inc [id number] Parametric 4mm 50mm 40mm Radiopaque Revascularization - [id number] Implanted:Qty: 1 on 08/21/2021 at [facility] [employer] 06/12/2024 SFR4-4 -40- 10 / / [id number] Description:NOT INPLANT Angio-Seal Evolution 8fr Vascular Closure - [id number] Implanted:Qty: 1 on 08/21/2021 at [facility] [employer] 04/28/2022 [id number] / / [id number] Procedures Procedure Name Priority Date/Time Associated Diagnosis Comments SURGICAL PATHOLOGY Routine 10/03/2024 10 :33 AM CDT EGFR Routine 01/07/2022 7:10 AM CDT HEMOGLOBIN A1C STAT 08/21/2021 11:01 AM ADMINISTRATIVE MANAGER LIPID PANEL STAT 08/21/2021 11:01 AM ADMINISTRATIVE MANAGER from Last 3 Months or Most Recently Relevant to Health Maintenance Results * Surgical pathology (10/03/2024 10:33 AM CDT) Bone - Biopsy / Curettings 10/03/2024 10:33 AM CDT 10/04/2024 10:33 AM CDT Narrative 10/07/2024 5:00 PM CDT EPIC results best viewed via link to PDF [facility] Department of Pathology [address] [place] [address], [place] [address] Note to Patients: This report may [...] Final Report Patient Name: STARR WHYTE Address: [address] [place] [id number] Gender: F : 1935 (Age: 88) Service: Location: N : [id number] [facility] #: [id number] Patient Type: SPECIMEN Taken: 10/03/2024 Received: 10/04/2024 [...] container labeled STARR WHYTE and L3 vertebral biopsy. It is a core of red-cortez bone [...] determined by the Surgical Pathology Department at [facility] as part of an ongoing quality control program and in compliance with federally mandated [...] characteristics determined by the Surgical Pathology Department [facility]. It has not been cleared or [...] CDT) eGFR 48 mL/min/1. 73 m2 [facility] Comment: Interpretive Data Reference Interval Normal [...] MD LAB BLOOD ORDERABLES Final Result [facility] [address] Department [place] [address] * (ABNORMAL) Hemoglobin A1c (08/21/2021 11:01 AM ADMINISTRATIVE MANAGER) Hgb A1C 6.6(H) 4.0 - 5.6 % [facility]) Estimated Average Glucose 143 mg/dL [facility] ([place]) Comment: The ADA recommends reporting an estimated Average Glucose (eAG) with all Hemoglobin A1c results using the equation derived from a study of 507 normal and diabetic adults. Minority populations were underrepresented and children were not included. (Diabetes Care 31:5108-5243, 2008). The eAG is not equivalent to a fasting glucose. Blood 08/21/2021 11:0 1 AM ADMINISTRATIVE MANAGER 08/21/2021 11:04 AM ADMINISTRATIVE MANAGER Tor Esteban MD LAB BLOOD ORDERABLES Fi nal Result Performing Organization Address City/[facility] [address]/ZIP Co de Phone Number [facility] ([place]) 1 [facility] Department [place] [address] * Lipid panel (08/21/2021 11:01 AM ADMINISTRATIVE MANAGER) Cholesterol 153 30 - 199 mg/dL [facility] [...] on 2018. Chol/HDL ratio 2 [facility] ([place]) Blood 08/21/2021 11:0 1 AM ADMINISTRATIVE MANAGER 08/21/2021 11:04 AM ADMINISTRATIVE MANAGER us Tor Esteban MD LAB BLOOD ORDERABLES Fi nal Result [facility] ([place]) 1 [facility] Department [place] [address] from Last 3 Months or Most Recently Relevant to Health Maintenance Insurance MEDICARE [facility] MEDICARE [employer] [place] MEDICARE [place] Advance Directives For more information, please contact: [phone] * Full Code (Latest Code Status on [...] 3:08 PM 08/27/2021 9:07 PM Care Teams Tool Dispatcher Relationship Specialty Start Date End Date Jimbo Rey MD [address] [place] [address] PCP - General Internal Medicine 06/11/20
--- OUTSIDE RECORDS SUMMARY | 2024-12-11 20:21 | XMS_ITS ---
Author Organization [facility] Address [address] [place], [place] [id number] Care Team Providers Care Owner Operator Name Role Phone Jimbo Rey Unavailable Unavailable SNOOK, LUCY Unavailable [phone] REASON FOR VISIT *General care Encounters Encounter Location Date Provider Diagnosis [address] [phone] 08/18/2024 LUCY NORMANK Plan Of Treatment No Information Progress Notes * Nimisha WHYTEOB:[birth year] (89 yo F)Acc No.[id number]:08/18/2024 Patient: Starr MCGRAW Provider: Yinka Melchor DPM :1935 A ge:88 Y S ex:Female Date:08/18/2024 Address:[address] [facility] Subjective: * Chief Complaints: * 1 . *General care. * Medical History: Objective: * Vitals: Assessment: Plan: * Treatment: * Billing Information: * Visit Code: * Procedure Codes: * Electronic signature of LUCY MELCHOR DPM on 12/11/2024 at 08:21 PM CDT Sign off status: Pending * Provider: Yinka Melchor DPM Date: 0 08/18/2024 Generated for Printi ng/Faxing/eTransmitting on: 0 12/11/2024 08:21 PM CDT
--- OUTSIDE RECORDS SUMMARY | 2024-12-11 20:21 | XMS_ITS | Encounter Summary ---
Author Organization [facility] Address [address] [place] [address] Care Team Providers Care Computational Mathematician Name Role Phone Jimbo Rey MD Primary Care Provider [phone] Encounter Details Date Type Department Care Team (Late st Contact Info) Description 10/16/2021 Telephone [facility] [address] [place] [address] Mary Castellano, LORENZO Social History Tobacco Use [...] on file Legal Sex Female 7:02 PM SAMPLE BOOK MAKER Gender Identity Not on file Sexual Orientation [...] on filedocumented in this encounter Care Teams Computational Mathematician Relationship Specialty Start Date End Date Jimbo Rey MD [address] [place] [address] PCP - General Internal Medicine 06/11/20 documented as of this encounter
--- OUTSIDE RECORDS SUMMARY | 2024-12-11 20:21 | XMS_ITS | Clinical Summary ---
Author Organization [facility] Address [address] [place] [address] Care Team Providers Care Dioramist Name Role Phone Jimbo Rey MD Primary [...] (09/13/2021): Added automatically from request for surgery [id number] Encounter for screening colonoscopy 09/13/2021 Overview (09/13/2021): Added automatically from request for surgery [id number] Chest pain 09/08/2021 Enlarged thyroid gland 09/08/2021 [...] thrombectomy for M1 occlusion, TICI 3 at [facility] on 08/21/2021. Acute stroke due [...] (06/11/2020): Added automatically from request for surgery [id number] Chronic diastolic heart failure 01/05/2020 Assessment & Plan (01/04/2022 9:46 PM CDT): Currently euvolemic. Holding lasix for now. Acute blood loss anemia Encounters Date Type Department Care Team Description 10/03/2024 8:00 AM CDT - 10/03/2024 11:59 PM [place] [address] Discharge Disposition: Discharge to home or self [...] often do you attend chur ch or restoration services? 1 to 4 times per year 01/07/2022 Do you belong to any clubs o r organizations such as taoist groups, unions, fraternal or athletic groups, or [...] on file Legal Sex Female 7:02 PM TEXTILE CHEMIST Gender Identity Not on file Sexual Orientation [...] 12/27, 01/05/2022, Additional history exists Covid-19 Vaccine ( - 2023-2 5 season) 2024 10/06/2020, 09/13/2020 Influenza Vaccine (Season Ended) 2025 05/02/20 21 Medical Devices Implanted Type Area Middle School Tutor Device Identifier Shelf Expiration Date Model / Serial / Lot Med[employer]onic Inc [id number] Parametric 4mm 50mm 40mm Radiopaque Revascularization - [id number] Implanted:Qty: 1 on 08/21/2021 at [facility] [employer] 06/12/2024 SFR4-4 -40- 10 / / [id number] Description:NOT INPLANT Angio-Seal Evolution 8fr Vascular Closure - [id number] Implanted:Qty: 1 on 08/21/2021 at [facility] [employer] 04/28/2022 [id number] / / [id number] Procedures Procedure Name Priority Date/Time Associated Diagnosis Comments SURGICAL PATHOLOGY Routine 10/03/2024 10 :33 AM CDT EGFR Routine 01/07/2022 7:10 AM CDT HEMOGLOBIN A1C STAT 08/21/2021 11:01 AM TEXTILE CHEMIST LIPID PANEL STAT 08/21/2021 11:01 AM TEXTILE CHEMIST from Last 3 Months or Most Recently Relevant to Health Maintenance Results * Surgical pathology (10/03/2024 10:33 AM CDT) Bone - Biopsy / Curettings 10/03/2024 10:33 AM CDT 10/04/2024 10:33 AM CDT Narrative 10/07/2024 5:00 PM CDT EPIC results best viewed via link to PDF [facility] Department of Pathology [address] [place] [address] Note to Patients: This report may [...] Final Report Patient Name: STARR WHYTE Address: [address] [place], [place] [id number] Gender: F : 1935 (Age: 88) Service: Location: N : [id number] [facility] #: [id number] Patient Type: SPECIMEN Taken: 10/03/2024 Received: 10/04/2024 [...] Center as part of an ongoing quality rep program and in compliance with federally mandated [...] determined by the Surgical Pathology Department [facility]. It has not been cleared or approved [...] CDT) eGFR 48 mL/min/1. 73 m2 [facility] Comment: Interpretive Data Reference Interval Normal [...] BLOOD ORDERABLES Final Result Performing Organization Address City/[facility]/ZIP Co de Phone Number [facility] [address] Department [place] [address] * (ABNORMAL) Hemoglobin A1c (08/21/2021 11:01 AM TEXTILE CHEMIST) Hgb A1C 6.6(H) 4.0 - 5.6 % [facility] ([place]) Estimated Average Glucose 143 mg/dL [facility] ([place]) Comment: The ADA recommends reporting an estimated Average Glucose (eAG) with all Hemoglobin A1c results using the equation derived from a study of 507 normal and diabetic adults. Minority populations were underrepresented and children were not included. (Diabetes Care 31:0216-9838, 2008). The eAG is not equivalent to a fasting glucose. Blood 08/21/2021 11:0 1 AM TEXTILE CHEMIST 08/21/2021 11:04 AM TEXTILE CHEMIST Tor Esteban MD LAB BLOOD ORDERABLES Fi nal Result [facility] ([place]) 1 [facility] Department [place] [address] * Lipid panel (08/21/2021 11:01 AM TEXTILE CHEMIST) Cholesterol 153 30 - 199 mg/dL [facility] [...] 2018. Non-HDL Cholesterol 88 mg/dL [facility] ([place]) Comment: Interpretive Data Ages < or = [...] on 2018. Chol/HDL ratio 2 [facility] ([place]) Blood 08/21/2021 11:0 1 AM TEXTILE CHEMIST 08/21/2021 11:04 AM TEXTILE CHEMIST us Tor Esteban MD LAB BLOOD ORDERABLES Fi nal Result [facility] ([place]) 1 [facility] [place] [address] from Last 3 Months or Most Recently Relevant to Health Maintenance Insurance MEDICARE [place] MEDICARE [place] MEDICARE [facility] Advance Directives For more information, please contact: [phone] * Full Code (Latest Code Status on [...] 3:08 PM 08/27/2021 9:07 PM Care Teams Dioramist Relationship Specialty Start Date End Date Jimbo Rey MD [address] [place] [address] PCP - General Internal Medicine 06/11/20
--- OUTSIDE RECORDS SUMMARY | 2024-12-11 20:21 | XMS_ITS | Patient Health Record ---
Author Organization [facility] Address [address] [place], [place] [id number] Care Team Providers Care Transmitter Engineer In Charge Name Role Phone Jimbo Rey Unavailable Unavailable LUCY MELCHOR Unavailable [phone] MANNY GUERRERO Unavailable [phone] Allergies No Known Allergies Reason For Referral [...] high dose seasonal Unknown 04/30/2023 Admini stered Plan Of Treatment No Information Insurance Providers Payer Name Payer Address Payer Phone Subscriber Number Group Number Insured Name Patient Relationship to Insured Coverage Start Date Coverage End Date Medicare Part B [facility] [address] [place] [id number] Starr Whyte Self - patient is the insured [place] [employer] [address] [employer] [employer] [place] [address] [id number] Starr Whyte Self - patient is the insured Medical (General) History Medical History History ICD Code stroke Open sores hypertension
--- NOTE | 2024-12-11 20:30 | ECG_ITS ---
Test Date: 2024-12-11 20:51:37 Measurements Intervals [place] Rate: 66 P: 0 UT: 0 QRS: 41 QRSD: 101 T: 128 QT: 381 QTc: 400 Interpretive Statements ATRIAL FLUTTER/TACHYCARDIA WITH ORMAL VENTRICULAR RESPONSE ANTEROSEPTAL INFARCT, AGE INDETERMINATE BORDERLINE ST-T WAVE ABNORMALITY- INF/HIGH LAT LEADS BASELINE ARTIFACT- I, II, III, AVR, AVL ,AVF, V1 ABNORMAL ECG No previous ECG available for comparison Electronically Signed On 12-12-2024 06:18:25 CDT by Jorge Houser D.O.
--- NOTE | 2024-12-11 20:30 | ED_ITS ---
HPI - Dizziness General Chief Complaint: Dizziness Stated Complaint: Dizzy Time Seen by Provider: 12/11/24 20:28 Source: patient Mode of arrival: wheelchair Limitations: no limitations History of Present Illness HPI Narrative: patient is an 89-year-old female with dizziness events and then a fall onto a door frame and then concrete floor. This was a ground level fall. She landed on the back of her head and her right upper back. She has pain particularly in the right upper back near the ribs closer to the spine. She has had 3 recent kyphoplasties in the last year. She has prior fractures of the thoracic lower and upper lumbar spine. No further complaints. No dizziness or chest pain. Patient is on Eliquis for AFib. family knows that there is 3 kyphoplasties and 2 recent needs for kyphoplasty on the spine. MD elicited complaint: dizziness Pertinent past history: other ( See med list; patient is on Eliquis) Onset (ago): hour(s) ( 1) Timing: sudden onset Severity: mild Description: off-balance Context: change in body position History of similar symptoms: Yes Exacerbating factors: movement/ambulation and change in body position Relieving factors: remaining still Associated symptoms: denies other symptoms Associated neuro symptoms: other ( none except the dizziness prior to the event) Related Data Home Medications ?Medication ?Instructions ?Recorded ?Confirmed ?Last Taken ?Type diltiazem HCl 180 mg capsule,24 180 mg PO DAILY 07/05/19 10/19/24 10/19/24 History hr,extended release atorvastatin 10 mg tablet 10 mg PO DAILY 10/01/21 10/19/24 10/19/24 History buspirone 5 mg tablet 10 mg PO BID 10/01/21 10/19/24 10/19/24 History furosemide 20 mg tablet 20 mg PO EVERY OTHER DAY 10/01/21 10/19/24 10/18/24 History linagliptin 5 mg tablet (Tradjenta) 5 mg PO QAM 10/01/21 10/19/24 10/19/24 History pantoprazole 40 mg tablet,delayed 40 mg PO BID 10/01/21 10/19/24 10/19/24 History release apixaban 2.5 mg tablet (Eliquis) 2.5 mg PO BID 06/14/22 10/19/24 10/19/24 History calcitriol 0.5 mcg capsule 0.5 mcg PO DAILY 06/14/22 10/19/24 10/19/24 History galantamine 8 mg tablet 8 mg PO BID 06/14/22 10/19/24 10/19/24 History loteprednol etabonate 0.5 % eye 1 drp EACH EYE DAILY 06/14/22 10/19/24 10/19/24 History drops,suspension vitamin B complex (B 1 tablet PO DAILY 06/14/22 10/19/24 10/19/24 History Complex-Vitamin B12 tablet) Allergies Allergy/AdvReac Type Severity Reaction Status Date / Time No Known Allergies Allergy Verified 12/27/19 10:18 Review of Systems 2 Review of Systems: All systems reviewed & are unremarkable except as noted in HPI and below Constitutional: Constitutional: Reports no additional constitutional complaints Eyes: Eyes: Reports no additional eye complaints ENT: Reports system reviewed and no additional complaints, except as documented Cardiovascular: Cardiovascular: Reports no additional cardiovascular complaints Respiratory: Respiratory: Reports no additional respiratory complaints Gastrointestinal: Gastrointestinal: Reports no additional gastrointestinal complaints Genitourinary: Genitourinary: Reports no additional female genitourinary complaints Musculoskeletal: Musculoskeletal: Reports no additional musculoskeletal complaints Integumentary/Breasts: Skin/Breast: Reports system reviewed and no additional complaints, except as docu Neurologic: Reports system reviewed and no additional complaints, except as documented Psychiatric: Psychiatric: Reports no additional psychiatric complaints Endocrine: Endocrine: Reports no additional endocrine complaints Hematologic/Lymphatic: Hematologic/Lymphatic: Reports no additional hematologic/lymphatic complaints Allergic/Immunologic: Allergic/Immunologic: Reports no additional allergic/immunologic complaints PMFSH Past Medical History Medical History External hemorrhoid Atrial fibrillation Osteoarthritis Hypertension Overweight Surgical History Surgical History Hx of tonsillectomy History of cholecystectomy Family History Family History Mother Hypertension Father AAA (abdominal aortic aneurysm) Mother Hypertension Social History Social History Smoking status: Never smoker Living arrangements: with family Additional living arrangements comments: Lives with her . 4 adult children. Occupation/Education: retired Exam 2 Const: General: healthy appearing Nutritional Appearance: well nourished Orientation/consciousness: patient oriented x3 HENMT: Head: normal to inspection Ears: TM's normal bilaterally F arcadio/Nose/Sinus: Normal external nose present Eyes: Conjunctivae: conjunctivae normal Pupils: Equal, round and reactive pupils present EOM: EOMs intact bilaterally Neck: Neck: normal visual inspection Chest: Chest palpation & inspection: normal inspection of the chest Resp: Effort & Inspection: normal respiratory effort and not labored A uscultation: clear to auscultation bilaterally and no crackles Cardio: Rate: regular rate Rhythm: abnormal rhythm Heart sounds: no murmurs GI: Inspection: non-distended GI Palp: Yes Soft to palpation and No Tenderness to palpation present (GI) Auscultation: normal bowel sounds : General: Yes bladder normal to palpation Back/Spine/Pelvis: Back: no CVA tenderness Skin: General skin exam: normal color Rashes: no rashes Wounds: no wounds Neuro: General: patient oriented x3, moves all extremities, no meningeal signs, no focal motor deficits and CN's II-XI intact bilaterally Cranial nerves: Yes Nystagmus not present Speech: normal speech Gait exam (Neuro): gait abnormal ( brought in by wheelchair due to pain) Extrem: General: normal to inspection Psych: Mental Status: mental status grossly normal Affect: normal affect Attitude: cooperative Course Vital Signs Vital signs: Vital Signs Temperature 36.4 C 12/11/24 20:19 Pulse Rate 69 12/11/24 20:19 Respiratory Rate 18 12/11/24 20:19 Blood Pressure 166/74 H 12/11/24 20:19 Pulse Oximetry 96 12/11/24 20:19 Oxygen Delivery Room Air 12/11/24 20:19 Temperature 36.7 C 12/11/24 20:29 Pulse Rate 66 12/11/24 23:00 Respiratory Rate 16 12/11/24 23:00 Blood Pressure 130/94 H 12/11/24 23:00 Pulse Oximetry 96 12/11/24 23:00 Oxygen Delivery Room Air 12/11/24 22:15 MDM - Dizziness MDM Narrative Medical decision making narrative: patient is an 89-year-old female with a ground level fall onto a hard surface and sustained right upper back midback pain. We will get CT scan over x-ray for simplicity of movement for the patient. We will treat pain. Check baseline labs and EKG. The CT scan of the chest abdomen and pelvis shows old findings only known to the family. No new fractures even though it says acute are seen. Family knows that there are 2 fractures waiting to be done. Lab Data Attestation: I reviewed the patient's lab results. 12/11/24 21:03 12/11/24 21:03 Labs: Lab Results 12/11/24 Range/Units 21:03 WBC 6.9 (4.8-10.8) K/mm3 RBC 4.18 L (4.20-5.40) M/mm3 Hgb 12.4 (11.7-13.8) g/dL Hct 41.1 (35.0-42.0) % MCV 98.3 (78.0-102.0) fL MCH 29.7 (27.0-31.0) pg MCHC 30.2 L (32-36) g/dL RDW 14.3 (11.6-14.4) % Plt Count 133 L (150-420) K/mm3 MPV 10.2 (9.2-11.8) fl Immature Gran % (Auto) 1.0 H (0.0-0.0) % Neut % (Auto) 78.2 H (50.0-70.0) % Lymph % (Auto) 9.7 L (18.0-42.0) % [place] % (Auto) 8.7 (2.0-11.0) % Eos % (Auto) 1.7 (1.0-6.0) % Baso % (Auto) 0.7 (0.0-1.0) % Lymph # (Auto) 0.67 L (1.10-4.50) K/mm3 [place] # (Auto) 0.60 (0.10-0.90) K/mm3 Eos # (Auto) 0.12 (0.02-0.50) K/mm3 Baso # (Auto) 0.05 (0.00-0.10) K/mm3 Abs Immat Gran (auto) 0.07 H (0.00-0.00) K/mm3 Absolute Neuts (auto) 5.37 (1.70-7.20) K/mm3 Absolute Nucleated RBC 0.00 (0.00-0.00) K/mm3 Nucleated RBC % 0.0 (0-0.0) % Sodium 139 (137-145) mmol/L Potassium 4.1 (3.4-5.0) mmol/L Chloride 105 (98-107) mmol/L Carbon Dioxide 25 (22-30) mmol/L Anion Gap 9 (4-12) mmol/L BUN 21 H (7-17) mg/dL Creatinine 1.11 H (0.7-1.0) mg/dL Estim Creat Clear Calc 26 ml/min Estimated GFR 46 L (59 - ) Glucose 141 H (65-110) mg/dL Calculated Osmolality 293 (285-295) mOsm/kg Calcium 10.0 (8.4-10.2) mg/dL Total Bilirubin 0.5 (0.2-1.3) mg/dL AST 31 (14-36) U/L ALT 20 (6-35) U/L Alkaline Phosphatase 45 (38-126) U/L Troponin I 0.019 (0.000-0.034) ng/mL Total Protein 7.2 (6.3-8.2) g/dL Albumin 4.3 (3.5-5.1) g/dL Urine Color Yellow (Yellow) Urine Appearance Clear (Clear) Urine pH 5.5 (5.0-8.0) Ur Specific [place] 1.025 H (1.010-1.020) Urine Protein 1+ H (Negative) Urine Glucose (UA) Negative (Negative) Urine Ketones Negative (Negative) Ur Blood (Man) Trace-intact H (Negative) Urine Nitrate Negative (Negative) Urine Bilirubin Negative (Negative) Urine Urobilinogen 0.2 (0.2-1.0) mg/dL Leukocyte Esterase Rfl Negative (Negative) VILLA/UL Urine RBC 0-2 (0-2) /hpf Ur Squamous Epith Cells Moderate H (Few) /hpf Hyaline Casts 1-2 (None) /lpf Imaging Data Attestation: I personally reviewed and interpreted this imaging study as follows: Radiologist's impression: CT scan of the chest abdomen and pelvis shows IMPRESSION: Possible acute compression fractures within the superior endplates of T12 and L2 for which MRI may be performed for confirmation. No hollow or solid visceral organ injury. No additional acute fracture deformities. as well as kyphoplasty to T11/ L1 and L3 CT scan of the head was negative for acute process CT scan of the cervical spine was negative for acute process ECG Data EKG #1: Attestation: I personally reviewed and interpreted this ECG as follows: ECG completion date: 12/11/24 ECG completion time: 21:06 EKG Interpretation: normal rate, atrial fibrillation, non-specific ST changes, normal QRS, normal QT and NL axis Discharge Plan Discharge Clinical Impression: Dizziness Fall Qualifiers: Encounter type: initial encounter Qualified Code(s): W19.XXXA - Unspecified fall, initial encounter Contusion of rib Qualifiers: Encounter type: initial encounter Laterality: right Qualified Code(s): S20.211A - Contusion of right front wall of thorax, initial encounter Head injury Qualifiers: Encounter type: initial encounter Qualified Code(s): S09.90XA - Unspecified injury of head, initial encounter Compressed spine fracture Qualifiers: Encounter type: initial encounter Fracture of vertebra location: thoracic T horacic vertebra fracture level: unspecified thoracic vertebra Qualified Code(s): S22.000A - Wedge compression fracture of unspecified thoracic vertebra, initial encounter for closed fracture Patient Disposition: Home Condition: Stable Instructions: Vertebral Compression Fracture (ED), Fall Prevention for Older Adults (ED), Head Injury (DC) Additional Instructions: Please follow-up with primary doctor in the next week. She will need further MRI picture of the the spine verses recent MRI done with results at a different facility. It appears the patient will need kyphoplasty again. Please touch base with your primary doctor and your spine physician for further planning. Patient Language: Uzbek Prescriptions: New hydrocodone-acetaminophen 5-325 mg tablet 1 tablet PO Q8H PRN (Reason: pain) Qty: 20 0RF No Action calcitriol 0.5 mcg capsule 0.5 mcg PO DAILY vitamin B complex [B Complex-Vitamin B12] Tablet 1 tablet PO DAILY loteprednol etabonate 0.5 % drops,suspension 1 drp EACH EYE DAILY galantamine 8 mg tablet 8 mg PO BID Eliquis 2.5 mg tablet 2.5 mg PO BID diclofenac sodium 3 % gel 1 applic topical BID Qty: 100 0RF buspirone 5 mg Tablet 10 mg PO BID atorvastatin 10 mg Tablet 10 mg PO DAILY pantoprazole 40 mg Tablet,Delayed Release (Dr/Ec) 40 mg PO BID furosemide 20 mg Tablet 20 mg PO EVERY OTHER DAY Tradjenta 5 mg Tablet 5 mg PO QAM losartan 100 mg tablet 100 mg PO DAILY Qty: 90 1RF diltiazem HCl 180 mg capsule,extended release 24 hr 180 mg PO DAILY potassium chloride 20 mEq tablet,ER particles/crystals See Rx Instructions .ROUTE .COMPLEX Qty: 90 0RF Dose Instruction: TAKE ONE TABLET BY MOUTH DAILY Rx Instructions: TAKE ONE TABLET BY MOUTH DAILY metoprolol succinate 25 mg tablet extended release 24 hr See Rx Instructions .ROUTE .COMPLEX Qty: 90 0RF Dose Instruction: TAKE ONE TABLET BY MOUTH EVERY DAY Rx Instructions: TAKE ONE TABLET BY MOUTH EVERY DAY Follow-up/Referrals: Jimbo Rey MD [Primary Care Provider] - Time of Disposition: 23:13
[2024-12-11] MEDS: HYDROcodone/acetaminophen (*CRX) 5-325 MG TABLET 1 TAB PO (20:44)
--- NOTE | 2024-12-11 20:52 | PC.NURSE ---
LAB AT THE BEDSIDE
[2024-12-11 21:12] LABS: Basophils Absolute Auto 0.05 K/mm3 (0.00-0.10); Basophils Percent Auto 0.7 % (0.0-1.0); Eosinophils Absolute Auto 0.12 K/mm3 (0.02-0.50); Eosinophils Percent Auto 1.7 % (1.0-6.0); Hematocrit 41.1 % (35.0-42.0); Hemoglobin 12.4 g/dL (11.7-13.8); Immature Granulocyte Absolute 0.07 K/mm3 (0.00-0.00); Lymphocytes Absolute Auto 0.67 K/mm3 (1.10-4.50); Lymphocytes Percent Auto 9.7 % (18.0-42.0); Mean Corpuscular HGB Conc 30.2 g/dL (32-36); Mean Corpuscular Hemoglobin 29.7 pg (27.0-31.0); Mean Corpuscular Volume 98.3 fL (78.0-102.0); Mean Platelet Volume 10.2 fl (9.2-11.8); Monocytes Percent Auto 8.7 % (2.0-11.0); Neutrophils Absolute Auto 5.37 K/mm3 (1.70-7.20); Neutrophils Percent Auto 78.2 % (50.0-70.0); Platelet Count Result 133 K/mm3 (150-420); Red Blood Count 4.18 M/mm3 (4.20-5.40); Red Cell Distribution Width 14.3 % (11.6-14.4); White Blood Count 6.9 K/mm3 (4.8-10.8)
--- NOTE | 2024-12-11 21:23 | PC.NURSE ---
CURRENTLY IN CT VIA STRETCHER. FAMILY IN THE ROOM
[2024-12-11 22:00] LABS: Add Urine Microscopic? YES; Appearance Urine Clear (Clear); Bilirubin Urine Negative (Negative); Blood Urine Trace-intact (Negative); Color Urine Yellow (Yellow); Glucose Urine UA Negative (Negative); Ketones Urine Negative (Negative); Leukocyte Esterase Ur Negative LEU/UL (Negative); Nitrate Urine Negative (Negative); Protein Urine 1+ (Negative); Specific Grav Ur 1.025 (1.010-1.020); Urobilinogen Urine 0.2 mg/dL (0.2-1.0); pH Urine 5.5 (5.0-8.0)
[2024-12-11 22:04] LABS: RBC Urine 0-2 /hpf (0-2); Squamous Epithelial Cell Urine Moderate /hpf (Few)
[2024-12-11 22:34] LABS: Alanine Aminotransferase 20 U/L (6-35); Albumin Level 4.3 g/dL (3.5-5.1); Alkaline Phosphatase 45 U/L (38-126); Anion Gap 9 mmol/L (4-12); Aspartate Amino Transferase 31 U/L (14-36); Bilirubin,Total 0.5 mg/dL (0.2-1.3); Blood Urea Nitrogen 21 mg/dL (7-17); Carbon Dioxide 25 mmol/L (22-30); Chloride 105 mmol/L (98-107); Estimated CRCL calculation 26 ml/min; Estimated Glomerular Filt Rate 46; Glucose 141 mg/dL (65-110); Osmolality Calculated 293 mOsm/kg (285-295); Potassium 4.1 mmol/L (3.4-5.0); Sodium 139 mmol/L (137-145); Total Protein 7.2 g/dL (6.3-8.2)
[2024-12-11 22:45] LABS: Troponin I 0.019 ng/mL (0.000-0.034)
== END 2024-12-11 23:18 | disposition home or self-care (01) ==
PROVIDERS: Emergency Provider Emergency Medicine; PCP Internal Medicine
DX: R42 Dizziness and giddiness (principal); S20.211A Contusion of right front wall of thorax, initial encounter; S22.000A Wedge compression fracture of unspecified thoracic vertebra, initial encounter for closed fracture; S09.90XA Unspecified injury of head, initial encounter; I48.91 Unspecified atrial fibrillation; I10 Essential (primary) hypertension; W18.39XA Other fall on same level, initial encounter
CPT/HCPCS: 36415; 70450; 71250; 72125; 74176; 80053; 81001; 84484; 85025; 93005; 99284; A9270

== ENCOUNTER 2025-03-09 14:48 | Outpatient (CLI) | payer MEDICARE, OTHER, SELFPAY ==
--- OUTSIDE RECORDS SUMMARY | 2024-01-21 05:30 | XMS_ITS ---
Author Organization [facility] Address [address] [place], [place] [phone] Care Team Providers Care Floral Designer Name Role Phone Jimbo Rey Unavailable Unavailable MANNY GUERRERO Unavailable [phone] REASON FOR VISIT *General care Encounters Encounter Location Date Provider Diagnosis [address] [id number] 01/21/2024 MANNY GUERRERO Plan Of Treatment No Information Progress Notes * Nimisha WHYTEOB:[birth year] (89 yo F)Acc No.[id number]:01/21/2024 Patient: Starr MCGRAW Provider: Tori GUERRERO :1935 A ge:88 Y S ex:Female Date:01/21/2024 Address:[address] [facility] Subjective: * Chief Complaints: * 1 . *General care. * Medical History: Objective: * Vitals: Assessment: Plan: * Treatment: * Billing Information: * Visit Code: * Procedure Codes: * Electronic signature of ANNA GUERRERO DPM on 03/09/2025 at 04:30 PM CDT Sign off status: Pending * Provider: Tori GUERRERO Date: 0 01/21/2024 Generated for Dora ng/Falow/eTransmitting on: 0 03/09/2025 04:30 PM CDT
--- OUTSIDE RECORDS SUMMARY | 2024-08-18 06:30 | XMS_ITS ---
Author Organization [facility] Address [address] [place], [place] [address] Care Team Providers Care Event Executive Name Role Phone Jimbo Rey Unavailable Unavailable SNOOK, LUCY Unavailable [phone] REASON FOR VISIT *General care Encounters Encounter Location Date Provider Diagnosis [address] [id number] 08/18/2024 LUCY JILL Plan Of Treatment No Information Progress Notes * Nimisha WHYTEOB:[birth year] (89 yo F)Acc No.[id number]:08/18/2024 Patient: Starr MCGRAW Provider: Yinka Melchor DPM :1935 A ge:88 Y S ex:Female Date:08/18/2024 Address:[address] [facility] Subjective: * Chief Complaints: * 1 . *General care. * Medical History: Objective: * Vitals: Assessment: Plan: * Treatment: * Billing Information: * Visit Code: * Procedure Codes: * Electronic signature of LUCY MELCHOR DPM on 03/09/2025 at 04:30 PM CDT Sign off status: Pending * Provider: Yinka Melchor DPM Date: 0 08/18/2024 Generated for Printi ng/Faxing/eTransmitting on: 0 03/09/2025 04:30 PM CDT
[2025-03-09 15:06] LABS: Hematocrit 34.9 % (35.0-42.0); Hemoglobin 11.0 g/dL (11.7-13.8); Mean Corpuscular HGB Conc 31.5 g/dL (32-36); Mean Corpuscular Hemoglobin 29.0 pg (27.0-31.0); Mean Corpuscular Volume 92.1 fL (78.0-102.0); Platelet Count Result 161 K/mm3 (150-420); Red Blood Count 3.79 M/mm3 (4.20-5.40); White Blood Count 6.3 K/mm3 (4.8-10.8)
[2025-03-09 15:25] LABS: Alanine Aminotransferase 23 U/L (6-35); Albumin Level 4.0 g/dL (3.5-5.1); Alkaline Phosphatase 46 U/L (38-126); Anion Gap 11 mmol/L (4-12); Aspartate Amino Transferase 29 U/L (14-36); Bilirubin,Total 0.7 mg/dL (0.2-1.3); Blood Urea Nitrogen 20 mg/dL (7-17); Calcium 9.3 mg/dL (8.4-10.2); Carbon Dioxide 23 mmol/L (22-30); Chloride 110 mmol/L (98-107); Estimated Glomerular Filt Rate 46; Glucose 135 mg/dL (65-110); Osmolality Calculated 302 mOsm/kg (285-295); Potassium 4.1 mmol/L (3.4-5.0); Sodium 144 mmol/L (137-145); Total Protein 7.3 g/dL (6.3-8.2)
[2025-03-09 15:35] LABS: NT Pro B Type Natriuretic Pept 6100 pg/mL (19.9-100)
--- OUTSIDE RECORDS SUMMARY | 2025-03-09 16:31 | XMS_ITS | Clinical Summary ---
Author Organization [facility] Address [address] [place] [address] Care Team Providers Care Trailer Assembler Name Role Phone Jimbo Rey MD Primary Care Provider [phone] Allergies No known active allergies Medications dilTIAZem [...] (09/13/2021): Added automatically from request for surgery [id number] Encounter for screening colonoscopy 09/13/2021 Overview (09/13/2021): Added automatically from request for surgery [id number] Chest pain 09/08/2021 Enlarged thyroid gland 09/08/2021 [...] thrombectomy for M1 occlusion, TICI 3 at [facility] on 08/21/2021. 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 More than three times a week 01/07/2022 How often do you get togethe r with friends or relatives? Never 01/07/2022 How often do you attend chur or jainism services? 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 Gender Identity Not on file Sexual Orientation [...] Done Comments Albumin Creatinine Ratio, Urine 1937 Osteoporosis Screening-Bone Density Scan 1937 Dilated Eye Exam 1935 Foot Exam [...] Additional history exists Covid-19 Vaccine ( - 2024-2 6 season) 2025 10/06/2020, 09/13/2020 Influenza Vaccine (#1) 2025 05/02/2021 Medical Devices Implanted Type Area Sports Medicine Trainer Device Identifier Shelf Expiration Date Model / Serial / Lot [employer] [id number] Parametric 4mm 50mm 40mm Radiopaque Revascularization - [id number] Implanted:Qty: 1 on 08/21/2021 at [facility] [employer] 06/12/2024 [id number] / / [id number] Description:NOT INPLANT Angio-Seal Evolution 8fr Vascular Closure - [id number] Implanted:Qty: 1 on 08/21/2021 at [facility] [employer] 04/28/2022 [id number] / / [id number] Procedures Procedure Name Priority Date/Time Associated Diagnosis Comments EGFR Routine 01/07/2022 7:10 AM CDT HEMOGLOBIN A1C STAT 08/21/2021 11:01 AM PIPE COVERER HELPER LIPID PANEL STAT 08/21/2021 11:01 AM PIPE COVERER HELPER from Last 3 Months or Most Recently Relevant to Health Maintenance Results * eGFR (01/07/2022 7:10 AM CDT) [facility] eGFR 48 mL/min/1. 73 m2 [facility] Comment: Interpretive Data Reference Interval Normal [...] MD LAB BLOOD ORDERABLES Final Result [facility] [address] Department [place] [address] * (ABNORMAL) Hemoglobin A1c (08/21/2021 11:01 AM PIPE COVERER HELPER) Hgb A1C 6.6(H) 4.0 - 5.6 % [facility] ([place]) Estimated Average Glucose 143 mg/dL [facility] ([place]) Comment: The ADA recommends reporting an estimated Average Glucose (eAG) with all Hemoglobin A1c results using the equation derived from a study of 507 normal and diabetic adults. Minority populations were underrepresented and children were not included. (Diabetes Care 31:5847-2668, 2008). The eAG is not equivalent to a fasting glucose. Blood 08/21/2021 11:0 1 AM PIPE COVERER HELPER 08/21/2021 11:04 AM PIPE COVERER HELPER us Tor Esteban MD LAB BLOOD ORDERABLES Fi nal Result [facility] ([place]) [address] [facility] Department [place] [address] * Lipid panel (08/21/2021 11:01 AM PIPE COVERER HELPER) Cholesterol 153 30 - 199 mg/dL [facility] [...] 2018. LDL, calculated 75 <=129 mg/dL [facility] ([place]) Comment: Interpretive Data Ages < or [...] [facility] ([place]) Blood 08/21/2021 11:0 1 AM PIPE COVERER HELPER 08/21/2021 11:04 AM PIPE COVERER HELPER Tor Esteban MD LAB BLOOD ORDERABLES Fi nal Result [facility] ([place]) [address] [facility] Department [place] [address] from Last 3 Months or Most Recently Relevant to Health Maintenance Insurance MEDICARE [employer] MEDICARE [facility] MEDICARE [facility] Advance Directives For more information, please contact: [phone] * Full Code (Latest Code Status on [...] 3:08 PM 08/27/2021 9:07 PM Care Teams Trailer Assembler Relationship Specialty Start Date End Date Jimbo Rey MD [address] [place] [address] PCP - General Internal Medicine 06/11/20
--- OUTSIDE RECORDS SUMMARY | 2025-03-09 16:31 | XMS_ITS | Encounter Summary ---
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
--- OUTSIDE RECORDS SUMMARY | 2025-03-09 16:31 | XMS_ITS | Patient Health Record ---
Author Organization [facility] Address [address] [place], [place] [id number] Care Team Providers Care Progress Developer Name Role Phone Jimbo Rey Unavailable Unavailable LUCY MELCHOR Unavailable [phone] Allergies No Known Allergies Reason For Referral No Information Medications Medication SIG (Take, Route, Frequency, Duration) Notes Start Date End Date Status Galantamine Hydrobromide 8 MG Oral; Duration: 90 Days Acti ve Tradjenta 5 MG TAKE 1 TABLET BY KATIE TH EVERY DAY Oral; Duration: 30 Days Active Klor-Con M20 20 MEQ Oral; Duration: 90 Days Active Atorvastatin Calcium 10 MG TAKE 1 TABLET BY MOUTH EVERY DAY Oral; Duration: 90 Days Active Losartan Potassium 100 MG Oral; Duration: 90 Days Active Vitamin B-12 1000 MCG DISSOLVE 1 TABLET UNDER TONGUE EVERY DAY Sublingual; Duration: 90 Days Active Metoprolol Succinate ER 25 MG Oral; Duration: 90 Days Acti ve Clotrimazole-Betamethasone 1-0.05 % 1 application Externally Twice a day 11/19/2023 Active Furosemide 40 MG TAKE 1 TABLET BY KATIE TH EVERY DAY Oral; Duration: 90 Days Active Calcitriol 0.5 MCG TAKE 1 CAPSULE BY MO UTH EVERY DAY Oral; Duration: 90 Days Active busPIRone HCl 10 MG Oral; Duration: 90 Days Active Pantoprazole Sodium 40 MG Oral; Duration: 90 Days Active Eliquis 2.5 MG TAKE 1 TABLET BY KATIE TH TWICE A DAY Oral; Duration: 90 Days Active Loteprednol Etabonate 0.5 % Ophthalmic; Duration: 50 Days Active dilTIAZem HCl ER Coated Beads 180 MG TAKE 1 CAPSULE BY MOUTH EVERY DAY Oral; Duration: 90 Days Active Immunizations Vaccine Route Administration Date Status Comme nts Influenza, high dose seasonal Unknown 04/30/2023 Admini stered Plan Of Treatment No Information Insurance Providers Payer Name Payer Address Payer Phone Subscriber Number Group Number Insured Name Patient Relationship to Insured Coverage Start Date Coverage End Date Medicare Part B [facility] [address] [place] [address] [id number] Starr Whyte Self - patient is the insured [place] [employer] [address] [place] [address] [id number] Starr Whyte Self - patient is the insured Medical (General) History Medical History History ICD Code stroke Open sores hypertension
== END 2025-03-09 14:49 | disposition home or self-care (01) ==
LOC: CHSLAB 14:51
PROVIDERS: PCP Internal Medicine; Visit Provider Nurse Practitioner Family
DX: M79.89 Other specified soft tissue disorders (principal); R22.41 Localized swelling, mass and lump, right lower limb; I50.9 Heart failure, unspecified
CPT/HCPCS: 36415; 80053; 83880; 85027; 85380

== ENCOUNTER 2025-03-10 09:27 | Outpatient (CLI) | payer MEDICARE, OTHER, SELFPAY ==
--- OUTSIDE RECORDS SUMMARY | 2024-01-21 05:30 | XMS_ITS ---
Author Organization [facility] Address [address] [place], [place] [phone] Care Team Providers Care Waxing Machine Operator Name Role Phone Jimbo Rey Unavailable Unavailable MANNY GUERRERO Unavailable [phone] REASON FOR VISIT *General care Encounters Encounter Location Date Provider Diagnosis [address] [id number] 01/21/2024 MANNY GUERRERO Plan Of Treatment No Information Progress Notes * Nimisha WHYTEOB:[birth year] (89 yo F)Acc No.[id number]:01/21/2024 Patient: Starr MCGRAW Provider: Tori GUERRERO :1935 A ge:88 Y S ex:Female Date:01/21/2024 Address:[address] [facility] Subjective: * Chief Complaints: * 1 . *General care. * Medical History: Objective: * Vitals: Assessment: Plan: * Treatment: * Billing Information: * Visit Code: * Procedure Codes: * Electronic signature of ANNA GUERRERO DPM on 03/10/2025 at 09:58 AM CDT Sign off status: Pending * Provider: Tori GUERRERO Date: 0 01/21/2024 Generated for Dora ng/Falow/eTransmitting on: 0 03/10/2025 09:58 AM CDT
--- OUTSIDE RECORDS SUMMARY | 2024-08-18 06:30 | XMS_ITS ---
Author Organization [facility] Address [address] [place], [place] [phone] Care Team Providers Care Gericare Aide Name Role Phone Jimbo Rey Unavailable Unavailable SNOOK, LUCY Unavailable [phone] REASON FOR VISIT *General care Encounters Encounter Location Date Provider Diagnosis [address] [id number] 08/18/2024 LUCY NORMANK Plan Of Treatment No Information Progress Notes * Nimisha WHYTEOB:[birth year] (89 yo F)Acc No.[id number]:08/18/2024 Patient: Starr MCGRAW Provider: Yinka Melchor DPM :1935 A ge:88 Y S ex:Female Date:08/18/2024 Address:[address] [facility] Subjective: * Chief Complaints: * 1 . *General care. * Medical History: Objective: * Vitals: Assessment: Plan: * Treatment: * Billing Information: * Visit Code: * Procedure Codes: * Electronic signature of LUCY MELCHOR DPM on 03/10/2025 at 09:58 AM CDT Sign off status: Pending * Provider: Yinka Melchor DPM Date: 0 08/18/2024 Generated for Printi ng/Faxing/eTransmitting on: 0 03/10/2025 09:58 AM CDT
--- NOTE | ~2025-03-10 | US_ITS ---
RIGHT LOWER EXTREMITY VENOUS DUPLEX Clinical History: right lower extremity swelling COMPARISON: Venous Doppler 09/23/2021 TECHNIQUE: Grayscale, color, duplex/spectral Doppler sonography right leg FINDINGS: Right leg common femoral, femoral, popliteal, and calf veins compressible and color Doppler patent. Normal augmentation with distal compression. No internal echoes. IMPRESSION: 1. No right leg DVT. Reviewed, dictated and finalized at location R. IMPRESSION: 1. No right leg DVT.
--- OUTSIDE RECORDS SUMMARY | 2025-03-10 09:58 | XMS_ITS | Patient Health Record ---
Author Organization [facility] Address [address] [place], [place] [address] Care Team Providers Care Biodiesel Division Manager Name Role Phone Jimbo Rey Unavailable Unavailable LUCY MELCHOR Unavailable [phone] Allergies No Known Allergies Reason For Referral [...] Date Coverage End Date Medicare Part B [facility] [address] [place] [address] [id number] Starr Whyte Self - patient is the insured [place] [employer] [address] [employer] [place] [id number] Starr Whyte Self - patient is the insured Medical (General) History Medical History History ICD Code stroke Open sores hypertension
--- OUTSIDE RECORDS SUMMARY | 2025-03-10 09:58 | XMS_ITS | Clinical Summary ---
Author Organization [facility] Address [address] [place] [address] Care Team Providers Care Geographic Information System Surveyor Name Role Phone Jimbo Rey MD Primary Care Provider [phone] Allergies No known active allergies Medications dilTIAZem [...] (09/13/2021): Added automatically from request for surgery [id number] Encounter for screening colonoscopy 09/13/2021 Overview (09/13/2021): Added automatically from request for surgery [id number] Chest pain 09/08/2021 Enlarged thyroid gland 09/08/2021 [...] thrombectomy for M1 occlusion, TICI [address] [facility] on 08/21/2021. Acute stroke due to ischemia [...] (06/11/2020): Added automatically from request for surgery [id number] Chronic diastolic heart failure 01/05/2020 Assessment & [...] How often do you attend chur or zoroastrian services? 1 to 4 times per year 01/07/2022 Do you belong to any clubs o r organizations such as adventism groups, unions, fraternal or athletic groups, or [...] on file Legal Sex Female 7:02 PM MANAGER ENERGY Gender Identity Not on file Sexual Orientation [...] 2025 05/02/2021 Medical Devices Implanted Type Area Outside Salesperson Device Identifier Shelf Expiration Date Model / Serial / Lot Medtronic Inc [id number] Parametric 4mm 50mm 40mm Radiopaque Revascularization - [id number] Implanted:Qty: 1 on 08/21/2021 at [facility] [employer] Inc 06/12/2024 SFR4-4 -40- 10 / / [id number] Description:NOT INPLANT Angio-Seal Evolution 8fr Vascular Closure - [id number] Implanted:Qty: 1 on 08/21/2021 at [facility] [employer] 04/28/2022 [id number] / / [id number] Procedures Procedure Name Priority Date/Time Associated Diagnosis Comments EGFR Routine 01/07/2022 7:10 AM CDT HEMOGLOBIN A1C STAT 08/21/2021 11:01 AM MANAGER ENERGY LIPID PANEL STAT 08/21/2021 11:01 AM MANAGER ENERGY from Last 3 Months or Most Recently Relevant to Health Maintenance Results * eGFR (01/07/2022 7:10 AM CDT) [facility] eGFR 48 mL/min/1. 73 m2 [facility] Comment: Interpretive Data Reference Interval [...] MD LAB BLOOD ORDERABLES Final Result [facility] [address] Department [place] [address] * (ABNORMAL) Hemoglobin A1c (08/21/2021 11:01 AM MANAGER ENERGY) Hgb A1C 6.6(H) 4.0 - 5.6 % [facility] ([place]) Estimated Average Glucose 143 mg/dL [facility] ([place]) Comment: The ADA recommends reporting an estimated Average Glucose (eAG) with all Hemoglobin A1c results using the equation derived from a study of 507 normal and diabetic adults. Minority populations were underrepresented and children were not included. (Diabetes Care 31:9108-4511, 2008). The eAG is not equivalent to a fasting glucose. Blood 08/21/2021 11:0 1 AM MANAGER ENERGY 08/21/2021 11:04 AM MANAGER ENERGY us Tor Esteban MD LAB BLOOD ORDERABLES Fi nal Result [facility] ([place]) 1 [facility] Department [place] [address] * Lipid panel (08/21/2021 11:01 AM MANAGER ENERGY) Cholesterol 153 30 - 199 mg/dL EF[facility] [...] 2018. LDL, calculated 75 <=129 mg/dL [facility] ([place]) Comment: Interpretive Data Ages < or [...] [facility] ([place]) Blood 08/21/2021 11:0 1 AM MANAGER ENERGY 08/21/2021 11:04 AM MANAGER ENERGY Tor Esteban MD LAB BLOOD ORDERABLES Fi nal Result [facility] ([place]) 1 [facility] Department [place] [address] from Last 3 Months or Most Recently Relevant to Health Maintenance Insurance MEDICARE [place] MEDICARE [facility] MEDICARE [facility] Advance Directives For more information, please contact: [phone] * Full Code (Latest Code Status on [...] 3:08 PM 08/27/2021 9:07 PM Care Teams Geographic Information System Surveyor Relationship Specialty Start Date End Date Jimbo Rey MD [address] [place] [address] PCP - General Internal Medicine 06/11/20
--- OUTSIDE RECORDS SUMMARY | 2025-03-10 09:58 | XMS_ITS | Encounter Summary ---
Author Organization [facility] Healthcare Address [address] [place] [address] Care Team Providers Care Brim Greaser Operator Name Role Phone Jimbo Rey MD Primary Care Provider [phone] Encounter Details Date Type Department Care Team (Late st Contact Info) Description 10/16/2021 Telephone [facility] [address] [place] [address] Mary Castellano, LORENZO Social History Tobacco Use [...] on file Legal Sex Female 7:02 PM FILTER CHANGER Gender Identity Not on file Sexual Orientation [...] on filedocumented in this encounter Care Teams Brim Greaser Operator Relationship Specialty Start Date End Date Jimbo Rey MD [address] [place] [address] PCP - General Internal Medicine 06/11/20 documented as of this encounter
[2025-03-10 10:18] LABS: Anion Gap 12 mmol/L (4-12); Blood Urea Nitrogen 18 mg/dL (7-17); Calcium 9.8 mg/dL (8.4-10.2); Carbon Dioxide 25 mmol/L (22-30); Chloride 109 mmol/L (98-107); Estimated Glomerular Filt Rate 47; Glucose 142 mg/dL (65-110); Osmolality Calculated 305 mOsm/kg (285-295); Potassium 4.2 mmol/L (3.4-5.0); Sodium 146 mmol/L (137-145)
[2025-03-10 10:27] LABS: NT Pro B Type Natriuretic Pept 5270 pg/mL (19.9-100)
== END 2025-03-10 09:28 | disposition home or self-care (01) ==
PROVIDERS: PCP Internal Medicine; Visit Provider Nurse Practitioner Family
DX: M79.89 Other specified soft tissue disorders (principal); I50.9 Heart failure, unspecified
CPT/HCPCS: 36415; 80048; 83880; 93971

== ENCOUNTER 2025-03-13 10:01 | Outpatient (CLI) | payer MEDICARE, OTHER, SELFPAY ==
--- OUTSIDE RECORDS SUMMARY | 2024-01-21 05:30 | XMS_ITS ---
Author Organization [facility] Address [address] [place], [place] [phone] Care Team Providers Care Manager Drilling Name Role Phone Jimbo Rey Unavailable Unavailable MANNY GUERRERO Unavailable [phone] REASON FOR VISIT *General care Encounters Encounter Location Date Provider Diagnosis [address] [id number] 01/21/2024 MANNY GUERRERO Plan Of Treatment No Information Progress Notes * Nimisha WHYTEOB:[birth year] (89 yo F)Acc No.[id number]:01/21/2024 Patient: Starr MCGRAW Provider: Tori GUERRERO :1935 A ge:88 Y S ex:Female Date:01/21/2024 Address:[address] [facility] Subjective: * Chief Complaints: * 1 . *General care. * Medical History: Objective: * Vitals: Assessment: Plan: * Treatment: * Billing Information: * Visit Code: * Procedure Codes: * Electronic signature of ANNA GUERRERO DPM on 03/13/2025 at 11:16 AM CDT Sign off status: Pending * Provider: Tori GUERRERO Date: 0 01/21/2024 Generated for Dora ng/Falow/eTransmitting on: 0 03/13/2025 11:16 AM CDT
--- OUTSIDE RECORDS SUMMARY | 2024-08-18 06:30 | XMS_ITS ---
Author Organization [facility] Address [address] [place], [place] [address] Care Team Providers Care Scientific Software Developer Name Role Phone Jimbo Rey Unavailable Unavailable SNOOK, LUCY Unavailable [phone] REASON FOR VISIT *General care Encounters Encounter Location Date Provider Diagnosis [address] [id number] 08/18/2024 LUCY NORMANK Plan Of Treatment No Information Progress Notes * Nimisha WHYTEOB:[birth year] (89 yo F)Acc No.[id number]:08/18/2024 Patient: Starr MCGRAW Provider: Yinka Melchor DPM :1935 A ge:88 Y S ex:Female Date:08/18/2024 Address:[address] [facility] Subjective: * Chief Complaints: * 1 . *General care. * Medical History: Objective: * Vitals: Assessment: Plan: * Treatment: * Billing Information: * Visit Code: * Procedure Codes: * Electronic signature of LUCY MELCHOR DPM on 03/13/2025 at 11:16 AM CDT Sign off status: Pending * Provider: Yinka Melchor DPM Date: 0 08/18/2024 Generated for Printi ng/Faxing/eTransmitting on: 0 03/13/2025 11:16 AM CDT
[2025-03-13 10:33] LABS: Anion Gap 9 mmol/L (4-12); Blood Urea Nitrogen 16 mg/dL (7-17); Calcium 10.0 mg/dL (8.4-10.2); Carbon Dioxide 28 mmol/L (22-30); Chloride 106 mmol/L (98-107); Estimated Glomerular Filt Rate 47; Glucose 136 mg/dL (65-110); Osmolality Calculated 299 mOsm/kg (285-295); Potassium 4.6 mmol/L (3.4-5.0); Sodium 143 mmol/L (137-145)
[2025-03-13 10:43] LABS: NT Pro B Type Natriuretic Pept 4070 pg/mL (19.9-100)
--- OUTSIDE RECORDS SUMMARY | 2025-03-13 11:17 | XMS_ITS | Patient Health Record ---
Author Organization [facility] Address [address] [place], [place] [address] Care Team Providers Care Technical Sales Support Specialist Name Role Phone Jimbo Rey Unavailable Unavailable LUCY MELCHOR Unavailable [phone] Allergies No Known Allergies Reason For Referral [...] Date Coverage End Date Medicare Part B [facility] [address] [place] [address] [id number] Starr Whyte Self - patient is the insured [place] [employer] [address] [place] [employer] [place] [id number] Starr Whyte Self - patient is the insured Medical (General) History Medical History History ICD Code stroke Open sores hypertension
--- OUTSIDE RECORDS SUMMARY | 2025-03-13 11:17 | XMS_ITS | Encounter Summary ---
Author Organization [facility] Healthcare Address [address] [place] [address] Care Team Providers Care Evp Business Development Name Role Phone Jimbo Rey MD Primary Care Provider [phone] Encounter Details Date Type Department Care Team (Late st Contact Info) Description 10/16/2021 Telephone [facility] [address] [place] [address] Mary Castellano, LORENZO Social History Tobacco Use [...] on file Legal Sex Female 7:02 PM POULTRY TRIMMER Gender Identity Not on file Sexual Orientation [...] on filedocumented in this encounter Care Teams Evp Business Development Relationship Specialty Start Date End Date Jimbo Rey MD [address] [place] [address] PCP - General Internal Medicine 06/11/20 documented as of this encounter
--- OUTSIDE RECORDS SUMMARY | 2025-03-13 11:17 | XMS_ITS | Clinical Summary ---
Author Organization [facility] Address [address] [place] [address] Care Team Providers Care Coal Screener Name Role Phone Jimbo Rey MD Primary [...] (09/13/2021): Added automatically from request for surgery [id number] Encounter for screening colonoscopy 09/13/2021 Overview (09/13/2021): Added automatically from request for surgery [id number] Chest pain 09/08/2021 Enlarged thyroid gland 09/08/2021 [...] thrombectomy for M1 occlusion, TICI 3 at [facility] on 08/21/2021. Acute stroke due [...] (06/11/2020): Added automatically from request for surgery [id number] Chronic diastolic heart failure 01/05/2020 Assessment & [...] How often do you attend chur or worship services? 1 to 4 times per year 01/07/2022 Do you belong to any clubs o r organizations such as worship groups, unions, fraternal or athletic groups, or [...] on file Legal Sex Female 7:02 PM FITNESS/WELLNESS DIRECTOR Gender Identity Not on file Sexual Orientation [...] 2025 05/02/2021 Medical Devices Implanted Type Area Gear Hobber Device Identifier Shelf Expiration Date Model / Serial / Lot Medtronic Inc [id number] Parametric 4mm 50mm 40mm Radiopaque Revascularization - [id number] Implanted:Qty: 1 on 08/21/2021 at [facility] [employer] 06/12/2024 SFR4-4 -40- 10 / / [id number] Description:NOT INPLANT Angio-Seal Evolution 8fr Vascular Closure - [id number] Implanted:Qty: 1 on 08/21/2021 at [facility] [employer] 04/28/2022 [id number] / / [id number] Procedures Procedure Name Priority Date/Time Associated Diagnosis Comments EGFR Routine 01/07/2022 7:10 AM CDT HEMOGLOBIN A1C STAT 08/21/2021 11:01 AM FITNESS/WELLNESS DIRECTOR LIPID PANEL STAT 08/21/2021 11:01 AM FITNESS/WELLNESS DIRECTOR from Last 3 Months or Most Recently Relevant to Health Maintenance Results * eGFR (01/07/2022 7:10 AM CDT) [facility] eGFR 48 mL/min/1. 73 m2 [facility] Comment: Interpretive Data Reference Interval [...] MD LAB BLOOD ORDERABLES Final Result [facility] [address] Department [place] [address] * (ABNORMAL) Hemoglobin A1c (08/21/2021 11:01 AM FITNESS/WELLNESS DIRECTOR) Hgb A1C 6.6(H) 4.0 - 5.6 % [facility] ([place]) Estimated Average Glucose 143 mg/dL [facility] ([place]) Comment: The ADA recommends reporting an estimated Average Glucose (eAG) with all Hemoglobin A1c results using the equation derived from a study of 507 normal and diabetic adults. Minority populations were underrepresented and children were not included. (Diabetes Care 31:3195-7908, 2008). The eAG is not equivalent to a fasting glucose. Blood 08/21/2021 11:0 1 AM FITNESS/WELLNESS DIRECTOR 08/21/2021 11:04 AM FITNESS/WELLNESS DIRECTOR us Tor Esteban MD LAB BLOOD ORDERABLES Fi nal Result [facility] ([place]) 1 [facility] [place] [address] * Lipid panel (08/21/2021 11:01 AM FITNESS/WELLNESS DIRECTOR) Cholesterol 153 30 - 199 mg/dL [facility] [...] 2018. LDL, calculated 75 <=129 mg/dL [facility] ([place]) Comment: Interpretive Data Ages < or [...] [facility] ([place]) Blood 08/21/2021 11:0 1 AM FITNESS/WELLNESS DIRECTOR 08/21/2021 11:04 AM FITNESS/WELLNESS DIRECTOR Tor Esteban MD LAB BLOOD ORDERABLES Fi nal Result [facility] ([place]) 1 [facility] [place] [address] from Last 3 Months or Most Recently Relevant to Health Maintenance Insurance MEDICARE [place] MEDICARE [facility] MEDICARE [facility] Advance Directives For more information, please contact: [phone] * Full Code (Latest Code Status on [...] 3:08 PM 08/27/2021 9:07 PM Care Teams Coal Screener Relationship Specialty Start Date End Date Jimbo Rey MD [address] [place] [address] PCP - General Internal Medicine 06/11/20
== END 2025-03-13 10:02 | disposition home or self-care (01) ==
LOC: CHSLAB 10:04
PROVIDERS: PCP Internal Medicine; Visit Provider Nurse Practitioner Family
DX: I50.9 Heart failure, unspecified (principal)
CPT/HCPCS: 36415; 80048; 83880

== ENCOUNTER 2025-03-17 09:32 | Outpatient (CLI) | payer MEDICARE, SELFPAY ==
--- OUTSIDE RECORDS SUMMARY | 2025-03-17 09:37 | XMS_ITS | Encounter Summary ---
Author Organization [facility] Healthcare Address [address] [place] [address] Care Team Providers Care Foster Care Social Worker Name Role Phone Jimbo Rey MD Primary Care Provider [phone] Encounter Details Date Type Department Care Team (Late st Contact Info) Description 10/16/2021 Telephone [facility] [address] [place] [phone] Mary Castellano, LORENZO Social History Tobacco Use [...] on file Legal Sex Female 7:02 PM JAR CAPPER Gender Identity Not on file Sexual Orientation [...] on filedocumented in this encounter Care Teams Foster Care Social Worker Relationship Specialty Start Date End Date Jimbo Rey MD [address] [place] [address] PCP - General Internal Medicine 06/11/20 documented as of this encounter
--- OUTSIDE RECORDS SUMMARY | 2025-03-17 09:37 | XMS_ITS | Clinical Summary ---
Author Organization [facility] Address [address] [place] [address] Care Team Providers Care Automation Machine Operator Name Role Phone Jimbo Rey MD [...] (09/13/2021): Added automatically from request for surgery [id number] Encounter for screening colonoscopy 09/13/2021 Overview (09/13/2021): Added automatically from request for surgery [id number] Chest pain 09/08/2021 Enlarged thyroid gland 09/08/2021 [...] for M1 occlusion, TICI [address] [facility] on 08/21/2021. Acute stroke due [...] (06/11/2020): Added automatically from request for surgery [id number] Chronic diastolic heart failure 01/05/2020 Assessment & [...] How often do you attend chur or episcopalian services? 1 to 4 times per year 01/07/2022 Do you belong to any clubs o r organizations such as restorationism groups, unions, fraternal or athletic groups, or [...] on file Legal Sex Female 7:02 PM TREASURY SPECIALIST Gender Identity Not on file Sexual [...] 2025 05/02/2021 Medical Devices Implanted Type Area Remnants Cutter Device Identifier Shelf Expiration Date Model / Serial / Lot Medtronic Inc [id number] Parametric 4mm 50mm 40mm Radiopaque Revascularization - [id number] Implanted:Qty: 1 on 08/21/2021 at [facility] [employer] 06/12/2024 SFR4-4 -40- 10 / / [id number] Description:NOT INPLANT Angio-Seal Evolution 8fr Vascular Closure - [id number] Implanted:Qty: 1 on 08/21/2021 at [facility] [employer] 04/28/2022 [id number] / / [id number] Procedures Procedure Name Priority Date/Time Associated Diagnosis Comments EGFR Routine 01/07/2022 7:10 AM CDT HEMOGLOBIN A1C STAT 08/21/2021 11:01 AM TREASURY SPECIALIST LIPID PANEL STAT 08/21/2021 11:01 AM TREASURY SPECIALIST from Last 3 Months or Most Recently Relevant to Health Maintenance Results * eGFR (01/07/2022 7:10 AM CDT) [facility] eGFR 48 mL/min/1. 73 m2 [facility] Comment: Interpretive Data Reference Interval Normal [...] MD LAB BLOOD ORDERABLES Final Result [facility] [address] Department [place] [address] * (ABNORMAL) Hemoglobin A1c (08/21/2021 11:01 AM TREASURY SPECIALIST) Hgb A1C 6.6(H) 4.0 - 5.6 % [facility] ([place]) Estimated Average Glucose 143 mg/dL [facility] ([place]) Comment: The ADA recommends reporting an estimated Average Glucose (eAG) with all Hemoglobin A1c results using the equation derived from a study of 507 normal and diabetic adults. Minority populations were underrepresented and children were not included. (Diabetes Care 31:0510-5103, 2008). The eAG is not equivalent to a fasting glucose. Blood 08/21/2021 11:0 1 AM TREASURY SPECIALIST 08/21/2021 11:04 AM TREASURY SPECIALIST us Tor Esteban MD LAB BLOOD ORDERABLES Fi nal Result [facility] ([place]) 1 [facility] [place] [address] * Lipid panel (08/21/2021 11:01 AM TREASURY SPECIALIST) Cholesterol 153 30 - 199 mg/dL [...] 2018. LDL, calculated 75 <=129 mg/dL [facility] ([place]) Comment: Interpretive Data Ages < [...] [facility] ([place]) Blood 08/21/2021 11:0 1 AM TREASURY SPECIALIST 08/21/2021 11:04 AM TREASURY SPECIALIST Tor Esteban MD LAB BLOOD ORDERABLES Fi nal Result [facility] ([place]) 1 [facility] [place] [address] from Last 3 Months or Most Recently Relevant to Health Maintenance Insurance MEDICARE [place] [facility] [place] MEDICARE [facility] MEDICARE [facility] Advance Directives For more information, please contact: [phone] * Full Code (Latest Code Status on [...] 3:08 PM 08/27/2021 9:07 PM Care Teams Automation Machine Operator Relationship Specialty Start Date End Date Jimbo Rey MD [address] [place] [address] PCP - General Internal Medicine 06/11/20
[2025-03-17 10:06] LABS: Anion Gap 11 mmol/L (4-12); Blood Urea Nitrogen 15 mg/dL (7-17); Calcium 10.0 mg/dL (8.4-10.2); Carbon Dioxide 26 mmol/L (22-30); Chloride 107 mmol/L (98-107); Estimated Glomerular Filt Rate 47; Glucose 149 mg/dL (65-110); Osmolality Calculated 301 mOsm/kg (285-295); Potassium 4.5 mmol/L (3.4-5.0); Sodium 144 mmol/L (137-145)
[2025-03-17 10:15] LABS: NT Pro B Type Natriuretic Pept 2670 pg/mL (19.9-100)
== END 2025-03-17 09:33 | disposition home or self-care (01) ==
LOC: CHSLAB 09:34
PROVIDERS: PCP Internal Medicine; Visit Provider Nurse Practitioner Family
DX: I50.9 Heart failure, unspecified (principal)
CPT/HCPCS: 36415; 80048; 83880

== ENCOUNTER 2025-03-22 10:05 | Outpatient (CLI) | payer MEDICARE, SELFPAY ==
--- OUTSIDE RECORDS SUMMARY | 2024-01-21 05:30 | XMS_ITS ---
Author Organization [facility] Address [address] [place], [place] [phone] Care Team Providers Care Field Sales Manager Name Role Phone Jimbo Rey Unavailable Unavailable MANNY GUERRERO Unavailable [phone] REASON FOR VISIT *General care Encounters Encounter Location Date Provider Diagnosis [address] [id number] 01/21/2024 MANNY GUERRERO Plan Of Treatment No Information Progress Notes * Nimisha WHYTEOB:[birth year] (89 yo F)Acc No.[id number]:01/21/2024 Patient: Starr MCGRAW Provider: Tori GUERRERO :1935 A ge:88 Y S ex:Female Date:01/21/2024 Address:[address] [facility] Subjective: * Chief Complaints: * 1 . *General care. * Medical History: Objective: * Vitals: Assessment: Plan: * Treatment: * Billing Information: * Visit Code: * Procedure Codes: * Electronic signature of ANNA GUERRERO DPM on 03/22/2025 at 11:01 AM CDT Sign off status: Pending * Provider: Tori GUERRERO Date: 0 01/21/2024 Generated for Dora mata/Wang/eTransmitting on: 0 03/22/2025 11:01 AM CDT
--- OUTSIDE RECORDS SUMMARY | 2024-08-18 06:30 | XMS_ITS ---
Author Organization [facility] Address [address] [place], [place] [address] Care Team Providers Care Food Service Team Member Name Role Phone Jimbo Rey Unavailable Unavailable SNOOK, LUCY Unavailable [phone] REASON FOR VISIT *General care Encounters Encounter Location Date Provider Diagnosis [address] [id number] 08/18/2024 LUCY NORMANK Plan Of Treatment No Information Progress Notes * Nimisha WHYTEOB:[birth year] (89 yo F)Acc No.[id number]:08/18/2024 Patient: Starr MCGRAW Provider: Yinka Melchor DPM :1935 A ge:88 Y S ex:Female Date:08/18/2024 Address:[address] [facility] Subjective: * Chief Complaints: * 1 . *General care. * Medical History: Objective: * Vitals: Assessment: Plan: * Treatment: * Billing Information: * Visit Code: * Procedure Codes: * Electronic signature of LUCY MELCHOR DPM on 03/22/2025 at 11:01 AM CDT Sign off status: Pending * Provider: Yinka Melchor DPM Date: 0 08/18/2024 Generated for Printi ng/Faxing/eTransmitting on: 0 03/22/2025 11:01 AM CDT
[2025-03-22 10:44] LABS: Anion Gap 13 mmol/L (4-12); Blood Urea Nitrogen 20 mg/dL (7-17); Calcium 9.9 mg/dL (8.4-10.2); Carbon Dioxide 23 mmol/L (22-30); Chloride 109 mmol/L (98-107); Estimated Glomerular Filt Rate 46; Glucose 131 mg/dL (65-110); Osmolality Calculated 304 mOsm/kg (285-295); Potassium 4.1 mmol/L (3.4-5.0); Sodium 145 mmol/L (137-145)
[2025-03-22 10:53] LABS: NT Pro B Type Natriuretic Pept 2310 pg/mL (19.9-100)
--- OUTSIDE RECORDS SUMMARY | 2025-03-22 11:02 | XMS_ITS | Patient Health Record ---
Author Organization [facility] Address [address] [place], [place] [address] Care Team Providers Care Non Destructive Evaluation Technician Name Role Phone Jimbo Rey Unavailable Unavailable LUCY MELCHOR Unavailable [phone] Allergies No Known Allergies Reason For Referral [...] Date Coverage End Date Medicare Part B [facility] [place] [address] [place] [address] [id number] Starr Whyte Self - patient is the insured [place] [employer] [address] [employer] [facility] [id number] Starr Whyte Self - patient is the insured Medical (General) History Medical History History ICD Code stroke Open sores hypertension
--- OUTSIDE RECORDS SUMMARY | 2025-03-22 11:02 | XMS_ITS | Encounter Summary ---
Author Organization [facility] Healthcare Address [address] [place] [address] Care Team Providers Care Braider Tender Name Role Phone Jimbo Rey MD Primary Care Provider [phone] Encounter Details Date Type Department Care Team (Late st Contact Info) Description 10/16/2021 Telephone [facility] [address] [place] [address] Mary Castellano, LORENZO Social History Tobacco Use [...] on file Legal Sex Female 7:02 PM YARN EXAMINER SKEINS Gender Identity Not on file Sexual Orientation [...] on filedocumented in this encounter Care Teams Braider Tender Relationship Specialty Start Date End Date Jimbo Rey MD [address] [place] [address] PCP - General Internal Medicine 06/11/20 documented as of this encounter
--- OUTSIDE RECORDS SUMMARY | 2025-03-22 11:02 | XMS_ITS | Clinical Summary ---
Author Organization [facility] Address [address] [place] [address] Care Team Providers Care Security Operations Manager Name Role Phone Jimbo Rey MD Primary Care Provider [phone] Allergies No known active allergies Medications dilTIAZem [...] (09/13/2021): Added automatically from request for surgery [id number] Encounter for screening colonoscopy 09/13/2021 Overview (09/13/2021): Added automatically from request for surgery [id number] Chest pain 09/08/2021 Enlarged thyroid gland 09/08/2021 [...] thrombectomy for M1 occlusion, TICI 3 at [facility] on 08/21/2021. Acute stroke due [...] (06/11/2020): Added automatically from request for surgery [id number] Chronic diastolic heart failure 01/05/2020 Assessment & [...] How often do you attend chur or synagogue services? 1 to 4 times per year 01/07/2022 Do you belong to any clubs o r organizations such as holiness groups, unions, fraternal or athletic groups, or [...] on file Legal Sex Female 7:02 PM ELEMENTARY SCHOOL SCIENCE TEACHER Gender Identity Not on file Sexual Orientation [...] 2025 05/02/2021 Medical Devices Implanted Type Area Chilling Hood Operator Device Identifier Shelf Expiration Date Model / Serial / Lot Medtronic Inc Bcr8-6-32-10solitaire Parametric 4mm 50mm 40mm Radiopaque Revascularization - [id number] Implanted:Qty: 1 on 08/21/2021 at [facility] [employer] 06/12/2024 SFR4-4 -40- 10 / / [id number] Description:NOT INPLANT Angio-Seal Evolution 8fr Vascular Closure - [id number] Implanted:Qty: 1 on 08/21/2021 at [facility] [employer] 04/28/2022 [id number] / / [id number] Procedures Procedure Name Priority Date/Time Associated Diagnosis Comments EGFR Routine 01/07/2022 7:10 AM CDT HEMOGLOBIN A1C STAT 08/21/2021 11:01 AM ELEMENTARY SCHOOL SCIENCE TEACHER LIPID PANEL STAT 08/21/2021 11:01 AM ELEMENTARY SCHOOL SCIENCE TEACHER from Last 3 Months or Most Recently Relevant to Health Maintenance Results * eGFR (01/07/2022 7:10 AM CDT) [facility] eGFR 48 mL/min/1. 73 m2 EFRAIN [facility] [...] Final Result EFRAIN [facility] [address] [place] [address] * (ABNORMAL) Hemoglobin A1c (08/21/2021 11:01 AM ELEMENTARY SCHOOL SCIENCE TEACHER) Hgb A1C 6.6(H) 4.0 - 5.6 % EFRAIN [facility] ([place]) Estimated Average Glucose 143 mg/dL [facility] ([place]) Comment: The ADA recommends reporting an estimated Average Glucose (eAG) with all Hemoglobin A1c results using the equation derived from a study of 507 normal and diabetic adults. Minority populations were underrepresented and children were not included. (Diabetes Care 31:6307-5057, 2008). The eAG is not equivalent to a fasting glucose. Blood 08/21/2021 11:0 1 AM ELEMENTARY SCHOOL SCIENCE TEACHER 08/21/2021 11:04 AM ELEMENTARY SCHOOL SCIENCE TEACHER us Tor Esteban MD LAB BLOOD ORDERABLES Fi nal Result EFRAIN [facility] ([place]) 1 [facility] Department [place] [address] * Lipid panel (08/21/2021 11:01 AM ELEMENTARY SCHOOL SCIENCE TEACHER) Cholesterol 153 30 - 199 mg/dL EFRAIN [...] 2018. LDL, calculated 75 <=129 mg/dL EFRA[facility] ([place]) Comment: Interpretive Data Ages < or [...] [facility] ([place]) Blood 08/21/2021 11:0 1 AM ELEMENTARY SCHOOL SCIENCE TEACHER 08/21/2021 11:04 AM ELEMENTARY SCHOOL SCIENCE TEACHER Tor Esteban MD LAB BLOOD ORDERABLES Fi nal Result EFRAIN [facility] ([place]) 1 [facility] Department [place] [address] from Last 3 Months or Most Recently Relevant to Health Maintenance Insurance MEDICARE [place] MEDICARE [facility] MEDICARE [facility] Advance Directives For more information, please contact: [phone] * Full Code (Latest Code Status on [...] 3:08 PM 08/27/2021 9:07 PM Care Teams Security Operations Manager Relationship Specialty Start Date End Date Jimbo Rey MD [address] [place] [address] PCP - General Internal Medicine 06/11/20
== END 2025-03-22 10:06 | disposition home or self-care (01) ==
LOC: CHSLAB 10:08
PROVIDERS: PCP Internal Medicine; Visit Provider Nurse Practitioner Family
DX: I50.9 Heart failure, unspecified (principal)
CPT/HCPCS: 36415; 80048; 83880

== ENCOUNTER 2025-03-27 08:17 | Outpatient (CLI) | payer MEDICARE, SELFPAY ==
--- OUTSIDE RECORDS SUMMARY | 2024-01-21 05:30 | XMS_ITS ---
Author Organization [facility] Address [address] [place], [place] [phone] Care Team Providers Care Conveyor Mechanic Name Role Phone Jimbo Rey Unavailable Unavailable MANNY GUERRERO Unavailable [phone] REASON FOR VISIT *General care Encounters Encounter Location Date Provider Diagnosis [address] [id number] 01/21/2024 MANNY GUERRERO Plan Of Treatment No Information Progress Notes * Nimisha WHYTEOB:[birth year] (89 yo F)Acc No.[id number]:01/21/2024 Patient: Starr MCGRAW Provider: Tori GUERRERO :1935 A ge:88 Y S ex:Female Date:01/21/2024 Address:[address] [facility] Subjective: * Chief Complaints: * 1 . *General care. * Medical History: Objective: * Vitals: Assessment: Plan: * Treatment: * Billing Information: * Visit Code: * Procedure Codes: * Electronic signature of ANNA GUERRERO DPM on 03/27/2025 at 08:27 AM CDT Sign off status: Pending * Provider: Tori GUERRERO Date: 0 01/21/2024 Generated for Dora ng/Falow/eTransmitting on: 0 03/27/2025 08:27 AM CDT
--- OUTSIDE RECORDS SUMMARY | 2024-08-18 06:30 | XMS_ITS ---
Author Organization [facility] Address [address] [place], [place] [phone] Care Team Providers Care Computer Animator Name Role Phone Jimbo Rey Unavailable Unavailable SNOOK, LUCY Unavailable [phone] REASON FOR VISIT *General care Encounters Encounter Location Date Provider Diagnosis [address] [id number] 08/18/2024 LUCY NORMANK Plan Of Treatment No Information Progress Notes * Nimisha WHYTEOB:[birth year] (89 yo F)Acc No.[id number]:08/18/2024 Patient: Starr MCGRAW Provider: Yinka Melchor DPM :1935 A ge:88 Y S ex:Female Date:08/18/2024 Address:[address] [facility] Subjective: * Chief Complaints: * 1 . *General care. * Medical History: Objective: * Vitals: Assessment: Plan: * Treatment: * Billing Information: * Visit Code: * Procedure Codes: * Electronic signature of LUCY MELCHOR DPM on 03/27/2025 at 08:28 AM CDT Sign off status: Pending * Provider: Yinka Melchor DPM Date: 0 08/18/2024 Generated for Printi ng/Faxing/eTransmitting on: 0 03/27/2025 08:28 AM CDT
--- OUTSIDE RECORDS SUMMARY | 2025-03-27 08:28 | XMS_ITS | Encounter Summary ---
Author Organization [facility] Healthcare Address [address] [place] [address] Care Team Providers Care Poker Machine Attendant Name Role Phone Jimbo Rey MD Primary Care Provider [phone] Encounter Details Date Type Department Care Team (Late st Contact Info) Description 10/16/2021 Telephone [facility] [address] [place] [id number] Mary Castellano, LORENZO Social History Tobacco Use [...] on file Legal Sex Female 7:02 PM ENTERTAINER OR VARIETY ARTIST Gender Identity Not on file Sexual Orientation [...] on filedocumented in this encounter Care Teams Poker Machine Attendant Relationship Specialty Start Date End Date Jimbo Rye MD [address] [place] [address] PCP - General Internal Medicine 06/11/20 documented as of this encounter
--- OUTSIDE RECORDS SUMMARY | 2025-03-27 08:28 | XMS_ITS | Clinical Summary ---
Author Organization [facility] Address [address] [place] [address] Care Team Providers Care Oral Surgery Physician Name Role Phone Jimbo Rey MD Primary Care Provider [phone] Allergies No known active allergies Medications dilTIAZem [...] (09/13/2021): Added automatically from request for surgery [id number] Encounter for screening colonoscopy 09/13/2021 Overview (09/13/2021): Added automatically from request for surgery [id number] Chest pain 09/08/2021 Enlarged thyroid gland 09/08/2021 [...] thrombectomy for M1 occlusion, TICI 3 at [facility] on 08/21/2021. Acute stroke due to [...] (06/11/2020): Added automatically from request for surgery [id number] Chronic diastolic heart failure 01/05/2020 Assessment & [...] any clubs o r organizations such as jew groups, unions, fraternal or athletic groups, or [...] on file Legal Sex Female 7:02 PM MANAGING PARTNER Gender Identity Not on file Sexual Orientation [...] 2025 05/02/2021 Medical Devices Implanted Type Area Quenching Car Operator Device Identifier Shelf Expiration Date Model / Serial / Lot Med[employer]onic Inc Gob1-3-71-10solitaire Parametric 4mm 50mm 40mm Radiopaque Revascularization - [id number] Implanted:Qty: 1 on 08/21/2021 at [facility] [employer] 06/12/2024 SFR4-4 -40- 10 / / [id number] Description:NOT INPLANT Angio-Seal Evolution 8fr Vascular Closure - [id number] Implanted:Qty: 1 on 08/21/2021 at [facility] [employer] 04/28/2022 [id number] / / [id number] Procedures Procedure Name Priority Date/Time Associated Diagnosis Comments EGFR Routine 01/07/2022 7:10 AM CDT HEMOGLOBIN A1C STAT 08/21/2021 11:01 AM MANAGING PARTNER LIPID PANEL STAT 08/21/2021 11:01 AM MANAGING PARTNER from Last 3 Months or Most Recently Relevant to Health Maintenance Results * eGFR (01/07/2022 7:10 AM CDT) [facility] eGFR 48 mL/min/1. 73 m2 EFRAIN [facility] Comment: Interpretive Data Reference Interval Normal [...] MD LAB BLOOD ORDERABLES Final Result EF[facility] [address] Department [place] [address] * (ABNORMAL) Hemoglobin A1c (08/21/2021 11:01 AM MANAGING PARTNER) Hgb A1C 6.6(H) 4.0 - 5.6 % EFRA[facility] ([place]) Estimated Average Glucose 143 mg/dL [facility]RA[facility] ([place]) Comment: The ADA recommends reporting an estimated Average Glucose (eAG) with all Hemoglobin A1c results using the equation derived from a study of 507 normal and diabetic adults. Minority populations were underrepresented and children were not included. (Diabetes Care 31:9978-9144, 2008). The eAG is not equivalent to a fasting glucose. Blood 08/21/2021 11:0 1 AM MANAGING PARTNER 08/21/2021 11:04 AM MANAGING PARTNER us Tor Esteban MD LAB BLOOD ORDERABLES Fi nal Result EFRAIN [facility] ([place]) 1 [facility] Department [place] [address] * Lipid panel (08/21/2021 11:01 AM MANAGING PARTNER) Cholesterol 153 30 - 199 mg/dL EFRAIN [...] 2018. LDL, calculated 75 <=129 mg/dL EFRAIN [facility] ([place]) Comment: Interpretive Data Ages < [...] [facility] ([place]) Blood 08/21/2021 11:0 1 AM MANAGING PARTNER 08/21/2021 11:04 AM MANAGING PARTNER Tor Esteban MD LAB BLOOD ORDERABLES Fi nal Result EFRAIN [facility] ([place]) 1 [facility] Department [place] [address] from Last 3 Months or Most Recently Relevant to Health Maintenance Insurance MEDICARE [place] MEDICARE [facility] MEDICARE [facility] Advance Directives For more information, please contact: [phone] * Full Code (Latest Code Status on [...] 3:08 PM 08/27/2021 9:07 PM Care Teams Oral Surgery Physician Relationship Specialty Start Date End Date Jimbo Rey MD [address] [place] [address] PCP - General Internal Medicine 06/11/20
--- OUTSIDE RECORDS SUMMARY | 2025-03-27 08:28 | XMS_ITS | Patient Health Record ---
Author Organization [facility] Address [address] [place], [place] [address] Care Team Providers Care Surg Physician Asst Name Role Phone Jimbo Rey Unavailable Unavailable LUCY MELCHOR Unavailable [phone] Allergies No Known Allergies Reason For Referral [...] Date Coverage End Date Medicare Part B [facility] [address] [place] [address] [id number] Starr Whyte Self - patient is the insured [place] [employer] [address] [employer] [facility] [place] [address] [id number] Starr Whyte Self - patient is the insured Medical (General) History Medical History History ICD Code stroke Open sores hypertension
[2025-03-27 08:40] LABS: Hematocrit 35.7 % (35.0-42.0); Hemoglobin 11.3 g/dL (11.7-13.8); Mean Corpuscular HGB Conc 31.7 g/dL (32-36); Mean Corpuscular Hemoglobin 29.1 pg (27.0-31.0); Mean Corpuscular Volume 92.0 fL (78.0-102.0); Platelet Count Result 158 K/mm3 (150-420); Red Blood Count 3.88 M/mm3 (4.20-5.40); White Blood Count 6.2 K/mm3 (4.8-10.8)
[2025-03-27 08:54] LABS: Add Urine Microscopic? YES; Appearance Urine Clear (Clear); Glucose Urine UA Negative (Negative); Leukocyte Esterase Ur Negative (Negative); Nitrate Urine Negative (Negative); Specific Grav Ur 1.025 (1.010-1.020)
[2025-03-27 09:10] LABS: MALB Creatinine Ratio 29.7 mg/g (0-30)
[2025-03-27 09:15] LABS: Hemoglobin A1C 6.2 % (<5.7)
[2025-03-27 09:30] LABS: Alanine Aminotransferase 15 U/L (6-35); Albumin Level 4.4 g/dL (3.5-5.1); Alkaline Phosphatase 50 U/L (38-126); Anion Gap 11 mmol/L (4-12); Aspartate Amino Transferase 27 U/L (14-36); Bilirubin,Total 0.7 mg/dL (0.2-1.3); Blood Urea Nitrogen 21 mg/dL (7-17); Calcium 10.3 mg/dL (8.4-10.2); Carbon Dioxide 25 mmol/L (22-30); Chloride 109 mmol/L (98-107); Cholesterol 148 mg/dL (0-200); Creatine Kinase 39 U/L (30-135); Estimated Glomerular Filt Rate 43; Glucose 110 mg/dL (65-110); HDL Direct 78 mg/dL; Iron 69 ug/dL (37-170); Osmolality Calculated 304 mOsm/kg (285-295); Potassium 3.4 mmol/L (3.4-5.0); Sodium 145 mmol/L (137-145); Total Protein 9.0 g/dL (6.3-8.2); Triglycerides 97 mg/dL (<150)
[2025-03-27 09:38] LABS: NT Pro B Type Natriuretic Pept 2660 pg/mL (19.9-100)
[2025-03-27 09:45] LABS: Free T4 Free Thyroxine 1.39 ng/dL (0.78-2.19)
[2025-03-27 09:58] LABS: Thyroid Stimulating Hormone 2.210 uIU/mL (0.465-4.680)
[2025-03-27 10:02] LABS: Ferritin 21.70 ng/mL (11.1-264)
[2025-03-27 10:18] LABS: Vitamin B12 886.0 pg/mL (239-931)
== END 2025-03-27 08:18 | disposition home or self-care (01) ==
PROVIDERS: PCP Internal Medicine; Visit Provider Nurse Practitioner Family
DX: D50.9 Iron deficiency anemia, unspecified (principal); E53.8 Deficiency of other specified B group vitamins; D47.2 Monoclonal gammopathy; E78.2 Mixed hyperlipidemia; M81.0 Age-related osteoporosis without current pathological fracture; I50.812 Chronic right heart failure; E11.42 Type 2 diabetes mellitus with diabetic polyneuropathy; I11.0 Hypertensive heart disease with heart failure
CPT/HCPCS: 36415; 80053; 80061; 81001; 82043; 82306; 82550; 82607; 82728; 83036; 83540; 83880; 84439; 84443; 85027

== ENCOUNTER 2025-04-08 08:09 | Outpatient (CLI) | payer MEDICARE, SELFPAY ==
--- OUTSIDE RECORDS SUMMARY | 2024-08-18 06:30 | XMS_ITS ---
Author Organization [facility] Address [address] [place], [place] [address] Care Team Providers Care Wax Pattern Repairer Name Role Phone Jimbo Rey Unavailable Unavailable SNOOK, LUCY Unavailable [phone] REASON FOR VISIT *General care Encounters Encounter Location Date Provider Diagnosis [address] [id number] 08/18/2024 LUCY JILL Plan Of Treatment No Information Progress Notes * Nimisha WHYTEOB:[birth year] (89 yo F)Acc No.[id number]:08/18/2024 Patient: Starr MCGRAW Provider: Yinka Melchor DPM :1935 A ge:88 Y S ex:Female Date:08/18/2024 Address:[address] [facility] Subjective: * Chief Complaints: * 1 . *General care. * Medical History: Objective: * Vitals: Assessment: Plan: * Treatment: * Billing Information: * Visit Code: * Procedure Codes: * Electronic signature of LUCY MELCHOR DPM on 04/08/2025 at 08:13 AM CDT Sign off status: Pending * Provider: Yinka Melchor DPM Date: 0 08/18/2024 Generated for Printi ng/Faxing/eTransmitting on: 1 08:13 AM CDT
--- OUTSIDE RECORDS SUMMARY | 2025-04-08 08:14 | XMS_ITS | Clinical Summary ---
Author Organization [facility] Address [address] [place] [address] Care Team Providers Care Greenhouse Instructor Name Role Phone Jimbo Rey MD Primary [...] (09/13/2021): Added automatically from request for surgery [id number] Encounter for screening colonoscopy 09/13/2021 Overview (09/13/2021): Added automatically from request for surgery [id number] Chest pain 09/08/2021 Enlarged thyroid gland 09/08/2021 [...] thrombectomy for M1 occlusion, TICI 3 at [facility] on 08/21/2021. Acute stroke due [...] (06/11/2020): Added automatically from request for surgery [id number] Chronic diastolic heart failure 01/05/2020 Assessment & [...] How often do you attend chur or buddhist services? 1 to 4 times per year 01/07/2022 Do you belong to any clubs o r organizations such as mandaen groups, unions, fraternal or athletic groups, or [...] on file Legal Sex Female 7:02 PM MINING PROFESSIONALS Gender Identity Not on file Sexual Orientation [...] 2025 05/02/2021 Medical Devices Implanted Type Area Child Care Worker Device Identifier Shelf Expiration Date Model / Serial / Lot Med[employer]onic Inc Pix0-7-24-10solitaire Parametric 4mm 50mm 40mm Radiopaque Revascularization - [id number] Implanted:Qty: 1 on 08/21/2021 at [facility] [employer] 06/12/2024 SFR4-4 -40- 10 / / [id number] Description:NOT INPLANT Angio-Seal Evolution 8fr Vascular Closure - [id number] Implanted:Qty: 1 on 08/21/2021 at [facility] [employer] 04/28/2022 [id number] / / [id number] Procedures Procedure Name Priority Date/Time Associated Diagnosis Comments EGFR Routine 01/07/2022 7:10 AM CDT HEMOGLOBIN A1C STAT 08/21/2021 11:01 AM MINING PROFESSIONALS LIPID PANEL STAT 08/21/2021 11:01 AM MINING PROFESSIONALS from Last 3 Months or Most Recently Relevant to Health Maintenance Results * eGFR (01/07/2022 7:10 AM CDT) [facility] eGFR 48 mL/min/1. 73 m2 EFRAIN [facility] Comment: Interpretive Data Reference Interval [...] MD LAB BLOOD ORDERABLES Final Result EF[facility] [address] Department [place] [address] * (ABNORMAL) Hemoglobin A1c (08/21/2021 11:01 AM MINING PROFESSIONALS) Hgb A1C 6.6(H) 4.0 - 5.6 % [facility]RAIN [facility] ([place]) Estimated Average Glucose 143 mg/dL [facility]RA[facility] ([place]) Comment: The ADA recommends reporting an estimated Average Glucose (eAG) with all Hemoglobin A1c results using the equation derived from a study of 507 normal and diabetic adults. Minority populations were underrepresented and children were not included. (Diabetes Care 31:4398-5919, 2008). The eAG is not equivalent to a fasting glucose. Blood 08/21/2021 11:0 1 AM MINING PROFESSIONALS 08/21/2021 11:04 AM MINING PROFESSIONALS us Tor Esteban MD LAB BLOOD ORDERABLES Fi nal Result EFRAIN [facility] ([place]) 1 [facility] Department [place] [address] * Lipid panel (08/21/2021 11:01 AM MINING PROFESSIONALS) Cholesterol 153 30 - 199 mg/dL EFRAIN [...] 2018. LDL, calculated 75 <=129 mg/dL EFRAIN [facility] ([place]) Comment: Interpretive Data Ages < [...] [facility] ([place]) Blood 08/21/2021 11:0 1 AM MINING PROFESSIONALS 08/21/2021 11:04 AM MINING PROFESSIONALS Tor Esteban MD LAB BLOOD ORDERABLES Fi nal Result EFRAIN [facility] ([place]) 1 [facility] Department [place] [address] from Last 3 Months or Most Recently Relevant to Health Maintenance Insurance MEDICARE [place] MEDICARE [facility] MEDICARE [facility] Advance Directives For more information, please contact: [phone] * Full Code (Latest Code Status on [...] 3:08 PM 08/27/2021 9:07 PM Care Teams Greenhouse Instructor Relationship Specialty Start Date End Date Jimbo Rey MD [address] [place] [address] PCP - General Internal Medicine 06/11/20
--- OUTSIDE RECORDS SUMMARY | 2025-04-08 08:14 | XMS_ITS | Patient Health Record ---
Author Organization [facility] Address [address] [place], [place] [id number] Care Team Providers Care Wood Lather Name Role Phone Jimbo Rey Unavailable Unavailable LUCY MELCHOR Unavailable [phone] Allergies No Known Allergies Reason For Referral [...] Date Coverage End Date Medicare Part B [facility] [address] [place] [address] [id number] Starr Whyte Self - patient is the insured [place] [employer] [address] [employer] [employer] [facility] [place] [address] [id number] Starr Whyte Self - patient is the insured Medical (General) History Medical History History ICD Code stroke Open sores hypertension
--- OUTSIDE RECORDS SUMMARY | 2025-04-08 08:14 | XMS_ITS | Encounter Summary ---
Author Organization [facility] Healthcare Address [address] [place] [address] Care Team Providers Care Upholstery Handler Name Role Phone Jimbo Rey MD Primary Care Provider [phone] Encounter Details Date Type Department Care Team (Late st Contact Info) Description 10/16/2021 Telephone [facility] [address] [place] [id number] Mary Castellano, LORENZO Social History Tobacco Use [...] on file Legal Sex Female 7:02 PM GLASS OR MIRROR INSPECTOR Gender Identity Not on file Sexual Orientation [...] on filedocumented in this encounter Care Teams Upholstery Handler Relationship Specialty Start Date End Date Jimbo Rey MD [address] [place] [address] PCP - General Internal Medicine 06/11/20 documented as of this encounter
[2025-04-08 10:08] LABS: Toxigenic C. Diff NEGATIVE (NEGATIVE)
== END 2025-04-08 08:10 | disposition home or self-care (01) ==
LOC: CHSLAB 08:11
PROVIDERS: PCP Internal Medicine; Visit Provider Nurse Practitioner Family
DX: A04.72 Enterocolitis due to Clostridium difficile, not specified as recurrent (principal)
CPT/HCPCS: 87493

== ENCOUNTER 2025-04-12 10:20 | Outpatient (CLI) | payer MEDICARE, SELFPAY ==
--- OUTSIDE RECORDS SUMMARY | 2024-01-21 05:30 | XMS_ITS ---
Author Organization [facility] Address [address] [place], [place] [address] Care Team Providers Care Bin Piler Name Role Phone Jimbo Rey Unavailable Unavailable MANNY GUERRERO Unavailable [phone] REASON FOR VISIT *General care Encounters Encounter Location Date Provider Diagnosis [address] [id number] 01/21/2024 MANNY GUERRERO Plan Of Treatment No Information Progress Notes * Nimisha WHYTEOB:[birth year] (89 yo F)Acc No.[id number]:01/21/2024 Patient: Starr MCGRAW Provider: Tori GUERRERO :1935 A ge:88 Y S ex:Female Date:01/21/2024 Address:[address] [facility] Subjective: * Chief Complaints: * 1 . *General care. * Medical History: Objective: * Vitals: Assessment: Plan: * Treatment: * Billing Information: * Visit Code: * Procedure Codes: * Electronic signature of ANNA GUERRERO DPM on 04/12/2025 at 08:49 AM CDT Sign off status: Pending * Provider: Tori GUERRERO Date: 0 01/21/2024 Generated for Dora ng/Falow/eTransmitting on: 1 08:49 AM CDT
--- OUTSIDE RECORDS SUMMARY | 2024-08-18 06:30 | XMS_ITS ---
Author Organization [facility] Address [address] [place], [place] [phone] Care Team Providers Care Track Laying Equipment Operator Name Role Phone Jimbo Rey Unavailable Unavailable SNOOK, LUCY Unavailable [phone] REASON FOR VISIT *General care Encounters Encounter Location Date Provider Diagnosis [address] [id number] 08/18/2024 LUCY NORMANK Plan Of Treatment No Information Progress Notes * Nimisha WHYTEOB:[birth year] (89 yo F)Acc No.[id number]:08/18/2024 Patient: Starr MCGRAW Provider: Yinka Melchor DPM :1935 A ge:88 Y S ex:Female Date:08/18/2024 Address:[address] [facility] Subjective: * Chief Complaints: * 1 . *General care. * Medical History: Objective: * Vitals: Assessment: Plan: * Treatment: * Billing Information: * Visit Code: * Procedure Codes: * Electronic signature of LUCY MELCHOR DPM on 04/12/2025 at 08:49 AM CDT Sign off status: Pending * Provider: Yinka Melchor DPM Date: 0 08/18/2024 Generated for Printi ng/Faxing/eTransmitting on: 1 08:49 AM CDT
--- OUTSIDE RECORDS SUMMARY | 2025-04-12 08:48 | XMS_ITS | Encounter Summary ---
Author Organization [facility] Address [address] [place] [address] Care Team Providers Care Loom Setter Fourdrinier Name Role Phone Jimbo Rey MD Primary Care Provider [phone] Rose Muller MD Unavailable Reason for Referral * Imaging (Routine) - Closed Specialty Diagnoses / Procedures Referred By Contac emerald Referred To Contact RADIOLOGY Diagnoses Tricuspid valve insufficiency, unspecified etiology Pulmonary hypertension ([facility]/HCC HHS/HCC) Procedures USE ECHOCARDIOGRAM Rose Muller MD [address] [place] [address] Phone: tel: fax: Referral ID Status Reason Start Date Expiration Date Visits Re quested Visits Authorized [id number] Closed 04/12/2024 05/13/2025 1 1 Reason for Visit * Imaging (Routine) - Closed Specialty Diagnoses / Procedures Referred By Sumeet corbin Referred To Contact RADIOLOGY Diagnoses Tricuspid valve insufficiency, unspecified etiology Pulmonary hypertension ([facility] HHS/HCC) Procedures USE ECHOCARDIOGRAM Rose Muller MD [address] [place] [address] Phone: tel: fax: Referral ID Status Reason Start Date Expiration Date Visits Re quested Visits Authorized [id number] Closed 04/12/2024 05/13/2025 1 1 Encounter Details Date Type Department Care Team (Late st Contact Info) Description 04/12/2025 8:48 AM CDT Hospital Encounter [facility] [address] [place] [address] Rose Muller MD [address] [place] [address] Arrived Social History Tobacco Use Types Packs/Day Years Used Date Smoking Tobacco: Never Smokeless Tobacco: Never Alcohol Use Standard Drinks/Week Comments Not Currently 0 (1 standard drink = 0.6 oz pur e alcohol) PHQ-2 Answer Date Recorded PHQ-2 Score - If the patient scores above 3, please move on to questions 3-9 0 05/29/2022 Comments No Sex and Gender Information Value Date Recorded Sex Assigned at Female 07/20/2019 12:22 PM TOBACCO DRUMMER Legal Sex Female 11:15 PM CDT Gender Identity Female 07/20/2019 12:22 PM TOBACCO DRUMMER Sexual Orientation Not on file documented as of this encounter Functional Status * RETIRED Are you deaf or do you have serious difficulty hearing Answer Date of Assessment Author Status No 04/22/2022 2:00 PM CDT Activ e * RETIRED Are you blind or do you have serious difficulty seeing, even when wearing glasses? Answer Date of Assessment Author Status No 04/22/2022 2:00 PM CDT Activ e * Do you have serious difficulty walking or climbing stairs? Answer Date of Assessment Author Status No 04/22/2022 2:00 PM CDT Kylah Ace RN Active * Do you have difficulty dressing or bathing? Answer Date of Assessment Author Status No 04/22/2022 2:00 PM CDT Klyah Ace RN Active * Because of a physical, mental, or emotional condition, do you have difficulty doing errands alone such as visiting a doctor's office or shopping? Answer Date of Assessment Author Status Yes 04/22/2022 2:00 PM CDT Kylah Ace RN Active documented as of this encounter Mental Status * Because of a physical, mental, or emotional condition, do you have serious difficulty concentrating, remembering, or making decisions? Answer Entry Date Author Status Yes 04/22/2022 2:00 PM CDT Kylah Ace RN Active documented in this encounter Plan of Treatment Upcoming Encounters Date Type Department Care Team (Late st Contact Info) Description 04/24/2025 12:30 PM CDT Office Visit [facility]-[address] [place] [address] Rose Muller MD [address] [place] [address] documented as of this encounter Procedures Procedure Name Priority Date/Time Associated Diagnosis Comments USE ECHOCARDIOGRAM Routine 04/12/2025 9: 38 AM CDT Tricuspid valve insufficiency, unspecified etiology Pulmonary hypertension ([facility]/HCC [facility]) documented in this encounter Results * USE ECHOCARDIOGRAM (04/12/2025 9:38 AM CDT) Anatomical Region Laterality Modality Cardiac Ultrasound 04/12/2025 9:10 AM CDT Narrative 04/12/2025 10:51 AM CDT Echocardiography Report Pat.Name: Starr Whyte Pat.ID: [id number] .Date: 04/12/2025 Refer.MD: [facility], [facility] Exam Time: 9:10:00 AM Study Type:OUTREACH Height: 60 in Weight: 132 lb BSA: 1.56 m2 Age: 5 1935,89Y Sex: F Sonogrphr: Am Pat. Stat.:Outpatient CPT - 4: 36594 Reason for Study:Tricuspid valve insufficiency, unspecified etiology, Pulmonary hypertension Procedures: Study performed at [place], [place] and interpreted by [facility]. 2D, M-mode, Doppler, Color Flow ++++++++++++++++++++++++++++++++++++ SUMMARY: ++++++++++++++++++++++++++++++++++++ The left ventricular size is normal. The ejection fraction is >55%. The right ventricular size is moderately enlarged. Right ventricular systolic function is depressed. Right ventricular systolic pressure is 55 mmHg. Inferior vena cava shows <50% collapse with respiration consistent with elevated right atrial pressure. Trace aortic regurgitation. Mild calcification of aortic valve leaflets. Trace to mild mitral regurgitation. Moderate calcification of mitral valve leaflets. Moderate tricuspid regurgitation. ++++++++++++++++++++++++++++++++++++ FINDINGS: ++++++++++++++++++++++++++++++++++++ LV: The left ventricular size is normal. Left ventricular function is normal. The ejection fraction is >55%. Diastolic filling is normal for age. RV: The right ventricular size is moderately enlarged. Right ventricular systolic function is depressed. Right ventricular systolic pressure is 55 mmHg. LA: The left atrial size is severely enlarged. RA: Right atrial size is severely enlarged. ROXANA: No evidence of pericardial effusion. AO: Aorta is normal. PA: Estimated right atrial pressure of 15 mmHg. SVn: Inferior vena cava is severely enlarged. Inferior vena cava shows <50% collapse with respiration consistent with elevated right atrial pressure. AV: The aortic valve is trileaflet. No evidence of aortic valve stenosis. Trace aortic regurgitation. Mild calcification of aortic valve leaflets. MV: Trace to mild mitral regurgitation. Moderate calcification of mitral valve leaflets. PV: Trace pulmonic regurgitation. Pulmonic valve not well visualized. TV: Structurally normal tricuspid valve. Moderate tricuspid regurgitation. <Electronic Signature> 04/12/2025 10:51 AM Rose Muller M.D. Procedure Note Rose Muller MD - 04/12/2025 Echocardiography Report Pat.Name: Starr Whyte Pat.ID: [id number] .Date: 04/12/2025 Refer.MD: [place] Exam Time: 9:10:00 AM Study Type:[facility] Height: 60 in Weight: 132 lb BSA: 1.56 m2 Age: 5 1935,89Y Sex: F Sonogrphr: Am Pat. Stat.:Outpatient CPT - 4: 78566 Reason for Study:Tricuspid valve insufficiency, unspecified etiology, Pulmonary hypertension Procedures: Study performed at [place], [place] and interpreted by [facility]. 2D, M-mode, Doppler, Color Flow ++++++++++++++++++++++++++++++++++++ SUMMARY: ++++++++++++++++++++++++++++++++++++ The left ventricular size is normal. The ejection fraction is >55%. The right ventricular size is moderately enlarged. Right ventricular systolic function is depressed. Right ventricular systolic pressure is 55 mmHg. Inferior vena cava shows <50% collapse with respiration consistent with elevated right atrial pressure. Trace aortic regurgitation. Mild calcification of aortic valve leaflets. Trace to mild mitral regurgitation. Moderate calcification of mitral valve leaflets. Moderate tricuspid regurgitation. ++++++++++++++++++++++++++++++++++++ FINDINGS: ++++++++++++++++++++++++++++++++++++ LV: The left ventricular size is normal. Left ventricular function is normal. The ejection fraction is >55%. Diastolic filling is normal for age. RV: The right ventricular size is moderately enlarged. Right ventricular systolic function is depressed. Right ventricular systolic pressure is 55 mmHg. LA: The left atrial size is severely enlarged. RA: Right atrial size is severely enlarged. ROXANA: No evidence of pericardial effusion. AO: Aorta is normal. PA: Estimated right atrial pressure of 15 mmHg. SVn: Inferior vena cava is severely enlarged. Inferior vena cava shows <50% collapse with respiration consistent with elevated right atrial pressure. AV: The aortic valve is trileaflet. No evidence of aortic valve stenosis. Trace aortic regurgitation. Mild calcification of aortic valve leaflets. MV: Trace to mild mitral regurgitation. Moderate calcification of mitral valve leaflets. PV: Trace pulmonic regurgitation. Pulmonic valve not well visualized. TV: Structurally normal tricuspid valve. Moderate tricuspid regurgitation. <Electronic Signature> 04/12/2025 10:51 AM Rose Muller M.D. us Rose Muller MD ECHO Final Result documented in this encounter Visit Diagnoses Diagnosis Tricuspid valve insufficiency, unspecified etiology Pulmonary hypertension (CMS/HCC HHS/HCC) Other chronic pulmonary heart diseases documented in this encounter Care Teams Loom Setter Fourdrinier Relationship Specialty Start Date End Date Jimbo Rey MD [address] [place] [address] PCP - General INTERNAL MEDICINE 12/20/20 Rose Muller MD [address] [place] [address] Consulting Physician CARDIOVASCULAR DISEASE 10/22/23 documented as of this encounter
[2025-04-12 10:36] LABS: Hematocrit 36.7 % (35.0-42.0); Hemoglobin 11.5 g/dL (11.7-13.8); Mean Corpuscular HGB Conc 31.3 g/dL (32-36); Mean Corpuscular Hemoglobin 28.5 pg (27.0-31.0); Mean Corpuscular Volume 91.1 fL (78.0-102.0); Platelet Count Result 201 K/mm3 (150-420); Red Blood Count 4.03 M/mm3 (4.20-5.40); White Blood Count 6.2 K/mm3 (4.8-10.8)
[2025-04-12 11:04] LABS: Anion Gap 11 mmol/L (4-12); Blood Urea Nitrogen 20 mg/dL (7-17); Calcium 10.2 mg/dL (8.4-10.2); Carbon Dioxide 26 mmol/L (22-30); Chloride 107 mmol/L (98-107); Estimated Glomerular Filt Rate 52; Glucose 148 mg/dL (65-110); Osmolality Calculated 303 mOsm/kg (285-295); Potassium 4.5 mmol/L (3.4-5.0); Sodium 144 mmol/L (137-145)
[2025-04-12 11:11] LABS: NT Pro B Type Natriuretic Pept 3070 pg/mL (19.9-100)
--- OUTSIDE RECORDS SUMMARY | 2025-04-12 12:10 | XMS_ITS ---
Author Organization [facility] Care Team Providers Care Event Lighting Specialist Name Role Phone Tor Leung Unavailable Unavailable Allergies and adverse reactions No Known Allergies Care Team Name Role Address Phone Organization Dates Tor Leung PCP [address], [place], [address], [place] (Office): : [facility] 04/24/2022 - 05/16/2022 Immunizations Immunization Status Vaccine Details Vaccine Code CodeSystem Clifford e Notes TB 2 Step Mantoux Skin Test completed tuberculin skin test; unspecified formulation lotNumber: [id number] expiry: 11/27/2024 Mfg: Kiana Boateng Given 0.1 ml Left Forearm intradermally Step 2 of Multi-step with next step required 98 CVX created date: 05/04/2022 consent date: 05/04/2022 administere d date: 05/04/2022 TB 2 Step Mantoux Skin Test completed tuberculin skin test; unspecified formulation lotNumber: [id number] expiry: 03/24/2024 Mfg: SANOFI PASTEUR Given 0.1 unit Right Forearm intradermally Step 1 of Multi-step with next step required 98 CVX created date: 04/27/2022 consent date: 04/27/2022 administere d date: 04/24/2022 SARS-COV-2 (COVID-19) completed SARS-COV-2 (COVID-19) vaccine, mRNA, spike protein, LNP, preservative free, 30 mcg/0.3mL dose Step 2 of Multi-step with next step required 208 CVX created date: 04/25/2022 administere d date: 10/06/2020 SARS-COV-2 (COVID-19) completed SARS-COV-2 (COVID-19) vaccine, mRNA, spike protein, LNP, preservative free, 30 mcg/0.3mL dose Step 1 of Multi-step with next step required 208 CVX created date: 04/25/2022 administere d date: 09/13/2020 SARS-COV2 (COVID-19 w Omnicron) Pfizer Booster completed SARS-COV-2 (COVID-19) vaccine, mRNA, spike protein, LNP, bivalent, preservative free, 30 mcg/0.3 mL dose, jorge alberto-sucrose formulation 300 CVX created date: 04/25/2022 administere d date: 04/24/2022 Mental Status Section Date Assessment Total Score Description 05/16/2022 BIMS 14 cognitively int act CAM 0 No delirium ind icated PHQ-9 00 04/30/2022 BIMS 13 cognitively int act CAM 0 No delirium ind icated PHQ-9 03 minimal depress ion Insurance Providers Problems Problem # Description Date of onset Resolved Date Code CodeSystem Concern Status 1 ALTERED MENTAL STATUS, UNSPECIFIED 04/24/[address] active 2 ANXIETY DISORDER, UNSPECIFIED 04/24/[address] active 3 ATHEROSCLEROTIC HEART DISEASE OF [place] CORONARY ARTERY WITHOUT ANGINA PECTORIS 04/24/[address] active 4 CHRONIC SYSTOLIC (CONGESTIVE) HEART FAILURE 04/24/[address] active 5 ENCEPHALOPATHY, UNSPECIFIED 04/24/[address] active 6 ESSENTIAL (PRIMARY) HYPERTENSION 04/24/[address] active 7 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 04/24/[address] active 8 HYPERLIPIDEMIA, UNSPECIFIED 04/24/[address] active 9 MUSCLE WEAKNESS (GENERALIZED) 04/24/[address] active 10 NEED FOR ASSISTANCE WITH PERSONAL CARE 04/24/[address] active 11 PAROXYSMAL ATRIAL FIBRILLATION 04/24/[address] active 12 PERSONAL HISTORY OF COVID-19 04/24/[address] active 13 PERSONAL HISTORY OF TRANSIENT ISCHEMIC ATTACK (TIA), AND CEREBRAL INFARCTION WITHOUT RESIDUAL DEFICITS 04/24/[address] active 14 RADICULOPATHY, LUMBOSACRAL REGION 04/24/[address] active 15 SPINAL STENOSIS, LUMBAR REGION WITHOUT NEUROGENIC CLAUDICATION 04/24/[address] active 16 SUPRAVENTRICULAR TACHYCARDIA 04/24/[address] active 17 TYPE 2 DIABETES MELLITUS WITHOUT COMPLICATIONS 04/24/[address] active Reason for Referral No Reasons for Referral Entered Social History Social History Observation Description Start Date End Date Code Code System Current Smoking Status Tobacco smoking consumption unknown 818036441 SNOMED CT Sex Assigned At Female 1935 [address]-6 [facility] Gender Identity Sexual Orientation Vital Signs Code Code System Vitals Name Values and Units Timing Information 8462-4 [facility] Blood Pressure-Diastolic Value=55 Un its=mmHg 05/16/2022 8480-6 LOINC Blood Pressure-Systolic Kfafm=201 Un its=mmHg 05/16/2022 8867-4 LOINC Heart rate Value=72.0 Units=/min 9279-1 LOINC Respiratory Rate Value=20.0 Units=/m in 05/16/2022 8310-5 LOINC Body Temperature Value=97.6 Units= F 05/16/2022 79509-6 LOINC O2 % BldC Oximetry Value=97.0 Units= % 05/16/2022 05006-0 LOINC Pain Level Value=0.0 05/16/2022 29139-8 LOINC Weight Ohnym=888.4 Units=Lbs 8302-2 LOINC Height Value=63.0 Units=Inches 04/24/2022
--- OUTSIDE RECORDS SUMMARY | 2025-04-12 12:10 | XMS_ITS | Encounter Summary ---
Author Organization [facility] Address [facility] [place] [address] Care Team Providers Care Seater Assembler Name Role Phone Jimbo Rey MD Primary Care Provider [phone] Rose Muller MD Unavailable Encounter Details Date Type Department Care Team (Late st Contact Info) Description 04/12/2025 Orders Only [facility] [address] [place], [place] [address] Rose Muller MD [address] [place] [address] Social History Tobacco Use Types Packs/Day Years [...] Sex Assigned at Female 07/20/2019 12:22 PM BOAT OUTFITTER Legal Sex Female 11:15 PM CDT Gender Identity Female 07/20/2019 12:22 PM BOAT OUTFITTER Sexual Orientation Not on file documented as [...] PM CDT Kylah Ace RN Active * Because of a [...] Description 04/24/2025 12:30 PM CDT Office Visit [facility] [place] [address] Rose Muller MD [address] [place] [address] Scheduled Orders Name Type Priority Associated Diagnoses Orde r Schedule ECG 12 lead EKG-NonRad Routine Persistent atrial fibrillation (CMS/HCC HHS/HCC) Coronary artery calcification seen on CT scan Tricuspid valve insufficiency, unspecified etiology Pulmonary hypertension (CMS/HCC HHS/HCC) Expected: 04/12/2025, Expires: 04/12/2026 documented as of this encounter Visit Diagnoses Diagnosis Persistent atrial fibrillation (CMS/HCC HHS/HCC)- Primary Atrial fibrillation Coronary artery calcification seen on CT scan Tricuspid valve insufficiency, unspecified etiology Pulmonary hypertension (CMS/HCC HHS/HCC) Other chronic pulmonary heart diseases documented in this encounter Care Teams Seater Assembler Relationship Specialty Start Date End Date Jimbo Rye MD [address] [place] [address] PCP - General INTERNAL MEDICINE 12/20/20 Rose Muller MD [address] [place] [address] Consulting Physician CARDIOVASCULAR DISEASE 10/22/23 documented as of this encounter
--- OUTSIDE RECORDS SUMMARY | 2025-04-12 12:10 | XMS_ITS | Encounter Summary ---
Author Organization [facility] Address [address] [place] [address] Care Team Providers Care Sand Cutter Name Role Phone Bernardo Quispe MD Unavailable [phone] Jimbo Rey MD Primary Care Provider [phone] Alex Peña MD Unavailable [phone] Rose Muller MD Unavailable Encounter Details Date Type Department Care Team (Late st Contact Info) Description 09/18/2022 Abstract [facility] [address] [place] [address] Bernardo Quispe MD [address] [place] [address] Social History Tobacco Use Types Packs/Day Years [...] Sex Assigned at Female 07/20/2019 12:22 PM ENCHILADA MAKER Legal Sex Female 11:15 PM CDT Gender Identity Female 07/20/2019 12:22 PM ENCHILADA MAKER Sexual Orientation Not on file COVID-19 Exposure Response Date Recorded In the last 10 days, have yo u been in contact with someone who was confirmed or suspected to have Coronavirus/COVID-19? No / Unsure 09/04/2022 10:36 AM ENCHILADA MAKER documented as of this encounter Functional Status [...] Description 04/24/2025 12:30 PM CDT Office Visit [facility] [place] [address] Rose Muller MD [address] [place] [address] documented as of this encounter Procedures Procedure Name Priority Date/Time Associated Diagnosis Comments VITAMIN D, 25 OH Routine 09/15/2022 documented in this encounter Results * VITAMIN D, 25 OH (09/15/2022) VITAMIN D 25 HYDROXY S/P/B 26 30 - 100 09/15/2022 us Default History Genericprovider LABORATORY Final Result documented in this encounter Visit Diagnoses Not on filedocumented in this encounter Care Teams Sand Cutter Relationship Specialty Start Date End Date Jimbo Rey MD [address] [place] [address] PCP - General INTERNAL MEDICINE 12/20/20 Bernardo Quispe MD [address] [place] [address] Consulting Physician CARDIOVASCULAR DISEASE 05/27/18 Alex Peña MD [address] [place] [address] HOSPITALIST 04/24/22 04/24/23 Rose Muller MD [address] [place] [address] Consulting Physician CARDIOVASCULAR DISEASE 10/22/23 documented as of this encounter
--- OUTSIDE RECORDS SUMMARY | 2025-04-12 12:10 | XMS_ITS | Encounter Summary ---
Author Organization [facility] Address [address] [place] [address] Care Team Providers Care Harnessmaker Name Role Phone Bernardo Quispe MD Unavailable [phone] Jimbo Rey MD Primary Care Provider [phone] Alex Peña MD Unavailable [phone] Rose Muller MD Unavailable Encounter Details Date Type Department Care Team (Latest Contact Info) Description 11/27/2021 Interface Security Systemst Message Enc [facility] [place] [address] Bernardo Quispe MD [address] [place] [address] capsule endoscopy test Social History Tobacco Use Types Packs/Day Years Used Date Smoking Tobacco: Never Smokeless Tobacco: Never Alcohol Use Standard Drinks/Week Comments Not Currently 0 (1 standard drink = 0.6 oz pur e alcohol) Comments No Sex and Gender Information Value Date Recorded Sex Assigned at Female 07/20/2019 12:22 PM STUMP BLOWER Legal Sex Female 11:15 PM CDT Gender Identity Female 07/20/2019 12:22 PM STUMP BLOWER Sexual Orientation Not on file documented as of this encounter Functional Status * RETIRED Are you deaf or do you have serious difficulty hearing Answer Date of Assessment Author Status No 04/12/2021 4:01 PM CDT Activ e * RETIRED Are you blind or do you have serious difficulty seeing, even when wearing glasses? Answer Date of Assessment Author Status No 04/12/2021 4:01 PM CDT Activ e * Do you have serious difficulty walking or climbing stairs? Answer Date of Assessment Author Status Yes 04/12/2021 4:01 PM CDT Carmelita Amado RN Active * Do you have difficulty dressing or bathing? Answer Date of Assessment Author Status No 04/12/2021 4:01 PM CDT Carmelita Amado RN Active * Because of a physical, mental, or emotional condition, do you have difficulty doing errands alone such as visiting a doctor's office or shopping? Answer Date of Assessment Author Status No 04/12/2021 4:01 PM IRIST Carmelita Amado RN Active documented as of this encounter Mental Status * Because of a physical, mental, or emotional condition, do you have serious difficulty concentrating, remembering, or making decisions? Answer Entry Date Author Status No 04/12/2021 4:01 PM CDT Carmelita Amado RN Active documented in this encounter Plan of Treatment Upcoming Encounters Date Type Department Care Team (Late st Contact Info) Description 04/24/2025 12:30 PM CDT Office Visit [facility] [place] [address] Rose Muller MD [address] [place] [address] documented as of this encounter Visit Diagnoses Not on filedocumented in this encounter Additional Health Concerns Infection Onset Date Last Indicated Resolved Time COVID-19 Rule Out 04/24/2022 04/24/2022 04/24/2022 6:26 PM CDT documented as of this encounter Care Teams Harnessmaker Relationship Specialty Start Date End Date Jimbo Rey MD [address] [place] [phone] PCP - General INTERNAL MEDICINE 12/20/20 Bernardo Quispe MD [address] [place] [address] Consulting Physician CARDIOVASCULAR DISEASE 05/27/18 Alex Peña MD [address] [place] [address] HOSPITALIST 04/24/22 04/24/23 Rose Muller MD [address] [place] [address] Consulting Physician CARDIOVASCULAR DISEASE 10/22/23 documented as of this encounter
--- OUTSIDE RECORDS SUMMARY | 2025-04-12 12:10 | XMS_ITS | Clinical Summary ---
Author Organization [facility] Care Team Providers Care Director Of Product Marketing Name Role Phone Unavailable Primary Care Provider Unavailabl e Social History Tobacco Use Types Packs/Day Years Used Date Smoking Tobacco: Never Assessed Comments Unknown Sex and Gender Information Value Date Recorded Sex Assigned at Not on file Legal Sex Female 9:37 PM CDT Gender Identity Not on file Sexual Orientation Not on file Plan of Treatment Not on file
--- OUTSIDE RECORDS SUMMARY | 2025-04-12 12:10 | XMS_ITS | Encounter Summary ---
Author Organization [facility] Address [address] [place] [address] Care Team Providers Care Flat Surfacer Jewel Name Role Phone Jimbo Rey MD Primary Care Provider [phone] Encounter Details Date Type Department Care Team (Late st Contact Info) Description 10/16/2021 Telephone [facility] [address] [place] [address] Mary Castellano, LORENZO Social History Tobacco Use [...] on file Legal Sex Female 7:02 PM CAREER DEVELOPMENT ENGINEER Gender Identity Not on file Sexual Orientation [...] on filedocumented in this encounter Care Teams Flat Surfacer Jewel Relationship Specialty Start Date End Date Jimbo Rey MD [address] [place] [address] PCP - General Internal Medicine 06/11/20 documented as of this encounter
--- OUTSIDE RECORDS SUMMARY | 2025-04-12 12:10 | XMS_ITS | Encounter Summary ---
Author Organization [facility] Address [address] [place] [address] Care Team Providers Care Debt Collection Specialist Name Role Phone Bernardo Quispe MD Unavailable [phone] Jimbo Rey MD Primary Care Provider [phone] Alex Peña MD Unavailable [phone] Rose Muller MD Unavailable Encounter Details Date Type Department Care Team (Late st Contact Info) Description 04/16/2021 Hospital Follow-up Call [facility] [address] [place] [address] Mami Mello RN Social History Tobacco Use Types Packs/Day Years Used Date Smoking Tobacco: Never Smokeless Tobacco: Never Alcohol Use Standard Drinks/Week Comments Not Currently 0 (1 standard drink = 0.6 oz pur e alcohol) Comments No Sex and Gender Information Value Date Recorded Sex Assigned at Female 07/20/2019 12:22 PM LANGUAGES AND LITERATURE INSTRUCTOR Legal Sex Female 11:15 PM CDT Gender Identity Female 07/20/2019 12:22 PM LANGUAGES AND LITERATURE INSTRUCTOR Sexual Orientation Not on file COVID-19 Exposure Response Date Recorded In the last month, have you been in contact with someone who was confirmed or suspected to have Coronavirus / COVID-19? No / Unsure 04/12/2021 6:17 AM CDT documented as of this encounter Functional Status [...] PM CDT Carmelita Amado RN Active documented as of [...] Description 04/24/2025 12:30 PM CDT Office Visit [facility] [place] [address] Rose Muller MD [address] [place] [address] documented as of this encounter Visit Diagnoses Not on filedocumented in this encounter Additional Health Concerns Infection Onset Date Last Indicated Resolved Time COVID-19 Rule Out 04/24/2022 04/24/2022 04/24/2022 6:26 PM CDT documented as of this encounter Care Teams Debt Collection Specialist Relationship Specialty Start Date End Date Jimbo Rey MD [address] [place] [address] PCP - General INTERNAL MEDICINE 12/20/20 Bernardo Quispe MD [address] [place] [address] Consulting Physician CARDIOVASCULAR DISEASE 05/27/18 Alex Peña MD [address] [place] [address] HOSPITALIST 04/24/22 04/24/23 Rose Muller MD [address] [place] [address] Consulting Physician CARDIOVASCULAR DISEASE 10/22/23 documented as of this encounter
--- OUTSIDE RECORDS SUMMARY | 2025-04-12 12:10 | XMS_ITS | Encounter Summary ---
Author Organization [facility] Address [address] [place] [address] Care Team Providers Care Cotton Puller Name Role Phone Jimbo Rey MD Primary Care Provider [phone] Rose Muller MD Unavailable Encounter Details Date Type Department Care Team (Latest Contact Info) Description 04/12/2025 Travel Social History Tobacco Use Types Packs/Day Years [...] Sex Assigned at Female 07/20/2019 12:22 PM DRUG ABUSE SOCIAL WORKER Legal Sex Female 11:15 PM CDT Gender Identity Female 07/20/2019 12:22 PM DRUG ABUSE SOCIAL WORKER Sexual Orientation Not on file documented as [...] Description 04/24/2025 12:30 PM CDT Office Visit [facility] [place] [address] Rose Muller MD [address] [place] [address] documented as of this encounter Visit Diagnoses Not on filedocumented in this encounter Care Teams Cotton Puller Relationship Specialty Start Date End Date Jimbo Rey MD [address] [place] [id number] PCP - General INTERNAL MEDICINE 12/20/20 Rose Muller MD [address] [place] [address] Consulting Physician CARDIOVASCULAR DISEASE 10/22/23 documented as of this encounter
--- OUTSIDE RECORDS SUMMARY | 2025-04-12 12:10 | XMS_ITS | Clinical Summary ---
Author Organization [facility] Address [address] [place] [address] Care Team Providers Care Music Professor Name Role Phone Jimbo Rey MD [...] (09/13/2021): Added automatically from request for surgery [id number] Encounter for screening colonoscopy 09/13/2021 Overview (09/13/2021): Added automatically from request for surgery [id number] Chest pain 09/08/2021 Enlarged thyroid gland 09/08/2021 [...] thrombectomy for M1 occlusion, TICI 3 at [facility] on 08/21/2021. 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 1 to 4 times per year 01/07/2022 Do you belong to any clubs o r organizations such as quaker groups, unions, fraternal or athletic groups, or [...] on file Legal Sex Female 7:02 PM SUPERVISOR TWISTING DEPARTMENT Gender Identity Not on file Sexual Orientation [...] 2025 05/02/2021 Medical Devices Implanted Type Area Management Trainee Device Identifier Shelf Expiration Date Model / Serial / Lot Medtronic Inc [id number] Parametric 4mm 50mm 40mm Radiopaque Revascularization - [id number] Implanted:Qty: 1 on 08/21/2021 at [facility] [employer] Inc 06/12/2024 [id number] / / [id number] Description:NOT INPLANT Angio-Seal Evolution 8fr Vascular Closure - [id number] Implanted:Qty: 1 on 08/21/2021 at [facility] Curse 04/28/2022 [id number] / / [id number] Procedures Procedure Name Priority Date/Time Associated Diagnosis Comments EGFR Routine 01/07/2022 7:10 AM CDT HEMOGLOBIN A1C STAT 08/21/2021 11:01 AM SUPERVISOR TWISTING DEPARTMENT LIPID PANEL STAT 08/21/2021 11:01 AM SUPERVISOR TWISTING DEPARTMENT from Last 3 Months or Most Recently Relevant to Health Maintenance Results * eGFR (01/07/2022 7:10 AM CDT) [facility] eGFR 48 mL/min/1. 73 m2 [facility] Comment: Interpretive Data Reference Interval Normal [...] MD LAB BLOOD ORDERABLES Final Result [facility] [address] Department [place] [address] * (ABNORMAL) Hemoglobin A1c (08/21/2021 11:01 AM SUPERVISOR TWISTING DEPARTMENT) Hgb A1C 6.6(H) 4.0 - 5.6 % [facility]) Estimated Average Glucose 143 mg/dL [facility] Comment: The ADA recommends reporting an estimated Average Glucose (eAG) with all Hemoglobin A1c results using the equation derived from a study of 507 normal and diabetic adults. Minority populations were underrepresented and children were not included. (Diabetes Care 31:2546-2012, 2008). The eAG is not equivalent to a fasting glucose. Blood 08/21/2021 11:0 1 AM SUPERVISOR TWISTING DEPARTMENT 08/21/2021 11:04 AM SUPERVISOR TWISTING DEPARTMENT us Tor Esteban MD LAB BLOOD ORDERABLES Fi nal Result [facility] ([place]) [address] [place] [address] * Lipid panel (08/21/2021 11:01 AM SUPERVISOR TWISTING DEPARTMENT) Cholesterol 153 30 - 199 mg/dL [facility] [...] calculated 75 <=129 mg/dL [facility] ([place]) Comment: Interpretive Data Ages < or [...] [facility] ([place]) Blood 08/21/2021 11:0 1 AM SUPERVISOR TWISTING DEPARTMENT 08/21/2021 11:04 AM SUPERVISOR TWISTING DEPARTMENT Tor Esteban MD LAB BLOOD ORDERABLES Fi nal Result [facility] ([place] [address] [place] [address] from Last 3 Months or Most Recently Relevant to Health Maintenance Insurance MEDICARE [place] MEDICARE [facility] MEDICARE [facility] Advance Directives For more information, please contact: [phone] * Full Code (Latest Code Status on [...] 3:08 PM 08/27/2021 9:07 PM Care Teams Music Professor Relationship Specialty Start Date End Date Jimbo Rey MD [address] [place] [address] PCP - General Internal Medicine 06/11/20
--- OUTSIDE RECORDS SUMMARY | 2025-04-12 12:10 | XMS_ITS | Encounter Summary ---
Author Organization [facility] Address [address] [place] [address] Care Team Providers Care Contamination Consultant Name Role Phone Bernardo Quispe MD Unavailable [phone] Jimbo Rey MD Primary Care Provider [phone] Alex Peña MD Unavailable [phone] Rose Muller MD Unavailable Encounter Details Date Type Department Care Team (Late st Contact Info) Description 09/18/2022 Abstract [facility] [address] [place] [address] Bernardo Quispe MD [address] [place] [address] Social History Tobacco Use Types [...] Sex Assigned at Female 07/20/2019 12:22 PM CAMP NURSE Legal Sex Female 11:15 PM CDT Gender Identity Female 07/20/2019 12:22 PM CAMP NURSE Sexual Orientation Not on file COVID-19 Exposure Response Date Recorded In the last 10 days, have yo u been in contact with someone who was confirmed or suspected to have Coronavirus/COVID-19? No / Unsure 09/04/2022 10:36 AM CAMP NURSE documented as of this encounter Functional Status [...] Description 04/24/2025 12:30 PM CDT Office Visit [facility] [place] [address] Rose Muller MD [address] [place] [address] documented as of this encounter Procedures Procedure Name Priority Date/Time Associated Diagnosis Comments AST (ABSTRACTED LAB) Routine 09/15/2022 CMP (ABSTRACTED LAB) Routine 09/15/2022 ALT (OUTSIDE LAB) Routine 09/15/2022 TSH (OUTSIDE LAB) Routine 09/15/2022 VITAMIN B-12 Routine 09/15/2022 FREE T3 Routine 09/15/2022 LIPID PANEL Routine 09/15/2022 THYROXINE, FREE (FT4) Routine 09/15/2022 documented in this encounter Results * FREE T3 (09/15/2022) FREE T3 3.03 2.18 - 3.98 09/15/2022 us Default History Genericprovider LABORATORY Final Result * THYROXINE, FREE (FT4) (09/15/2022) FREE T4 1.05 0.76 - 1.46 09/15/2022 us Default History Genericprovider LABORATORY Final Result * TSH (OUTSIDE LAB) (09/15/2022) TSH 2.39 0.36 - 3.74 09/15/2022 us Default History Genericprovider LAB-OUTSIDE/ABST RACTED Final Result * VITAMIN B-12 (09/15/2022) VITAMIN B12 S/P/B 127 193 - 986 09/15/2022 us Default History Genericprovider LABORATORY Final Result * CMP (ABSTRACTED LAB) (09/15/2022) CALCIUM S/P/B 10.1 8.5 - 10.1 GLUCOSE 137 70 - 99 mg/dL TOTAL PROTEIN S/P/B 7.0 6.4 - 8.2 ALBUMIN S/P/B 3.9 3.4 - 5.0 AST 19 15 - 37 ALT 23 14 - 59 ALKALINE PHOSPHATASE S/P/B 42 46 - 116 BILIRUBIN TOTAL S/P/B 0.6 0.00 - 1.00 09/15/2022 Default History Genericprovider LAB-OUTSIDE/ABST RACTED Final Result * ALT (OUTSIDE LAB) (09/15/2022) ALT 23 14 - 59 09/15/2022 Result [facility] Jimbo Rey MD LAB-OUTSIDE/ABSTRACTED Final Result * AST (ABSTRACTED LAB) (09/15/2022) Pathologist [facility] AST 19 15 - 37 09/15/2022 Jimbo Rey MD LAB-OUTSIDE/ABSTRACTED Final Result * LIPID PANEL (09/15/2022) Pathologist [facility] CHOLESTEROL 135 0 - 200 HDL 67 40 - 60 TRIGLYCERIDES 74 0 - 150 LDL (CALCULATED) 53 <130 09/15/2022 Result [facility] Jimbo Rey MD LABORATORY Final Result documented in this encounter Visit Diagnoses Not on filedocumented in this encounter Care Teams Contamination Consultant Relationship Specialty Start Date End Date Jimbo Rey MD [address] [place] [address] PCP - General INTERNAL MEDICINE 12/20/20 Bernardo Quispe MD [address] [place] [address] Consulting Physician CARDIOVASCULAR DISEASE 05/27/18 Alex Peña MD [address] [place] [address] HOSPITALIST 04/24/22 04/24/23 Rose Muller MD [address] [place] [address] Consulting Physician CARDIOVASCULAR DISEASE 10/22/23 documented as of this encounter
--- OUTSIDE RECORDS SUMMARY | 2025-04-12 12:10 | XMS_ITS | Patient Health Record ---
Author Organization [facility] Address [address] [place], [place] [address] Care Team Providers Care Formation Fracturing Operator Name Role Phone Jimbo Rey Unavailable Unavailable LUCY MELCHOR Unavailable [phone] Allergies No Known Allergies Reason For Referral [...] Date Coverage End Date Medicare Part B [facility] [place] [address] [place] [address] [id number] Starr Whyte Self - patient is the insured [place] [employer] [address] [place] [address] [id number] Starr Whyte Self - patient is the insured Medical (General) History Medical History History ICD Code stroke Open sores hypertension
--- OUTSIDE RECORDS SUMMARY | 2025-04-12 12:10 | XMS_ITS | Clinical Summary ---
Author Organization [facility] Address [address] [place] [address] Care Team Providers Care Communications Instructor Name Role Phone Jimbo Rey MD Primary Care Provider [phone] Rose Muller MD Unavailable Allergies No known active allergies Medications dilTIAZem 24 hr 180 MG capsuleIndicatio ns:Hypertension Take 1 capsule (180 mg total) by mouth daily. Indications: High Blood Pressure Disorder 8 Active losartan 100 MG tabletIndication s:Hypertension Take 1 tablet (100 mg total) by mouth daily. Indications: High Blood Pressure Disorder 8 Active metoprolol succinate 25 MG 24 hr tablet Take 1 tablet (25 mg total) by mouth daily. 90 tablet 3 8 Active calcitriol 0.5 MCG capsuleIndicatio ns:supplement Take 1 capsule (0.5 mcg total) by mouth daily. Indications: supplement 1 Active pantoprazole EC 40 MG tablet Take 1 tablet (40 mg total) by mouth 2 (two) times a day. 2 Active atorvastatin 40 MG tablet Take 1 tablet (40 mg total) by mouth daily. 2 Active loteprednol 0.5 % ophthalmic suspension INSTILL 1 DROP INTO BOTH EYES DAILY 2 Active linaGLIPtin 5 MG tablet Take 1 tablet (5 mg total) by mouth daily. Active vitamin B-12 (CYANOCOBALAMIN) 1000 MCG tablet Take 1 tablet (1,000 mcg total) by mouth daily. sublingual Active busPIRone (BUSPAR) 10 MG tablet Take 1 tablet (10 mg total) by mouth 2 (two) times daily. 90 tablet 2 Active galantamine (RAZADYNE) 8 MG tabletIndication s:Dementia without behavioral disturbance (CMS/HCC) Take 1 tablet (8 mg total) by mouth 2 (two) times daily. 60 tablet 5 2 Active acetaminophen (TYLENOL) 325 MG tablet Take 1 tablet (325 mg total) by mouth every 6 (six) hours as needed for Pain. Active ondansetron (ZOFRAN) 4 MG tablet Take 1 tablet (4 mg total) by mouth every 4 (four) hours as needed for Nausea. Active ELIQUIS 2.5 MG tablet Take 1 tablet (2.5 mg total) by mouth 2 (two) times daily. Active KLOR-CON M20 20 MEQ tablet Take 1 tablet (20 mEq total) by mouth daily. Active furosemide (LASIX) 40 MG tablet take 1 tablet by mouth every day 90 tablet 3 4 Active Additional Information Patient taking differently: 20 mgOral Daily, Reported on 04/12/2024 Active Problems Problem Noted Date Diagnosed Date CVA (cerebral vascular accident) 08/06/2022 Bacteremia 04/18/2022 Altered mental status 04/17/2022 Lumbar spinal stenosis 04/12/2021 Coronary artery calcification seen on CT scan Radiculopathy of lumbosacral region 12/17/2020 Spinal stenosis of lumbar re gion with neurogenic claudication 08/10/2020 Chronic diastolic heart failure 01/05/2020 Essential hypertension 04/07/2018 A-fib (HHS/HCC) 02/08/2018 Resolved Problems Problem Noted Date Diagnosed Date Resolved Date SOB (shortness of breath) 04/07/2018 Chest pain of uncertain etiology 04/07/2018 07/20/2019 Aftercare following surgery to body system 12/28/2017 07/20/2019 Closed displaced fracture of greater tuberosity of right humerus, sequela 12/04/2017 Acute foot pain, left 12/01/20172019 Encounter for preventive health examination 12/01/2017 07/20/2019 Proximal humerus fracture 12/01/2017 Right shoulder pain 12/01/2017 07/20/19 20 Encounters Date Type Department Care Team Description 04/12/2025 8:48 AM CDT Hospital Encounter [facility] [address] [place] [address] Rose Muller MD Arrived 04/12/2025 Orders Only [facility] [address] [place] [address] Rose Muller MD 04/12/2025 Travel 03/29/2025 Abstract [facility] [address] [place] [address] Abstract, Doc Pccl 03/27/2025 Scan [facility] [address] [place] [address] Scanned, Doc Pccl from Last 3 Months Immunizations Immunization Administration Dates Next Due PFIZER COVID-19 BIVALENT (12 +) mRNA, LNP-S, PF, 30 MCG/0.3 ML DOSE 04/24/2022 Family History Medical History Relation Comments Aneurysm Father AAA Stroke Father Hypertension Mother Relation Status Comments Father Mother Social History Tobacco Use Types Packs/Day Years Used Date Smoking Tobacco: Never Smokeless Tobacco: Never Tobacco Cessation:Counseling Given: Not Answered Alcohol Use Standard Drinks/Week Comments Not Currently 0 (1 standard drink = 0.6 oz pur e alcohol) PHQ-2 Answer Date Recorded PHQ-2 Score - If the patient scores above 3, please move on to questions 3-9 0 05/29/2022 Comments No Sex and Gender Information Value Date Recorded Sex Assigned at Female 07/20/2019 12:22 PM PIZZA COOK Legal Sex Female 11:15 PM CDT Gender Identity Female 07/20/2019 12:22 PM PIZZA COOK Sexual Orientation Not on file Last Filed Vital Signs Vital Sign Reading Time Taken Comments Blood Pressure 139/53 04/12/2024 9:35 AM CDT Pulse 56 04/12/2024 9:35 AM CDT Temperature 36.7 C (98.1 F) 04/24/2022 7:18 AM CDT Respiratory Rate 16 04/12/2024 9:35 AM CDT Oxygen Saturation 96% 04/12/2024 9:35 AM CDT Inhaled Oxygen Concentration - - Weight 67.6 kg (149 lb) 04/12/2024 9:35 AM CDT Height 160 cm (5' 3) 04/12/2024 9:35 AM CDT Body Mass Index 26.39 04/12/2024 9:35 AM CDT Plan of Treatment Upcoming Encounters Date Type Department Care Team (Late st Contact Info) Description 04/24/2025 12:30 PM CDT Office Visit [facility] [place] [address] Rose Muller MD [address] [place], [place] [id number] Health Maintenance Due Date Last Done Comments DTaP, Tdap and Td Vaccines ( 1 - Tdap) 1954 Pneumococcal Vaccine: 50+ Years (1 of 2 - PCV) 1956 Zoster Vaccines (1 of 2) 11/14/1987 Annual Medicare Wellness Visit 2002 RSV Immunization or 60+ Years (1 - 1-dose 75+ series) 2012 COVID-19 Vaccine ( - 2024-2 6 season) 2025 04/24/2022, 10/06/2020, 09/13/2020 Influenza Adult (#1) 2025 04/30/2023, 05/02/2021 Hepatitis A Vaccines Aged Out No long er eligible based on patient's age to complete this topic Meningococcal B Vaccine Aged Out No l onger eligible based on patient's age to complete this topic Meningococcal Vaccine Aged Out No ziyad karolina eligible based on patient's age to complete this topic RSV Immunizations Under 20 Months Aged Out No longer eligible b ased on patient's age to complete this topic Medical Devices Implanted Type Area Seasoner Hand Device Identifier Shelf Expiration Date Model / Serial / Lot Graft Bone Canc 15ml 1-4mm - [id number] Implanted:Qty: 1 on 04/12/2021 by Gray Henderson MD at [facility] Bone N/A: Spine Lumbar [employer] 09/30/2023 [id number] / / Screw Set 5.5/6mm Cd Horizon Soleral Voyager Nonsterile Latex Free - [id number] Implanted:Qty: 4 on 04/12/2021 by Gray Henderson MD at [facility] Screw N/A: Spine Lumbar [employer] [id number] / / Agent Hemostatic Surgiflo Thrombin 8 Ml Kit Matrix Steril - [id number] Implanted:Qty: 1 on 04/12/2021 by Gray Henderson MD at [facility] Sealant N/A: Spine Lumbar [employer] - [employer] 07/29/2022 [id number] / / [id number] Spacer 24 X 12mm Implanted:Qty: 1 on 04/12/2021 by Gray Henderson MD at [facility] N/A: Spine Lumbar [employer] 04/04/2028 [id number] / / [id number] 6.5 X 45mm Mas Implanted:Qty: 4 on 04/12/2021 by Gray Henderson MD at [facility] N/A: Spine Lumbar [employer] [id number] / / 35mm Capped Eduardo Implanted:Qty: 2 on 04/12/2021 by Gray Henderson MD at [facility] N/A: Spine Lumbar [employer] [id number] / / Explanted Type Area Seasoner Hand Device Identifier Shelf Expiration Date Model / Serial / Lot Bur Drill Neuro Blanca 3.0mm X 3.8mm - [id number] Explanted:Qty: 1 on 04/12/2021 by Gray Henderson MD at [facility] Drill N/A: Spine Lumbar [employer] - DIV BLANCA SANCHEZ [id number] / / Procedures Procedure Name Priority Date/Time Associated Diagnosis Comments USE ECHOCARDIOGRAM Routine 04/12/2025 9: 38 AM CDT Tricuspid valve insufficiency, unspecified etiology Pulmonary hypertension (CMS/HCC HHS/HCC) COMPREHENSIVE METABOLIC PANEL Routine 03/27/2025 LIPID PANEL Routine 03/27/2025 CBC, MANUAL DIFF Routine 03/27/2025 THYROXINE, FREE (FT4) Routine 03/27/2025 HEMOGLOBIN, GLYCOSYLATED Routine 03/27/2025 THYROID STIM HORMONE TSH Routine 03/27/2025 BNP Routine 03/27/2025 from Last 3 Months Results * USE ECHOCARDIOGRAM (04/12/2025 9:38 AM CDT) Anatomical Region Laterality Modality Cardiac Ultrasound 04/12/2025 9:10 AM CDT Narrative 04/12/2025 10:51 AM CDT Echocardiography Report Pat.Name: Starr Whyte Pat.ID: [id number] .Date: 04/12/2025 Refer.MD: [place], [facility] Exam Time: 9:10:00 AM Study Type:OUTREACH Height: 60 in Weight: 132 lb BSA: 1.56 m2 Age: 5 1935,89Y Sex: F Sonogrphr: Am Pat. Stat.:Outpatient CPT - 4: 67388 Reason for Study:Tricuspid valve insufficiency, unspecified etiology, Pulmonary hypertension Procedures: Study performed at [place], [place] and interpreted by [facility]. 2D, M-mode, Doppler, Color Flow [...] 04/12/2025 Echocardiography Report Pat.Name: Starr Whyte Pat.ID: [id number] .Date: 04/12/2025 Refer.MD: [place], [facility] Exam Time: 9:10:00 AM Study Type:OUTREACH Height: 60 in Weight: 132 lb BSA: 1.56 m2 Age: 5 1935,89Y Sex: F Sonogrphr: Am Pat. Stat.:Outpatient CPT - 4: 65708 Reason for Study:Tricuspid valve insufficiency, unspecified etiology, Pulmonary hypertension Procedures: Study performed at [place], [place] and interpreted by [facility]. 2D, M-mode, Doppler, Color Flow [...] Signature> 04/12/2025 10:51 AM Rose Muller M.D. Rose Muller MD ECHO Final Result * HEMOGLOBIN, GLYCOSYLATED (03/27/2025) HGB A1C 6.2 % Narrative Resulting Agency Comment [facility] Jimbo Rey MD LABORATORY Final Result * BNP (03/27/2025) [facility] B TYPE NATRIURETIC PEPTIDE 2,660 Narrative Resulting Agency Comment [facility] Jimbo Rey MD LABORATORY Final Result * (ABNORMAL) COMPREHENSIVE METABOLIC PANEL (03/27/2025) [facility] SODIUM S/P/B 145 GLUCOSE 110 mg/dL AST 27 BUN 21 CREATININE S/P/B 1.19(A) 0.5 - 1.0 CALCIUM S/P/B 10.3 POTASSIUM S/P/B 3.4 CHLORIDE S/P/B 109 ALT 15 GFR ESTIMATE 43 Narrative Resulting Agency Comment [facility] Jimbo Rey MD LABORATORY Final Result * LIPID PANEL (03/27/2025) [facility] CHOLESTEROL 148 TRIGLYCERIDES 97 HDL 78 LDL (CALCULATED) 51 Narrative Resulting Agency Comment [facility] Result [facility] Jimbo Rey MD LABORATORY Final Result * CBC, MANUAL DIFF (03/27/2025) [facility] WBC 6.2 HGB 11.3 HCT 35.7 PLT 158 Narrative Resulting Agency Comment [facility] Jimbo Rey MD LABORATORY Final Result * THYROXINE, FREE (FT4) (03/27/2025) [facility] FREE T4 1.39 Narrative Resulting Agency Comment [facility] Result [facility] Jimbo Rey MD LABORATORY Final Result * THYROID STIM HORMONE TSH (03/27/2025) [facility] TSH 2.210 Narrative Resulting Agency Comment [facility] Jimbo Rey MD LABORATORY Final Result from Last 3 Months Insurance MEDICARE MEDICARE Advance Directives * Full Code (Latest Code Status on File) Date Activated Date Inactivated Comments 04/17/2022 2:08 PM 04/24/2022 6:26 PM Care Teams Communications Instructor Relationship Specialty Start Date End Date Jimbo Rey MD [address] [place] [phone] PCP - General INTERNAL MEDICINE 12/20/20 Rose Muller MD [address] [place] [address] Consulting Physician CARDIOVASCULAR DISEASE 10/22/23
--- OUTSIDE RECORDS SUMMARY | 2025-04-12 12:10 | XMS_ITS | Encounter Summary ---
Author Organization [facility] Address [address] [place] [address] Care Team Providers Care Electrotyper Name Role Phone Keerthi Ojeda MD Primary Care Provider Bernardo Martinez MD Unavailable [phone] Houston Acosta DO Primary Care Provider [phone] Jimbo Rey MD Primary Care Provider [phone] Alex Peña MD Unavailable [phone] Rose Muller MD Unavailable Encounter Details Date Type Department Care Team (Late Contact Info) Description 12/04/2018 Abstract SFL CONVERSION [address] [place] [address] , Generic MD David Social History Tobacco Use Types Packs/Day Years Used Date Smoking Tobacco: Never Smokeless Tobacco: Never Comments Unknown Sex and Gender Information Value Date Recorded Sex Assigned at Female 07/20/2019 12:22 PM FASHION ILLUSTRATOR Legal Sex Female 11:15 PM CDT Gender Identity Female 07/20/2019 12:22 PM FASHION ILLUSTRATOR Sexual Orientation Not on file documented as of this encounter Plan of Treatment Upcoming Encounters Date Type Department Care Team (Late Contact Info) Description 04/24/2025 12:30 PM CDT [facility] [address] [place] [id number] Rose Muller MD [address] [place] [address] documented as of this encounter Visit Diagnoses Not on filedocumented in this encounter Additional Health Concerns Infection Onset Date Last Indicated Resolved Time COVID-19 Rule Out 08/28/2020 08/28/2020 08/29/2020 11:16 AM FASHION ILLUSTRATOR COVID-19 Rule Out 04/24/2022 04/24/2022 04/24/2022 6:26 PM CDT documented as of this encounter Care Teams Electrotyper Relationship Specialty Start Date End Date Keerthi Ojeda MD PCP - General SURGERY 02/09/18 07/21/19 Houston Acosta DO [address] [place] [address] PCP - General FAMILY PRACTICE 07/22/19 12/19/20 Jimbo Rey MD [address] [place] [address] PCP - General INTERNAL MEDICINE 12/20/20 Bernardo Quispe MD [address] [place] [phone] Consulting Physician CARDIOVASCULAR DISEASE 05/27/18 Alex Peña MD [address] [place] [address] HOSPITALIST 04/24/22 04/24/23 Rose Muller MD [address] [place] [address] Consulting Physician CARDIOVASCULAR DISEASE 10/22/23 documented as of this encounter
== END 2025-04-12 10:21 | disposition home or self-care (01) ==
PROVIDERS: PCP Internal Medicine; Visit Provider Nurse Practitioner Family
DX: I50.9 Heart failure, unspecified (principal)
CPT/HCPCS: 36415; 80048; 83880; 85027

== ENCOUNTER 2025-05-21 10:46 | Inpatient (IN) | payer MEDICARE, OTHER, SELFPAY ==
--- OUTSIDE RECORDS SUMMARY | 2025-05-18 04:10 | XMS_ITS ---
Author Organization [facility] Address [address] [place], [place] [id number] Care Team Providers Care Property Claim Rep Name Role Phone JHOAN PORTER Unavailable [phone] Jimbo Rey Unavailable Unavailable TORRES DAVIS Unavailable [phone] Allergies No Known Allergies REASON FOR VISIT *General care Medications Medication SIG (Take, Route, Frequency, Duration) Notes Start Date End Date Status Pantoprazole Sodium 40 MG Tablet Delayed Release Oral; Duration: 90 Days Active Klor-Con M20 20 MEQ Tablet Extended Release Oral; Duration: 90 Days Active Tradjenta 5 MG Tablet TAKE 1 TABLET BY M OUTH EVERY DAY Oral; Duration: 30 Days Active Galantamine Hydrobromide 8 MG Tablet Oral; Duration: 90 Days Acti ve busPIRone HCl 10 MG Tablet Oral; Duration: 90 Days Active Clotrimazole-Betamethasone 1-0.05 % Cream 1 application Externally Twice a day 05/18/2025 Active Atorvastatin Calcium 10 MG Tablet TAKE 1 TABLET BY MOUTH EVERY DAY Oral; Duration: 90 Days Active Furosemide 40 MG Tablet TAKE 1 TABLET BY MOUTH EVERY DAY Oral; Duration: 90 Days Active Calcitriol 0.5 MCG Capsule TAKE 1 CAPSUL E BY MOUTH EVERY DAY Oral; Duration: 90 Days Active Vitamin B-12 1000 MCG Tablet Sublingual DISSOLVE 1 TABLET UNDER TONGUE EVERY DAY Sublingual; Duration: 90 Days Active Eliquis 2.5 MG Tablet TAKE 1 TABLET BY M OUTH TWICE A DAY Oral; Duration: 90 Days Active Loteprednol Etabonate 0.5 % Suspension Ophthalmic; Duration: 50 Days Active Losartan Potassium 100 MG Tablet Oral; Duration: 90 Days Acti ve dilTIAZem HCl ER Coated Beads 180 MG Capsule Extended Release 24 Hour TAKE 1 CAPSULE BY MOUTH EVERY DAY Oral; Duration: 90 Days Active Metoprolol Succinate ER 25 MG Tablet Extended Release 24 Hour Oral; Duration: 90 Days Acti ve Vital Signs Height 63 in 05/18/2025 Weight 138 lbs 05/18/2025 BMI 24.44 kg/m2 05/18/2025 Height-cm 160.02 cm 05/18/2025 Weight-kg 62.6 kg 05/18/2025 Encounters Encounter Location Date Provider Diagnosis [address] [id number] 05/18/2025 TORRES DAVIS Tinea pedis B35.3 ; Onychomycosis B35.1 ; Pain in left foot M79.672 ; Other hammer toe(s) (acquired), right foot M20.41 ; Other hammer toe(s) (acquired), left foot M20.42 ; Pain in right toe(s) M79.674 ; Pain in left toe(s) M79.675 ; Unspecified atherosclerosis of [place] arteries of extremities, bilateral legs I70.203 and Acquired keratosis [keratoderma] palmaris et plantaris L85.1 Assessments Encounter Date Diagnosis (ICD Code) Assessment Notes Treatment Notes Treatment Clinical Notes Section Notes 05/18/2025 Tinea pedis (ICD-10 - B35.3) resolving 05/18/2025 Onychomycosis (ICD-10 - B35.1) Aseptic debridement of [...] educated regarding both OTC and prescription treatments. 05/18/2025 Pain in left foot (ICD-10 - M79.672) 05/18/2025 Other hammer toe(s) (acquired), right foot (ICD-10 [...] were discussed, but conservative options were emphasized. 05/18/2025 Other hammer toe(s) (acquired), left foot (ICD-10 - M20.42) continue her otc foot strapping which helps her a lot. consider orthotics 05/18/2025 Pain in right toe(s) (ICD-10 - M79.674) 05/18/2025 Pain in left toe(s) (ICD-10 - M79.675) 05/18/2025 Unspecified atherosclerosis of [place] arteries of extremities, bilateral legs (ICD-10 - I70.203) Patient educated on risks and aggravating factors of PVD, including conservative treatment options such as a diet and exercise regimen to aid in slowing progression of vascular disease 05/18/2025 Acquired keratosis [keratoderma] palmaris et plantaris (ICD-10 [...] and no infection or drainage was noted. Do not go bare foot Plan Of Treatment Medication Medication Name Sig Start Date Stop Date Notes Clotrimazole-Betamethasone 1-0.05 % Cream 1 application Externally Twice a day 05/18/2025 Treatment Notes Assessment Notes Tinea pedis resolving Onychomycosis Aseptic debridement of elongated thickened nails [...] were discussed, but conservative options were emphasized. Other hammer toe(s) (acquired), left everette t continue her otc foot strapping which helps her a lot. consider orthotics Unspecified atherosclerosis of [place] arteries of extremities, bilateral legs Patient educated [...] and no infection or drainage was noted. Do not go bare foot Next Appt Details Follow Up: 3 Months, Reason: Provider Name:TORRES Jeremy SALDANA, 07/20/2025 10:10:00 AM, [address] [place] [address], [id number], History and Physical Notes * HPI (History [...] Date last seen by Dr. Rey was April 2025., Initials ab Examination Category Sub-Category Detail Notes Category Not [...] sensation intact to first metatarsophalangeal joint bilaterally Progress Notes * TRACE NimishaOB:[birth year] (89 yo F)Acc No.[id number]:05/18/2025 Patient: Starr Mazariegos Provider: Moose DAVIS :1935 A ge:89 Y S ex:Female Date:05/18/2025 [facility] Subjective: * Chief Complaints: * * General care * HPI: H PI: General care P atient presents to the office for diabetic foot care. Patient states that their nails are thickened, elongated and painful. Patient states that it is aggravated by shoe gear. Onset is gradual., Patient is taking prescription blood thinners., Date last seen by Dr. Rey was April 2025., Initials ab. * ROS: G eneral / Constitutional: Patient denies w eakness. R espiratory: Patient denies c hronic cough, shortness of breath, sputum production. C ardiovascular: Patient denies c hest pain, history of AR, irregular heartbeat. M usculoskeletal: Patient denies a rthritis, joint stiffness. P atient complains of h ammertoes. P eripheral Vascular: Patient denies b lanching of skin, cold extremities, decreased sensation in extremities. S kin: Patient complains of f ungal nails, nail changes, calluses and corns. N eurologic: Patient denies d izziness, gait abnormality, headache. * Medical History: Stroke Open sores Hypertension Medical History Verified * Surgical History: Denies Past Surgical History. Surgical History verified. * Hospitalization/Major Diagno stic Procedure: Denies Past Hospitalization. Hospitalization Verified. * Family History: N on-Contributory.. * Social History: Social History Verified. No Social History documented. * Medications: T akingAtorvastatin Calcium 10 MG Tablet TAKE 1 TABLET BY MOUTH EVERY DAY Oral Vitamin B-12 1000 MCG Tablet Sublingual DISSOLVE 1 TABLET UNDER TONGUE EVERY DAY Sublingual Furosemide 40 MG Tablet TAKE 1 TABLET BY MOUTH EVERY DAY Oral busPIRone HCl 10 MG Tablet Oral Galantamine Hydrobromide 8 MG Tablet Oral Tradjenta 5 MG Tablet TAKE 1 TABLET BY MOUTH EVERY DAY Oral Klor-Con M20 20 MEQ Tablet Extended Release Oral Pantoprazole Sodium 40 MG Tablet Delayed Release Oral Eliquis 2.5 MG Tablet TAKE 1 TABLET BY MOUTH TWICE A DAY Oral Loteprednol Etabonate 0.5 % Suspension Ophthalmic dilTIAZem HCl ER Coated Beads 180 MG Capsule Extended Release 24 Hour TAKE 1 CAPSULE BY MOUTH EVERY DAY Oral Losartan Potassium 100 MG Tablet Oral Metoprolol Succinate ER 25 MG Tablet Extended Release 24 Hour Oral Calcitriol 0.5 MCG Capsule TAKE 1 CAPSULE BY MOUTH EVERY DAY Oral Clotrimazole-Betamethasone 1-0.05 % Cream 1 application Externally Twice a day Medication List reviewed and reconciled with the patientTaking Atorvastatin Calcium 10 MG Tablet TAKE 1 TABLET BY MOUTH EVERY DAY Oral Taking Vitamin B-12 1000 MCG Tablet Sublingual DISSOLVE 1 TABLET UNDER TONGUE EVERY DAY Sublingual Taking Furosemide 40 MG Tablet TAKE 1 TABLET BY MOUTH EVERY DAY Oral Taking busPIRone HCl 10 MG Tablet Oral Taking Galantamine Hydrobromide 8 MG Tablet Oral Taking Tradjenta 5 MG Tablet TAKE 1 TABLET BY MOUTH EVERY DAY Oral Taking Klor-Con M20 20 MEQ Tablet Extended Release Oral Taking Pantoprazole Sodium 40 MG Tablet Delayed Release Oral Taking Eliquis 2.5 MG Tablet TAKE 1 TABLET BY MOUTH TWICE A DAY Oral Taking Loteprednol Etabonate 0.5 % Suspension Ophthalmic Taking dilTIAZem HCl ER Coated Beads 180 MG Capsule Extended Release 24 Hour TAKE 1 CAPSULE BY MOUTH EVERY DAY Oral Taking Losartan Potassium 100 MG Tablet Oral Taking Metoprolol Succinate ER 25 MG Tablet Extended Release 24 Hour Oral Taking Calcitriol 0.5 MCG Capsule TAKE 1 CAPSULE BY MOUTH EVERY DAY Oral Taking Clotrimazole-Betamethasone 1-0.05 % Cream 1 application Externally Twice a day Medication List reviewed and reconciled with the patient * Allergies: N .Theeergies Verified. Objective: * Vitals: S hoe Size: 9, Wt: 138 lbs, Wt-k.6 kg, Ht: 63 in, Ht-cm: 160.02 cm, BMI: 24.44 Index, Body Surface Area: 1.67. * Examination: P hysical Examination: V ascular: [...] 2 . T inea pedis - B35.3 ?3. P ain in left foot - M79.672 4 . O ther hammer toe(s) (acquired), right foot - M20.41 5 . O ther hammer toe(s) (acquired), left foot - M20.42 & #160; 6 . P ain in right toe(s) - M79.674 7 . P ain in left toe(s) - M79.675 8 . U nspecified atherosclerosis of [place] arteries of extremities, bilateral legs - I70.203 9 . A cquired keratosis [keratoderma] palmaris et plantaris - L85.1 Plan: * Treatment: 2. T inea pedis Notes: resolving 3. O ther hammer toe(s) (acquired), right [...] discussed, but conservative options were emphasized. 4. O ther hammer toe(s) (acquired), left foot Notes: continue her otc foot strapping which helps her a lot. consider orthotics 5. U nspecified atherosclerosis of [place] arteries of extremities, bilateral legs Notes: Patient educated on risks and aggravating factors of PVD, including conservative treatment options such as a diet and exercise regimen to aid in slowing progression of vascular disease ? 6. 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 After removal of overlying extensive hyperkeratosis, healthy tissue was noted and care was taken to assure that no undermining or probing was present. It should be noted that no probing was noted and no infection or drainage was noted. Do not go bare foot 7. O thers Start Clotrimazole-Betamethasone Cream, 1-0.05 %, 1 application, Externally, Twice a day, 1, Refills 2. * Preventive Medicine: Screenings: F all risk screening F all Risk Assessment: N o falls in the past year, P isatu of Care: D ocumented. * Follow Up: 3 Months Billing Information: * Procedure Codes: * Electronic signature of SUKHDEEP DAVIS DPM on 05/21/2025 at 10:48 AM ORNAMENTAL PAINTER Sign off status: Pending * Provider: Moose DAVIS Date: 07/18/2024 Generated for Dora mata/Wang/Belaitting on: 07/21/2024 10:48 AM ORNAMENTAL PAINTER
[2025-05-21] VITALS (23 sets, daily range): BP systolic 96–163; BP diastolic 63–88; PULSE 74–96; RESP 18–51; TEMP 36.8–38.2; O2SAT 90–96; BMI 21.9
--- NOTE | ~2025-05-21 | CT_ITS ---
CT HEAD NON-CONTRAST Clinical History: AMS/hypoxia/diarrhea Comparison: CT brain 12/11/2024 Technique: Unenhanced axial images skull base to vertex Coronal, sagittal reformats CT images acquired with automatic exposure control for dose reduction DLP: 681 mGy-cm Findings: Age-related global atrophy and chronic white matter microvascular ischemic changes Sulci, ventricles: Unremarkable. No intracerebral hemorrhage. No evidence acute territorial infarct. No mass effect, midline shift. Bony calvarium intact. Visualized paranasal sinuses: Minimal ethmoid and right maxillary fluid. Mastoid air cells: Small fluid left side. IMPRESSION: 1. No acute intracranial findings. Reviewed, dictated and finalized at location [facility]
--- NOTE | ~2025-05-21 | XR_ITS ---
EXAMINATION: XR chest 1V portable COMPARISON: No comparisons available. HISTORY: pna/vascular congestion f/u FINDINGS: Mild pulmonary venous congestion. There are infiltrates noted of the right upper and left lower lobes. No pneumothorax. Mild cardiomegaly. Mediastinal and hilar contours are within normal limits. Bony thorax no acute abnormality. Miscellaneous: None Impression: Bilateral pneumonia. Accounting for differences in technique findings appear relatively unchanged compared to the previous CT. Reviewed, dictated and finalized at location P. CELLAR WORKER Impression: Bilateral pneumonia. Accounting for differences in technique findings appear re latively unchanged compared to the previous CT.
--- NOTE | ~2025-05-21 | CT_ITS ---
CHEST ABDOMEN PELVIS WITHOUT CONTRAST CLINICAL HISTORY: AMS/hypoxia/diarrhea . COMPARISON: 12/11/2024 TECHNIQUE: Helical CT performed from thoracic inlet to symphysis pubis Coronal, sagittal reformats CT images acquired with automatic exposure control for dose reduction DLP: 416 mGy-cm FINDINGS: CHEST- Lungs/Pleura: Dense airspace disease right middle lobe. Mild airspace disease right upper and lower lobes. Thoracic Aorta: No aneurysm. Atherosclerotic disease. Pulmonary arteries: Normal caliber. Heart: Cardiomegaly. Coronary artery calcification. Trace pericardial fluid. Tracheobronchial tree: Patent. Nodes: No enlarged nodes. Small mediastinal nodes. Bones: No acute bony abnormality. Cement augmentation T11, L1. Chronic mild superior endplate height loss T12. Soft tissues: Multiple small thyroid nodules and/or heterogeneous gland. ABDOMEN/PELVIS- Liver: Micronodular contour. Gallbladder: Removed. Spleen: Unremarkable. Pancreas: Atrophy. Adrenal glands: Mild nodular thickening left side. Kidneys: Right kidney- No hydronephrosis. No renal stones. Left kidney- No hydronephrosis. No renal stones. Distal esophagus/stomach: Unremarkable. Small bowel loops: Normal caliber and wall thickness. Colon: Minimal, if any, rectal wall thickening. Appendix not seen. Nodes: No enlarged nodes. Peritoneum: No ascites. No free air. Urinary bladder: Unremarkable. Uterus: Unremarkable. Adnexa: No masses. Bones: Minimal, if any, worsening compression deformity L2. Soft tissues: Unremarkable. Aorta: No aneurysm. Atherosclerotic disease. IVC: Unremarkable. IMPRESSION: CHEST- 1. Dense pneumonia right middle lobe, consider aspiration. Much less severe airspace disease remaining right lung. ABDOMEN/PELVIS- 1. Mild proctitis possible. 2. Otherwise no acute abnormality. 3. Additional findings as above. Reviewed, dictated and finalized at location R. FITS CONSULTING ANALYST IMPRESSION: CHEST- 1. Dense pneumonia right middle lobe, consider aspiration. Much less severe ai rspace disease remaining right lung. ABDOMEN/PELVIS- 1. Mild proctitis possible. 2. Otherwise no acute abnormality. 3. Additional findings as above.
--- OUTSIDE RECORDS SUMMARY | 2025-05-21 10:48 | XMS_ITS | Encounter Summary ---
Author Organization [facility] Address [address] [place] [address] Care Team Providers Care Street Superintendent Name Role Phone Jimbo Rey MD Primary Care Provider [phone] Encounter Details Date Type Department Care Team (Late st Contact Info) Description 10/16/2021 Telephone [facility] [address] [place] [id number] Mary Castellano, LORENZO Social History Tobacco Use [...] on file Legal Sex Female 7:02 PM TIRE SPECIALIST Gender Identity Not on file Sexual [...] on filedocumented in this encounter Care Teams Street Superintendent Relationship Specialty Start Date End Date Jimbo Rey MD [address] [place] [address] PCP - General Internal Medicine 06/11/20 documented as of this encounter
--- OUTSIDE RECORDS SUMMARY | 2025-05-21 10:48 | XMS_ITS | Patient Health Record ---
Author Organization [facility] Address [address] [place], [place] [id number] Care Team Providers Care Consulting Sales Executive Name Role Phone JHOAN PORTER Unavailable [phone] Jimbo Rey Unavailable Unavailable LUCY MELCHOR Unavailable [phone] TORRES DAVIS Unavailable [phone] Allergies No Known Allergies Reason For Referral No Information Medications Medication SIG (Take, Route, Frequency, Duration) Notes Start Date End Date Status Clotrimazole-Betamethasone 1-0.05 % Cream 1 application Externally Twice a day 05/18/2025 Active Atorvastatin Calcium 10 MG Tablet TAKE 1 TABLET BY MOUTH EVERY DAY Oral; Duration: 90 Days Active Losartan Potassium 100 MG Tablet Oral; Duration: 90 Days Acti ve dilTIAZem HCl ER Coated Beads 180 MG Capsule Extended Release 24 Hour TAKE 1 CAPSULE BY MOUTH EVERY DAY Oral; Duration: 90 Days Active Galantamine Hydrobromide 8 MG Tablet Oral; Duration: 90 Days Acti ve busPIRone HCl 10 MG Tablet Oral; Duration: 90 Days Active Furosemide 40 [...] Hour Oral; Duration: 90 Days Acti ve Eliquis 2.5 MG Tablet TAKE 1 TABLET BY M OUTH TWICE A DAY Oral; Duration: 90 Days Active Pantoprazole Sodium 40 MG Tablet Delayed Release Oral; Duration: 90 Days Active Klor-Con M20 20 MEQ Tablet Extended Release Oral; Duration: 90 Days Active Tradjenta 5 MG Tablet TAKE 1 TABLET BY M OUTH EVERY DAY Oral; Duration: 30 Days Active Loteprednol Etabonate 0.5 % Suspension Ophthalmic; Duration: 50 Days Active Immunizations Vaccine Route Administration Date Status Comme nts Influenza, high dose seasonal Unknown 04/30/2023 Admini stered Vital Signs Height-cm 160.02 cm 05/18/2025 Weight-kg 62.6 kg 05/18/2025 Height 63 in 05/18/2025 Weight 138 lbs 05/18/2025 BMI 24.44 kg/m2 05/18/2025 Encounters Encounter Location Date Provider Diagnosis [address] [id number] 05/18/2025 TORRES SUSAN Tinea pedis B35.3 ; Onychomycosis B35.1 ; Pain in left foot M79.672 ; Other hammer toe(s) (acquired), right foot M20.41 ; Other hammer toe(s) (acquired), left foot M20.42 ; Pain in right toe(s) M79.674 ; Pain in left toe(s) M79.675 ; Unspecified atherosclerosis of [place] arteries of extremities, bilateral legs I70.203 and [...] (ICD-10 - M79.675) 05/18/2025 Unspecified atherosclerosis of [place] arteries of extremities, bilateral legs (ICD-10 - [...] not go bare foot Plan Of Treatment Next Appt Details Provider Name:TORRES SALDANA, 07/20/2025 10:10:00 AM, [address] [place] [address], [id number], Insurance Providers Payer Name Payer Address Payer Phone Subscriber Number Group Number Insured Name Patient Relationship to Insured Coverage Start Date Coverage End Date Medicare Part B [facility] [address] [place] [phone] [id number] Starr Whyte Self - patient is the insured [employer] [address] [place] [address] [id number] Starr Whyte Self - patient is the insured Medical (General) History Medical History History ICD Code stroke Open sores hypertension
--- OUTSIDE RECORDS SUMMARY | 2025-05-21 10:48 | XMS_ITS | Clinical Summary ---
Author Organization [facility] Care Team Providers Care Sterile Products Processor Name Role Phone Unavailable Primary Care Provider [...]
--- OUTSIDE RECORDS SUMMARY | 2025-05-21 10:48 | XMS_ITS | Clinical Summary ---
Author Organization [facility] Address [address] [place] [address] Care Team Providers Care Physician Neonatology Name Role Phone Jimbo Rey MD Primary Care Provider [phone] Allergies No known active allergies Medications dilTIAZem [...] (09/13/2021): Added automatically from request for surgery [id number] Encounter for screening colonoscopy 09/13/2021 Overview (09/13/2021): Added automatically from request for surgery [id number] Chest pain 09/08/2021 Enlarged thyroid gland 09/08/2021 [...] thrombectomy for M1 occlusion, TICI 3 at [facility] on 08/21/2021. Acute stroke due to [...] (06/11/2020): Added automatically from request for surgery [id number] Chronic diastolic heart failure 01/05/2020 Assessment & [...] How often do you attend chur or yarsani services? 1 to 4 times per year 01/07/2022 Do you belong to any clubs o r organizations such as nondenominational groups, unions, fraternal or athletic groups, or [...] on file Legal Sex Female 7:02 PM EDUCATIONAL PSYCHOLOGY PROFESSOR Gender Identity Not on file Sexual Orientation [...] 12/27, 01/05/2022, Additional history exists Covid-19 Vaccine (2024-2 6 season) 2025 10/06/2020, 09/13/2020 Influenza Vaccine (#1) 2025 05/02/2021 Medical Devices Implanted Type Area Supervisor Grain And Yeast Plants Device Identifier Shelf Expiration Date Model / Serial / Lot [employer] [id number] Parametric 4mm 50mm 40mm Radiopaque Revascularization - [id number] Implanted:Qty: 1 on 08/21/2021 at [facility] [employer] 06/12/2024 [id number] / / [id number] Description: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 73 m2 [facility] Comment: Interpretive Data Reference Interval Normal [...] MD LAB BLOOD ORDERABLES Final Result [facility] [address] Department [place] [address] * (ABNORMAL) Hemoglobin A1c (08/21/2021 11:01 AM EDUCATIONAL PSYCHOLOGY PROFESSOR) Hgb A1C 6.6(H) 4.0 - 5.6 % [facility] Estimated Average Glucose 143 mg/dL [facility] Comment: The ADA recommends reporting an estimated Average Glucose (eAG) with all Hemoglobin A1c results using the equation derived from a study of 507 normal and diabetic adults. Minority populations were underrepresented and children were not included. (Diabetes Care 31:5167-0685, 2008). The eAG is not equivalent to a fasting glucose. Blood 08/21/2021 11:0 1 AM EDUCATIONAL PSYCHOLOGY PROFESSOR 08/21/2021 11:04 AM EDUCATIONAL PSYCHOLOGY PROFESSOR us Tor Esteban MD LAB BLOOD ORDERABLES Fi nal Result [facility] [place] [address] * Lipid panel (08/21/2021 11:01 AM EDUCATIONAL PSYCHOLOGY PROFESSOR) Cholesterol 153 30 - 199 mg/dL [facility] Comment: Interpretive Data Ages < or = [...] [facility] ([place]) Blood 08/21/2021 11:0 1 AM EDUCATIONAL PSYCHOLOGY PROFESSOR 08/21/2021 11:04 AM EDUCATIONAL PSYCHOLOGY PROFESSOR Tor Esteban MD LAB BLOOD ORDERABLES Fi nal Result [facility] [place] [address] from Last 3 Months or Most Recently Relevant to Health Maintenance Insurance MEDICARE [place] MEDICARE [place] MEDICARE [facility] Advance Directives For more information, please contact: [phone] * Full Code (Latest Code Status on [...] 3:08 PM 08/27/2021 9:07 PM Care Teams Physician Neonatology Relationship Specialty Start Date End Date Jimbo Rey MD [address] [place] [address] PCP - General Internal Medicine 06/11/20
--- NOTE | 2025-05-21 11:23 | ED.WEAKNESS ---
HPI - Weakness General Chief complaint: Weakness Stated complaint: altered mental status Time Seen by Provider: 05/21/25 11:01 Source: patient and family Mode of arrival: wheelchair Limitations: altered mental status History of Present Illness HPI Narrative: Patient is an 89-year-old female with acute on chronic changes at this time for the past few days. She has altered mental status on dementia, diarrhea on loose stool and generalized weakness on chronic weakness. She has decreased appetite to no appetite over the past few months but worse in the past few days. No fever or chills. She has been having some urinary incontinence. She has been staying in her room more and sleeping more. She has associated what appears to be shortness of breath but more so hypoxia and tachypnea on examination. MD Complaint: generalized weakness, lack of energy and difficulty walking Onset (ago): day(s) (Three) Duration: constant Location: generalized Migration: none Severity: moderate Severity scale (1-10): 2 Quality: other (No particular pain at this time) Relieving factors: none Exacerbating factors: none Context: other (Patient appears to have some acute decline over the past few days compared to her chronic decline over the past few months) Associated symptoms: shortness of breath Related Data Home Medications ?Medication ?Instructions ?Recorded ?Confirmed ?Last Taken ?Type diltiazem HCl 180 mg capsule,24 180 mg PO DAILY 07/05/19 10/19/24 10/19/24 History hr,extended release atorvastatin 10 mg tablet 10 mg PO DAILY 10/01/21 10/19/24 10/19/24 History furosemide 20 mg tablet 20 mg PO EVERY OTHER DAY 10/01/21 10/19/24 10/18/24 History linagliptin 5 mg tablet (Tradjenta) 5 mg PO QAM 10/01/21 10/19/24 10/19/24 History apixaban 2.5 mg tablet (Eliquis) 2.5 mg PO BID 06/14/22 10/19/24 10/19/24 History calcitriol 0.5 mcg capsule 0.5 mcg PO DAILY 06/14/22 10/19/24 10/19/24 History galantamine 8 mg tablet 8 mg PO BID 06/14/22 10/19/24 10/19/24 History vitamin B complex (B 1 tablet PO DAILY 06/14/22 10/19/24 10/19/24 History Complex-Vitamin B12 tablet) Lactobacillus acidophilus and 1 cap PO HS 05/21/25 Unknown History rhamnosus 15 billion cell capsule (Florajen Women) buspirone 10 mg tablet 10 mg PO BID 05/21/25 Unknown History prednisolone acetate 1 % eye 1 drp EACH EYE HS 05/21/25 Unknown History drops,suspension Allergies Allergy/AdvReac Type Severity Reaction Status Date / Time No Known Allergies Allergy Verified 05/21/25 11:26 Review of Systems Review of Systems: All systems reviewed & are unremarkable except as noted in HPI and below Constitutional: Constitutional: Reports no additional constitutional complaints Eyes: Eyes: Reports no additional eye complaints ENT: Reports system reviewed and no additional complaints, except as documented Cardiovascular: Cardiovascular: Reports no additional cardiovascular complaints Respiratory: Respiratory: Reports no additional respiratory complaints Gastrointestinal: Gastrointestinal: Reports no additional gastrointestinal complaints Genitourinary: Genitourinary: Reports no additional female genitourinary complaints Musculoskeletal: Musculoskeletal: Reports no additional musculoskeletal complaints Integumentary/Breasts: Skin/Breast: Reports system reviewed and no additional complaints, except as docu Neurologic: Reports system reviewed and no additional complaints, except as documented Psychiatric: Psychiatric: Reports no additional psychiatric complaints Endocrine: Endocrine: Reports no additional endocrine complaints Hematologic/Lymphatic: Hematologic/Lymphatic: Reports no additional hematologic/lymphatic complaints Allergic/Immunologic: Allergic/Immunologic: Reports no additional allergic/immunologic complaints PMFSH Past Medical History Medical History External hemorrhoid Atrial fibrillation Osteoarthritis Hypertension Overweight Surgical History Surgical History Hx of tonsillectomy History of cholecystectomy Family History Family History Mother Hypertension Father AAA (abdominal aortic aneurysm) Mother Hypertension Social History Social History Smoking status: Never smoker Living arrangements: with family Additional living arrangements comments: Lives with her . 4 adult children. Occupation/Education: retired Exam Const: General: no acute distress Nutritional Appearance: well nourished Orientation/consciousness: confusion Limitations: altered mental status HENMT: Head: normal to inspection Ears: external ears normal Face/Nose/Sinus: Normal external nose present Eyes: Conjunctivae: conjunctivae normal Pupils: Equal, round and reactive pupils present EOM: EOMs intact bilaterally Neck: Neck: normal visual inspection Chest: Chest palpation & inspection: normal inspection of the chest Resp: Effort & Inspection: abnormal respiratory effort, labored, no retractions, tachypneic and no use of accessory muscles Auscultation: not clear to auscultation bilaterally, crackles, no rales, rhonchi, no wheezes, breath sounds present and diminished lung sounds Other: Throughout lungs Cardio: Rate: regular rate Rhythm: regular rhythm Heart sounds: Murmur heart sound present continuous holo (Systolic), II/ and at the left sternal border GI: Inspection: non-distended GI Palp: Yes Soft to palpation, No Tenderness to palpation present (GI), No Guarding due to palpation present (GI), No Rigid due to palpation, No Hernia present, No Palpable mass present and No Rebound tenderness present Auscultation: normal bowel sounds : General: Yes bladder normal to palpation Back/Spine/Pelvis: Back: no CVA tenderness Skin: General skin exam: normal color Rashes: no rashes Wounds: no wounds Neuro: General: No patient oriented x3, moves all extremities, no meningeal signs, no focal motor deficits and CN's II-XI intact bilaterally Cranial nerves: Yes Nystagmus not present Speech: normal speech Gait exam (Neuro): gait abnormal (Generalized weakness) Other: Fast exam is negative, NIH score is 0, GCS is 15 Extrem: General: normal to inspection, no clubbing, cyanosis or edema and no pedal edema Psych: Mental Status: mental status grossly abnormal Affect: normal affect Attitude: cooperative Course Vital Signs Vital signs: Vital Signs Temperature 36.8 C 05/21/25 10:50 Pulse Rate 85 05/21/25 10:50 Respiratory Rate 20 05/21/25 10:50 Blood Pressure 158/75 H 05/21/25 10:50 Pulse Oximetry 95 05/21/25 10:50 Oxygen Delivery Room Air 05/21/25 10:50 Temperature 36.8 C 05/21/25 10:50 Pulse Rate 83 05/21/25 11:20 Respiratory Rate 20 05/21/25 10:50 Blood Pressure 158/75 H 05/21/25 10:50 Pulse Oximetry 95 05/21/25 10:50 Oxygen Delivery Room Air 05/21/25 10:50 MDM - Weakness MDM Narrative Medical decision making narrative: Patient is an 89-year-old female with generalized weakness over the past few days from chronic weakness and diarrhea over the past few days from chronic soft stool and acute altered mental status on a dementia process. We will do a general workup on multi organ system approach. Admit the patient to this hospital for further treatment planning. Troponin level has decreased. Zosyn will cross cover proctitis. Further planning with the primary hospitalist at this time. Lab Data Attestation: I reviewed the patient's lab results. 05/21/25 12:01 05/21/25 12:01 Labs: Lab Results 05/21/25 05/21/25 05/21/25 Range/Units 12:01 12:08 14:23 WBC 8.5 (4.8-10.8) K/mm3 RBC 4.25 (4.20-5.40) M/mm3 Hgb 11.9 (11.7-13.8) g/dL Hct 37.5 (35.0-42.0) % MCV 88.2 (78.0-102.0) fL MCH 28.0 (27.0-31.0) pg MCHC 31.7 L (32-36) g/dL RDW 15.0 H (11.6-14.4) % Plt Count 171 (150-420) K/mm3 MPV 9.4 (9.2-11.8) fl Immature Gran % (Auto) 0.5 H (0.0-0.0) % Neut % (Auto) 82.6 H (50.0-70.0) % Lymph % (Auto) 6.9 L (18.0-42.0) % Harmon % (Auto) 9.5 (2.0-11.0) % Eos % (Auto) 0.0 L (1.0-6.0) % Baso % (Auto) 0.5 (0.0-1.0) % Lymph # (Auto) 0.58 L (1.10-4.50) K/mm3 Harmon # (Auto) 0.80 (0.10-0.90) K/mm3 Eos # (Auto) 0.00 L (0.02-0.50) K/mm3 Baso # (Auto) 0.04 (0.00-0.10) K/mm3 Abs Immat Gran (auto) 0.04 H (0.00-0.00) K/mm3 Absolute Neuts (auto) 6.99 (1.70-7.20) K/mm3 Absolute Nucleated RBC 0.00 (0.00-0.00) K/mm3 Nucleated RBC % 0.0 (0-0.0) % PT 12.2 H (9.50-12.1) Seconds INR 1.1 APTT 35.1 H (23.9-30.70) Sec Sodium 139 (137-145) mmol/L Potassium 3.1 L (3.4-5.0) mmol/L Chloride 98 (98-107) mmol/L Carbon Dioxide 29 (22-30) mmol/L Anion Gap 12 (4-12) mmol/L BUN 13 D (7-17) mg/dL Creatinine 0.91 (0.7-1.0) mg/dL Estim Creat Clear Calc 32 ml/min Estimated GFR 58 L (59 - ) Glucose 130 H (65-110) mg/dL Calculated Osmolality 290 (285-295) mOsm/kg Lactic Acid 2.1 H 1.5 (0.7-2.0) mmol/L Calcium 9.4 (8.4-10.2) mg/dL Magnesium 1.9 (1.6-2.3) mg/dL Total Bilirubin 1.6 H (0.2-1.3) mg/dL AST 42 H (14-36) U/L ALT 22 (6-35) U/L Alkaline Phosphatase 48 (38-126) U/L Troponin I 0.054 H* 0.049 H* (0.000-0.034) ng/mL NT-Pro-B Natriuret Pep 6660 H (19.9-100) pg/mL Total Protein 8.0 (6.3-8.2) g/dL Albumin 4.6 (3.5-5.1) g/dL Lipase 123 (23-300) U/L Procalcitonin 0.2 ng/mL Urine Color Light yellow (Yellow) Urine Appearance Clear (Clear) Urine pH 6.5 (5.0-8.0) Ur Specific [place] 1.020 (1.010-1.020) Urine Protein 2+ H (Negative) Urine Glucose (UA) Negative (Negative) Urine Ketones 1+ H (Negative) Ur Blood (Man) 2+ H (Negative) Urine Nitrate Negative (Negative) Urine Bilirubin Negative (Negative) Urine Urobilinogen 0.2 (0.2-1.0) mg/dL Leukocyte Esterase Rfl Negative (Negative) VILLA/UL Urine RBC 3-5 H (0-2) /hpf Urine WBC 0-3 (0-3) /hpf Ur Squamous Epith Cells Rare (Few) /hpf Urine Bacteria Trace (None) /hpf Influenza A (RT-PCR) Negative (Negative) Influenza B (RT-PCR) Negative (Negative) RSV (RT-PCR) Negative (Negative) SARS-CoV-2 RNA (RT-PCR) Negative (Negative) Imaging Data Attestation: I personally reviewed and interpreted this imaging study as follows: Radiologist's impression: CT scan of the head is negative for acute process CT scan of the chest abdomen pelvis shows right middle lobe aspiration pneumonia; proctitis possible ECG Data EKG #1: Attestation: I personally reviewed and interpreted this ECG as follows: ECG completion date: 05/21/25 ECG completion time: 12:02 EKG Interpretation: normal rate, atrial fibrillation, non-specific ST changes, normal QRS, normal QT and NL axis Discharge Plan Discharge Clinical Impression: Proctitis Aspiration pneumonia Qualifiers: Aspiration pneumonia type: unspecified Laterality: right Lung location: middle lobe of lung Qualified Code(s): J69.0 - Pneumonitis due to inhalation of food and vomit Acute exacerbation of CHF (congestive heart failure) Qualifiers: Heart failure type: unspecified Qualified Code(s): I50.9 - Heart failure, unspecified Atrial fibrillation Qualifiers: Atrial fibrillation type: unspecified Qualified Code(s): I48.91 - Unspecified atrial fibrillation Patient Disposition: Acute Care Hospital [facility] Condition: Stable Patient Language: Yoruba Prescriptions: No Action calcitriol 0.5 mcg capsule 0.5 mcg PO DAILY vitamin B complex [B Complex-Vitamin B12] Tablet 1 tablet PO DAILY galantamine 8 mg tablet 8 mg PO BID Eliquis 2.5 mg tablet 2.5 mg PO BID buspirone 10 mg tablet 10 mg PO BID prednisolone acetate 1 % drops,suspension 1 drp EACH EYE HS Florajen Women 15 billion cell capsule 1 cap PO HS atorvastatin 10 mg Tablet 10 mg PO DAILY furosemide 20 mg Tablet 20 mg PO EVERY OTHER DAY Tradjenta 5 mg Tablet 5 mg PO QAM losartan 100 mg tablet 100 mg PO DAILY Qty: 90 1RF diltiazem HCl 180 mg capsule,extended release 24 hr 180 mg PO DAILY potassium chloride 20 mEq tablet,ER particles/crystals See Rx Instructions .ROUTE .COMPLEX Qty: 90 0RF Dose Instruction: TAKE ONE TABLET BY MOUTH DAILY Rx Instructions: TAKE ONE TABLET BY MOUTH DAILY metoprolol succinate 25 mg tablet extended release 24 hr See Rx Instructions .ROUTE .COMPLEX Qty: 90 0RF Dose Instruction: TAKE ONE TABLET BY MOUTH EVERY DAY Rx Instructions: TAKE ONE TABLET BY MOUTH EVERY DAY Follow-up/Referrals: Jimbo Rey MD [Primary Care Provider, Internal Medicine] Time of Disposition: 14:58
--- OUTSIDE RECORDS SUMMARY | 2025-05-21 11:30 | XMS_ITS | Encounter Summary ---
Author Organization [facility] Address [address] [place] [address] Care Team Providers Care Director Funds Development Name Role Phone Bernardo Quispe MD Unavailable [phone] Jimbo Rey MD Primary Care Provider [phone] Alex Peña MD Unavailable [phone] Rose Muller MD Unavailable Encounter Details Date Type Department Care Team (Late st Contact Info) Description 09/18/2022 Abstract [facility] [address] [place] [address] Bernardo Quispe MD [address] [place] [address] Social History Tobacco Use Types [...] Sex Assigned at Female 07/20/2019 12:22 PM STENOGRAPHER SECRETARY Legal Sex Female 11:15 PM CDT Gender Identity Female 07/20/2019 12:22 PM STENOGRAPHER SECRETARY Sexual Orientation Not on file COVID-19 Exposure Response Date Recorded In the last 10 days, have yo u been in contact with someone who was confirmed or suspected to have Coronavirus/COVID-19? No / Unsure 09/04/2022 10:36 AM STENOGRAPHER SECRETARY documented as of this encounter Functional Status [...] Care Team (Late st Contact Info) Description 04/18/2026 12:45 PM CDT Office Visit [facility] [place] [address] Rose Muller MD [address] [place] [address] documented as of this encounter [...] Final Result * ALT (OUTSIDE LAB) (09/15/2022) Pathologist [facility] ALT 23 14 - 59 09/15/2022 Result [facility] Jimbo Rey MD LAB-OUTSIDE/ABSTRACTED Final Result * AST (ABSTRACTED LAB) (09/15/2022) Pathologist [facility] AST 19 15 - 37 09/15/2022 Result [facility] Jimbo Rey MD LAB-OUTSIDE/ABSTRACTED Final Result * LIPID PANEL (09/15/2022) Pathologist [facility] CHOLESTEROL 135 0 - 200 HDL 67 40 - 60 TRIGLYCERIDES 74 0 - 150 LDL (CALCULATED) 53 <130 09/15/2022 Result [facility] Jimbo Rey MD LABORATORY Final Result documented in this encounter Visit Diagnoses Not on filedocumented in this encounter Care Teams Director Funds Development Relationship Specialty Start Date End Date Jimbo Rey MD [address] [place] [address] PCP - General INTERNAL MEDICINE 12/20/20 Bernardo Quispe MD [address] [place] [id number] Consulting Physician CARDIOVASCULAR DISEASE 05/27/18 Alex Peña MD [address] [place] [address] HOSPITALIST 04/24/22 04/24/23 Rose Muller MD [address] [place] [address] Consulting Physician CARDIOVASCULAR DISEASE 10/22/23 documented as of this encounter
--- OUTSIDE RECORDS SUMMARY | 2025-05-21 11:30 | XMS_ITS | Clinical Summary ---
Author Organization [facility] Address [address] [place] [address] Care Team Providers Care Lidar Scientist Name Role Phone Jimbo Rey MD Primary Care Provider [phone] Allergies No known active allergies Medications dilTIAZem [...] (09/13/2021): Added automatically from request for surgery [id number] Encounter for screening colonoscopy 09/13/2021 Overview (09/13/2021): Added automatically from request for surgery [id number] Chest pain 09/08/2021 Enlarged thyroid gland 09/08/2021 [...] thrombectomy for M1 occlusion, TICI 3 at [facility] on 08/21/2021. Acute stroke due [...] (06/11/2020): Added automatically from request for surgery [id number] Chronic diastolic heart failure 01/05/2020 Assessment & [...] How often do you attend chur or buddhism services? 1 to 4 times per year 01/07/2022 Do you belong to any clubs o r organizations such as yazidi groups, unions, fraternal or athletic groups, or [...] on file Legal Sex Female 7:02 PM SOLAR SYSTEMS DESIGNER Gender Identity Not on file Sexual Orientation [...] 2025 05/02/2021 Medical Devices Implanted Type Area Fountain Pen Nibs Inspector Device Identifier Shelf Expiration Date Model / Serial / Lot [employer] [id number] Parametric 4mm 50mm 40mm Radiopaque Revascularization - [id number] Implanted:Qty: 1 on 08/21/2021 at [facility] [employer] 06/12/2024 [id number] / / [id number] Description:NOT INPLANT Angio-Seal Evolution 8fr Vascular Closure - [id number] Implanted:Qty: 1 on 08/21/2021 at [facility] [employer] 04/28/2022 [id number] / / [id number] Procedures Procedure Name Priority Date/Time Associated Diagnosis Comments EGFR Routine 01/07/2022 7:10 AM CDT HEMOGLOBIN A1C STAT 08/21/2021 11:01 AM SOLAR SYSTEMS DESIGNER LIPID PANEL STAT 08/21/2021 11:01 AM SOLAR SYSTEMS DESIGNER from Last 3 Months or Most Recently [...] MD LAB BLOOD ORDERABLES Final Result [facility] [address] Department [place] [address] * (ABNORMAL) Hemoglobin A1c (08/21/2021 11:01 AM SOLAR SYSTEMS DESIGNER) Hgb A1C 6.6(H) 4.0 - 5.6 % [facility] ([facility]) Estimated Average Glucose 143 mg/dL [facility] ([facility]) Comment: The ADA recommends reporting an estimated Average Glucose (eAG) with all Hemoglobin A1c results using the equation derived from a study of 507 normal and diabetic adults. Minority populations were underrepresented and children were not included. (Diabetes Care 31:8527-8022, 2008). The eAG is not equivalent to a fasting glucose. Blood 08/21/2021 11:0 1 AM SOLAR SYSTEMS DESIGNER 08/21/2021 11:04 AM SOLAR SYSTEMS DESIGNER us Tor Esteban MD LAB BLOOD ORDERABLES Fi nal Result [facility] ([place]) [address] [facility] Department [place] [address] * Lipid panel (08/21/2021 11:01 AM SOLAR SYSTEMS DESIGNER) Cholesterol 153 30 - 199 mg/dL [facility] [...] [facility]WE[facility] ([place]) Blood 08/21/2021 11:0 1 AM SOLAR SYSTEMS DESIGNER 08/21/2021 11:04 AM SOLAR SYSTEMS DESIGNER Tor Esteban MD LAB BLOOD ORDERABLES Fi nal Result [facility] ([place]) 1 [facility] [place] [address] from Last 3 Months or Most Recently Relevant to Health Maintenance Insurance MEDICARE [employer] [place] [employer] [place] MEDICARE [place] MEDICARE [facility] Advance Directives For more information, please contact: [phone] * Full Code (Latest Code Status on [...] 3:08 PM 08/27/2021 9:07 PM Care Teams Lidar Scientist Relationship Specialty Start Date End Date Jimbo Rey MD [address] [place] [address] PCP - General Internal Medicine 06/11/20
--- OUTSIDE RECORDS SUMMARY | 2025-05-21 11:30 | XMS_ITS | Clinical Summary ---
Author Organization [facility] Care Team Providers Care Software Maintenance Engineer Name Role Phone Unavailable Primary Care Provider [...]
--- OUTSIDE RECORDS SUMMARY | 2025-05-21 11:30 | XMS_ITS | Clinical Summary ---
Author Organization [facility] Address [address] [place] [address] Care Team Providers Care Engraver Machine Name Role Phone Jimbo Rey MD Primary Care Provider [phone] Rose Muller MD Unavailable Allergies No known active allergies Medications dilTIAZem 24 hr 180 MG capsuleIndicati ons:Hypertensio n Take 1 capsule (180 mg total) by mouth daily. Indications: High Blood Pressure Disorder 8 Active losartan 100 MG tabletIndicatio ns:Hypertension Take 1 tablet (100 mg total) by mouth daily. Indications: High Blood Pressure Disorder 8 Active metoprolol succinate 25 MG 24 hr tablet Take 1 tablet (25 mg total) by mouth daily. 90 tablet 3 8 Active pantoprazole EC 40 MG tablet Take 1 tablet (40 mg total) by mouth 2 (two) times a day. 2 Active loteprednol 0.5 % ophthalmic suspension INSTILL 1 DROP INTO BOTH EYES DAILY 2 Active linaGLIPtin 5 MG tablet Take 1 tablet (5 mg total) by mouth daily. Active busPIRone (BUSPAR) 10 MG tablet Take 1 tablet (10 mg total) by mouth 2 (two) times daily. 90 tablet 2 Active galantamine (RAZADYNE) 8 MG tabletIndicatio ns:Dementia without behavioral disturbance (CMS/HCC) Take 1 tablet [...] every day 90 tablet 3 4 Active atorvastatin (LIPITOR) 10 MG tablet Take 1 tablet (10 mg total) by mouth daily. Active Cyanocobalamin (VITAMIN B-12) 1000 MCG SL Tab DISSOLVE 1 TABLET UNDER TONGUE EVERY DAY Active docusate sodium (COLACE) 100 MG capsule Take 1 capsule (100 mg total) by mouth 2 (two) times daily. Active psyllium (KONSYL) 100 % Pack Take 1 packet by mouth 3 (three) times daily. Active calcitriol 0.5 MCG capsuleIndicati ons:supplement Take 1 capsule (0.5 mcg total) by mouth daily. Indications: supplement 1 04/24/20 25 Discontin ued(Thera py completed ) atorvastatin 40 MG tablet Take 1 tablet (40 mg total) by mouth daily. 2 04/24/20 25 Discontin ued(Thera py completed ) vitamin B-12 (CYANOCOBALAMIN ) 1000 MCG tablet Take 1 tablet (1,000 mcg total) by mouth daily. sublingual 04/24/20 25 Discontin ued(Thera py completed ) Active Problems Problem Noted Date Diagnosed Date [...] Encounters Date Type Department Care Team Description 05/03/2025 1:01 PM BUSINESS RULES ANALYST - 05/03/2025 4:21 PM BUSINESS RULES ANALYST Emergency [facility] Emergency [address] [place] [address] Isra Rodriguez MD Fall; Fever; Confusion; Weakness Discharge Disposition: Home or Self Care (Routine Discharge) 04/24/2025 12:30 PM CDT Office Visit [facility] [address] [address] Rose Muller MD Annual 04/24/2025 12:08 PM CDT - 04/24/2025 11:59 PM CDT Hospital Encounter [facility] [address] [address] Rose Muller MD Discharge Disposition: Home or Self Care (Routine Discharge) 04/24/2025 Travel 04/21/20[facility] [address] [place] [address] Rose Muller MD Appointment Reminder 04/12/2025 8:48 AM CDT - 04/12/2025 11:59 PM CDT Hospital Encounter [facility] [address] [place] [address] Rose Muller MD Discharge Disposition: Home or Self Care (Routine Discharge) 04/12/2025 Orders Only [facility] eld [address] [place] [address] Rose Muller MD 04/12/2025 Travel 03/29/2025 Abstract [facility] [address] [place] [address] Abstract, Doc Pccl 03/27/2025 Scan [facility] [address] [place] [address] Scanned, Doc Pccl from Last 3 Months [...] Sex Assigned at Female 07/20/2019 12:22 PM BUSINESS RULES ANALYST Legal Sex Female 11:15 PM CDT Gender Identity Female 07/20/2019 12:22 PM BUSINESS RULES ANALYST Sexual Orientation Not on file Last Filed Vital Signs Vital Sign Reading Time Taken Comments Blood Pressure 121/79 05/03/2025 3:35 PM BUSINESS RULES ANALYST Pulse 78 05/03/2025 3:35 PM BUSINESS RULES ANALYST Temperature 36.7 C (98.1 F) 05/03/2025 1:15 PM BUSINESS RULES ANALYST Respiratory Rate 19 05/03/2025 3:35 PM BUSINESS RULES ANALYST Oxygen Saturation 98% 05/03/2025 3:35 PM BUSINESS RULES ANALYST Inhaled Oxygen Concentration - - Weight 61.2 kg (135 lb) 04/24/2025 12:38 PM CDT Height 162.6 cm (5' 4) 04/24/2025 12:38 PM CDT Body Mass Index 23.17 04/24/2025 12:38 PM CDT Plan of Treatment Upcoming Encounters Date Type Department Care Team (Late st Contact Info) Description 04/18/2026 12:45 PM CDT Office Visit [facility] [place] [address] Rose Muller MD [address] [place] [address] Health Maintenance Due Date Last Done Comments Zoster Vaccines (1 of 2) 11/14/1987 Annual Medicare Wellness Visit 2002 RSV Immunization or 60+ Years (1 - 1-dose 75+ series) 2012 Pneumococcal Vaccine: 50+ Years (2 of 2 - PCV) 05/15/2018 05/15/2017 COVID-19 Vaccine ( season) 2025 04/24/2022, 10/06/2020, 09/13/2020 Influenza Adult (#1) 2025 04/30/2023, 05/02/2021, 04/19/2018, Additional history exists DTaP, Tdap and Td Vaccines (2 - Td or Tdap) 12/31/2028 12/31/2018 Hepatitis A Vaccines Aged Out No long er eligible based on patient's age to complete this topic Meningococcal B Vaccine Aged Out No l onger eligible based on patient's age to complete this topic Meningococcal Vaccine Aged Out No ziyad karolina eligible based on patient's age to complete this topic RSV Immunizations Under 20 Months Aged Out No longer eligible based on patient's age to complete this topic Medical Devices Implanted Type Area Side Laster Tack Device Identifier Shelf Expiration Date Model / Serial / Lot Graft Bone Canc 15ml 1-4mm - [id number] Implanted:Qty: 1 on 04/12/2021 by Gray Henderson MD at [facility] Bone N/A: Spine Lumbar [employer] 09/30/2023 [id number] / / Screw Set 5.5/6mm Cd Horizon Soleral Voyager Nonsterile Latex Free - [id number] Implanted:Qty: 4 on 04/12/2021 by Gray Henderson MD at [facility] Screw N/A: Spine Lumbar [employer] [id number] / / Agent Hemostatic Surgiflo Thrombin 8 Ml Kit Matrix Steril - [id number] Implanted:Qty: 1 on 04/12/2021 by Gray Henderson MD at [facility] Sealant N/A: Spine Lumbar [employer] 07/29/2022 [id number] / / [id number] Spacer 24 X 12mm Implanted:Qty: 1 on 04/12/2021 by Gray Henderson MD at [facility] N/A: Spine Lumbar [employer] 04/04/2028 [id number] / / [id number] 6.5 X 45mm Mas Implanted:Qty: 4 on 04/12/2021 by Gray Henderson MD at [facility] N/A: Spine Lumbar [employer] [id number] / / 35mm Capped Eduardo Implanted:Qty: 2 on 04/12/2021 by Gray Henderson MD at [facility] N/A: Spine Lumbar [employer] [id number] / / Explanted Type Area Side Laster Tack Device Identifier Shelf Expiration Date Model / Serial / Lot Bur Drill Neuro Blanca 3.0mm X 3.8mm - [id number] Explanted:Qty: 1 on 04/12/2021 by Gray Henderson MD at [facility] Drill N/A: Spine Lumbar [employer] DIV BLANCA SANCHEZ [id number] / / Procedures Procedure Name Priority Date/Time Associated Diagnosis Comments ECG 12-LEAD STAT 05/03/2025 2:13 [address] A[address]LY[address] CT LUMB SPINE WO CON STAT 05/03/2025 1:[address] THOR SPINE WO CON STAT 05/03/2025 1:54 [address] CERV SPINE WO CON STAT 05/03/2025 1:54 [address] HEAD WO CON STAT 05/03/2025 1:54 PM BUSINESS RULES ANALYST URINALYSIS Nurse Collected Priority 05/03/2025 1:40 PM BUSINESS RULES ANALYST XR CHEST PORTABLE STAT 05/03/2025 1:4 0 PM BUSINESS RULES ANALYST URINE BACTERIA CULTURE Nurse Collected Priority 05/03/2025 1:33 PM BUSINESS RULES ANALYST LACTIC ACID W REFLEX (SEPSIS) STAT 05/03/2025 1:31 PM BUSINESS RULES ANALYST TROPONIN, QUANT STAT 05/03/2025 1:31 PM BUSINESS RULES ANALYST BASIC METABOLIC PANEL STAT 05/03/2025 1:31 PM BUSINESS RULES ANALYST CBC W/DIFF AUTOMATED STAT 05/03/2025 1:31 PM BUSINESS RULES ANALYST CULTURE, BACTERIA, BLOOD STAT 05/03/2025 1:30 PM BUSINESS RULES ANALYST ECG 12-LEAD Routine 04/24/2025 12:20 PM CDT Persistent atrial fibrillation (CMS/HCC HHS/HCC) Coronary artery calcification seen on CT scan Tricuspid valve insufficiency, unspecified etiology Pulmonary hypertension (CMS/HCC HHS/HCC) USE ECHOCARDIOGRAM Routine 04/12/2025 9: 38 AM CDT Tricuspid valve insufficiency, unspecified etiology Pulmonary hypertension (CMS/HCC HHS/HCC) COMPREHENSIVE METABOLIC PANEL Routine 03/27/2025 LIPID PANEL Routine 03/27/2025 CBC, MANUAL DIFF Routine 03/27/2025 THYROXINE, FREE (FT4) Routine 03/27/2025 HEMOGLOBIN, GLYCOSYLATED Routine 03/27/2025 THYROID STIM HORMONE TSH Routine 03/27/2025 BNP Routine 03/27/2025 from Last 3 Months Results * ECG 12 lead (05/03/2025 2:13 PM BUSINESS RULES ANALYST) Only the most recent of2 resultswithin the time period is included. Pathologist [facility] ECG QT [address] [facility] ECG QTC [address] [facility] 05/03/2025 2:13 PM BUSINESS RULES ANALYST Narrative [facility] - 05/03/2025 4:47 PM BUSINESS RULES ANALYST S-ED Test Date: 2025-05-03 Pat Name: STARR WHYTE Department: 70 Room: EXAM HH Gender: Female Tour Manager: : 1935 Requested By: SANYA HERRING Order Number: [id number] Reading MD: Gregory Hong Measurements Intervals [place] Rate: 77 P: 0 PA: 0 QRS: 29 QRSD: 90 T: 89 QT: 361 QTc: 410 Interpretive Statements ATRIAL FIBRILLATION ANTEROSEPTAL MYOCARDIAL INFARCTION , PROBABLY OLD [40+ ms Q WAVE IN V1-V4] NESS RULES ANALYST Procedure Note Gregory Hong MD - 05/03/2025 [facility] Test Date: 2025-05-03 Pat Name: STARR WHYTE Department: 70 Room: EXAM HH Gender: Female Tour Manager: : 1935 Requested By: SANYA HERRING Order Number: [id number] Reading MD: Gregory Hong Measurements Intervals [place] Rate: 77 P: 0 PA: 0 QRS: 29 QRSD: 90 T: 89 QT: 361 QTc: 410 Interpretive Statements ATRIAL FIBRILLATION ANTEROSEPTAL MYOCARDIAL INFARCTION , PROBABLY OLD [40+ ms Q WAVE INV1-V4] NESS RULES ANALYST us Sanya Herring DO ECG ORDERABLES Final Result [facility] * CT THOR SPINE WO CON (05/03/2025 1:54 PM BUSINESS RULES ANALYST) Anatomical Region Laterality Modality Spine Computed Tomogra phy 05/03/2025 3:37 PM BUSINESS RULES ANALYST Impressions 05/03/2025 3:42 PM BUSINESS RULES ANALYST IMPRESSION: 1. Age-indeterminate compression fractures of T12 and L2 with depression of superior endplates and 20% loss of height, new compared to the prior lumbar MRI 11/19/2019. No retropulsed fragments. 2. Chronic compression fractures of T11 and L1 with prior vertebroplasty. 3. Osteopenia with exaggeration of the normal thoracic kyphosis and mild to moderate multilevel degenerative changes. Referred By: Interpreted By: Bill Balbuena MD, 05/03/2025 3:37 PM Narrative 05/03/2025 3:42 PM BUSINESS RULES ANALYST [address] [address] EXAMINATION: CT of the thoracic spine without contrast 07/03/2024 INDICATION: Fall, back pain TECHNIQUE: Axial CT images of the thoracic spine were acquired with intravenous contrast. Sagittal and coronal reformats were constructed. Radiation dose reduction techniques were used. COMPARISON: Chest CT 11/28/2019, Lumbar spine MRI 11/19/2019 FINDINGS: Elevation appears to be diffusely decreased. There is exaggeration of the normal thoracic kyphosis. There is a chronic compression fracture of T11 with depression of superior endplate, 10% loss of height and prior vertebroplasty There is an age-indeterminate compression fracture of T12 with depression of superior endplate and approximately 20% loss of height. No retropulsed fragments. There is a chronic compression fracture of L1 with anterior wedging and 80% loss of height as well as prior vertebroplasty. There is an age-indeterminate compression fracture of L2 with depression of the superior endplate and approximately 20% loss of height, new compared to the prior MRI. There is a mild to moderate multilevel disc space narrowing and facet arthropathy. No significant thoracic central canal stenosis within limits of a noncontrast CT Calcification noted within the thoracic aorta and coronaries arteries. Procedure Note Bill Balbuena MD - 05/03/[address] [address] EXAMINATION: CT of the thoracic spine without contrast 07/03/2024 INDICATION: Fall, back pain TECHNIQUE: Axial CT images of the thoracic spine were acquired withintravenous contrast. Sagittal and coronal reformats were constructed.Radiation dose reduction techniques were used. COMPARISON: Chest CT 11/28/2019, Lumbar spine MRI 11/19/2019 FINDINGS: Elevation appears to be diffusely decreased. There isexaggeration of the normal thoracic kyphosis. There is a chronic compression fracture of T11 with depression of superiorendplate, 10% loss of height and prior vertebroplasty There is an age-indeterminate compression fracture of T12 with depressionof superior endplate and approximately 20% loss of height. No retropulsedfragments. There is a chronic compression fracture of L1 with anterior wedging and80% loss of height as well as prior vertebroplasty. There is an age-indeterminate compression fracture of L2 with depressionof the superior endplate and approximately 20% loss of height, newcompared to the prior MRI. There is a mild to moderate multilevel disc space narrowing and facetarthropathy. No significant thoracic central canal stenosis within limitsof a noncontrast CT Calcification noted within the thoracic aorta and coronaries arteries. IMPRESSION: 1. Age-indeterminate compression fractures of T12 and L2 with depressionof superior endplates and 20% loss of height, new compared to the priorlumbar MRI 11/19/2019. No retropulsed fragments. 2. Chronic compression fractures of T11 and L1 with prior vertebroplasty. 3. Osteopenia with exaggeration of the normal thoracic kyphosis and mildto moderate multilevel degenerative changes. Referred By: Interpreted By: Bill Balbuena MD, 05/03/2025 3:37 PM us Sanya Herring DO CT Final Result * CT LUMB SPINE WO CON (05/03/2025 1:54 PM BUSINESS RULES ANALYST) Anatomical Region Laterality Modality Spine Computed Tomogra phy 05/03/2025 3:29 PM BUSINESS RULES ANALYST Impressions 05/03/2025 3:37 PM BUSINESS RULES ANALYST IMPRESSION: 1. Age-indeterminate compression fracture of L2 with depression of superior endplate and 20% loss of height. 3 mm retropulsion the posterior superior corner of L2 causing mild central canal stenosis, new compared to prior lumbar MRI 11/19/2019. 2. Chronic compression fractures of L1 and L3 with prior vertebroplasty. 3. Osteopenia with grade 1 anterolisthesis of L4/L5. 4. Posterior fixation with interbody fusion at L4/L5. 5. At the L5/S1 level there is severe right neural foraminal stenosis and moderate left neural foraminal stenosis due to disc space narrowing, disc bulging, facet arthropathy and bilateral foraminal disc/osteophyte complexes. Referred By: Interpreted By: Bill Balbuena MD, 05/03/2025 3:29 PM Narrative 05/03/2025 3:37 PM BUSINESS RULES ANALYST [address] [address] EXAMINATION: CT lumbar spine without contrast 07/03/2024 INDICATION: Fall, back pain TECHNIQUE: Axial CT images of the lumbar spine were acquired without intravenous contrast. Sagittal coronal reformats were constructed. Radiation dose reduction techniques were used. COMPARISON: Lumbar spine MRI 11/19/2019, intraoperative lumbar fluoroscopy 04/12/2021 FINDINGS:Osseous structures appear to be diffusely demineralized. The last fully formed disc space is reasonably is L5/S1. Posterior eduardo and pedicle screw fixation hardware noted bilaterally at L4/L5. Interbody spacer noted at L4/L5. Hardware appears to be intact and unremarkable in alignment with no surrounding lucency. There is grade 1 anterolisthesis at L4/L5 measuring 5 mm, unchanged. There is a chronic burst fracture of L1 with anterior wedging and 80% loss of height with prior vertebroplasty. There is a compression fracture of L2 with depression of superior endplate and approximately 20% loss of height, new compared to the prior MRI. There is a 3 mm protrusion with posterior superior corner of the L2 causing mild central canal stenosis. There is a chronic compression fracture of L3 with depression of superior endplate, 10% loss of height and prior vertebroplasty. The sacroiliac joint spaces are unremarkable. T12/L1: Vacuum disc phenomena and disc space narrowing L1/L2: Neck and disc phenomena and posterior disc space narrowing L2/L3: Posterior disc space narrowing, vacuum disc phenomena and disc bulging causing mild bilateral foraminal stenosis L3/L4: Disc space narrowing and disc bulging causing mild bilateral foraminal stenosis L4/L5: Disc space narrowing greater 1 anterolisthesis and small bilateral foraminal disc/osteophyte complexes causing mild bilateral foraminal stenosis L5/S1: Disc space narrowing, vacuum disc phenomena, disc bulging, facet arthropathy and bilateral foraminal disc/osteophyte complexes causing severe right neural foraminal stenosis and moderate left neural foraminal stenosis. Calcification noted within the abdominal aorta. No paraspinal mass or fluid collection. Surgical clips noted within the gallbladder fossa. Procedure Note Bill Balbuena MD - 05/03/[address] [address] EXAMINATION: CT lumbar spine without contrast 07/03/2024 INDICATION: Fall, back pain TECHNIQUE: Axial CT images of the lumbar spine were acquired withoutintravenous contrast. Sagittal coronal reformats were constructed.Radiation dose reduction techniques were used. COMPARISON: Lumbar spine MRI 11/19/2019, intraoperative lumbar /15/2021 FINDINGS:Osseous structures appear to be diffusely demineralized. Thelast fully formed disc space is reasonably is L5/S1. Posterior eduardo and pedicle screw fixation hardware noted bilaterally atL4/L5. Interbody spacer noted at L4/L5. Hardware appears to be intactand unremarkable in alignment with no surrounding lucency. There is grade 1 anterolisthesis at L4/L5 measuring 5 mm, unchanged. There is a chronic burst fracture of L1 with anterior wedging and 80% lossof height with prior vertebroplasty. There is a compression fracture of L2 with depression of superior endplateand approximately 20% loss of height, new compared to the prior MRI.There is a 3 mm protrusion with posterior superior corner of the [id number] mild central canal stenosis. There is a chronic compression fracture of L3 with depression of superiorendplate, 10% loss of height and prior vertebroplasty. The sacroiliac joint spaces are unremarkable. T12/L1: Vacuum disc phenomena and disc space narrowing L1/L2: Neck and disc phenomena and posterior disc space narrowing L2/L3: Posterior disc space narrowing, vacuum disc phenomena and discbulging causing mild bilateral foraminal stenosis L3/L4: Disc space narrowing and disc bulging causing mild bilateralforaminal stenosis L4/L5: Disc space narrowing greater 1 anterolisthesis and small bilateralforaminal disc/osteophyte complexes causing mild bilateral foraminalstenosis L5/S1: Disc space narrowing, vacuum disc phenomena, disc bulging, facetarthropathy and bilateral foraminal disc/osteophyte complexes causingsevere right neural foraminal stenosis and moderate left neural foraminalstenosis. Calcification noted within the abdominal aorta. No paraspinal mass orfluid collection. Surgical clips noted within the gallbladder fossa. IMPRESSION: 1. Age-indeterminate compression fracture of L2 with depression ofsuperior endplate and 20% loss of height. 3 mm retropulsion the posteriorsuperior corner of L2 causing mild central canal stenosis, new compared toprior lumbar MRI 11/19/2019. 2. Chronic compression fractures of L1 and L3 with priorvertebroplasty. 3. Osteopenia with grade 1 anterolisthesis of L4/L5. 4. Posterior fixation with interbody fusion at L4/L5. 5. At the L5/S1 level there is severe right neural foraminal stenosis andmoderate left neural foraminal stenosis due to disc space narrowing, discbulging, facet arthropathy and bilateral foraminal disc/osteophytecomplexes. Referred By: Interpreted By: Bill Balbuena MD, 05/03/2025 3:29 PM us Sanya Herring DO CT Final Result * CT HEAD WO CON (05/03/2025 1:54 PM BUSINESS RULES ANALYST) Anatomical Region Laterality Modality Head Computed Tomogra phy 05/03/2025 3:24 PM BUSINESS RULES ANALYST Impressions 05/03/2025 3:27 PM BUSINESS RULES ANALYST IMPRESSION: 1) Atrophy with diffuse chronic small vessel ischemic change. 2. No acute intracranial abnormality. Ordered By: SANYA HERRING Interpreted By: Dennis Rico MD, 05/03/2025 3:24 PM Narrative 05/03/2025 3:27 PM BUSINESS RULES ANALYST [address] [address] Examination: CT HEAD WO CON Exam time: 05/03/2025 1:44 PM Clinical history: Trauma, patient anticoagulated Comparison: 04/17/2022 Technique: Axial images obtained from level of foramen magnum to the vertex without contrast using low-dose CT technique. Sagittal and coronal reconstruction. FINDINGS: Normal craniovertebral junction. Ventricles are dilated and symmetrical fashion. Extra-axial CSF spaces are abnormally prominent consistent with chronic diffuse atrophy. Atherosclerotic vascular calcifications are diffusely noted involving inupiat of [place]. There is no evidence of acute intracranial hemorrhage. No evidence of a focal intracranial mass lesion. No abnormal extra-axial fluid collection. Diffuse chronic small vessel ischemic change throughout the periventricular white matter/centrum semiovale and basal ganglia. No evidence of acute regional edema, mass effect or midline shift. The sella and CP angle regions are unremarkable. Mastoid air cells are clear bilaterally. Paranasal sinuses are clear. No evidence of acute depressed skull fracture. Procedure Note Dennis Rico MD - 05/03/2025 [facility] [address] [place], [place] [address] Examination: CT HEAD WO CON Exam time: 05/03/2025 1:44 PM Clinical history: Trauma, patient anticoagulated Comparison: 04/17/2022 Technique: Axial images obtained from level of foramen magnum to thevertex without contrast using low-dose CT technique. Sagittal and coronalreconstruction. FINDINGS: Normal craniovertebral junction. Ventricles are dilated and symmetricalfashion. Extra-axial CSF spaces are abnormally prominent consistent withchronic diffuse atrophy. Atherosclerotic vascular calcifications arediffusely noted involving inupiat of [place]. There is no evidence of acuteintracranial hemorrhage. No evidence of a focal intracranial mass lesion. No abnormal extra-axialfluid collection. Diffuse chronic small vessel ischemic change throughoutthe periventricular white matter/centrum semiovale and basal ganglia. Noevidence of acute regional edema, mass effect or midline shift. The sella and CP angle regions are unremarkable. Mastoid air cells areclear bilaterally. Paranasal sinuses are clear. No evidence of acutedepressed skull fracture. IMPRESSION: 1) Atrophy with diffuse chronic small vessel ischemic change. 2. No acute intracranial abnormality. Ordered By: SANYA HERRING Interpreted By: Dennis Rico MD, 05/03/2025 3:24 PM us Sanya Herring DO CT Final Result * CT CERV SPINE WO CON (05/03/2025 1:54 PM BUSINESS RULES ANALYST) Anatomical Region Laterality Modality Spine Computed Tomogra phy 05/03/2025 3:27 PM BUSINESS RULES ANALYST Impressions 05/03/2025 3:30 PM BUSINESS RULES ANALYST IMPRESSION: 1) No evidence of acute cervical spine fracture or dislocation. Ordered By: SANYA HERRING Interpreted By: Dennis Rico MD, 05/03/2025 3:27 PM Narrative 05/03/2025 3:30 PM BUSINESS RULES ANALYST [address] [address] Examination: CT CERV SPINE WO CON Exam time: 05/03/2025 1:44 PM Clinical history: Trauma, pain Comparison: None Technique: Axial images obtained through the cervical spine without contrast using low-dose CT technique. Sagittal and coronal reconstruction. Findings: There is a normal craniovertebral junction. Cervical vertebral bodies are in good alignment. Cervical vertebral body heights are well-maintained. There is no evidence of acute prevertebral soft tissue swelling. Normal relationship between the anterior arch of C1 and the odontoid with chronic degenerative change. There is no evidence of acute cervical spine fracture or dislocation. Chronic changes of degenerative disc disease/spondylosis from C4 to C7. There is no significant acute paraspinous soft tissue abnormality in the cervical region. Significant chronic bilateral common carotid bifurcation atherosclerotic calcifications. Procedure Note Dennis Rico MD - 05/03/[address] [address] Examination: CT CERV SPINE WO CON Exam time: 05/03/2025 1:44 PM Clinical history: Trauma, pain Comparison: None Technique: Axial images obtained through the cervical spine withoutcontrast using low-dose CT technique. Sagittal and coronalreconstruction. Findings: There is a normal craniovertebral junction. Cervical vertebralbodies are in good alignment. Cervical vertebral body heights arewell-maintained. There is no evidence of acute prevertebral soft tissueswelling. Normal relationship between the anterior arch of C1 and the odontoid withchronic degenerative change. There is no evidence of acute cervical spinefracture or dislocation. Chronic changes of degenerative discdisease/spondylosis from C4 to C7. There is no significant acuteparaspinous soft tissue abnormality in the cervical region. Significantchronic bilateral common carotid bifurcation atheroscleroticcalcifications. IMPRESSION: 1) No evidence of acute cervical spine fracture or dislocation. Ordered By: SANYA HERRING Interpreted By: Dennis Rico MD, 05/03/2025 3:27 PM us Sanya Herring DO CT Final Result * XR CHEST PORTABLE (05/03/2025 1:40 PM BUSINESS RULES ANALYST) Anatomical Region Laterality Modality Chest Radiographic Darlene ging 05/03/2025 2:14 PM BUSINESS RULES ANALYST Impressions 05/03/2025 2:15 PM BUSINESS RULES ANALYST IMPRESSION: 1) Cardiomegaly without evidence of CHF. Ordered By: SANYA HERRING Interpreted By: Dennis Rico MD, 05/03/2025 2:14 PM Narrative 05/03/2025 2:15 PM BUSINESS RULES ANALYST [address] [address] Examination: XR CHEST PORTABLE Exam time: 05/03/2025 1:30 PM Clinical history: Sepsis, history of A. fib, hypertension Comparison: 04/17/2022 Technique: AP chest Findings: Kyphoplasty changes are noted at the thoracolumbar junction. Borderline cardiomegaly similar to previous study. Pulmonary vasculature does not appear congested. No acute pulmonary parenchymal consolidation. No pleural effusion. No hyperinflation. Procedure Note Dennis Rico MD - 05/03/2025 [facility] [address] [place], [place] [address] Examination: XR CHEST PORTABLE Exam time: 05/03/2025 1:30 PM Clinical history: Sepsis, history of A. fib, hypertension Comparison: 04/17/2022 Technique: AP chest Findings: Kyphoplasty changes are noted at the thoracolumbar junction.Borderline cardiomegaly similar to previous study. Pulmonary vasculaturedoes not appear congested. No acute pulmonary parenchymal consolidation.No pleural effusion. No hyperinflation. IMPRESSION: 1) Cardiomegaly without evidence of CHF. Ordered By: SANYA HERRING Interpreted By: Dennis Rico MD, 05/03/2025 2:14 PM Sanya Herring DO GENERAL IMAGING Final Result * (ABNORMAL) URINALYSIS (05/03/2025 1:40 PM BUSINESS RULES ANALYST) COLOR (U) LIGHT YELLOW 05/03/2025 2:07 PM [facility] TRANSPARENCY CLEAR 05/03/2025 2:09 PM [facility] SPECIFIC GRAVITY (U) 1.009 1.002 - 1.035 05/03/2025 2:09 PM [facility] U PH 5.0 5 - 8 05/03/2025 2:09 PM [facility] PROTEIN RANDOM (U) NEGATIVE NEGATIVE 05/03/2025 2:09 PM [facility] GLUCOSE (U) NEGATIVE NEGATIVE MG/DL 05/03/2025 2:09 PM [facility] KETONES MG/DL (U) NEGATIVE NEGATIVE 05/03/2025 2:09 PM [facility] BILIRUBIN (U) NEGATIVE NEGATIVE 05/03/2025 2:09 PM [facility] BLOOD (U) TRACE(A) NEGATIVE 05/03/2025 2:09 PM [facility] NITRITES NEGATIVE NEGATIVE 05/03/2025 2:09 PM [facility] UROBILINOGEN NORMAL 0 - 1 EU/DL 05/03/2025 2:09 PM BUSINESS RULES ANALYST [facility] LEUKOCYTES (U) NEGATIVE NEGATIVE 05/03/2025 2:09 PM BUSINESS RULES ANALYST [facility] RBC/HPF 1 0 - 3 /HPF 05/03/2025 2:09 PM BUSINESS RULES ANALYST [facility] WBC/HPF NONE 0 - 6 /HPF 05/03/2025 2:09 PM BUSINESS RULES ANALYST [facility] BACTERIA (U) NONE /HPF 05/03/2025 2:09 PM BUSINESS RULES ANALYST [facility] HYALINE CASTS 2 05/03/2025 2:09 PM BUSINESS RULES ANALYST [facility] URINE SPECIMEN OBTAINED BY CLEAN CATCH PROCEDURE / Unknown 05/03/2025 1:40 PM BUSINESS RULES ANALYST us Sanya Herring DO URINE ORDERABLES Final Result Performing Organization Address [facility] de Phone Number [facility] [address] [place] [address], [place] [phone] * CULTURE URINE (05/03/2025 1:33 PM BUSINESS RULES ANALYST) SPEC DESCRIPTION URINE CLEAN CATCH 05/03/2025 1:33 PM BUSINESS RULES ANALYST [facility] SPECIAL REQUESTS NO SPECIAL REQUEST 05/03/2025 1:33 PM BUSINESS RULES ANALYST [facility] CULTURE RESULT NO GROWTH (< OR = 1,000 CFU/ML) 05/05/2025 8:08 AM BUSINESS RULES ANALYST [facility] URINE SPECIMEN OBTAINED BY CLEAN CATCH PROCEDURE / Unknown 05/03/2025 1:33 PM BUSINESS RULES ANALYST 05/03/2025 2:08 PM BUSINESS RULES ANALYST us Sanya Herring DO MICROBIOLOGY - GENERAL ORDERABLE S Final Result Performing Organization Address [facility] de Phone Number [facility] [address] [place] [address], [phone] * LACTIC ACID W REFLEX (SEPSIS) (05/03/2025 1:31 PM BUSINESS RULES ANALYST) LACTIC ACID VENOUS 1.8 0.4 - 2.0 MMOL/L 05/03/2025 2:03 PM [facility] 05/03/2025 1:31 PM BUSINESS RULES ANALYST Sanya Herring DO LABORATORY Final Result [facility] [address] [place] [address], [place] [phone] * (ABNORMAL) BASIC METABOLIC PANEL (05/03/2025 1:31 PM BUSINESS RULES ANALYST) Pathologist [facility] SODIUM S/P/B 140 136 - 145 MMOL/L 05/03/2025 2:08 PM [facility] POTASSIUM S/P/B 3.5 3.5 - 5.1 MMOL/L 05/03/2025 2:08 PM [facility] CHLORIDE S/P/B 111 97 - 115 MMOL/L 05/03/2025 2:08 PM [facility] CO2 24.1 21.0 - 32.0 MMOL/L 05/03/2025 2:08 PM [facility] GLUCOSE 123(H) 74 - 106 MG/DL 05/03/2025 2:08 PM [facility] BUN 14 7 - 18 MG/DL 05/03/2025 2:08 PM [facility] CREATININE S/P/B 1.02 0.55 - 1.02 MG/DL 05/03/2025 2:08 PM [facility] CALCIUM S/P/B 9.2 8.5 - 10.1 MG/DL 05/03/2025 2:08 PM [facility] ANION GAP 4.9 2.0 - 10.0 MMOL/L 05/03/2025 2:08 PM [facility] OSMOLALITY (CALC) 292 MOSM/KG 025 2:08 PM BUSINESS RULES ANALYST [facility] Comment:REFERENCE RANGE NOT ESTABLISHED GFR ESTIMATE 53(L) >90 ML/MIN/1. 73 M2 05/03/2025 2:08 PM BUSINESS RULES ANALY[facility] GFR NOTES GFR REFERENCE S: 05/03/2025 2:08 PM BUSINESS RULES ANALYST [facility] Comment: THE ESTIMATED GFR IS CALCULATED USING THE 2020 CKD-EPI EQUATION. THE FOLLOWING CATEGORIES FOR GRADING RENAL FUNCTION ARE RECOMMENDED BY THE INTERNATIONAL SOCIETY OF NEPHROLOGY (KDIGO 2012 CLINICAL PRACTICE GUIDELINE). G1,NORMAL OR HIGH: >89 ml/min/1.73 m2 G2,MILDLY DECREASED: 60-89 ml/min/1.73 m2 G3A,MILDLY TO MODERATELY DECREASED: 45-59 ml/min/1.73 m2 G3B,MODERATELY TO SEVERELY DECREASED: 30-44 ml/min/1.73 m2 G4,SEVERELY DECREASED: 15-29 ml/min/1.73 m2 G5,KIDNEY FAILURE: <15 ml/min/1.73 m2 05/03/2025 1:31 PM BUSINESS RULES ANALYST us Sanya Herring DO LABORATORY Final Result [facility] [address] [place] [address], [phone] * (ABNORMAL) CBC W/DIFF AUTOMATED (05/03/2025 1:31 PM BUSINESS RULES ANALYST) WBC 9.73 4.00 - 10.80 x10'3/uL 05/03/2025 1:45 PM BUSINESS RULES ANALYST [facility] RBC 4.03(L) 4.10 - 5.40 x10'6/uL 05/03/2025 1:45 PM BUSINESS RULES ANALYST [facility] HGB 11.5(L) 12.0 - 16.0 G/DL 05/03/2025 1:45 PM BUSINESS RULES ANALYST [facility] HCT 35.8(L) 36.0 - 47.0 % 05/03/2025 1:45 PM BUSINESS RULES ANALYST [facility] MCV 88.8 78.0 - 100.0 FL 05/03/2025 1:45 PM BUSINESS RULES ANA[facility] MCH 28.5 27.0 - 31.0 PG 05/03/2025 1:45 PM [facility] MCHC 32.1(L) 33.0 - 36.0 G/DL 05/03/2025 1:45 PM [facility] RDW 14.6(H) 11.5 - 14.5 % 05/03/2025 1:45 PM [facility] PLT 160 150 - 350 x10'3/uL 05/03/2025 1:45 PM [facility] MPV 9.5 7.4 - 10.4 FL 05/03/2025 1:45 PM [facility] DIFFERENTIAL TYPE AUTOMATED DIFFERENTIAL 05/03/2025 1:45 PM [facility] SEG NEUTROPHILS 86.5 % 1:45 PM [facility] LYMPHOCYTES 5.8 % 05/03/2025 1:45 PM [facility] MONOCYTES 6.8 % 05/03/2025 1:45 PM [facility] EOSINOPHILS 0.1 % 05/03/2025 1:45 PM [facility] BASOPHILS 0.4 % 05/03/2025 1:45 PM [facility] IMMATURE GRANS % 0.4 % 05/03/20 1:45 PM [facility] ABS. NEUTROPHILS 8.42(H) 1.60 - 8.30 x10'3/uL 05/03/2025 1:45 PM [facility] ABS. LYMPHOCYTES 0.56(L) 0.80 - 4.70 x10'3/uL 05/03/2025 1:45 PM [facility] RULES ANALY[facility] ABS. MONOCYTES 0.66 0.00 - 1.50 x10'3/uL 05/03/2025 1:45 PM BUSINESS RULES ANALYST [facility] ABS. EOSINOPHILS 0.01 0.00 - 0.40 x10'3/uL 05/03/2025 1:45 PM BUSINESS RULES ANALYST [facility] ABS. BASOPHILS 0.04 0.00 - 0.20 x10'3/uL 05/03/2025 1:45 PM BUSINESS RULES ANALYST [facility] ABS. IMMATURE GRANULOCYTES 0.04(H) 0.00 - 0.03 x10'3/uL 05/03/2025 1:45 PM BUSINESS RULES ANALY[facility] ABS. NUCLEATED RBC'S 0.00 0.00 - 0.01 x10'3/uL 05/03/2025 1:45 PM [facility]UL[facility] NRBC % 0.0 % 05/03/2025 1:45 PM [facility] RULES [facility] 05/03/2025 1:31 PM BUSINESS RULES ANALYST [facility] LABORATORY Final Result Performing Organization Address [facility] Co de Phone Number [facility] [address] [place] [address], [phone] * TROPONIN, QUANT (05/03/2025 1:31 PM BUSINESS RULES ANALYST) [facility] TROPONIN I HIGH SENSITIVITY 25 0 - 53 ng/L 05/03/2025 2:08 PM BUSINESS RULES ANALYST [facility] 05/03/2025 1:31 PM BUSINESS RULES ANALYST [employer] LABORATORY Final Result Performing Organization Address [facility] Co de Phone Number [facility] [address] [place] [address], [phone] * CULTURE, BACTERIA, BLOOD (05/03/2025 1:30 PM BUSINESS RULES ANALYST) Pathologist [facility] SPEC DESCRIPTION BLOOD 05/03/2025 1:12 PM BUSINESS RULES ANALYST [facility] SPECIAL REQUESTS NO SPECIAL REQUEST 05/03/2025 1:12 PM BUSINESS RULES ANALYST [facility] CULTURE RESULT NO GROWTH 5 DAYS 05/08/2025 2:18 PM BUSINESS RULES ANALYST [facility] BLOOD SPECIMEN OBTAINED FOR BLOOD CULTURE / Unknown 05/03/2025 1:30 PM BUSINESS RULES ANALYST 05/03/2025 1:31 PM BUSINESS RULES ANALYST us Sanya Herring DO MICROBIOLOGY - GENERAL ORDERABLE S Final Result [facility] [address] [place] [address], [place] [phone] * USE ECHOCARDIOGRAM (04/12/2025 9:38 AM CDT) Anatomical Region Laterality Modality Cardiac Ultrasound 04/12/2025 9:10 AM CDT Narrative 04/12/2025 10:51 AM CDT Echocardiography Report Pat.Name: Whyte Starr a Pat.ID: [id number] .Date: 04/12/2025 Refer.MD: Sarwat, [facility] Exam Time: 9:10:00 AM Study Type:[facility] Height: 60 in Weight: 132 lb BSA: 1.56 m2 Age: 5 1935,89Y Sex: F Sonogrphr: Am Pat. Stat.:Outpatient CPT - 4: 03588 Reason for Study:Tricuspid valve insufficiency, unspecified etiology, Pulmonary hypertension Procedures: Study performed at [place], [place] and interpreted by [facility]. 2D, M-mode, Doppler, Color Flow [...] 04/12/2025 Echocardiography Report Pat.Name: Starr Whyte Pat.ID: [id number] .Date: 04/12/2025 Refer.MD: Sarwat, [facility] Exam Time: 9:10:00 AM Study Type:[facility] Height: 60 in Weight: 132 lb BSA: 1.56 m2 Age: 5 1935,89Y Sex: F Sonogrphr: Ifeanyi Pat. Stat.:Outpatient CPT - 4: 51634 Reason for Study:Tricuspid valve insufficiency, unspecified etiology, Pulmonary hypertension Procedures: Study performed at [place], [place] and interpreted by [facility]. 2D, M-mode, Doppler, Color Flow [...] ECHO Final Result * HEMOGLOBIN, GLYCOSYLATED (03/27/2025) [facility] HGB A1C 6.2 % Narrative Resulting Agency Comment [facility] Jimbo Rey MD LABORATORY Final Result * BNP (03/27/2025) [facility] B TYPE NATRIURETIC PEPTIDE 2,660 Narrative Resulting Agency Comment [facility] Jimbo Rey MD LABORATORY Final Result * (ABNORMAL) COMPREHENSIVE METABOLIC PANEL (03/27/2025) [facility] SODIUM S/P/B 145 GLUCOSE 110 mg/dL AST 27 BUN 21 CREATININE S/P/B 1.19(A) 0.5 - 1.0 CALCIUM S/P/B 10.3 POTASSIUM S/P/B 3.4 CHLORIDE S/P/B 109 ALT 15 GFR ESTIMATE 43 Narrative Resulting Agency Comment [facility] Result [facility] Jimbo Rey MD LABORATORY Final Result * LIPID PANEL (03/27/2025) [facility] CHOLESTEROL 148 TRIGLYCERIDES 97 HDL 78 LDL (CALCULATED) 51 Narrative Resulting Agency Comment [facility] Result [facility] Jimbo Rey MD LABORATORY Final Result * CBC, MANUAL DIFF (03/27/2025) [facility] WBC 6.2 HGB 11.3 HCT 35.7 PLT 158 Narrative Resulting Agency Comment [facility] Result [facility] Jimbo Rey MD LABORATORY Final Result * THYROXINE, FREE (FT4) (03/27/2025) [facility] FREE T4 1.39 Narrative Resulting Agency Comment [facility] Result [facility] Jimbo Rey MD LABORATORY Final Result * THYROID STIM HORMONE TSH (03/27/2025) [facility] TSH 2.210 Narrative Resulting Agency Comment [facility] Jimbo Rey MD LABORATORY Final Result from Last 3 Months Insurance MEDICARE [facility] MEDICARE [facility] Advance Directives * Full Code (Latest Code Status on File) Date Activated Date Inactivated Comments 04/17/2022 2:08 PM 04/24/2022 6:26 PM Care Teams Engraver Machine Relationship Specialty Start Date End Date Jimbo Rey MD [address] [place] [address] PCP - General INTERNAL MEDICINE 12/20/20 Rose Muller MD [address] [place] [address] Consulting Physician CARDIOVASCULAR DISEASE 10/22/23
--- OUTSIDE RECORDS SUMMARY | 2025-05-21 11:30 | XMS_ITS | Encounter Summary ---
Author Organization [facility] Address [address] [place] [address] Care Team Providers Care 3Rd Pressman Name Role Phone Bernardo Quispe MD Unavailable [phone] Jimbo Rey MD Primary Care Provider [phone] Alex Peña MD Unavailable [phone] Rose Muller MD Unavailable Encounter Details Date Type Department Care Team (Latest Contact Info) Description 11/27/2021 [employer] Message Enc [facility] [place] [address] Bernardo Quispe MD [address] [place] [address] capsule endoscopy test Social History Tobacco Use Types Packs/Day Years Used Date Smoking Tobacco: Never Smokeless Tobacco: Never Alcohol Use Standard Drinks/Week Comments Not Currently 0 (1 standard drink = 0.6 oz pur e alcohol) Comments No Sex and Gender Information Value Date Recorded Sex Assigned at Female 07/20/2019 12:22 PM ENTERPRISE SOLUTIONS ARCHITECT Legal Sex Female 11:15 PM CDT Gender Identity Female 07/20/2019 12:22 PM ENTERPRISE SOLUTIONS ARCHITECT Sexual Orientation Not on file documented as [...] Date Author Status No 04/12/2021 4:01 PM IRIST Carmelita Amado RN Active documented in this encounter Plan of Treatment Upcoming Encounters Date Type Department Care Team (Late st Contact Info) Description 04/18/2026 12:45 PM CDT Office Visit [facility] [place] [address] Rose Muller MD [address] [place] [address] documented as of this encounter Visit Diagnoses Not on filedocumented in this encounter Additional Health Concerns Infection Onset Date Last Indicated Resolved Time COVID-19 Rule Out 04/24/2022 04/24/2022 04/24/2022 6:26 PM CDT documented as of this encounter Care Teams 3Rd Pressman Relationship Specialty Start Date End Date Jimbo Rey MD [address] [place] [address] PCP - General INTERNAL MEDICINE 12/20/20 Bernardo Quispe MD [address] [place] [address] Consulting Physician CARDIOVASCULAR DISEASE 05/27/18 Alex Peña MD [address] [place] [address] HOSPITALIST 04/24/22 04/24/23 Rose Muller MD [address] [place] [address] Consulting Physician CARDIOVASCULAR DISEASE 10/22/23 documented as of this encounter
--- OUTSIDE RECORDS SUMMARY | 2025-05-21 11:30 | XMS_ITS | Encounter Summary ---
Author Organization [facility] Address [address] [place] [address] Care Team Providers Care Store Product Demonstrator Name Role Phone Jimbo Rey MD Primary Care Provider [phone] Encounter Details Date Type Department Care Team (Late st Contact Info) Description 10/16/2021 Telephone [facility] [address] [place] [id number] Mary Castellano, LORENZO Social History Tobacco Use [...] file Legal Sex Female 7:02 PM BUSINESS DEVELOPMENT AGENT Gender Identity Not on file Sexual Orientation [...] on filedocumented in this encounter Care Teams Store Product Demonstrator Relationship Specialty Start Date End Date Jimbo Rey MD [address] [place] [address] PCP - General Internal Medicine 06/11/20 documented as of this encounter
--- OUTSIDE RECORDS SUMMARY | 2025-05-21 11:30 | XMS_ITS | Encounter Summary ---
Author Organization [facility] Address [address] [place] [address] Care Team Providers Care Exhaust And Muffler Repairer Name Role Phone Keerthi Ojeda MD Primary Care Provider Bernardo Martinez MD Unavailable [phone] Houston Acosta DO Primary Care Provider [phone] Jimbo Rey MD Primary Care Provider [phone] Alex Peña MD Unavailable [phone] Rose Muller MD Unavailable Encounter Details Date Type Department Care Team (Late Contact Info) Description 12/04/2018 Abstract [facility] [address] [place] [address] , Generic David, Social History Tobacco Use Types Packs/Day Years Used Date Smoking Tobacco: Never Smokeless Tobacco: Never Comments Unknown Sex and Gender Information Value Date Recorded Sex Assigned at Female 07/20/2019 12:22 PM CHANGE MANAGEMENT COORDINATOR Legal Sex Female 11:15 PM CDT Gender Identity Female 07/20/2019 12:22 PM CHANGE MANAGEMENT COORDINATOR Sexual Orientation Not on file documented as of this encounter Plan of Treatment Upcoming Encounters Date Type Department Care Team (Late Contact Info) Description 04/18/2026 12:45 PM CDT Office Visit [facility] [address] [place] [id number] Rose Muller MD [address] [place] [address] documented as of this encounter Visit Diagnoses Not on filedocumented in this encounter Additional Health Concerns Infection Onset Date Last Indicated Resolved Time COVID-19 Rule Out 08/28/2020 08/28/2020 08/29/2020 11:16 AM CHANGE MANAGEMENT COORDINATOR COVID-19 Rule Out 04/24/2022 04/24/2022 04/24/2022 6:26 PM CDT documented as of this encounter Care Teams Exhaust And Muffler Repairer Relationship Specialty Start Date End Date Keerthi Ojeda MD PCP - General SURGERY 02/09/18 07/21/19 Houston Acosta DO [address] [place] [address] PCP - General FAMILY PRACTICE 07/22/19 12/19/20 Jimbo Rey MD [address] [place] [address] PCP - General INTERNAL MEDICINE 12/20/20 Bernardo Quispe MD [address] [place] [address] Consulting Physician CARDIOVASCULAR DISEASE 05/27/18 Alex Peña MD [address] [place] [address] HOSPITALIST 04/24/22 04/24/23 Rose Muller MD [address] [place] [address] Consulting Physician CARDIOVASCULAR DISEASE 10/22/23 documented as of this encounter
--- OUTSIDE RECORDS SUMMARY | 2025-05-21 11:30 | XMS_ITS | Encounter Summary ---
Author Organization [facility] Address [address] [place] [address] Care Team Providers Care Director Experimental Medicine Name Role Phone Bernardo Quispe MD Unavailable [phone] Jimbo Rey MD Primary Care Provider Alex Peña MD Unavailable [phone] Rose Muller MD Unavailable Encounter Details Date Type Department Care Team (Late st Contact Info) Description 04/16/2021 Hospital Follow-up Call [facility] [address] [place] [address] Mami Mello RN Social History Tobacco Use Types Packs/Day Years Used Date Smoking Tobacco: Never Smokeless Tobacco: Never Alcohol Use Standard Drinks/Week Comments Not Currently 0 (1 standard drink = 0.6 oz pur e alcohol) Comments No Sex and Gender Information Value Date Recorded Sex Assigned at Female 07/20/2019 12:22 PM PRODUCTION SOLDERER Legal Sex Female 11:15 PM CDT Gender Identity Female 07/20/2019 12:22 PM PRODUCTION SOLDERER Sexual Orientation Not on file COVID-19 Exposure [...] Description 04/18/2026 12:45 PM CDT Office Visit [facility] [place] [address] Rose Muller MD [address] [place] [address] documented as of this encounter Visit Diagnoses Not on filedocumented in this encounter Additional Health Concerns Infection Onset Date Last Indicated Resolved Time COVID-19 Rule Out 04/24/2022 04/24/2022 04/24/2022 6:26 PM CDT documented as of this encounter Care Teams Director Experimental Medicine Relationship Specialty Start Date End Date Jimbo Rey MD [address] [place] [address] PCP - General INTERNAL MEDICINE 12/20/20 Bernardo Quispe MD [address] [place] [address] Consulting Physician CARDIOVASCULAR DISEASE 05/27/18 Alex Peña MD [address] [place] [address] HOSPITALIST 04/24/22 04/24/23 Rose Muller MD [address] [place] [address] Consulting Physician CARDIOVASCULAR DISEASE 10/22/23 documented as of this encounter
--- NOTE | 2025-05-21 11:38 | ECG_ITS ---
Test Date: 2025-05-21 11:58:11 Measurements Intervals [place] Rate: 81 P: 0 MS: 0 QRS: -3 QRSD: 98 T: 89 QT: 318 QTc: 370 Interpretive Statements ATRIAL FIBRILLATION ANTEROSEPTAL MYOCARDIAL INFARCTION , PROBABLY OLD [40+ ms Q WAVE IN V1-V4] Compared to ECG 12/11/2024 20:51:37 Atrial flutter no longer present Myocardial infarct finding still present Electronically Signed On 05-21-2025 14:23:37 RETAIL EVENT COORDINATOR by Kenney Hummel M.D.
[2025-05-21 12:05] LABS: Hematocrit 37.5 % (35.0-42.0); Hemoglobin 11.9 g/dL (11.7-13.8); Immature Granulocyte Percent A 0.5 % (0.0-0.0); Lymphocytes Absolute Auto 0.58 K/mm3 (1.10-4.50); Mean Corpuscular HGB Conc 31.7 g/dL (32-36); Mean Corpuscular Hemoglobin 28.0 pg (27.0-31.0); Mean Corpuscular Volume 88.2 fL (78.0-102.0); Nucleated Red Blood Cells Absolute Auto 0.00 K/mm3 (0.00-0.00); Nucleated Red Blood Cells Perc 0.0 % (0-0.0); Platelet Count Result 171 K/mm3 (150-420); Red Blood Count 4.25 M/mm3 (4.20-5.40); White Blood Count 8.5 K/mm3 (4.8-10.8)
[2025-05-21 12:13] LABS: Add Urine Microscopic? YES; Appearance Urine Clear (Clear); Glucose Urine UA Negative (Negative); Leukocyte Esterase Ur Negative LEU/UL (Negative); Nitrate Urine Negative (Negative); Specific Grav Ur 1.020 (1.010-1.020)
[2025-05-21 12:18] LABS: Alanine Aminotransferase 22 U/L (6-35); Albumin Level 4.6 g/dL (3.5-5.1); Alkaline Phosphatase 48 U/L (38-126); Anion Gap 12 mmol/L (4-12); Aspartate Amino Transferase 42 U/L (14-36); Bilirubin,Total 1.6 mg/dL (0.2-1.3); Blood Urea Nitrogen 13 mg/dL (7-17); Calcium 9.4 mg/dL (8.4-10.2); Carbon Dioxide 29 mmol/L (22-30); Chloride 98 mmol/L (98-107); Estimated CRCL calculation 32 ml/min; Estimated Glomerular Filt Rate 58; Glucose 130 mg/dL (65-110); Lipase 123 U/L (23-300); Magnesium 1.9 mg/dL (1.6-2.3); Osmolality Calculated 290 mOsm/kg (285-295); Potassium 3.1 mmol/L (3.4-5.0); Sodium 139 mmol/L (137-145); Total Protein 8.0 g/dL (6.3-8.2)
[2025-05-21] MEDS: SODIUM CHLORIDE 0.9% IV 1,000 ML 999 ML IV CONT (12:24)
[2025-05-21 12:30] LABS: NT Pro B Type Natriuretic Pept 6660 pg/mL (19.9-100)
[2025-05-21 12:32] LABS: INR 1.1; Partial Thromboplastin Time 35.1 Sec (23.9-30.70); Prothrombin Time 12.2 Seconds (9.50-12.1)
[2025-05-21 12:34] LABS: Troponin I 0.054 ng/mL (0.000-0.034)
[2025-05-21 12:35] LABS: Procalcitonin 0.2 ng/mL
[2025-05-21 12:43] LABS: Influenza A QL RT-PCR Negative (Negative); Influenza B QL RT-PCR Negative (Negative); RSV RNA, RT-PCR Negative (Negative); SARS-CoV-2 RNA PCR Negative (Negative)
[2025-05-21] MEDS: FUROSEMIDE INJ 20 MG/2 ML VIAL 10 MG IV PUSH (13:10)
[2025-05-21] MEDS: PIPERACILLIN/TAZOBACTAM SOD 3.375 GM in SODIUM CHLORIDE 0.9% IV 50 ML 100 ML IVPB (13:10)
[2025-05-21] MEDS: ASPIRIN 81 MG CHEWABLE TABLET PO (13:10)
[2025-05-21] MEDS: POTASSIUM CHLORIDE 20 MEQ ER TABLET PO (13:10)
[2025-05-21 14:49] LABS: Troponin I 0.049 ng/mL (0.000-0.034)
--- NOTE | 2025-05-21 15:25 | ADMGEN ---
This patient, Starr Whyte, was admitted to 2nd Floor Room 209-1. Patient/family oriented to hospital policies and general routines including ID bracelet, bed and alarms, visiting hours, pain management, procedures, bathroom and other care routines, personal items, smoking policy, room service/diet, and visiting hours. Information on how to activate the Rapid Response Team has been discussed. Patient/Family are encouraged to report perceived risks to care and to ask questions if they do not understand what they are told or what they should do.
--- NOTE | 2025-05-21 18:17 | PC.NURSE ---
st (lakeisha)aware of need for eval due to aspiration.
[2025-05-21] MEDS: AMPICILLIN SODIUM/SULBACTAM 3 GM in SODIUM CHLORIDE 0.9% IV 100 ML 200 ML IVPB (19:54)
[2025-05-21] MEDS: prednisoLONE ACETATE 1% OPHTH 5 ML 1 DROP EACH EYE (21:00)
[2025-05-22] VITALS (9 sets, daily range): BP systolic 106–156; BP diastolic 70–84; PULSE 84–88; RESP 16–24; TEMP 36.8–37.9; O2SAT 91–93
[2025-05-22] MEDS: AMPICILLIN SODIUM/SULBACTAM 3 GM in SODIUM CHLORIDE 0.9% IV 100 ML IVPB ×3 (00:55→19:42)
[2025-05-22] MEDS: ACETAMINOPHEN 650 MG SUPPOSITORY RECTAL (02:18)
[2025-05-22 06:52] LABS: Hematocrit 34.5 % (35.0-42.0); Hemoglobin 11.0 g/dL (11.7-13.8); Immature Granulocyte Percent A 0.3 % (0.0-0.0); Lymphocytes Absolute Auto 0.78 K/mm3 (1.10-4.50); Mean Corpuscular HGB Conc 31.9 g/dL (32-36); Mean Corpuscular Hemoglobin 28.0 pg (27.0-31.0); Mean Corpuscular Volume 87.8 fL (78.0-102.0); Nucleated Red Blood Cells Absolute Auto 0.00 K/mm3 (0.00-0.00); Nucleated Red Blood Cells Perc 0.0 % (0-0.0); Platelet Count Result 141 K/mm3 (150-420); Red Blood Count 3.93 M/mm3 (4.20-5.40); White Blood Count 6.9 K/mm3 (4.8-10.8)
[2025-05-22 07:06] LABS: Alanine Aminotransferase 19 U/L (6-35); Albumin Level 3.9 g/dL (3.5-5.1); Alkaline Phosphatase 48 U/L (38-126); Anion Gap 11 mmol/L (4-12); Aspartate Amino Transferase 44 U/L (14-36); Bilirubin,Total 1.0 mg/dL (0.2-1.3); Blood Urea Nitrogen 15 mg/dL (7-17); Calcium 8.6 mg/dL (8.4-10.2); Carbon Dioxide 27 mmol/L (22-30); Chloride 103 mmol/L (98-107); Estimated CRCL calculation 28 ml/min; Estimated Glomerular Filt Rate 50; Glucose 107 mg/dL (65-110); Magnesium 1.8 mg/dL (1.6-2.3); Osmolality Calculated 292 mOsm/kg (285-295); Sodium 141 mmol/L (137-145); Total Protein 7.0 g/dL (6.3-8.2)
[2025-05-22 07:17] LABS: Hemoglobin A1C 6.2 % (<5.7); Potassium 2.8 mmol/L (3.4-5.0)
[2025-05-22 07:20] LABS: Troponin I 0.077 ng/mL (0.000-0.034)
[2025-05-22] MEDS: KCL 20 MEQ/SW 100 ML 100 ML 50 MEQ IVPB (08:21)
[2025-05-22] MEDS: SODIUM CHLORIDE 0.9% IV 250 ML 50 ML IV CONT (10:14)
--- NOTE | 2025-05-22 10:17 | P.HP_ITS ---
H&P: HPI History of Present Illness Date/Time: 05/22/25 10:17 Chief Complaint: Weakness/confusion Narrative: Patient is an 89-year-old female with past medical history atrial fibrillation, CHF, HTN, CVA, diabetes, HLD who presented to the emergency department from [facility] with complaints of weakness and intermittent confusion. Patient's daughter at bedside states over the last 3 days they have noticed increased weakness loss of appetite and intermittent confusion from her baseline. patient's daughter also reported audible congestion and edema to bilateral extremities which time they are concerned she was in a CHF exacerbation another CVA. Patient denied any chest pain, shortness of breath, nausea, vomiting, fever chills but did report overall generalized weakness and lethargy. In the ED: CT chest abdomen pelvis showing dense pneumonia of the right middle lobe possible aspiration and possible mild proctitis. Patient with normal WBC, hypokalemia 3.1, BNP 6660, UA negative, elevated troponin 0.054 2nd 0.049. EKG AFIB with no ST/T changes. CT head showing old infarct no other acute intracranial abnormalities. 05/22/2025: patient was admitted to the medical unit for further evaluation and treatment of aspiration pneumonia, acute on chronic CHF exacerbation and elevated troponin. follow-up assessment on patient denied any chest pain or shortness a breath no nausea or vomiting or abdominal pain. Spoke with patient and daughter at bedside regarding possible proctitis but patient denied any rectal pain, bleeding or difficulty with defecation at which time they would like to defer any current treatment with antibiotic therapy due to previous history of atrial fibrillation patient does have history of external hemorrhoids. Patient still reporting some weakness and lethargy, audible congestion her during assessment. I did also discuss about the elevated troponins likely ischemic demand due to CHF exacerbation and AFib family and patient do not want any aggressive intervention or evaluation by Cardiology. in concerns to intermittent confusion possible TIA versus CVA no neurological deficits at this time however does not want any further diagnostic testing such as CTA or MRI already currently on CVA treatment Review of Systems Review of Systems: All systems reviewed & are unremarkable except as noted in HPI and below [facility] Past Medical History Medical History Diabetes CVA (cerebral vascular accident) External hemorrhoid Atrial fibrillation Osteoarthritis Hypertension Overweight Surgical History Surgical History Hx of tonsillectomy History of cholecystectomy Family History Family History Mother Hypertension Father AAA (abdominal aortic aneurysm) Mother Hypertension Social History Social History Smoking status: Never smoker Alcohol intake: never Substance use: never Lack of Transportation: No Lack of Food: Never True Current Housing: I Have Housing Concerned About Future Housing: No Difficulty Paying Gas/Electric Bills: No Difficulty Paying for Meds: No Currently Unemployed: No Education: High School Diploma/GED Difficulty w/ Childcare or Family Care: No Living arrangements: with family Additional living arrangements comments: Lives with her . 4 adult children. Occupation/Education: retired Spiritual care concerns: No Meds Home Medications and Allergies Home Medications ?Medication ?Instructions ?Recorded ?Confirmed ?Type losartan 100 mg tablet 100 mg PO DAILY #90 tabs 05/21/25 Rx diltiazem HCl 180 mg capsule,24 180 mg PO DAILY 05/21/25 History hr,extended release potassium chloride 20 mEq See Rx Instructions .Route 0 09/28/20 05/21/25 Rx tablet,extended release(part/cryst) .COMPLEX #90 tabs metoprolol succinate 25 mg See Rx Instructions .Route 02/01/21 05/21/25 Rx tablet,extended release 24 hr .COMPLEX #90 tabs atorvastatin 10 mg tablet 10 mg PO DAILY 10/01/2104/30 History furosemide 20 mg tablet 20 mg PO EVERY OTHER DAY 11/1705/21/25 History linagliptin 5 mg tablet (Tradjenta) 5 mg PO QAM 05/21/25 History apixaban 2.5 mg tablet (Eliquis) 2.5 mg PO BID 2 05/21/25 History calcitriol 0.5 mcg capsule 0.5 mcg PO DAILY 06/14/22 1 07/21/24 History galantamine 8 mg tablet 8 mg PO BID 06/14/22 5 History vitamin B complex (B 1 tablet PO DAILY 06/14/22 1 07/21/24 History Complex-Vitamin B12 tablet) Lactobacillus acidophilus and 1 cap PO HS 05/21/25 History rhamnosus 15 billion cell capsule (Florajen Women) buspirone 10 mg tablet 10 mg PO BID 05/21/25 History pantoprazole 40 mg tablet,delayed 40 mg PO Q12H 05/21/25 History release prednisolone acetate 1 % eye 1 drp EACH EYE HS 5 05/21/25 History drops,suspension Allergies Allergy/AdvReac Type Severity Reaction Status Date / Time No Known Allergies Allergy Verified 05/21/25 15:59 Vital Signs Vital Signs - 24 hr 05/21/25 10:50 05/21/25 11:20 05/21/25 11:38 Temperature 98.2 F Pulse Rate 85 83 85 Respiratory Rate 20 28 H Blood Pressure 158/75 H Pulse Oximetry 95 92 Oxygen Delivery Room Air Room Air 05/21/25 11:45 05/21/25 11:46 05/21/25 12:00 Temperature Pulse Rate 86 88 89 Respiratory Rate 26 H 21 H 23 H Blood Pressure 163/80 H Pulse Oximetry 93 94 Oxygen Delivery Room Air 05/21/25 12:01 05/21/25 12:21 05/21/25 12:30 Temperature Pulse Rate 95 87 88 Respiratory Rate 25 H 22 H 26 H Blood Pressure 155/71 H Pulse Oximetry 96 94 93 Oxygen Delivery Room Air 05/21/25 12:45 05/21/25 13:00 05/21/25 13:15 Temperature Pulse Rate 84 79 85 Respiratory Rate 24 H 51 H 28 H Blood Pressure 148/88 H Pulse Oximetry 94 96 95 Oxygen Delivery Room Air 05/21/25 13:30 05/21/25 13:45 05/21/25 14:00 Temperature Pulse Rate 89 94 91 Respiratory Rate 22 H 36 H 30 H Blood Pressure 151/75 H Pulse Oximetry 93 91 92 Oxygen Delivery Room Air 05/21/25 14:15 05/21/25 14:30 05/21/25 14:45 Temperature Pulse Rate 85 78 74 Respiratory Rate 28 H 27 H 25 H Blood Pressure Pulse Oximetry 93 90 93 Oxygen Delivery Room Air 05/21/25 15:00 05/21/25 15:07 05/21/25 17:59 Temperature Pulse Rate 79 84 84 Respiratory Rate 25 H 27 H 20 Blood Pressure 143/72 H Pulse Oximetry 94 93 94 Oxygen Delivery Room Air Room Air 05/21/25 20:00 05/21/25 22:00 05/22/25 00:00 Temperature 100.7 F H 99.5 F Pulse Rate 84 96 Respiratory Rate 20 18 Blood Pressure 96/63 L Pulse Oximetry 94 91 Oxygen Delivery Room Air Room Air 05/22/25 02:00 05/22/25 02:18 05/22/25 03:18 Temperature 100.2 F H 100.2 F H 98.9 F Pulse Rate Respiratory Rate Blood Pressure Pulse Oximetry Oxygen Delivery 05/22/25 04:00 05/22/25 06:00 Temperature 98.9 F 98.7 F Pulse Rate 88 Respiratory Rate 16 Blood Pressure 106/70 Pulse Oximetry 92 Oxygen Delivery Room Air Exam Const: General: comfortable and no acute distress Other: Pleasant elderly female HENMT: Mouth: Yes dry mucous membranes Eyes: General: appearance normal, both eyes and all related structures Sclera: sclerae normal Neck: Neck: supple Resp: Effort & Inspection: normal respiratory effort Auscultation: crackles bilateral and rhonchi Cardio: Rate: regular rate Rhythm: abnormal rhythm (AFIB) regularly irregular GI: GI Palp: Yes Soft to palpation Auscultation: normal bowel sounds Skin: General skin exam: normal color and no rashes or lesions noted Wounds: no wounds Neuro: Speech: normal speech Sensory Exam: normal sensation Extrem: General: normal to inspection Psych: Mental Status: mental status grossly normal Affect: normal affect H&P: Results Labs Labs: Short CBC 05/21/25 05/22/25 Range/Units 12:01 06:46 WBC 8.5 6.9 (4.8-10.8) K/mm3 Hgb 11.9 11.0 L (11.7-13.8) g/dL Hct 37.5 34.5 L (35.0-42.0) % Plt Count 171 141 L (150-420) K/mm3 [facility] 05/21/25 05/22/25 12:01 06:46 Sodium 139 141 Potassium 3.1 L 2.8 L* Chloride 98 103 Carbon Dioxide 29 27 BUN 13 D 15 Creatinine 0.91 1.05 H Glucose 130 H 107 Calcium 9.4 8.6 Cardiac Enzymes 05/21/25 05/21/25 05/22/25 Range/Units 12:01 14:23 06:46 Troponin I 0.054 H* 0.049 H* 0.077 H* (0.000-0.034) ng/mL Liver Function 05/21/25 05/22/25 Range/Units 12:01 06:46 Total Bilirubin 1.6 H 1.0 (0.2-1.3) mg/dL AST 42 H 44 H (14-36) U/L ALT 22 19 (6-35) U/L Alkaline Phosphatase 48 48 (38-126) U/L Albumin 4.6 3.9 (3.5-5.1) g/dL Urine 05/21/25 Range/Units 12:08 Urine Color Light yellow (Yellow) Urine Appearance Clear (Clear) Urine pH 6.5 (5.0-8.0) Ur Specific [place] 1.020 (1.010-1.020) Urine Protein 2+ H (Negative) Urine Glucose (UA) Negative (Negative) Imaging CT scan - chest: Radiologist's impression: CHEST ABDOMEN PELVIS WITHOUT CONTRAST CLINICAL HISTORY: AMS/hypoxia/diarrhea . COMPARISON: 12/11/2024 TECHNIQUE: Helical CT performed from thoracic inlet to symphysis pubis Coronal, sagittal reformats CT images acquired with automatic exposure control for dose reduction DLP: 416 mGy-cm FINDINGS: CHEST- Lungs/Pleura: Dense airspace disease right middle lobe. Mild airspace disease right upper and lower lobes. Thoracic Aorta: No aneurysm. Atherosclerotic disease. Pulmonary arteries: Normal caliber. Heart: Cardiomegaly. Coronary artery calcification. Trace pericardial fluid. Tracheobronchial tree: Patent. Nodes: No enlarged nodes. Small mediastinal nodes. Bones: No acute bony abnormality. Cement augmentation T11, L1. Chronic mild superior endplate height loss T12. Soft tissues: Multiple small thyroid nodules and/or heterogeneous gland. ABDOMEN/PELVIS- Liver: Micronodular contour. Gallbladder: Removed. Spleen: Unremarkable. Pancreas: Atrophy. Adrenal glands: Mild nodular thickening left side. Kidneys: Right kidney- No hydronephrosis. No renal stones. Left kidney- No hydronephrosis. No renal stones. Distal esophagus/stomach: Unremarkable. Small bowel loops: Normal caliber and wall thickness. Colon: Minimal, if any, rectal wall thickening. Appendix not seen. Nodes: No enlarged nodes. Peritoneum: No ascites. No free air. Urinary bladder: Unremarkable. Uterus: Unremarkable. Adnexa: No masses. Bones: Minimal, if any, worsening compression deformity L2. Soft tissues: Unremarkable. Aorta: No aneurysm. Atherosclerotic disease. IVC: Unremarkable. IMPRESSION: CHEST- 1. Dense pneumonia right middle lobe, consider aspiration. Much less severe airspace disease remaining right lung. ABDOMEN/PELVIS- 1. Mild proctitis possible. 2. Otherwise no acute abnormality. 3. Additional findings as above. CT scan - head: Radiologist's impression: CT HEAD NON-CONTRAST Clinical History: AMS/hypoxia/diarrhea Comparison: CT brain 12/11/2024 Technique: Unenhanced axial images skull base to vertex Coronal, sagittal reformats CT images acquired with automatic exposure control for dose reduction DLP: 681 mGy-cm Findings: Age-related global atrophy and chronic white matter microvascular ischemic changes Sulci, ventricles: Unremarkable. No intracerebral hemorrhage. No evidence acute territorial infarct. No mass effect, midline shift. Bony calvarium intact. Visualized paranasal sinuses: Minimal ethmoid and right maxillary fluid. Mastoid air cells: Small fluid left side. IMPRESSION: 1. No acute intracranial findings. Assessment and Plan Assessment and plan (1) Aspiration pneumonia: Qualifiers: Aspiration pneumonia type: unspecified Laterality: right Lung location: middle lobe of lung Qualified Code(s): J69.0 - Pneumonitis due to inhalation of food and vomit Code(s): J69.0 - Pneumonitis due to inhalation of food and vomit Status: Acute Assessment and Plan: patient with generalized weakness for the last 3 days and poor appetite family unsure patient has coughed or choked on any food at the assisted living facility, chest CT suggestive of aspiration pneumonia. patient was some audible congestion and mild temperature overnight * IV Unasyn * blood cultures pending * patient NPO until speech evaluation * incentive spirometer * bronchodilators p.r.n. * Mucinex * acetaminophen and her mild pain and fevers (2) Acute exacerbation of CHF (congestive heart failure): Qualifiers: Heart failure type: unspecified Qualified Code(s): I50.9 - Heart failure, unspecified Code(s): I50.9 - Heart failure, unspecified Status: Acute Assessment and Plan: patient with history of diastolic heart failure last echo 10/2019 with EF 50- 55%, elevated BNP and reported bilateral lower extremity edema * IV Lasix x1 more day then will transition back to patient's oral dose * Daily weights * resumed metoprolol * heart healthy low-sodium diet * elevate lower extremities when at rest * echocardiogram pending (3) Elevated troponin: Code(s): R79.89 - Other specified abnormal findings of blood chemistry Status: Acute Assessment and Plan: patient with elevated troponins peaked at 0.077 but trending flat patient denied any chest pain or shortness breath EKGs with no ST/ T elevations likely ischemic demand from patient's CHF exacerbation and AFib. family reports they do not want any aggressive interventions or Cardiology evaluation. (4) Hypertension: Code(s): I10 - Essential (primary) hypertension Status: Acute Assessment and Plan: * continued metoprolol * monitor BP per unit protocol (5) Atrial fibrillation: Qualifiers: Atrial fibrillation type: unspecified Qualified Code(s): I48.91 - Unspecified atrial fibrillation Code(s): I48.91 - Unspecified atrial fibrillation Status: Acute Assessment and Plan: * continued metoprolol and Eliquis (6) Proctitis: Code(s): K62.89 - Other specified diseases of anus and rectum Status: Acute Assessment and Plan: CT showed possible mild proctitis patient is denying any rectal bleeding or rectal pain at this time family and patient would like to defer oral antibiotic therapy (7) CVA (cerebral vascular accident): Code(s): I63.9 - Cerebral infarction, unspecified Status: Acute Assessment and Plan: previous CVA in 2021 no known deficits, CT head with no acute abnormalities present on admission mild intermittent confusion family this time does not want any further diagnostic testing except for speech evaluation * continued atorvastatin and Eliquis (8) Diabetes: Code(s): E11.9 - Type 2 diabetes mellitus without complications Status: Acute Assessment and Plan: * A1c 6.2 * holding Tradjenta * Accu-Cheks a.c. HS * low-dose SSI * hypoglycemic protocol Plan Code status: DNR/DNI after discussion with family and patient she prefers to be a DNR DNI DVT prophylaxis: Eliquis Stress ulcer prophylaxis: Protonix 40 daily PT/OT notes: PT/OT evaluation pending Disposition: patient continues admission to the medical unit for treatment of aspiration pneumonia and CHF exacerbation family was at bedside and updated on current treatment plan PT/ OT evaluation but plan is to return back to [facility] and to continue PT OT there. Quality VTE Prophylaxis VTE prophylaxis: pharmacologic ordered -Patient's previous records reviewed on admission -ER notes reviewed in detail on admission -discussed all findings and current treatment plan with patient/Family/POA -Consultations reviewed for recommendations -Patient's disposition for safe discharge discussed with continuous pillowcase cutter -radiology imaging, EKG and test results I have personally reviewed and interpreted unless otherwise specified Dictation performed by [employer] direct speech recognition software, therefore operations advisor variants and typographical errors may occur. Hospitalist MIPS Advance Care Plan I have confirmed that the patient's Advanced Care Plan is present, code status is documented, or surrogate decision maker is listed in patient medical record.: Yes Medication Reconciliation I have utilized all available resources to obtain, update and review the patients current medications (includes all prescriptions, OTC, herbals, cannabis, and nutritional supplements).: Yes The patient is not eligible for med reconciliation; the patient is in a emergent medical situation where delaying treatment would jeopardize the patients health.: No
[2025-05-22] MEDS: dilTIAZem HCL CD 180 MG CAP.24HR PO (11:55)
[2025-05-22] MEDS: APIXABAN 2.5 MG TABLET PO ×2 (11:55→20:11)
[2025-05-22] MEDS: METOPROLOL SUCCINATE EXT REL 25 MG TABCR PO (11:55)
[2025-05-22] MEDS: AMPICILLIN SODIUM/SULBACTAM 3 GM in SODIUM CHLORIDE 0.9% IV 100 ML 200 ML IVPB (15:15)
[2025-05-22] MEDS: GALANTAMINE HYDROBROMIDE 4 MG TABLET 8 MG PO (18:09)
[2025-05-22] MEDS: prednisoLONE ACETATE 1% OPHTH 5 ML 1 DROP EACH EYE (20:11)
[2025-05-22] MEDS: PANTOPRAZOLE 40 MG TABLET PO (20:11)
[2025-05-23] VITALS (10 sets, daily range): BP systolic 129–161; BP diastolic 55–84; PULSE 85–89; RESP 15–22; TEMP 36.5–36.7; O2SAT 90–98
[2025-05-23] MEDS: AMPICILLIN SODIUM/SULBACTAM 3 GM in SODIUM CHLORIDE 0.9% IV 100 ML IVPB ×2 (00:51→06:21)
--- NOTE | 2025-05-23 05:08 | PC.NURSE ---
Patient spo2 89 at midnoc, o2 applied at 2 l per nc, sats have been in 90s since, is 89 at present.
[2025-05-23 05:34] LABS: Hematocrit 36.7 % (35.0-42.0); Hemoglobin 11.6 g/dL (11.7-13.8); Immature Granulocyte Percent A 0.4 % (0.0-0.0); Lymphocytes Absolute Auto 0.74 K/mm3 (1.10-4.50); Mean Corpuscular HGB Conc 31.6 g/dL (32-36); Mean Corpuscular Hemoglobin 28.2 pg (27.0-31.0); Mean Corpuscular Volume 89.1 fL (78.0-102.0); Nucleated Red Blood Cells Absolute Auto 0.00 K/mm3 (0.00-0.00); Nucleated Red Blood Cells Perc 0.0 % (0-0.0); Platelet Count Result 143 K/mm3 (150-420); Red Blood Count 4.12 M/mm3 (4.20-5.40); White Blood Count 6.9 K/mm3 (4.8-10.8)
[2025-05-23 05:48] LABS: Alanine Aminotransferase 25 U/L (6-35); Albumin Level 4.2 g/dL (3.5-5.1); Alkaline Phosphatase 51 U/L (38-126); Anion Gap 11 mmol/L (4-12); Aspartate Amino Transferase 60 U/L (14-36); Bilirubin,Total 0.9 mg/dL (0.2-1.3); Blood Urea Nitrogen 17 mg/dL (7-17); Calcium 9.2 mg/dL (8.4-10.2); Carbon Dioxide 28 mmol/L (22-30); Chloride 106 mmol/L (98-107); Estimated CRCL calculation 30 ml/min; Estimated Glomerular Filt Rate 55; Glucose 116 mg/dL (65-110); Magnesium 2.0 mg/dL (1.6-2.3); Osmolality Calculated 302 mOsm/kg (285-295); Potassium 3.1 mmol/L (3.4-5.0); Sodium 145 mmol/L (137-145); Total Protein 7.6 g/dL (6.3-8.2)
[2025-05-23] MEDS: GALANTAMINE HYDROBROMIDE 4 MG TABLET 8 MG PO ×2 (09:04→16:53)
[2025-05-23] MEDS: VITAMIN B COMPLEX CAPSULE 1 CAP PO (09:05)
[2025-05-23] MEDS: APIXABAN 2.5 MG TABLET PO ×2 (09:05→20:45)
[2025-05-23] MEDS: FUROSEMIDE 20 MG TABLET PO (09:05)
[2025-05-23] MEDS: ATORVASTATIN 10 MG TABLET PO (09:05)
[2025-05-23] MEDS: LOSARTAN POTASSIUM 50 MG TABLET 100 MG PO (09:05)
[2025-05-23] MEDS: dilTIAZem HCL CD 180 MG CAP.24HR PO (09:05)
[2025-05-23] MEDS: PANTOPRAZOLE 40 MG TABLET PO ×2 (09:06→20:45)
[2025-05-23] MEDS: POTASSIUM CHLORIDE 20 MEQ ER TABLET PO (09:06)
[2025-05-23] MEDS: METOPROLOL SUCCINATE EXT REL 25 MG TABCR PO (09:09)
--- NOTE | 2025-05-23 11:33 | PC.NURSE ---
changed to IP status at 1133
--- NOTE | 2025-05-23 11:44 | P.PNIM_ITS ---
Progress Note: A&P Assessment and Plan (1) Aspiration pneumonia: Qualifiers: Aspiration pneumonia type: unspecified Laterality: right Lung location: middle lobe of lung Qualified Code(s): J69.0 - Pneumonitis due to inhalation of food and vomit Code(s): J69.0 - Pneumonitis due to inhalation of food and vomit Status: Acute Assessment and Plan: patient with generalized weakness for the last 3 days and poor appetite family unsure patient has coughed or choked on any food at the assisted living facility, chest CT suggestive of aspiration pneumonia. patient was some audible congestion and mild temperature overnight * IV Unasyn/ p.o. doxycycline which will also cover for her proctitis * blood cultures pending * patient with level 6 diet after speech evaluation * incentive spirometer * bronchodilators q.6 hours * added Pulmicort * added Claritin * Mucinex * acetaminophen and her mild pain and fevers (2) Acute exacerbation of CHF (congestive heart failure): Qualifiers: Heart failure type: unspecified Qualified Code(s): I50.9 - Heart failure, unspecified Code(s): I50.9 - Heart failure, unspecified Status: Acute Assessment and Plan: patient with history of diastolic heart failure last echo 10/2019 with EF 50- 55%, elevated BNP and reported bilateral lower extremity edema * IV Lasix 20 mg b.i.d. * Daily weights * resumed metoprolol * heart healthy low-sodium diet * elevate lower extremities when at rest * echocardiogram pending (3) Elevated troponin: Code(s): R79.89 - Other specified abnormal findings of blood chemistry Status: Acute Assessment and Plan: patient with elevated troponins peaked at 0.077 but trending flat patient denied any chest pain or shortness breath EKGs with no ST/ T elevations likely ischemic demand from patient's CHF exacerbation and AFib. family reports they do not want any aggressive interventions or Cardiology evaluation. (4) Hypertension: Code(s): I10 - Essential (primary) hypertension Status: Acute Assessment and Plan: * continued metoprolol * monitor BP per unit protocol (5) Atrial fibrillation: Qualifiers: Atrial fibrillation type: unspecified Qualified Code(s): I48.91 - Unspecified atrial fibrillation Code(s): I48.91 - Unspecified atrial fibrillation Status: Acute Assessment and Plan: * continued metoprolol and Eliquis (6) Proctitis: Code(s): K62.89 - Other specified diseases of anus and rectum Status: Acute Assessment and Plan: CT showed possible mild proctitis patient is denying any rectal bleeding or rectal pain at this time family and patient would like to defer oral antibiotic therapy initially due to patient's history of C diff * will go ahead and treat with oral doxycycline * added a probiotic t.i.d. (7) CVA (cerebral vascular accident): Code(s): I63.9 - Cerebral infarction, unspecified Status: Acute Assessment and Plan: previous CVA in 2021 no known deficits, CT head with no acute abnormalities present on admission mild intermittent confusion family this time does not want any further diagnostic testing except for speech evaluation * continued atorvastatin and Eliquis (8) Diabetes: Code(s): E11.9 - Type 2 diabetes mellitus without complications Status: Acute Assessment and Plan: * A1c 6.2 * holding Tradjenta * Accu-Cheks a.c. HS * low-dose SSI * hypoglycemic protocol Plan Code status: DNR/DNI after discussion with family and patient she prefers to be a DNR DNI DVT prophylaxis: Eliquis Stress ulcer prophylaxis: Protonix 40 daily PT/OT notes: PT/OT evaluation pending Disposition: patient continues admission to the medical unit for treatment of aspiration pneumonia and CHF exacerbation family was at bedside and updated on current treatment plan PT/ OT evaluation but plan is to return back to [facility] and to continue PT OT there. Time Spent With Patient Time with patient: 15 - 25 minutes Subjective Date/time seen: 05/23/25 11:44 Interval history: patient is 89-year-old female who was admitted for further evaluation and treatment pneumonia and acute on chronic heart failure. 05/23/2025: Patient up in chair feeling mildly better today but still audible respiratory congestion did report some productive cough denied any fevers or chills overnight but still reporting some shortness of breath. Review of Systems Review of Systems: All systems reviewed & are unremarkable except as noted in HPI and below Exam Const: General: comfortable and no acute distress Other: Pleasant elderly female HENMT: Mouth: Yes dry mucous membranes Eyes: General: appearance normal, both eyes and all related structures Sclera: sclerae normal Neck: Neck: supple Resp: Effort & Inspection: normal respiratory effort Auscultation: crackles bilateral, rhonchi and wheezes Other: audible congestion and mild productive cough Cardio: Rate: regular rate Rhythm: abnormal rhythm (AFIB) regularly irregular GI: Auscultation: normal bowel sounds Skin: General skin exam: normal color and no rashes or lesions noted Wounds: no wounds Neuro: Speech: normal speech Sensory Exam: normal sensation Extrem: General: normal to inspection Psych: Mental Status: mental status grossly normal Affect: normal affect Objective Data Vital Signs Vital Signs: Vital Signs - 24 hr 05/22/25 14:00 05/22/25 18:00 05/22/25 22:00 Temperature 98.2 F 98.5 F Pulse Rate 85 84 Respiratory Rate 24 H 20 Blood Pressure 156/73 H 147/84 H Pulse Oximetry 91 93 93 Oxygen Delivery Room Air Room Air Room Air Oxygen Flow Rate 05/23/25 06:00 Temperature 98.1 F Pulse Rate 85 Respiratory Rate 22 H Blood Pressure 161/84 H Pulse Oximetry 92 Oxygen Delivery Nasal Cannula Oxygen Flow Rate 2 Intake/Output Intake/Output: Intake & Output 05/20/25 05/21/25 05/22/25 05/23/25 23:59 23:59 23:59 23:59 Intake Total 1150 700 580 Output Total 250 150 Balance 1150 450 430 Meds/Results Medications: Active Medications Generic Name Dose Route Start Last Admin Trade Name Freq PRN Reason Stop Dose Admin Acetaminophen 650 mg 05/21/25 17:58 Acetaminophen 325 Mg Tablet PO Q4H PRN Mild Pain (1-3) or Fever Acetaminophen 650 mg 05/22/25 02:08 05/22/25 02:18 Acetaminophen 650 Mg Suppository RECTAL 650 mg Q6H PRN Administration Mild Pain (1-3) or Fever Hydrocodone Bitart/Acetaminophen 1 tab 05/21/25 17:58 Hydrocodone/Acetaminophen (*Crx) 5-325 Mg Tablet PO Q4H PRN Moderate Pain (4-6) Albuterol/Ipratropium 3 ml 05/23/25 12:30 Ipratropium 0.5 Mg/Albuterol Sulfate 2.5 Mg (Base) Ampul.Neb 3 Ml INHALATION Q6HRT CLEMENTE Apixaban 2.5 mg 05/21/25 21:00 05/23/25 09:05 Apixaban 2.5 Mg Tablet PO 2.5 mg Q12HR CLEMENTE Administration Atorvastatin Calcium 10 mg 05/22/25 09:00 05/23/25 09:05 Atorvastatin 10 Mg Tablet PO 10 mg DAILY CLEMENTE Administration Budesonide 0.5 mg 05/23/25 18:30 Budesonide Respule Neb 0.5 Mg/2 Ml Amp INHALATION Q12HRT CLEMENTE Buspirone HCl 10 mg 05/21/25 18:15 05/23/25 09:05 Buspirone Hcl 10 Mg Tablet PO 10 mg BID CLEMENTE Administration Calcitriol 0.5 mcg 05/22/25 09:00 05/23/25 09:07 Calcitriol 0.25 Mcg Capsule PO 0.5 mcg DAILY CLEMENTE Administration Dextrose 12.5 gm 05/21/25 18:06 Dextrose 50% 25 Gm/50 Ml Syringe IV PUSH PRN PRN Hypoglycemia Protocol Diltiazem HCl 180 mg 05/22/25 09:00 05/23/25 09:05 Diltiazem Hcl Cd 180 Mg Cap.24hr PO 180 mg DAILY CLEMENTE Administration Doxycycline Hyclate 100 mg 05/23/25 21:00 Doxycycline Hyclate 100 Mg Tablet PO Q12HR CLEMENTE Furosemide 20 mg 05/23/25 11:45 Furosemide Inj 20 Mg/2 Ml Vial IV PUSH BID CLEMENTE Galantamine Hydrobromide 8 mg 05/21/25 18:20 05/23/25 09:04 Galantamine Hydrobromide 4 Mg Tablet PO 8 mg BID CLEMENTE Administration Glucagon 1 mg 05/21/25 18:06 Glucagon For Inj 1 Mg Vial IM PRN PRN Hypoglycemia Protocol Glucose 15 gm 05/21/25 18:06 Glucose Oral Gel 15 Gm Of Glucse In 37.5 Gm Tube PO PRN PRN Hypoglycemia Protocol Guaifenesin 1,200 mg 05/23/25 21:00 Guaifenesin 12 Hr 600 Mg Tabcr PO Q12HR CLEMENTE Ampicillin Sodium/Sulbactam 100 mls @ 200 mls/hr 05/21/25 19:00 05/23/25 07:15 Sodium 3 gm/ Sodium Chloride IVPB 0 mls/hr Q6H CLEMENTE Infusion Dextrose 1,000 mls @ 100 mls/hr 05/21/25 18:06 Dextrose 5% 1,000 Ml IVPB PRN PRN Hypoglycemia Protocol Insulin Human Lispro 2 - 5 units 05/22/25 08:00 05/23/25 08:39 Insulin Human Lispro (*Bkc) 1,000 Units/10 Ml Vial SUB-Q Not Given TIDWM CLEMENTE Protocol Loratadine 10 mg 05/23/25 11:45 Loratadine 10 Mg Tablet PO QAM CLEMENTE Losartan Potassium 100 mg 05/22/25 09:00 05/23/25 09:05 Losartan Potassium 50 Mg Tablet PO 100 mg DAILY CLEMENTE Administration Metoprolol Succinate 25 mg 05/22/25 09:00 05/23/25 09:09 Metoprolol Succinate Ext Rel 25 Mg Tabcr PO 25 mg QAM CLEMENTE Administration Ondansetron HCl 4 mg 05/21/25 17:58 Ondansetron Inj 4 Mg/2 Ml Vial IV PUSH Q6H PRN Nausea And Vomiting Pantoprazole Sodium 40 mg 05/21/25 21:00 05/23/25 09:06 Pantoprazole 40 Mg Tablet PO 40 mg Q12H CLEMENTE Administration Perflutren Lipid Microsphere 0 ml 05/22/25 09:03 Perflutren Lipid Microspheres 1.5 Ml Vial Diluted To 10 Ml Total Volume IV PUSH 05/25/25 09:03 ONCE PRN adequate visualization Protocol Potassium Chloride 20 meq 05/22/25 08:00 05/23/25 09:06 Potassium Chloride 20 Meq Er Tablet PO 20 meq DAILY@0800 CLEMENTE Administration Prednisolone Acetate 1 drop 05/21/25 21:00 05/22/25 20:11 Prednisolone Acetate 1% Ophth 5 Ml EACH EYE 1 drop HS CLEMENTE Administration Vitamin B Complex 1 cap 05/22/25 09:00 05/23/25 09:05 Vitamin B Complex Capsule PO 1 cap DAILY CLEMENTE Administration Radiology Results: ITS Impressions Head CT 05/21/25 12:24 IMPRESSION: 1. No acute intracranial findings. Chest/Abdomen/Pelvis CT 05/21/25 12:30 IMPRESSION: CHEST- 1. Dense pneumonia right middle lobe, consider aspiration. Much less severe airspace disease remaining right lung. ABDOMEN/PELVIS- 1. Mild proctitis possible. 2. Otherwise no acute abnormality. 3. Additional findings as above. Labs Labs: Laboratory Results - last 24 hr 05/22/25 05/22/25 05/23/25 16:52 20:06 05:30 WBC 6.9 RBC 4.12 L Hgb 11.6 L Hct 36.7 MCV 89.1 MCH 28.2 MCHC 31.6 L RDW 14.9 H Plt Count 143 L MPV 9.7 Immature Gran % (Auto) 0.4 H Neut % (Auto) 80.1 H Lymph % (Auto) 10.8 L [place] % (Auto) 8.0 Eos % (Auto) 0.3 L Baso % (Auto) 0.4 Lymph # (Auto) 0.74 L [place] # (Auto) 0.55 Eos # (Auto) 0.02 Baso # (Auto) 0.03 Abs Immat Gran (auto) 0.03 H Absolute Neuts (auto) 5.51 Absolute Nucleated RBC 0.00 Nucleated RBC % 0.0 Sodium 145 Potassium 3.1 L Chloride 106 Carbon Dioxide 28 Anion Gap 11 BUN 17 Creatinine 0.96 Estim Creat Clear Calc 30 Estimated GFR 55 L Glucose 116 H POC Capillary Glucose 115 H 151 H Calculated Osmolality 302 H Calcium 9.2 Magnesium 2.0 Total Bilirubin 0.9 AST 60 H ALT 25 Alkaline Phosphatase 51 Total Protein 7.6 Albumin 4.2 05/23/25 08:13 WBC RBC Hgb Hct MCV MCH MCHC RDW Plt Count MPV Immature Gran % (Auto) Neut % (Auto) Lymph % (Auto) [place] % (Auto) Eos % (Auto) Baso % (Auto) Lymph # (Auto) [place] # (Auto) Eos # (Auto) Baso # (Auto) Abs Immat Gran (auto) Absolute Neuts (auto) Absolute Nucleated RBC Nucleated RBC % Sodium Potassium Chloride Carbon Dioxide Anion Gap BUN Creatinine Estim Creat Clear Calc Estimated GFR Glucose POC Capillary Glucose 125 H Calculated Osmolality Calcium Magnesium Total Bilirubin AST ALT Alkaline Phosphatase Total Protein Albumin Quality VTE Prophylaxis VTE prophylaxis: pharmacologic ordered -Patient's previous records reviewed on admission -ER notes reviewed in detail on admission -discussed all findings and current treatment plan with patient/Family/POA -Consultations reviewed for recommendations -Patient's disposition for safe discharge discussed with pillowcase turner -radiology imaging, EKG and test results I have personally reviewed and interpreted unless otherwise specified Dictation performed by [employer] direct speech recognition software, therefore metropolitan editor variants and typographical errors may occur. Hospitalist MIPS Advance Care Plan I have confirmed that the patient's Advanced Care Plan is present, code status is documented, or surrogate decision maker is listed in patient medical record.: Yes Medication Reconciliation I have utilized all available resources to obtain, update and review the patients current medications (includes all prescriptions, OTC, herbals, cannabis, and nutritional supplements).: Yes The patient is not eligible for med reconciliation; the patient is in a emergent medical situation where delaying treatment would jeopardize the patients health.: No
[2025-05-23] MEDS: POTASSIUM CHLORIDE 20 MEQ PACKET (FOR LIQUID) 40 MEQ PO (11:58)
[2025-05-23] MEDS: IPRATROPIUM 0.5 MG/ALBUTEROL SULFATE 2.5 MG (BASE) AMPUL.NEB 3 ML INHALATION ×3 (12:04→22:52)
--- NOTE | 2025-05-23 12:30 | ECHO_ITS ---
Patient Info Name: Starr Whyte Age: 89 years : 1935 Gender: Female Ht: 63 in Wt: 123 lbs BSA: 1.58 m2 HR: 87 bpm BP: 161 / 84 mmHg Heart Rhythm: Atrial Fibrillation Technical Quality: Good Exam Date: 05/23/2025 12:00 PM Patient Status: I Admit Date: 05/23/2025 Exam Type: CA echo doppler color flow Complete two-dimensional, color flow and Doppler transthoracic echocardiogram is performed. Staff Referring Physician: Dimas Castillo Radio Rigger: Alessandra Winter Attending Provider: Vipul Archuleta MD Summary 1. Complete two-dimensional, color flow and Doppler transthoracic echocardiogram is performed. 2. Left ventricular chamber dimension is normal. 3. Left ventricular systolic function is normal, estimated at 65-70. 4. The left ventricular diastolic function is abnormal. 5. E/e' 19 is elevated. 6. Atrial fibrillation. 7. Left atrial chamber dimension is moderately enlarged. 8. Right atrial chamber dimension is moderately enlarged. 9. There is mild aortic valve sclerosis. 10. The mitral valve has moderately calcified leaflets and a moderately calcified annulus. 11. There is mild mitral valve regurgitation. 12. There is moderate tricuspid valve regurgitation. 13. Moderate pulmonary hypertension, estimated pulmonary arterial systolic pressure is 53 mmHg. 14. There is mild pulmonic regurgitation. Left Ventricle E/e' 19 is elevated. Left ventricular chamber dimension is normal. Left ventricular systolic function is normal, estimated at 65-70. The left ventricular diastolic function is abnormal. Atrial fibrillation. Right Ventricle Right ventricular chamber dimension is normal. Right ventricular systolic function is normal. Left Atria Left atrial chamber dimension is moderately enlarged. Right Atria Right atrial chamber dimension is moderately enlarged. Aortic Valve The aortic valve is trileaflet. There is mild aortic valve sclerosis. There is no aortic valve stenosis. There is no aortic valve regurgitation. Pulmonic Valve There is mild pulmonic regurgitation. Mitral Valve The mitral valve has moderately calcified leaflets and a moderately calcified annulus. There is no mitral valve stenosis. There is mild mitral valve regurgitation. Tricuspid Valve There is moderate tricuspid valve regurgitation. Moderate pulmonary hypertension, estimated pulmonary arterial systolic pressure is 53 mmHg. Pericardium/Pleural There is no pericardial effusion. Inferior Vena Cava Normal inferior vena cava with >50% collapse upon inspiration consistent with normal right atrial pressure, 5 mmHg. Aorta The aortic root size at the sinus of Valsalva is normal. Left Ventricular Outflow Tract Name Value Normal LVOT 2D LVOT Diameter 1.8 cm LVOT Doppler LVOT Peak Velocity 111 cm/s LVOT Peak Gradient 5 mmHg LVOT Mean Gradient 2 mmHg LVOT VTI 23 cm LVOT Stroke Volume 57 ml LVOT CO 4.9 l/min LVOT CI 3.1 l/min/m2 Pulmonic Valve Name Value Normal RVOT Doppler RVOT Peak Velocity 72 cm/s RVOT Peak Gradient 2 mmHg PV Doppler PV Peak Velocity 92 cm/s PV Peak Gradient 3 mmHg Mitral Valve Name Value Normal MV Diastolic Function MV E Peak Velocity 129 cm/s MV A Peak Velocity 32 cm/s MV E/A 4.0 MV Decel Time (PW) 189 ms MV Annular TDI MV E/e' (Septal) 24.3 MV E/e' (Lateral) 16.0 MV E/e' (Average) 20.1 Tricuspid Valve Name Value Normal TV Regurgitation Doppler TR Peak Velocity 347 cm/s TR Peak Gradient 30 mmHg Estimated PAP/RSVP RA Pressure 5 mmHg <=5 PA Systolic Pressure 53 mmHg <36 RV Systolic Pressure 53 mmHg <36 TV Annular TDI TV Lateral Mary Lou s' Velocity 9.2 cm/s >=9.5 Aortic Valve Name Value Normal AV Doppler AV Peak Velocity 154 cm/s AV Peak Gradient 9 mmHg AV Area (Cont Eq Say) 1.8 cm2 AV DI (Say) 0.72 AV Regurgitation 2D LVOT Area 2.5 cm2 Ventricles Name Value Normal LV Dimensions 2D/MM IVS Diastolic Thickness (2D) 0.8 cm 0.6-1.0 LVID Diastole (2D) 4.0 cm 3.8-5.2 LVIW Diastolic Thickness (2D) 1.0 cm 0.6-0.9 LVID Systole (2D) 2.0 cm 2.2-3.5 LVOT Diameter 1.8 cm LV Mass (2D Cubed) 102.29 g 67.00-162.00 LV Mass Index (2D Cubed) 65 g/m2 43-95 Relative Wall Thickness (2D) 0.49 <=0.42 LV Fractional Shortening/Ejection Fraction 2D/MM LV Fractional Shortening (2D) 49 % 27-45 LV EF (2D Teichholz) 81 % LV Diastolic Volume (4C MOD) 86 ml LV EF (4C MOD) 70 % LV Diastolic Volume (2C MOD) 63 ml LV EF (2C MOD) 56 % LV Diastolic Volume (BP MOD) 76 ml 46-106 LV Diastolic Volume Index (BP MOD) 48 ml/m2 29-61 LV Systolic Volume (BP MOD) 27 ml 14-42 LV Systolic Volume Index (BP MOD) 17 ml/m2 8-24 LV EF (BP MOD) 65 % 54-74 LV Diastolic Length (4C) 6.7 cm LV Systolic Length (4C) 5.4 cm LV Stroke Volume (4C MOD) 60 ml Atria Name Value Normal LA Dimensions LA Volume (4C A-L) 29 ml LA Volume (BP A-L) 32 ml RA Dimensions RA Systolic Major [place] Length (4C) 5.6 cm 2.2-2.8 RA Area (4C) 20.4 cm2 <=18.0 Report Signatures
[2025-05-23] MEDS: FUROSEMIDE INJ 20 MG/2 ML VIAL IV PUSH ×2 (12:34→16:53)
[2025-05-23] MEDS: LORATADINE 10 MG TABLET PO (12:34)
[2025-05-23] MEDS: AMPICILLIN SODIUM/SULBACTAM 3 GM in SODIUM CHLORIDE 0.9% IV 100 ML 200 ML IVPB ×2 (12:35→20:46)
[2025-05-23] MEDS: SACCHAROMYCES BOULARDII 250 MG CAPSULE PO (16:53)
[2025-05-23] MEDS: BUDESONIDE RESPULE NEB 0.5 MG/2 ML AMP INHALATION (17:01)
[2025-05-23] MEDS: DOXYCYCLINE HYCLATE 100 MG TABLET PO (20:45)
[2025-05-23] MEDS: guaiFENesin 12 HR 600 MG TABCR 1200 MG PO (20:45)
[2025-05-23] MEDS: prednisoLONE ACETATE 1% OPHTH 5 ML 1 DROP EACH EYE (20:47)
--- NOTE | 2025-05-23 23:08 | PC.NURSE ---
Pt requested breathing tx early d/t anxiety and feeling of being short of breath.
[2025-05-24] VITALS (12 sets, daily range): BP systolic 148–150; BP diastolic 72–80; PULSE 88–118; RESP 18–32; TEMP 36.1–36.8; O2SAT 87–94
[2025-05-24] MEDS: AMPICILLIN SODIUM/SULBACTAM 3 GM in SODIUM CHLORIDE 0.9% IV 100 ML 200 ML IVPB ×4 (01:10→18:02)
[2025-05-24] MEDS: IPRATROPIUM 0.5 MG/ALBUTEROL SULFATE 2.5 MG (BASE) AMPUL.NEB 3 ML INHALATION ×3 (05:48→17:17)
[2025-05-24] MEDS: BUDESONIDE RESPULE NEB 0.5 MG/2 ML AMP INHALATION ×2 (05:48→17:17)
[2025-05-24 05:51] LABS: Hematocrit 34.0 % (35.0-42.0); Hemoglobin 10.8 g/dL (11.7-13.8); Mean Corpuscular HGB Conc 31.8 g/dL (32-36); Mean Corpuscular Hemoglobin 27.9 pg (27.0-31.0); Mean Corpuscular Volume 87.9 fL (78.0-102.0); Platelet Count Result 129 K/mm3 (150-420); Red Blood Count 3.87 M/mm3 (4.20-5.40); White Blood Count 5.5 K/mm3 (4.8-10.8)
[2025-05-24 06:03] LABS: Alanine Aminotransferase 25 U/L (6-35); Albumin Level 3.7 g/dL (3.5-5.1); Alkaline Phosphatase 46 U/L (38-126); Anion Gap 13 mmol/L (4-12); Aspartate Amino Transferase 55 U/L (14-36); Bilirubin,Total 0.8 mg/dL (0.2-1.3); Blood Urea Nitrogen 21 mg/dL (7-17); Calcium 9.1 mg/dL (8.4-10.2); Carbon Dioxide 27 mmol/L (22-30); Chloride 107 mmol/L (98-107); Estimated CRCL calculation 27 ml/min; Estimated Glomerular Filt Rate 49; Glucose 123 mg/dL (65-110); Magnesium 1.8 mg/dL (1.6-2.3); Osmolality Calculated 308 mOsm/kg (285-295); Potassium 2.9 mmol/L (3.4-5.0); Sodium 147 mmol/L (137-145); Total Protein 6.6 g/dL (6.3-8.2)
[2025-05-24 06:12] LABS: Band Neutrophils Percent 0 % (0-6); Basophils Absolute Manual 0.05 K/mm3 (0-0.1); Basophils Percent Manual 1 % (0-1); Eosinophils Absolute Manual 0.05 K/mm3 (0.02-0.50); Eosinophils Percent Manual 1 % (1-6); Lymphocytes Absolute Manual 0.77 K/mm3 (1.1-4.5); Lymphocytes Percent Manual 14 % (18-44); Monocytes Absolute Manual 0.33 K/mm3 (0.1-0.90); Monocytes Percent Manual 6 % (3-9); Neutrophils Absolute Manual 4.29 K/mm3 (1.3-6.7); Neutrophils Percent Manual 78 % (46-73); Total Cells Counted 100
--- NOTE | 2025-05-24 07:30 | P.PNIM_ITS ---
Progress Note: A&P Assessment and Plan (1) Aspiration pneumonia: Qualifiers: Aspiration pneumonia type: unspecified Laterality: right Lung location: middle lobe of lung Qualified Code(s): J69.0 - Pneumonitis due to inhalation of food and vomit Code(s): J69.0 - Pneumonitis due to inhalation of food and vomit Status: Acute Assessment and Plan: patient with generalized weakness for the last 3 days and poor appetite family unsure patient has coughed or choked on any food at the assisted living facility, chest CT suggestive of aspiration pneumonia. patient was some audible congestion and mild temperature overnight * IV Unasyn/ p.o. doxycycline which will also cover for her proctitis * blood cultures pending * patient with level 6 diet and thickened liquids after speech evaluation * incentive spirometer * bronchodilators q.6 hours * added Pulmicort * added Claritin * Mucinex * acetaminophen and her mild pain and fevers (2) Acute exacerbation of CHF (congestive heart failure): Qualifiers: Heart failure type: unspecified Qualified Code(s): I50.9 - Heart failure, unspecified Code(s): I50.9 - Heart failure, unspecified Status: Acute Assessment and Plan: patient with history of diastolic heart failure last echo 10/2019 with EF 50- 55%, elevated BNP and reported bilateral lower extremity edema * IV Lasix 20 mg b.i.d. * Daily weights * resumed metoprolol * heart healthy low-sodium diet * elevate lower extremities when at rest * echocardiogram with normal EF, diastolic dysfunction noted (3) Elevated troponin: Code(s): R79.89 - Other specified abnormal findings of blood chemistry Status: Acute Assessment and Plan: patient with elevated troponins peaked at 0.077 but trending flat patient denied any chest pain or shortness breath EKGs with no ST/ T elevations likely ischemic demand from patient's CHF exacerbation and AFib. family reports they do not want any aggressive interventions or Cardiology evaluation. (4) Hypertension: Code(s): I10 - Essential (primary) hypertension Status: Acute Assessment and Plan: * continued metoprolol * monitor BP per unit protocol (5) Atrial fibrillation: Qualifiers: Atrial fibrillation type: unspecified Qualified Code(s): I48.91 - Unspecified atrial fibrillation Code(s): I48.91 - Unspecified atrial fibrillation Status: Acute Assessment and Plan: * continued metoprolol and Eliquis (6) Proctitis: Code(s): K62.89 - Other specified diseases of anus and rectum Status: Acute Assessment and Plan: CT showed possible mild proctitis patient is denying any rectal bleeding or rectal pain at this time family and patient would like to defer oral antibiotic therapy initially due to patient's history of C diff * will go ahead and treat with oral doxycycline * added a probiotic t.i.d. (7) CVA (cerebral vascular accident): Code(s): I63.9 - Cerebral infarction, unspecified Status: Acute Assessment and Plan: previous CVA in 2021 no known deficits, CT head with no acute abnormalities present on admission mild intermittent confusion family this time does not want any further diagnostic testing except for speech evaluation * continued atorvastatin and Eliquis (8) Diabetes: Code(s): E11.9 - Type 2 diabetes mellitus without complications Status: Acute Assessment and Plan: * A1c 6.2 * holding Tradjenta * Accu-Cheks a.c. HS * low-dose SSI * hypoglycemic protocol (9) Hypokalemia: Code(s): E87.6 - Hypokalemia Status: Acute Assessment and Plan: k 2.9 on todays labs restart tele monitoring increase daily potassium supplement to 40 meq IV KCL 40 meq x 1 ordered AM labs Plan Code status: DNR/DNI after discussion with family and patient she prefers to be a DNR DNI DVT prophylaxis: Eliquis Stress ulcer prophylaxis: Protonix 40 daily PT/OT notes: PT/OT evaluation pending Disposition: patient continues admission to the medical unit for treatment of hypokalemia, aspiration pneumonia and CHF exacerbation family was at bedside and updated on current treatment plan PT/ OT evaluation but plan is to return back to [facility] and to continue PT OT there. Subjective Date/time seen: 05/24/25 07:30 Interval history: Patient seen for a follow up visit. Patient sitting up in chair, in no acute distress. Patient denies acute pain. Patient's potassium level today is 2.9. IV potassium and PO potassium replacement ordered. Telemetry ordered to monitor until potassium normalizes. Patient still with wet sounding cough, weak. Continue thickened liquids and diet per speech therapy recommendations. Patient requiring IV fluids with IV potassium replacement due to complaints of burning. Monitor for any signs of fluid overload. Patient having more difficulty swallowing pills. Discussed with daughter that we can look at her medication list and possibly stop anything that is not medically necessary. Daughter agrees. Review of Systems Review of Systems: All systems reviewed & are unremarkable except as noted in HPI and below Exam Const: General: comfortable and no acute distress Other: Pleasant elderly female HENMT: Mouth: Yes dry mucous membranes Eyes: General: appearance normal, both eyes and all related structures Sclera: sclerae normal Neck: Neck: supple Resp: Effort & Inspection: normal respiratory effort Auscultation: crackles bilateral, rhonchi and wheezes Other: audible congestion and mild productive cough Cardio: Rate: regular rate Rhythm: abnormal rhythm (AFIB) regularly irregular GI: Auscultation: normal bowel sounds Skin: General skin exam: normal color and no rashes or lesions noted Wounds: no wounds Neuro: Speech: normal speech Sensory Exam: normal sensation Extrem: General: normal to inspection Psych: Affect: normal affect Other: alert and oriented x 1-2, demented Objective Data Vital Signs Vital Signs: Vital Signs - 24 hr 05/23/25 12:01 05/23/25 12:08 05/23/25 14:00 Temperature Pulse Rate 88 89 Respiratory Rate 18 18 Blood Pressure Pulse Oximetry 97 98 94 Oxygen Delivery Room Air Oxygen Flow Rate 05/23/25 17:01 05/23/25 17:17 05/23/25 22:52 Temperature Pulse Rate 87 88 Respiratory Rate 18 18 Blood Pressure Pulse Oximetry 91 95 91 Oxygen Delivery Oxygen Flow Rate 0 05/23/25 23:05 05/23/25 23:24 05/24/25 05:51 Temperature 97.7 F Pulse Rate 87 90 Respiratory Rate 15 18 Blood Pressure 129/55 L Pulse Oximetry 94 90 90 Oxygen Delivery Room Air Oxygen Flow Rate 05/24/25 06:00 Temperature Pulse Rate 90 Respiratory Rate 20 Blood Pressure Pulse Oximetry 91 Oxygen Delivery Oxygen Flow Rate Intake/Output Intake/Output: Intake & Output 05/21/25 05/22/25 05/23/25 05/24/25 23:59 23:59 23:59 23:59 Intake Total 1150 700.8 1020 363.3 Output Total 250 1150 Balance 1150 450.8 -130 363.3 Meds/Results Medications: Active Medications Generic Name Dose Route Start Last Admin Trade Name Freq PRN Reason Stop Dose Admin Acetaminophen 650 mg 05/21/25 17:58 Acetaminophen 325 Mg Tablet PO Q4H PRN Mild Pain (1-3) or Fever Acetaminophen 650 mg 05/22/25 02:08 05/22/25 02:18 Acetaminophen 650 Mg Suppository RECTAL 650 mg Q6H PRN Administration Mild Pain (1-3) or Fever Hydrocodone Bitart/Acetaminophen 1 tab 05/21/25 17:58 Hydrocodone/Acetaminophen (*Crx) 5-325 Mg Tablet PO Q4H PRN Moderate Pain (4-6) Albuterol/Ipratropium 3 ml 05/23/25 12:30 05/24/25 05:48 Ipratropium 0.5 Mg/Albuterol Sulfate 2.5 Mg (Base) Ampul.Neb 3 Ml INHALATION 3 ml Q6HRT CLEMENTE Administration Apixaban 2.5 mg 05/21/25 21:00 05/23/25 20:45 Apixaban 2.5 Mg Tablet PO 2.5 mg Q12HR CLEMENTE Administration Atorvastatin Calcium 10 mg 05/22/25 09:00 05/23/25 09:05 Atorvastatin 10 Mg Tablet PO 10 mg DAILY CLEMENTE Administration Budesonide 0.5 mg 05/23/25 18:30 05/24/25 05:48 Budesonide Respule Neb 0.5 Mg/2 Ml Amp INHALATION 0.5 mg Q12HRT CLEMENTE Administration Buspirone HCl 10 mg 05/21/25 18:15 05/23/25 16:53 Buspirone Hcl 10 Mg Tablet PO 10 mg BID CLEMENTE Administration Calcitriol 0.5 mcg 05/22/25 09:00 05/23/25 09:07 Calcitriol 0.25 Mcg Capsule PO 0.5 mcg DAILY CLEMENTE Administration Dextrose 12.5 gm 05/21/25 18:06 Dextrose 50% 25 Gm/50 Ml Syringe IV PUSH PRN PRN Hypoglycemia Protocol Diltiazem HCl 180 mg 05/22/25 09:00 05/23/25 09:05 Diltiazem Hcl Cd 180 Mg Cap.24hr PO 180 mg DAILY CLEMENTE Administration Doxycycline Hyclate 100 mg 05/23/25 21:00 05/23/25 20:45 Doxycycline Hyclate 100 Mg Tablet PO 100 mg Q12HR CLEMENTE Administration Furosemide 20 mg 05/23/25 11:45 05/23/25 16:53 Furosemide Inj 20 Mg/2 Ml Vial IV PUSH 20 mg BID CLEMENTE Administration Galantamine Hydrobromide 8 mg 05/21/25 18:20 05/23/25 16:53 Galantamine Hydrobromide 4 Mg Tablet PO 8 mg BID CLEMENTE Administration Glucagon 1 mg 05/21/25 18:06 Glucagon For Inj 1 Mg Vial IM PRN PRN Hypoglycemia Protocol Glucose 15 gm 05/21/25 18:06 Glucose Oral Gel 15 Gm Of Glucse In 37.5 Gm Tube PO PRN PRN Hypoglycemia Protocol Guaifenesin 1,200 mg 05/23/25 21:00 05/23/25 20:45 Guaifenesin 12 Hr 600 Mg Tabcr PO 1,200 mg Q12HR CLEMENTE Administration Ampicillin Sodium/Sulbactam 100 mls @ 200 mls/hr 05/21/25 19:00 05/24/25 06:24 Sodium 3 gm/ Sodium Chloride IVPB 0 mls/hr Q6H CLEMENTE Infusion Dextrose 1,000 mls @ 100 mls/hr 05/21/25 18:06 Dextrose 5% 1,000 Ml IVPB PRN PRN Hypoglycemia Protocol Potassium Chloride 100 mls @ 50 mls/hr 05/24/25 07:24 Kcl 20 Meq/Sw 100 Ml IVPB 05/24/25 09:23 ONCE STA Potassium Chloride 100 mls @ 50 mls/hr 05/24/25 10:00 Kcl 20 Meq/Sw 100 Ml IVPB 05/24/25 11:59 ONCE ONE Insulin Human Lispro 2 - 5 units 05/22/25 08:00 05/23/25 17:06 Insulin Human Lispro (*Bkc) 1,000 Units/10 Ml Vial SUB-Q Not Given TIDWM CLEMENTE Protocol Loratadine 10 mg 05/23/25 11:45 05/23/25 12:34 Loratadine 10 Mg Tablet PO 10 mg QAM CLEMENTE Administration Losartan Potassium 100 mg 05/22/25 09:00 05/23/25 09:05 Losartan Potassium 50 Mg Tablet PO 100 mg DAILY CLEMENTE Administration Metoprolol Succinate 25 mg 05/22/25 09:00 05/23/25 09:09 Metoprolol Succinate Ext Rel 25 Mg Tabcr PO 25 mg QAM CLEMENTE Administration Ondansetron HCl 4 mg 05/21/25 17:58 Ondansetron Inj 4 Mg/2 Ml Vial IV PUSH Q6H PRN Nausea And Vomiting Pantoprazole Sodium 40 mg 05/21/25 21:00 05/23/25 20:45 Pantoprazole 40 Mg Tablet PO 40 mg Q12H CLEMENTE Administration Perflutren Lipid Microsphere 0 ml 05/22/25 09:03 Perflutren Lipid Microspheres 1.5 Ml Vial Diluted To 10 Ml Total Volume IV PUSH 05/25/25 09:03 ONCE PRN adequate visualization Protocol Potassium Chloride 40 meq 05/24/25 08:00 Potassium Chloride 20 Meq Er Tablet PO DAILY@0800 CLEMENTE Prednisolone Acetate 1 drop 05/21/25 21:00 05/23/25 20:47 Prednisolone Acetate 1% Ophth 5 Ml EACH EYE 1 drop HS CLEMENTE Administration Saccharomyces Boulardii 250 mg 05/23/25 13:00 05/23/25 17:06 Saccharomyces Boulardii 250 Mg Capsule PO Not Given TID CLEMENTE Vitamin B Complex 1 cap 05/22/25 09:00 05/23/25 09:05 Vitamin B Complex Capsule PO 1 cap DAILY CLEMENTE Administration Radiology Results: ITS Impressions Head CT 05/21/25 12:24 IMPRESSION: 1. No acute intracranial findings. Chest/Abdomen/Pelvis CT 05/21/25 12:30 IMPRESSION: CHEST- 1. Dense pneumonia right middle lobe, consider aspiration. Much less severe airspace disease remaining right lung. ABDOMEN/PELVIS- 1. Mild proctitis possible. 2. Otherwise no acute abnormality. 3. Additional findings as above. Labs Labs: Laboratory Results - last 24 hr 05/23/25 05/23/25 05/23/25 08:13 12:32 17:02 WBC RBC Hgb Hct MCV MCH MCHC RDW Plt Count MPV Immature Gran % (Auto) Neut % (Auto) Lymph % (Auto) Isabel[place] % (Auto) Eos % (Auto) Baso % (Auto) Lymph # (Auto) Isabel[place] # (Auto) Eos # (Auto) Baso # (Auto) Abs Immat Gran (auto) Absolute Neuts (auto) Absolute Nucleated RBC Total Counted Neutrophils % (Manual) Band Neutrophils % Lymphocytes % (Manual) Monocytes % (Manual) Eosinophils % (Manual) Basophils % (Manual) Nucleated RBC % Abs Neuts (Manual) Abs Lymphs (Manual) Abs Monocytes (Manual) Absolute Eos (Manual) Abs Basophils (Manual) Platelet Estimate Schistocytes Sodium Potassium Chloride Carbon Dioxide Anion Gap BUN Creatinine Estim Creat Clear Calc Estimated GFR Glucose POC Capillary Glucose 125 H 127 H 119 H Calculated Osmolality Calcium Magnesium Total Bilirubin AST ALT Alkaline Phosphatase Total Protein Albumin 05/23/25 05/24/25 20:44 05:27 WBC 5.5 RBC 3.87 L Hgb 10.8 L Hct 34.0 L MCV 87.9 MCH 27.9 MCHC 31.8 L RDW 14.9 H Plt Count 129 L MPV 10.0 Immature Gran % (Auto) Not Reportable Neut % (Auto) Not Reportable Lymph % (Auto) Not Reportable Isabela % (Auto) Not Reportable Eos % (Auto) Not Reportable Baso % (Auto) Not Reportable Lymph # (Auto) Not Reportable Isabela # (Auto) Not Reportable Eos # (Auto) Not Reportable Baso # (Auto) Not Reportable Abs Immat Gran (auto) Not Reportable Absolute Neuts (auto) Not Reportable Absolute Nucleated RBC Not Reportable Total Counted 100 Neutrophils % (Manual) 78 H Band Neutrophils % 0 Lymphocytes % (Manual) 14 L Monocytes % (Manual) 6 Eosinophils % (Manual) 1 Basophils % (Manual) 1 Nucleated RBC % Not Reportable Abs Neuts (Manual) 4.29 Abs Lymphs (Manual) 0.77 L Abs Monocytes (Manual) 0.33 Absolute Eos (Manual) 0.05 Abs Basophils (Manual) 0.05 Platelet Estimate Adequate Schistocytes Not Reportable Sodium 147 H Potassium 2.9 L Chloride 107 Carbon Dioxide 27 Anion Gap 13 H BUN 21 H Creatinine 1.06 H Estim Creat Clear Calc 27 Estimated GFR 49 L Glucose 123 H POC Capillary Glucose 148 H Calculated Osmolality 308 H Calcium 9.1 Magnesium 1.8 Total Bilirubin 0.8 AST 55 H ALT 25 Alkaline Phosphatase 46 Total Protein 6.6 Albumin 3.7 Quality VTE Prophylaxis VTE prophylaxis: pharmacologic ordered
[2025-05-24] MEDS: POTASSIUM CHLORIDE 20 MEQ ER TABLET 40 MEQ PO (08:23)
[2025-05-24] MEDS: KCL 20 MEQ/SW 100 ML 100 ML 50 MEQ IVPB ×2 (08:25→11:01)
[2025-05-24] MEDS: SODIUM CHLORIDE 0.9% IV 1,000 ML 75 ML IV CONT (08:25)
[2025-05-24] MEDS: guaiFENesin 12 HR 600 MG TABCR 1200 MG PO ×2 (09:33→21:42)
[2025-05-24] MEDS: GALANTAMINE HYDROBROMIDE 4 MG TABLET 8 MG PO ×2 (09:35→17:58)
[2025-05-24] MEDS: APIXABAN 2.5 MG TABLET PO ×2 (09:36→21:42)
[2025-05-24] MEDS: dilTIAZem HCL CD 180 MG CAP.24HR PO (09:36)
[2025-05-24] MEDS: LORATADINE 10 MG TABLET PO (09:37)
[2025-05-24] MEDS: LOSARTAN POTASSIUM 50 MG TABLET 100 MG PO (09:37)
[2025-05-24] MEDS: DOXYCYCLINE HYCLATE 100 MG TABLET PO ×2 (09:37→21:42)
[2025-05-24] MEDS: METOPROLOL SUCCINATE EXT REL 25 MG TABCR PO (09:38)
[2025-05-24] MEDS: PANTOPRAZOLE 40 MG TABLET PO ×2 (09:39→21:42)
[2025-05-24] MEDS: SACCHAROMYCES BOULARDII 250 MG CAPSULE PO ×3 (09:39→17:58)
[2025-05-24] MEDS: VITAMIN B COMPLEX CAPSULE 1 CAP PO (09:39)
[2025-05-24] MEDS: ATORVASTATIN 10 MG TABLET PO (09:39)
[2025-05-24] MEDS: FUROSEMIDE INJ 20 MG/2 ML VIAL IV PUSH ×2 (10:16→17:58)
[2025-05-24] MEDS: HYDROcodone/acetaminophen (*CRX) 5-325 MG TABLET 1 TAB PO (21:42)
[2025-05-24] MEDS: prednisoLONE ACETATE 1% OPHTH 5 ML 1 DROP EACH EYE (21:44)
[2025-05-25] VITALS (13 sets, daily range): BP systolic 125–142; BP diastolic 60–78; PULSE 80–100; RESP 16–22; TEMP 36.1–36.4; O2SAT 91–98
[2025-05-25] MEDS: AMPICILLIN SODIUM/SULBACTAM 3 GM in SODIUM CHLORIDE 0.9% IV 100 ML 200 ML IVPB ×4 (00:24→18:09)
[2025-05-25] MEDS: IPRATROPIUM 0.5 MG/ALBUTEROL SULFATE 2.5 MG (BASE) AMPUL.NEB 3 ML INHALATION ×4 (00:24→17:55)
[2025-05-25 05:31] LABS: Hematocrit 33.3 % (35.0-42.0); Hemoglobin 10.4 g/dL (11.7-13.8); Mean Corpuscular HGB Conc 31.2 g/dL (32-36); Mean Corpuscular Hemoglobin 28.0 pg (27.0-31.0); Mean Corpuscular Volume 89.8 fL (78.0-102.0); Platelet Count Result 132 K/mm3 (150-420); Red Blood Count 3.71 M/mm3 (4.20-5.40); White Blood Count 5.0 K/mm3 (4.8-10.8)
[2025-05-25 05:43] LABS: Alanine Aminotransferase 23 U/L (6-35); Albumin Level 3.6 g/dL (3.5-5.1); Alkaline Phosphatase 44 U/L (38-126); Anion Gap 11 mmol/L (4-12); Aspartate Amino Transferase 55 U/L (14-36); Bilirubin,Total 0.7 mg/dL (0.2-1.3); Blood Urea Nitrogen 19 mg/dL (7-17); Calcium 9.2 mg/dL (8.4-10.2); Carbon Dioxide 27 mmol/L (22-30); Chloride 110 mmol/L (98-107); Estimated CRCL calculation 29 ml/min; Estimated Glomerular Filt Rate 52; Glucose 106 mg/dL (65-110); Magnesium 1.8 mg/dL (1.6-2.3); Osmolality Calculated 308 mOsm/kg (285-295); Potassium 3.5 mmol/L (3.4-5.0); Sodium 148 mmol/L (137-145); Total Protein 6.6 g/dL (6.3-8.2)
[2025-05-25 05:50] LABS: Band Neutrophils Percent 0 % (0-6); Eosinophils Absolute Manual 0.10 K/mm3 (0.02-0.50); Eosinophils Percent Manual 2 % (1-6); Lymphocytes Absolute Manual 1.20 K/mm3 (1.1-4.5); Lymphocytes Percent Manual 24 % (18-44); Monocytes Absolute Manual 0.20 K/mm3 (0.1-0.90); Monocytes Percent Manual 4 % (3-9); Neutrophils Absolute Manual 3.50 K/mm3 (1.3-6.7); Neutrophils Percent Manual 70 % (46-73)
[2025-05-25 05:51] LABS: Anisocytosis 2+; Poikilocytosis 1+; Schistocytes None Seen
[2025-05-25] MEDS: BUDESONIDE RESPULE NEB 0.5 MG/2 ML AMP INHALATION ×2 (06:14→17:55)
--- NOTE | 2025-05-25 08:17 | P.PNIM_ITS ---
Progress Note: A&P Assessment and Plan (1) Aspiration pneumonia: Qualifiers: Aspiration pneumonia type: unspecified Laterality: right Lung location: middle lobe of lung Qualified Code(s): J69.0 - Pneumonitis due to inhalation of food and vomit Code(s): J69.0 - Pneumonitis due to inhalation of food and vomit Status: Acute Assessment and Plan: patient with generalized weakness for the last 3 days and poor appetite family unsure patient has coughed or choked on any food at the assisted living facility, chest CT suggestive of aspiration pneumonia. patient was some audible congestion and mild temperature overnight * IV Unasyn/ p.o. doxycycline which will also cover for her proctitis, switch to PO antibiotics on discharge * blood cultures pending * patient with level 6 diet and thickened liquids after speech evaluation * incentive spirometer * bronchodilators q.6 hours * added Pulmicort * added Claritin * Mucinex * acetaminophen and her mild pain and fevers (2) Acute exacerbation of CHF (congestive heart failure): Qualifiers: Heart failure type: unspecified Qualified Code(s): I50.9 - Heart f ailure, unspecified Code(s): I50.9 - Heart failure, unspecified Status: Acute Assessment and Plan: patient with history of diastolic heart failure last echo 10/2019 with EF 50- 55%, elevated BNP and reported bilateral lower extremity edema * IV Lasix 20 mg b.i.d., change to PO Lasix 20 mg daily * Daily weights * resumed metoprolol * heart healthy low-sodium diet * elevate lower extremities when at rest * echocardiogram with normal EF, diastolic dysfunction noted (3) Elevated troponin: Code(s): R79.89 - Other specified abnormal findings of blood chemistry Status: Acute Assessment and Plan: patient with elevated troponins peaked at 0.077 but trending flat patient denied any chest pain or shortness breath EKGs with no ST/ T elevations likely ischemic demand from patient's CHF exacerbation and AFib. family reports they do not want any aggressive interventions or Cardiology evaluation. (4) Hypertension: Code(s): I10 - Essential (primary) hypertension Status: Acute Assessment and Plan: * continued metoprolol * monitor BP per unit protocol (5) Atrial fibrillation: Qualifiers: Atrial fibrillation type: unspecified Qualified Code(s): I48.91 - Unspecified atrial fibrillation Code(s): I48.91 - Unspecified atrial fibrillation Status: Acute Assessment and Plan: * continued metoprolol and Eliquis (6) Proctitis: Code(s): K62.89 - Other specified diseases of anus and rectum Status: Acute Assessment and Plan: CT showed possible mild proctitis patient is denying any rectal bleeding or rectal pain at this time family and patient would like to defer oral antibiotic therapy initially due to patient's history of C diff * will go ahead and treat with oral doxycycline * added a probiotic t.i.d. (7) CVA (cerebral vascular accident): Code(s): I63.9 - Cerebral infarction, unspecified Status: Acute Assessment and Plan: previous CVA in 2021 no known deficits, CT head with no acute abnormalities present on admission mild intermittent confusion family this time does not want any further diagnostic testing except for speech evaluation * continued atorvastatin and Eliquis (8) Diabetes: Code(s): E11.9 - Type 2 diabetes mellitus without complications Status: Acute Assessment and Plan: * A1c 6.2 * holding Tradjenta * Accu-Anastacia ross HS * low-dose SSI * hypoglycemic protocol (9) Hypokalemia: Code(s): E87.6 - Hypokalemia Status: Acute Assessment and Plan: potassium remained low at 2.9 on 05/24 restart tele monitoring increase daily potassium supplement to 40 meq improved today AM labs Plan Code status: DNR/DNI after discussion with family and patient she prefers to be a DNR DNI DVT prophylaxis: Eliquis Stress ulcer prophylaxis: Protonix 40 daily PT/OT notes: PT/OT evaluation pending Disposition: patient continues admission to the medical unit for treatment of hypokalemia, aspiration pneumonia and CHF exacerbation family was at bedside and updated on current treatment plan PT/ OT evaluation but plan is to return back to [facility] and to continue PT OT there. Hospital Bed: The patient requires the head of the bed to be elevated more than 30 degrees most of the time due to congestive heart failure and dysphagia. Due to patient's aspiration risks as a result of dysphagia, patient requires positioning of body in ways not feasible in an ordinary bed such as elevation of head more than 30 degrees most of the time. Head of bed elevation over 30 degrees will alleviate exacerbated aspiration caused by dysphagia. Patient also requires frequent change in body position such as immediate elevation of head of bed from flat po sition to elevation over 30 degrees as a result of aspiration. Pillows and wedges have been unsuccessful in accommodating the desired head of bed elevation therefore a hospital bed will be necessary for treating the effects of dysphagia. The patient also needs side rails for the hospital bed as they are required by the patient's condition and are an integral part of, or an accessory to, the covered Medicare bed. Subjective Date/time seen: 05/25/25 08:17 Interval history: Patient seen for a follow up visit. Patient sitting in chair, in no acute distress. Patient denies acute pain. Patient has dementia and is a poor historian. Patient still has a weak productive sounding cough. Patient is tolerating modified diet with thickened liquids. Repeat CXR ordered for today. Continue IV antibiotics. Patient to be evaluated by PT/OT to determine discharge disposition. Review of Systems Review of Systems: All systems reviewed & are unremarkable except as noted in HPI and below Exam Const: General: comfortable and no acute distress Other: Pleasant elderly female HENMT: Mouth: Yes dry mucous membranes Eyes: General: appearance normal, both eyes and all related structures Sclera: sclerae normal Neck: Neck: supple Resp: Effort & Inspection: normal respiratory effort Auscultation: crackles bilateral, rhonchi and wheezes Other: audible congestion and mild productive cough Cardio: Rate: regular rate Rhythm: abnormal rhythm (AFIB) regularly irregular GI: Auscultation: normal bowel sounds Skin: General skin exam: normal color and no rashes or lesions noted Wounds: no wounds Neuro: Speech: normal speech Sensory Exam: normal sensation Extrem: General: normal to inspection Psych: Affect: normal affect Other: alert and oriented x 1-2, demented Objective Data Vital Signs Vital Signs: Vital Signs - 24 hr 05/24/25 11:13 05/24/25 11:23 05/24/25 12:00 Temperature Pulse Rate 118 H 90 101 H Respiratory Rate 32 H 32 H Blood Pressure Pulse Oximetry 87 L 93 Oxygen Delivery Oxygen Flow Rate 0 1 05/24/25 16:00 05/24/25 16:00 05/24/25 20:00 Temperature 98.3 F Pulse Rate 88 88 97 Respiratory Rate 20 Blood Pressure 150/80 H Pulse Oximetry 94 Oxygen Delivery Nasal Cannula Oxygen Flow Rate 2 05/24/25 21:15 05/24/25 21:50 05/24/25 23:28 Temperature 97.6 F Pulse Rate 99 Respiratory Rate 19 Blood Pressure 148/72 H Pulse Oximetry 92 91 91 Oxygen Delivery Nasal Cannula Room Air Room Air Oxygen Flow Rate 1 05/25/25 00:00 05/25/25 00:24 05/25/25 04:00 Temperature Pulse Rate 92 92 Respiratory Rate Blood Pressure Pulse Oximetry 91 Oxygen Delivery Oxygen Flow Rate 0 05/25/25 06:16 05/25/25 06:31 Temperature Pulse Rate 88 92 Respiratory Rate 22 H 22 H Blood Pressure Pulse Oximetry 94 95 Oxygen Delivery Oxygen Flow Rate Intake/Output Intake/Output: Intake & Output 05/22/25 05/23/25 05/24/25 05/25/25 23:59 23:59 23:59 23:59 Intake Total 700.8 1020 1963.3 440 Output Total 250 1150 1 Balance 450.8 -130 1962.3 440 Meds/Results Medications: Active Medications Generic Name Dose Route Start Last Admin Trade Name Freq PRN Reason Stop Dose Admin Acetaminophen 650 mg 05/21/25 17:58 Acetaminophen 325 Mg Tablet PO Q4H PRN Mild Pain (1-3) or Fever Acetaminophen 650 mg 05/22/25 02:08 05/22/25 02:18 Acetaminophen 650 Mg Suppository RECTAL 650 mg Q6H PRN Administration Mild Pain (1-3) or Fever Hydrocodone Bitart/Acetaminophen 1 tab 05/21/25 17:58 05/24/25 21:42 Hydrocodone/Acetaminophen (*Crx) 5-325 Mg Tablet PO 1 tab Q4H PRN Administration Moderate Pain (4-6) Albuterol/Ipratropium 3 ml 05/23/25 12:30 05/25/25 06:14 Ipratropium 0.5 Mg/Albuterol Sulfate 2.5 Mg (Base) Ampul.Neb 3 Ml INHALATION 3 ml Q6HRT CLEMENTE Administration Apixaban 2.5 mg 05/21/25 21:00 05/24/25 21:42 Apixaban 2.5 Mg Tablet PO 2.5 mg Q12HR CLEMENTE Administration Atorvastatin Calcium 10 mg 05/22/25 09:00 05/24/25 09:39 Atorvastatin 10 Mg Tablet PO 10 mg DAILY CLEMENTE Administration Budesonide 0.5 mg 05/23/25 18:30 05/25/25 06:14 Budesonide Respule Neb 0.5 Mg/2 Ml Amp INHALATION 0.5 mg Q12HRT CLEMENTE Administration Buspirone HCl 10 mg 05/21/25 18:15 05/24/25 17:58 Buspirone Hcl 10 Mg Tablet PO 10 mg BID CLEMENTE Administration Calcitriol 0.5 mcg 05/22/25 09:00 05/24/25 09:47 Calcitriol 0.25 Mcg Capsule PO 0.5 mcg DAILY CLEMENTE Administration Dextrose 12.5 gm 05/21/25 18:06 Dextrose 50% 25 Gm/50 Ml Syringe IV PUSH PRN PRN Hypoglycemia Protocol Diltiazem HCl 180 mg 05/22/25 09:00 05/24/25 09:36 Diltiazem Hcl Cd 180 Mg Cap.24hr PO 180 mg DAILY CLEMENTE Administration Doxycycline Hyclate 100 mg 05/23/25 21:00 05/24/25 21:42 Doxycycline Hyclate 100 Mg Tablet PO 100 mg Q12HR CLEMENTE Administration Furosemide 20 mg 05/23/25 11:45 05/24/25 17:58 Furosemide Inj 20 Mg/2 Ml Vial IV PUSH 20 mg BID CLEMENTE Administration Galantamine Hydrobromide 8 mg 05/21/25 18:20 05/24/25 17:58 Galantamine Hydrobromide 4 Mg Tablet PO 8 mg BID CLEMENTE Administration Glucagon 1 mg 05/21/25 18:06 Glucagon For Inj 1 Mg Vial IM PRN PRN Hypoglycemia Protocol Glucose 15 gm 05/21/25 18:06 Glucose Oral Gel 15 Gm Of Glucse In 37.5 Gm Tube PO PRN PRN Hypoglycemia Protocol Guaifenesin 400 mg 05/25/25 09:00 Guaifenesin 200 Mg/10 Ml Udc PO Q4H CLEMENTE Ampicillin Sodium/Sulbactam 100 mls @ 200 mls/hr 05/21/25 19:00 05/25/25 06:33 Sodium 3 gm/ Sodium Chloride IVPB Infused Q6H CLEMENTE Infusion Dextrose 1,000 mls @ 100 mls/hr 05/21/25 18:06 Dextrose 5% 1,000 Ml IVPB PRN PRN Hypoglycemia Protocol Insulin Human Lispro 2 - 5 units 05/22/25 08:00 05/24/25 17:17 Insulin Human Lispro (*Bkc) 1,000 Units/10 Ml Vial SUB-Q Not Given TIDWM CLEMENTE Protocol Loratadine 10 mg 05/23/25 11:45 05/24/25 09:37 Loratadine 10 Mg Tablet PO 10 mg QAM CLEMENTE Administration Losartan Potassium 100 mg 05/22/25 09:00 05/24/25 09:37 Losartan Potassium 50 Mg Tablet PO 100 mg DAILY CLEMENTE Administration Metoprolol Succinate 25 mg 05/22/25 09:00 05/24/25 09:38 Metoprolol Succinate Ext Rel 25 Mg Tabcr PO 25 mg QAM CLEMENTE Administration Ondansetron HCl 4 mg 05/21/25 17:58 Ondansetron Inj 4 Mg/2 Ml Vial IV PUSH Q6H PRN Nausea And Vomiting Pantoprazole Sodium 40 mg 05/21/25 21:00 05/24/25 21:42 Pantoprazole 40 Mg Tablet PO 40 mg Q12H CLEMENTE Administration Perflutren Lipid Microsphere 0 ml 05/22/25 09:03 Perflutren Lipid Microspheres 1.5 Ml Vial Diluted To 10 Ml Total Volume IV PUSH 05/25/25 09:03 ONCE PRN adequate visualization Protocol Potassium Chloride 40 meq 05/25/25 09:00 Potassium Chloride 20 Meq Packet (For Liquid) PO DAILY CLEMENTE Prednisolone Acetate 1 drop 05/21/25 21:00 05/24/25 21:44 Prednisolone Acetate 1% Ophth 5 Ml EACH EYE 1 drop HS CLEMENTE Administration Saccharomyces Boulardii 250 mg 05/23/25 13:00 05/24/25 17:58 Saccharomyces Boulardii 250 Mg Capsule PO 250 mg TID CLEMENTE Administration Vitamin B Complex 1 cap 05/22/25 09:00 05/24/25 09:39 Vitamin B Complex Capsule PO 1 cap DAILY CLEMENTE Administration Radiology Results: ITS Impressions Head CT 05/21/25 12:24 IMPRESSION: 1. No acute intracranial findings. Chest/Abdomen/Pelvis CT 05/21/25 12:30 IMPRESSION: CHEST- 1. Dense pneumonia right middle lobe, consider aspiration. Much less severe airspace disease remaining right lung. ABDOMEN/PELVIS- 1. Mild proctitis possible. 2. Otherwise no acute abnormality. 3. Additional findings as above. Labs Labs: Laboratory Results - last 24 hr 05/24/25 05/24/25 05/24/25 12:17 17:17 22:11 WBC RBC Hgb Hct MCV MCH MCHC RDW Plt Count MPV Immature Gran % (Auto) Neut % (Auto) Lymph % (Auto) [place] % (Auto) Eos % (Auto) Baso % (Auto) Lymph # (Auto) [place] # (Auto) Eos # (Auto) Baso # (Auto) Abs Immat Gran (auto) Absolute Neuts (auto) Absolute Nucleated RBC Neutrophils % (Manual) Band Neutrophils % Lymphocytes % (Manual) Monocytes % (Manual) Eosinophils % (Manual) Nucleated RBC % Abs Neuts (Manual) Abs Lymphs (Manual) Abs Monocytes (Manual) Absolute Eos (Manual) Platelet Estimate Poikilocytosis Anisocytosis Schistocytes Sodium Potassium Chloride Carbon Dioxide Anion Gap BUN Creatinine Estim Creat Clear Calc Estimated GFR Glucose POC Capillary Glucose 126 H 144 H 199 H Calculated Osmolality Calcium Magnesium Total Bilirubin AST ALT Alkaline Phosphatase Total Protein Albumin 05/25/25 05/25/25 05:13 07:27 WBC 5.0 RBC 3.71 L Hgb 10.4 L Hct 33.3 L MCV 89.8 MCH 28.0 MCHC 31.2 L RDW 15.2 H Plt Count 132 L MPV 10.6 Immature Gran % (Auto) Not Reportable Neut % (Auto) Not Reportable Lymph % (Auto) Not Reportable [place] % (Auto) Not Reportable Eos % (Auto) Not Reportable Baso % (Auto) Not Reportable Lymph # (Auto) Not Reportable [place] # (Auto) Not Reportable Eos # (Auto) Not Reportable Baso # (Auto) Not Reportable Abs Immat Gran (auto) Not Reportable Absolute Neuts (auto) Not Reportable Absolute Nucleated RBC Not Reportable Neutrophils % (Manual) 70 Band Neutrophils % 0 Lymphocytes % (Manual) 24 Monocytes % (Manual) 4 Eosinophils % (Manual) 2 Nucleated RBC % Not Reportable Abs Neuts (Manual) 3.50 Abs Lymphs (Manual) 1.20 Abs Monocytes (Manual) 0.20 Absolute Eos (Manual) 0.10 Platelet Estimate Slightly decreased Poikilocytosis 1+ Anisocytosis 2+ Schistocytes None seen Sodium 148 H Potassium 3.5 Chloride 110 H Carbon Dioxide 27 Anion Gap 11 BUN 19 H Creatinine 1.01 H Estim Creat Clear Calc 29 Estimated GFR 52 L Glucose 106 POC Capillary Glucose 163 H Calculated Osmolality 308 H Calcium 9.2 Magnesium 1.8 Total Bilirubin 0.7 AST 55 H ALT 23 Alkaline Phosphatase 44 Total Protein 6.6 Albumin 3.6 Quality VTE Prophylaxis VTE prophylaxis: pharmacologic ordered
[2025-05-25] MEDS: FUROSEMIDE INJ 20 MG/2 ML VIAL IV PUSH ×2 (10:02→17:26)
[2025-05-25] MEDS: LORATADINE 10 MG TABLET PO (10:02)
[2025-05-25] MEDS: SACCHAROMYCES BOULARDII 250 MG CAPSULE PO (10:02)
[2025-05-25] MEDS: dilTIAZem HCL CD 180 MG CAP.24HR PO (10:05)
[2025-05-25] MEDS: METOPROLOL SUCCINATE EXT REL 25 MG TABCR PO (10:05)
[2025-05-25] MEDS: LOSARTAN POTASSIUM 50 MG TABLET 100 MG PO (10:06)
[2025-05-25] MEDS: ATORVASTATIN 10 MG TABLET PO (10:06)
[2025-05-25] MEDS: APIXABAN 2.5 MG TABLET PO ×2 (10:06→20:20)
[2025-05-25] MEDS: PANTOPRAZOLE 40 MG TABLET PO ×2 (10:07→20:20)
[2025-05-25] MEDS: GALANTAMINE HYDROBROMIDE 4 MG TABLET 8 MG PO ×2 (10:07→17:22)
[2025-05-25] MEDS: DOXYCYCLINE HYCLATE 100 MG TABLET PO ×2 (10:08→20:20)
[2025-05-25] MEDS: POTASSIUM CHLORIDE 20 MEQ PACKET (FOR LIQUID) 40 MEQ PO (10:08)
[2025-05-25] MEDS: VITAMIN B COMPLEX CAPSULE 1 CAP PO (10:09)
--- NOTE | 2025-05-25 10:43 | PC.NURSE ---
Addendum entered by Blanca Bettencourt RN 05/25/25 10:59: Daughter at bedside and knows her mother did not take meds appropriately. She did inform that at the [facility] there was a struggle with patient taking meds as well. Original Note: Med attempted one by one, patent did not want to take them by did chew some of the up, attempted who pills in applesauce, patient would eat applesauce from pill then spit pill out. Attempted to crush pills, she did take small bites but would not finish all pills. She refused some of her liquid potassium and Mucinex
--- NOTE | 2025-05-25 14:19 | PC.NURSE ---
Today at 1300 patient refuses all oral medications.
[2025-05-25] MEDS: ONDANSETRON INJ 4 MG/2 ML VIAL IV PUSH (20:19)
[2025-05-25] MEDS: HYDROcodone/acetaminophen (*CRX) 5-325 MG TABLET 1 TAB PO (20:20)
[2025-05-26] VITALS (12 sets, daily range): BP systolic 129–150; BP diastolic 62–72; PULSE 68–80; RESP 16–20; TEMP 36.6–37.4; O2SAT 93–100
[2025-05-26] MEDS: IPRATROPIUM 0.5 MG/ALBUTEROL SULFATE 2.5 MG (BASE) AMPUL.NEB 3 ML INHALATION ×4 (00:25→16:54)
--- NOTE | 2025-05-26 00:30 | PC.NURSE ---
Pt given a nebulizer treatment which she tolerated well.
[2025-05-26] MEDS: AMPICILLIN SODIUM/SULBACTAM 3 GM in SODIUM CHLORIDE 0.9% IV 100 ML 200 ML IVPB ×2 (00:46→06:57)
--- NOTE | 2025-05-26 00:55 | PC.NURSE ---
IV antibiotic infusing as ordered and pt given Guaifenesin 400 mg PO as ordered.
[2025-05-26 05:52] LABS: Hematocrit 34.7 % (35.0-42.0); Hemoglobin 10.7 g/dL (11.7-13.8); Mean Corpuscular HGB Conc 30.8 g/dL (32-36); Mean Corpuscular Hemoglobin 27.6 pg (27.0-31.0); Mean Corpuscular Volume 89.4 fL (78.0-102.0); Platelet Count Result 136 K/mm3 (150-420); Red Blood Count 3.88 M/mm3 (4.20-5.40); White Blood Count 4.6 K/mm3 (4.8-10.8)
[2025-05-26 06:07] LABS: Band Neutrophils Percent 0 % (0-6); Eosinophils Absolute Manual 0.27 K/mm3 (0.02-0.50); Eosinophils Percent Manual 6 % (1-6); Lymphocytes Absolute Manual 1.10 K/mm3 (1.1-4.5); Lymphocytes Percent Manual 24 % (18-44); Monocytes Absolute Manual 0.13 K/mm3 (0.1-0.90); Monocytes Percent Manual 3 % (3-9); Myelocytes Percent 1 %; Neutrophils Absolute Manual 3.03 K/mm3 (1.3-6.7); Neutrophils Percent Manual 66 % (46-73); Total Cells Counted 100
[2025-05-26 06:08] LABS: Albumin Level 4.1 g/dL (3.5-5.1); Alkaline Phosphatase 46 U/L (38-126); Bilirubin,Total 0.7 mg/dL (0.2-1.3); Blood Urea Nitrogen 16 mg/dL (7-17); Carbon Dioxide 30 mmol/L (22-30); Estimated CRCL calculation 24 ml/min; Estimated Glomerular Filt Rate 41; Potassium 3.6 mmol/L (3.4-5.0); Sodium 147 mmol/L (137-145); Total Protein 7.3 g/dL (6.3-8.2)
[2025-05-26 06:09] LABS: Alanine Aminotransferase 29 U/L (6-35); Anion Gap 11 mmol/L (4-12); Aspartate Amino Transferase 56 U/L (14-36); Calcium 9.2 mg/dL (8.4-10.2); Chloride 106 mmol/L (98-107); Glucose 114 mg/dL (65-110); Magnesium 1.7 mg/dL (1.6-2.3); Osmolality Calculated 306 mOsm/kg (285-295)
[2025-05-26] MEDS: BUDESONIDE RESPULE NEB 0.5 MG/2 ML AMP INHALATION ×2 (06:47→16:54)
--- NOTE | 2025-05-26 08:00 | P.PNIM_ITS ---
Progress Note: A&P Assessment and Plan (1) Aspiration pneumonia: Qualifiers: Aspiration pneumonia type: unspecified Laterality: right Lung location: middle lobe of lung Qualified Code(s): J69.0 - Pneumonitis due to inhalation of food and vomit Code(s): J69.0 - Pneumonitis due to inhalation of food and vomit Status: Acute Assessment and Plan: patient with generalized weakness for the last 3 days and poor appetite family unsure patient has coughed or choked on any food at the assisted living facility, chest CT suggestive of aspiration pneumonia. patient was some audible congestion and mild temperature overnight * IV Unasyn/ p.o. doxycycline which will also cover for her proctitis, switch to PO antibiotics on discharge * blood cultures pending * patient with level 6 diet and thickened liquids after speech evaluation * incentive spirometer * bronchodilators q.6 hours * added Pulmicort * added Claritin * Mucinex * acetaminophen and her mild pain and fevers * patient is continuing to aspirate, family not interested in transfer for a modified barium swallow study, goals of care discussion held with multiple family members and decision was made to change patient to comfort measures with regular diet and thin liquids, comfort medications with morphine and lorazepam, hospice consulted and will sign patient onto their service on Thursday * continue PO doxycycline and PO Augmentin x 4 more days if patient is able to swallow pills (2) Acute exacerbation of CHF (congestive heart failure): Qualifiers: Heart failure type: unspecified Qualified Code(s): I50.9 - Heart failure, unspecified Code(s): I50.9 - Heart failure, unspecified Status: Acute Assessment and Plan: patient with history of diastolic heart failure last echo 10/2019 with EF 50- 55%, elevated BNP and reported bilateral lower extremity edema * IV Lasix 20 mg b.i.d., change to PO Lasix 20 mg daily * Daily weights * d/cmetoprolol * elevate lower extremities when at rest * echocardiogram with normal EF, diastolic dysfunction noted * continue PO furosemide as long as patient is able to take pills for comfort (3) Elevated troponin: Code(s): R79.89 - Other specified abnormal findings of blood chemistry Status: Acute Assessment and Plan: patient with elevated troponins peaked at 0.077 but trending flat patient denied any chest pain or shortness breath EKGs with no ST/ T elevations likely ischemic demand from patient's CHF exacerbation and AFib. family reports they do not want any aggressive interventions or Cardiology evaluation. (4) Hypertension: Code(s): I10 - Essential (primary) hypertension Status: Acute Assessment and Plan: * d/c metoprolol * monitor BP per unit protocol * comfort measures (5) Atrial fibrillation: Qualifiers: Atrial fibrillation type: unspecified Qualified Code(s): I48.91 - Unspecified atrial fibrillation Code(s): I48.91 - Unspecified atrial fibrillation Status: Acute Assessment and Plan: * d/c metoprolol and Eliquis * comfort measures (6) Proctitis: Code(s): K62.89 - Other specified diseases of anus and rectum Status: Acute Assessment and Plan: CT showed possible mild proctitis patient is denying any rectal bleeding or rectal pain at this time family and patient would like to defer oral antibiotic therapy initially due to patient's history of C diff * will go ahead and treat with oral doxycycline * added a probiotic t.i.d., stopped as patient is now comfort measures (7) CVA (cerebral vascular accident): Code(s): I63.9 - Cerebral infarction, unspecified Status: Acute Assessment and Plan: previous CVA in 2021 no known deficits, CT head with no acute abnormalities present on admission mild intermittent confusion family this time does not want any further diagnostic testing except for speech evaluation * d/c atorvastatin and Eliquis * patient is now comfort measures only (8) Diabetes: Code(s): E11.9 - Type 2 diabetes mellitus without complications Status: Acute Assessment and Plan: * A1c 6.2 * holding Tradgina * comfort measures (9) Hypokalemia: Code(s): E87.6 - Hypokalemia Status: Acute Assessment and Plan: s/p replacement patient now comfort measures no further monitoring Plan Code status: DNR/DNI, comfort measures only Subjective Date/time seen: 05/26/25 08:00 Interval history: Patient seen for a follow up visit. Patient sitting up in chair, in no acute distress. Patient's x-ray showed bilateral pneumonia, unchanged from prior. Patient switched to oral antibiotics x 4 more days to complete treatment. Family meeting to discuss goals of care and treatment plan. Patient is not improving as it appears she is till aspirating, however patient and family do not want transfer for MBS test. Discussed with family that patient is not going to improve and is high risk for rehospitalization once discharged due to continued aspiration. Discussed transitioning to hospice and comfort measures. Patient is having difficulty taking oral medications and has had progressive difficulty over the last few months per daughter. Hospice met with family and is unable to sign patient on their service until Thursday. Patient is from an assisted living facility who will not be able to provide the level of medical care she would require if she were to discharge today. Family opted to change patient to comfort measures and will sign onto hospice on Thursday. Patient will discharge to a family members home. All medications stopped except oral antibiotics. Comfort medications ordered, morphine and lorazepam. Patient changed to a regular diet with regular liquids at the family request. Oxygen by [place] for comfort as needed. Scopolamine patch and Levsin ordered for secretion management. Review of Systems Review of Systems: All systems reviewed & are unremarkable except as noted in HPI and below Exam Const: General: comfortable and no acute distress Other: Pleasant elderly female HENMT: Mouth: Yes dry mucous membranes Eyes: General: appearance normal, both eyes and all related structures Sclera: sclerae normal Neck: Neck: supple Resp: Effort & Inspection: normal respiratory effort Auscultation: crackles bilateral, rhonchi and wheezes Other: audible congestion and mild productive cough Cardio: Rate: regular rate Rhythm: abnormal rhythm (AFIB) regularly irregular GI: Auscultation: normal bowel sounds Skin: General skin exam: normal color and no rashes or lesions noted Wounds: no wounds Neuro: Speech: normal speech Sensory Exam: normal sensation Extrem: General: normal to inspection Psych: Affect: normal affect Other: alert and oriented x 1-2, demented Objective Data Vital Signs Vital Signs: Vital Signs - 24 hr 05/25/25 10:05 05/25/25 11:42 05/25/25 11:54 Temperature Pulse Rate 80 90 91 Respiratory Rate 20 20 Blood Pressure Pulse Oximetry 98 98 Oxygen Delivery 05/25/25 12:00 05/25/25 16:00 05/25/25 16:00 Temperature 97.0 F L Pulse Rate 90 89 89 Respiratory Rate 18 Blood Pressure 142/78 H Pulse Oximetry 97 Oxygen Delivery Room Air 05/25/25 19:38 05/25/25 19:38 05/26/25 00:00 Temperature Pulse Rate 92 80 Respiratory Rate Blood Pressure Pulse Oximetry Oxygen Delivery Room Air 05/26/25 00:00 05/26/25 00:25 05/26/25 01:05 Temperature 97.8 F Pulse Rate 80 80 80 Respiratory Rate 20 20 20 Blood Pressure 129/62 Pulse Oximetry 93 93 98 Oxygen Delivery Room Air 05/26/25 04:00 05/26/25 06:45 05/26/25 07:02 Temperature Pulse Rate 72 74 78 Respiratory Rate 16 18 Blood Pressure Pulse Oximetry 94 Oxygen Delivery Intake/Output Intake/Output: Intake & Output 05/23/25 05/24/25 05/25/25 05/26/25 23:59 23:59 23:59 23:59 Intake Total 1020 1963.3 1760 150 Output Total 1150 1 Balance -130 1962.3 1760 150 Meds/Results Medications: Active Medications Generic Name Dose Route Start Last Admin Trade Name Freq PRN Reason Stop Dose Admin Acetaminophen 650 mg 05/21/25 17:58 Acetaminophen 325 Mg Tablet PO Q4H PRN Mild Pain (1-3) or Fever Acetaminophen 650 mg 05/22/25 02:08 05/22/25 02:18 Acetaminophen 650 Mg Suppository RECTAL 650 mg Q6H PRN Administration Mild Pain (1-3) or Fever Hydrocodone Bitart/Acetaminophen 1 tab 05/21/25 17:58 05/25/25 20:20 Hydrocodone/Acetaminophen (*Crx) 5-325 Mg Tablet PO 1 tab Q4H PRN Administration Moderate Pain (4-6) Albuterol/Ipratropium 3 ml 05/23/25 12:30 05/26/25 06:47 Ipratropium 0.5 Mg/Albuterol Sulfate 2.5 Mg (Base) Ampul.Neb 3 Ml INHALATION 3 ml Q6HRT CLEMENTE Administration Apixaban 2.5 mg 05/21/25 21:00 05/25/25 20:20 Apixaban 2.5 Mg Tablet PO 2.5 mg Q12HR CLEMENTE Administration Atorvastatin Calcium 10 mg 05/22/25 09:00 05/25/25 10:06 Atorvastatin 10 Mg Tablet PO 10 mg DAILY CLEMENTE Administration Budesonide 0.5 mg 05/23/25 18:30 05/26/25 06:47 Budesonide Respule Neb 0.5 Mg/2 Ml Amp INHALATION 0.5 mg Q12HRT CLEMENTE Administration Buspirone HCl 10 mg 05/21/25 18:15 05/25/25 17:22 Buspirone Hcl 10 Mg Tablet PO 10 mg BID CLEMENTE Administration Calcitriol 0.5 mcg 05/22/25 09:00 05/25/25 10:04 Calcitriol 0.25 Mcg Capsule PO 0.5 mcg DAILY CLEMENTE Administration Dextrose 12.5 gm 05/21/25 18:06 Dextrose 50% 25 Gm/50 Ml Syringe IV PUSH PRN PRN Hypoglycemia Protocol Diltiazem HCl 180 mg 05/22/25 09:00 05/25/25 10:05 Diltiazem Hcl Cd 180 Mg Cap.24hr PO 180 mg DAILY CLEMENTE Administration Doxycycline Hyclate 100 mg 05/23/25 21:00 05/25/25 20:20 Doxycycline Hyclate 100 Mg Tablet PO 100 mg Q12HR CLEMENTE Administration Furosemide 20 mg 05/23/25 11:45 05/25/25 17:26 Furosemide Inj 20 Mg/2 Ml Vial IV PUSH 20 mg BID CLEMENTE Administration Galantamine Hydrobromide 8 mg 05/21/25 18:20 05/25/25 17:22 Galantamine Hydrobromide 4 Mg Tablet PO 8 mg BID CLEMENTE Administration Glucagon 1 mg 05/21/25 18:06 Glucagon For Inj 1 Mg Vial IM PRN PRN Hypoglycemia Protocol Glucose 15 gm 05/21/25 18:06 Glucose Oral Gel 15 Gm Of Glucse In 37.5 Gm Tube PO PRN PRN Hypoglycemia Protocol Guaifenesin 400 mg 05/25/25 09:00 05/26/25 05:11 Guaifenesin 200 Mg/10 Ml Udc PO 400 mg Q4H CLEMENTE Administration Ampicillin Sodium/Sulbactam 100 mls @ 200 mls/hr 05/21/25 19:00 05/26/25 06:57 Sodium 3 gm/ Sodium Chloride IVPB 200 mls/hr Q6H CLEMENTE Administration Dextrose 1,000 mls @ 100 mls/hr 05/21/25 18:06 Dextrose 5% 1,000 Ml IVPB PRN PRN Hypoglycemia Protocol Insulin Human Lispro 2 - 5 units 05/22/25 08:00 05/25/25 17:26 Insulin Human Lispro (*Bkc) 1,000 Units/10 Ml Vial SUB-Q Not Given TIDWM CLEMENTE Protocol Loratadine 10 mg 05/23/25 11:45 05/25/25 10:02 Loratadine 10 Mg Tablet PO 10 mg QAM CLEMENTE Administration Losartan Potassium 100 mg 05/22/25 09:00 05/25/25 10:06 Losartan Potassium 50 Mg Tablet PO 100 mg DAILY CLEMENTE Administration Metoprolol Succinate 25 mg 05/22/25 09:00 05/25/25 10:05 Metoprolol Succinate Ext Rel 25 Mg Tabcr PO 25 mg QAM CLEMENTE Administration Ondansetron HCl 4 mg 05/21/25 17:58 05/25/25 20:19 Ondansetron Inj 4 Mg/2 Ml Vial IV PUSH 4 mg Q6H PRN Administration Nausea And Vomiting Pantoprazole Sodium 40 mg 05/21/25 21:00 05/25/25 20:20 Pantoprazole 40 Mg Tablet PO 40 mg Q12H CLEMENTE Administration Potassium Chloride 40 meq 05/25/25 09:00 05/25/25 10:08 Potassium Chloride 20 Meq Packet (For Liquid) PO 40 meq DAILY CLEMENTE Administration Prednisolone Acetate 1 drop 05/21/25 21:00 05/25/25 20:35 Prednisolone Acetate 1% Ophth 5 Ml EACH EYE Not Given HS CLEMENTE Saccharomyces Boulardii 250 mg 05/23/25 13:00 05/25/25 17:25 Saccharomyces Boulardii 250 Mg Capsule PO Not Given TID CLEMENTE Vitamin B Complex 1 cap 05/22/25 09:00 05/25/25 10:09 Vitamin B Complex Capsule PO 1 cap DAILY CLEMENTE Administration Radiology Results: ITS Impressions Head CT 05/21/25 12:24 IMPRESSION: 1. No acute intracranial findings. Chest/Abdomen/Pelvis CT 05/21/25 12:30 IMPRESSION: CHEST- 1. Dense pneumonia right middle lobe, consider aspiration. Much less severe airspace disease remaining right lung. ABDOMEN/PELVIS- 1. Mild proctitis possible. 2. Otherwise no acute abnormality. 3. Additional findings as above. Chest X-Ray 05/25/25 08:31 Impression: Bilateral pneumonia. Accounting for differences in technique findings appear relatively unchanged compared to the previous CT. Labs Labs: Laboratory Results - last 24 hr 05/25/25 05/25/25 05/25/25 11:48 15:39 20:19 WBC RBC Hgb Hct MCV MCH MCHC RDW Plt Count MPV Immature Gran % (Auto) Neut % (Auto) Lymph % (Auto) [place] % (Auto) Eos % (Auto) Baso % (Auto) Lymph # (Auto) [place] # (Auto) Eos # (Auto) Baso # (Auto) Abs Immat Gran (auto) Absolute Neuts (auto) Absolute Nucleated RBC Total Counted Neutrophils % (Manual) Band Neutrophils % Lymphocytes % (Manual) Monocytes % (Manual) Eosinophils % (Manual) Myelocytes % Nucleated RBC % Abs Neuts (Manual) Abs Lymphs (Manual) Abs Monocytes (Manual) Absolute Eos (Manual) Platelet Estimate Schistocytes Sodium Potassium Chloride Carbon Dioxide Anion Gap BUN Creatinine Estim Creat Clear Calc Estimated GFR Glucose POC Capillary Glucose 125 H 160 H 142 H Calculated Osmolality Calcium Magnesium Total Bilirubin AST ALT Alkaline Phosphatase Total Protein Albumin 05/26/25 05/26/25 05:47 07:40 WBC 4.6 L RBC 3.88 L Hgb 10.7 L Hct 34.7 L MCV 89.4 MCH 27.6 MCHC 30.8 L RDW 15.2 H Plt Count 136 L MPV 9.5 Immature Gran % (Auto) Not Reportable Neut % (Auto) Not Reportable Lymph % (Auto) Not Reportable [place] % (Auto) Not Reportable Eos % (Auto) Not Reportable Baso % (Auto) Not Reportable Lymph # (Auto) Not Reportable [place] # (Auto) Not Reportable Eos # (Auto) Not Reportable Baso # (Auto) Not Reportable Abs Immat Gran (auto) Not Reportable Absolute Neuts (auto) Not Reportable Absolute Nucleated RBC Not Reportable Total Counted 100 Neutrophils % (Manual) 66 Band Neutrophils % 0 Lymphocytes % (Manual) 24 Monocytes % (Manual) 3 Eosinophils % (Manual) 6 Myelocytes % 1 Nucleated RBC % Not Reportable Abs Neuts (Manual) 3.03 Abs Lymphs (Manual) 1.10 Abs Monocytes (Manual) 0.13 Absolute Eos (Manual) 0.27 Platelet Estimate Adequate Schistocytes Not Reportable Sodium 147 H Potassium 3.6 Chloride 106 Carbon Dioxide 30 Anion Gap 11 BUN 16 Creatinine 1.23 H Estim Creat Clear Calc 24 Estimated GFR 41 L Glucose 114 H POC Capillary Glucose 123 H Calculated Osmolality 306 H Calcium 9.2 Magnesium 1.7 Total Bilirubin 0.7 AST 56 H ALT 29 Alkaline Phosphatase 46 Total Protein 7.3 Albumin 4.1 Quality VTE Prophylaxis VTE prophylaxis: pharmacologic ordered
[2025-05-26] MEDS: METOPROLOL SUCCINATE EXT REL 25 MG TABCR PO (08:50)
[2025-05-26] MEDS: LOSARTAN POTASSIUM 50 MG TABLET 100 MG PO (08:50)
[2025-05-26] MEDS: APIXABAN 2.5 MG TABLET PO (08:51)
[2025-05-26] MEDS: dilTIAZem HCL CD 180 MG CAP.24HR PO (08:58)
[2025-05-26] MEDS: FUROSEMIDE 20 MG TABLET PO (08:58)
[2025-05-26] MEDS: PANTOPRAZOLE 40 MG TABLET PO (08:58)
[2025-05-26] MEDS: ATORVASTATIN 10 MG TABLET PO (09:07)
[2025-05-26] MEDS: DOXYCYCLINE HYCLATE 100 MG TABLET PO (09:07)
[2025-05-26] MEDS: LORATADINE 10 MG TABLET PO (09:07)
[2025-05-26] MEDS: GALANTAMINE HYDROBROMIDE 4 MG TABLET 8 MG PO (09:10)
[2025-05-26] MEDS: VITAMIN B COMPLEX CAPSULE 1 CAP PO (09:11)
[2025-05-26] MEDS: SACCHAROMYCES BOULARDII 250 MG CAPSULE PO (09:12)
[2025-05-26] MEDS: SCOPOLAMINE 1 MG PATCH 1 PATCH TRANSDERM (14:41)
--- NOTE | 2025-05-26 15:07 | PC.NURSE ---
Today at approximately 1350 patient went to comfort measures related to current diagnoses.
[2025-05-26] MEDS: LORazepam (*CRX) 2 MG/ML ORAL CONCENTRATE 1 ML SYRINGE 0.5 MG SUBLINGUAL (20:52)
[2025-05-26] MEDS: MORPHINE SULFATE ORAL CONC SOL (*CRX) 10 MG/0.5 ML SYRINGE 5 MG PO (22:00)
[2025-05-27] VITALS (9 sets, daily range): BP systolic 145–158; BP diastolic 64–82; PULSE 76–88; RESP 16–20; TEMP 36.1–36.9; O2SAT 86–99
[2025-05-27] MEDS: IPRATROPIUM 0.5 MG/ALBUTEROL SULFATE 2.5 MG (BASE) AMPUL.NEB 3 ML INHALATION ×4 (00:19→19:09)
[2025-05-27] MEDS: BUDESONIDE RESPULE NEB 0.5 MG/2 ML AMP INHALATION ×2 (05:47→19:10)
[2025-05-27] MEDS: FUROSEMIDE 20 MG TABLET PO (09:44)
[2025-05-27] MEDS: DOXYCYCLINE HYCLATE 100 MG TABLET PO ×2 (09:45→20:46)
--- NOTE | 2025-05-27 11:29 | P.PNIM_ITS ---
Progress Note: A&P Assessment and Plan (1) Aspiration pneumonia: Qualifiers: Aspiration pneumonia type: unspecified Laterality: right Lung location: middle lobe of lung Qualified Code(s): J69.0 - Pneumonitis due to inhalation of food and vomit Code(s): J69.0 - Pneumonitis due to inhalation of food and vomit Status: Acute Assessment and Plan: patient with generalized weakness for the last 3 days and poor appetite family unsure patient has coughed or choked on any food at the assisted living facility, chest CT suggestive of aspiration pneumonia. patient was some audible congestion and mild temperature overnight * IV Unasyn/ p.o. doxycycline which will also cover for her proctitis * blood cultures pending * patient with level 6 diet and thickened liquids after speech evaluation * incentive spirometer * bronchodilators q.6 hours * continue Pulmicort * Mucinex liquid PRN * acetaminophen and her mild pain and fevers * patient is continuing to aspirate, family not interested in transfer for a modified barium swallow study, goals of care discussion held with multiple family members and decision was made to change patient to comfort measures with regular diet and thin liquids, comfort medications with morphine and lorazepam, hospice consulted and will sign patient onto their service on Thursday * continue PO doxycycline and PO Augmentin x 4 more days if patient is able to swallow pills (2) Acute exacerbation of CHF (congestive heart failure): Qualifiers: Heart failure type: unspecified Qualified Code(s): I50.9 - Heart failure, unspecified Code(s): I50.9 - Heart failure, unspecified Status: Acute Assessment and Plan: patient with history of diastolic heart failure last echo 10/2019 with EF 50- 55%, elevated BNP and reported bilateral lower extremity edema * IV Lasix 20 mg b.i.d., change to PO Lasix 20 mg daily * Daily weights * d/cmetoprolol * elevate lower extremities when at rest * echocardiogram with normal EF, diastolic dysfunction noted * continue PO furosemide as long as patient is able to take pills for comfort (3) Elevated troponin: Code(s): R79.89 - Other specified abnormal findings of blood chemistry Status: Acute Assessment and Plan: patient with elevated troponins peaked at 0.077 but trending flat patient denied any chest pain or shortness breath EKGs with no ST/ T elevations likely ischemic demand from patient's CHF exacerbation and AFib. family reports they do not want any aggressive interventions or Cardiology evaluation. (4) Hypertension: Code(s): I10 - Essential (primary) hypertension Status: Acute Assessment and Plan: * d/c metoprolol * monitor BP per unit protocol * comfort measures L (5) Atrial fibrillation: Qualifiers: Atrial fibrillation type: unspecified Qualified Code(s): I48.91 - Unspecified atrial fibrillation Code(s): I48.91 - Unspecified atrial fibrillation Status: Acute Assessment and Plan: * d/c metoprolol and Eliquis * comfort measures (6) Proctitis: Code(s): K62.89 - Other specified diseases of anus and rectum Status: Acute Assessment and Plan: CT showed possible mild proctitis patient is denying any rectal bleeding or rectal pain at this time family and patient would like to defer oral antibiotic therapy initially due to patient's history of C diff * will go ahead and treat with oral doxycycline * added a probiotic t.i.d., stopped as patient is now comfort measures (7) CVA (cerebral vascular accident): Code(s): I63.9 - Cerebral infarction, unspecified Status: Acute Assessment and Plan: previous CVA in 2021 no known deficits, CT head with no acute abnormalities present on admission mild intermittent confusion family this time does not want any further diagnostic testing except for speech evaluation * d/c atorvastatin and Eliquis * patient is now comfort measures only (8) Diabetes: Code(s): E11.9 - Type 2 diabetes mellitus without complications Status: Acute Assessment and Plan: * A1c 6.2 * holding Tradjenta * comfort measures (9) Hypokalemia: Code(s): E87.6 - Hypokalemia Status: Acute Assessment and Plan: s/p replacement patient now comfort measures no further monitoring Plan Code status: DNR/DNI, comfort measures only Subjective Date/time seen: 05/27/25 11:29 Interval history: Patient seen for a follow up visit. Patient lying in bed, in no acute distress. Patient denies acute pain. Patient is on comfort measures only. Patient is on a regular diet with thin liquids. Encourage patient to sit up for any drinks or food. Review of Systems Review of Systems: All systems reviewed & are unremarkable except as noted in HPI and below Exam Const: General: comfortable and no acute distress Other: Pleasant elderly female HENMT: Mouth: Yes dry mucous membranes Eyes: General: appearance normal, both eyes and all related structures Sclera: sclerae normal Neck: Neck: supple Resp: Effort & Inspection: normal respiratory effort Auscultation: crackles bilateral, rhonchi and wheezes Other: audible congestion and mild productive cough Cardio: Rate: regular rate Rhythm: abnormal rhythm (AFIB) regularly irregular GI: Auscultation: normal bowel sounds Skin: General skin exam: normal color and no rashes or lesions noted Wounds: no wounds Neuro: Speech: normal speech Sensory Exam: normal sensation Extrem: General: normal to inspection Psych: Affect: normal affect Other: alert and oriented x 1-2, demented Objective Data Vital Signs Vital Signs: Vital Signs - 24 hr 05/26/25 11:35 05/26/25 11:42 05/26/25 16:50 Temperature Pulse Rate 71 76 77 Respiratory Rate 20 20 20 Blood Pressure Pulse Oximetry 97 100 96 Oxygen Delivery Oxygen Flow Rate 0 0 05/26/25 17:04 05/27/25 00:00 05/27/25 00:18 Temperature 98.4 F Pulse Rate 71 80 80 Respiratory Rate 20 16 16 Blood Pressure 145/64 H Pulse Oximetry 100 94 94 Oxygen Delivery Room Air Oxygen Flow Rate 05/27/25 00:32 05/27/25 05:45 05/27/25 06:40 Temperature Pulse Rate 83 76 84 Respiratory Rate 16 16 16 Blood Pressure Pulse Oximetry 97 95 98 Oxygen Delivery Oxygen Flow Rate 05/27/25 08:00 Temperature 97.8 F Pulse Rate 81 Respiratory Rate 20 Blood Pressure 158/80 H Pulse Oximetry 86 L Oxygen Delivery Room Air Oxygen Flow Rate Intake/Output Intake/Output: Intake & Output 05/24/25 05/25/25 05/26/25 05/27/25 23:59 23:59 23:59 23:59 Intake Total 1963.3 1760 1110 170 Output Total 1 0 Balance 1962.3 1760 1110 170 Meds/Results Medications: Active Medications Generic Name Dose Route Start Last Admin Trade Name Freq PRN Reason Stop Dose Admin Acetaminophen 650 mg 05/21/25 17:58 Acetaminophen 325 Mg Tablet PO Q4H PRN Mild Pain (1-3) or Fever Acetaminophen 650 mg 05/22/25 02:08 05/22/25 02:18 Acetaminophen 650 Mg Suppository RECTAL 650 mg Q6H PRN Administration Mild Pain (1-3) or Fever Hydrocodone Bitart/Acetaminophen 1 tab 05/21/25 17:58 05/25/25 20:20 Hydrocodone/Acetaminophen (*Crx) 5-325 Mg Tablet PO 1 tab Q4H PRN Administration Moderate Pain (4-6) Albuterol/Ipratropium 3 ml 05/23/25 12:30 05/27/25 05:47 Ipratropium 0.5 Mg/Albuterol Sulfate 2.5 Mg (Base) Ampul.Neb 3 Ml INHALATION 3 ml Q6HRT CLEMENTE Administration Amoxicillin/Clavulanate Potassium 1 tablet 05/26/25 21:00 05/27/25 09:45 Amoxicillin/Clavulanate K 875-125 Mg Tab PO 05/30/25 09:01 1 tablet Q12HR CLEMENTE Administration Budesonide 0.5 mg 05/23/25 18:30 05/27/25 05:47 Budesonide Respule Neb 0.5 Mg/2 Ml Amp INHALATION 0.5 mg Q12HRT CLEMENTE Administration Doxycycline Hyclate 100 mg 05/23/25 21:00 05/27/25 09:45 Doxycycline Hyclate 100 Mg Tablet PO 05/30/25 09:01 100 mg Q12HR LCEMENTE Administration Furosemide 20 mg 05/26/25 09:00 05/27/25 09:44 Furosemide 20 Mg Tablet PO 20 mg DAILY CLEMENTE Administration Guaifenesin 400 mg 05/26/25 13:47 Guaifenesin 200 Mg/10 Ml Udc PO Q4H PRN Cough Hyoscyamine 0.125 mg 05/26/25 13:47 Hyoscyamine Sulfate 0.125 Mg Tablet SUBLINGUAL Q4H PRN Secretions Lorazepam 0.5 mg 05/26/25 13:47 05/26/25 20:52 Lorazepam (*Crx) 2 Mg/Ml Oral Concentrate 1 Ml Syringe SUBLINGUAL 0.5 mg Q4H PRN Administration Anxiety Morphine Sulfate 5 mg 05/26/25 13:47 05/26/25 22:00 Morphine Sulfate Oral Conc Racquel (*Crx) 10 Mg/0.5 Ml Syringe PO 5 mg Q4H PRN Administration any pain or dyspnea Scopolamine 1 patch 05/26/25 13:50 05/26/25 14:41 Scopolamine 1 Mg Patch TRANSDERM 1 patch Q72HR CLEMENTE Administration Radiology Results: ITS Impressions Head CT 05/21/25 12:24 IMPRESSION: 1. No acute intracranial findings. Chest/Abdomen/Pelvis CT 05/21/25 12:30 IMPRESSION: CHEST- 1. Dense pneumonia right middle lobe, consider aspiration. Much less severe airspace disease remaining right lung. ABDOMEN/PELVIS- 1. Mild proctitis possible. 2. Otherwise no acute abnormality. 3. Additional findings as above. Chest X-Ray 05/25/25 08:31 Impression: Bilateral pneumonia. Accounting for differences in technique findings appear relatively unchanged compared to the previous CT. Labs Labs: Laboratory Results - last 24 hr 05/26/25 12:16 POC Capillary Glucose 127 H Quality VTE Prophylaxis VTE prophylaxis: pharmacologic ordered
[2025-05-27] MEDS: LORazepam (*CRX) 2 MG/ML ORAL CONCENTRATE 1 ML SYRINGE 0.5 MG SUBLINGUAL (20:46)
[2025-05-28] VITALS (11 sets, daily range): BP systolic 151–181; BP diastolic 71–92; PULSE 69–88; RESP 16–20; TEMP 36.1–37; O2SAT 89–95
[2025-05-28] MEDS: IPRATROPIUM 0.5 MG/ALBUTEROL SULFATE 2.5 MG (BASE) AMPUL.NEB 3 ML INHALATION ×4 (00:22→18:16)
[2025-05-28] MEDS: BUDESONIDE RESPULE NEB 0.5 MG/2 ML AMP INHALATION ×2 (05:46→18:03)
[2025-05-28] MEDS: MORPHINE SULFATE ORAL CONC SOL (*CRX) 10 MG/0.5 ML SYRINGE 5 MG PO (08:07)
[2025-05-28] MEDS: DOXYCYCLINE HYCLATE 100 MG TABLET PO ×2 (08:08→21:06)
[2025-05-28] MEDS: FUROSEMIDE 20 MG TABLET PO (08:08)
--- NOTE | 2025-05-28 13:54 | P.PNIM_ITS ---
Progress Note: A&P Assessment and Plan (1) Aspiration pneumonia: Qualifiers: Aspiration pneumonia type: unspecified Laterality: right Lung location: middle lobe of lung Qualified Code(s): J69.0 - Pneumonitis due to inhalation of food and vomit Code(s): J69.0 - Pneumonitis due to inhalation of food and vomit Status: Acute Assessment and Plan: patient with generalized weakness for the last 3 days and poor appetite family unsure patient has coughed or choked on any food at the assisted living facility, chest CT suggestive of aspiration pneumonia. patient was some audible congestion and mild temperature overnight * IV Unasyn/ p.o. doxycycline which will also cover for her proctitis * blood cultures pending * patient with level 6 diet and thickened liquids after speech evaluation * incentive spirometer * bronchodilators q.6 hours * continue Pulmicort * Mucinex liquid PRN * acetaminophen and her mild pain and fevers * patient is continuing to aspirate, family not interested in transfer for a modified barium swallow study, goals of care discussion held with multiple family members and decision was made to change patient to comfort measures with regular diet and thin liquids, comfort medications with morphine and lorazepam, hospice consulted and will sign patient onto their service on Thursday * continue PO doxycycline and PO Augmentin x 4 more days if patient is able to swallow pills, last dose 05/30 (2) Acute exacerbation of CHF (congestive heart failure): Qualifiers: Heart failure type: unspecified Qualified Code(s): I50.9 - Heart failure, unspecified Code(s): I50.9 - Heart failure, unspecified Status: Acute Assessment and Plan: patient with history of diastolic heart failure last echo 10/2019 with EF 50- 55%, elevated BNP and reported bilateral lower extremity edema * IV Lasix 20 mg b.i.d., change to PO Lasix 20 mg daily * Daily weights * d/cmetoprolol * elevate lower extremities when at rest * echocardiogram with normal EF, diastolic dysfunction noted * continue PO furosemide as long as patient is able to take pills for comfort (3) Elevated troponin: Code(s): R79.89 - Other specified abnormal findings of blood chemistry Status: Acute Assessment and Plan: patient with elevated troponins peaked at 0.077 but trending flat patient denied any chest pain or shortness breath EKGs with no ST/ T elevations likely ischemic demand from patient's CHF exacerbation and AFib. family reports they do not want any aggressive interventions or Cardiology evaluation. (4) Hypertension: Code(s): I10 - Essential (primary) hypertension Status: Acute Assessment and Plan: * d/c metoprolol * comfort measures (5) Atrial fibrillation: Qualifiers: Atrial fibrillation type: unspecified Qualified Code(s): I48.91 - Unspecified atrial fibrillation Code(s): I48.91 - Unspecified atrial fibrillation Status: Acute Assessment and Plan: * d/c metoprolol and Eliquis * comfort measures (6) Proctitis: Code(s): K62.89 - Other specified diseases of anus and rectum Status: Acute Assessment and Plan: CT showed possible mild proctitis patient is denying any rectal bleeding or rectal pain at this time family and patient would like to defer oral antibiotic therapy initially due to patient's history of C diff * will go ahead and treat with oral doxycycline * added a probiotic t.i.d., stopped as patient is now comfort measures (7) CVA (cerebral vascular accident): Code(s): I63.9 - Cerebral infarction, unspecified Status: Acute Assessment and Plan: previous CVA in 2021 no known deficits, CT head with no acute abnormalities present on admission mild intermittent confusion family this time does not want any further diagnostic testing except for speech evaluation * d/c atorvastatin and Eliquis * patient is now comfort measures only (8) Diabetes: Code(s): E11.9 - Type 2 diabetes mellitus without complications Status: Acute Assessment and Plan: * A1c 6.2 * comfort measures (9) Hypokalemia: Code(s): E87.6 - Hypokalemia Status: Acute Assessment and Plan: s/p replacement patient now comfort measures no further monitoring Plan Code status: DNR/DNI, comfort measures only. Plan for discharge tomorrow to family members home vs AL with ATC care with hospice. Subjective Date/time seen: 05/28/25 13:54 Interval history: Patient seen for a follow up visit. Patient lying in bed, in no acute distress. Patient denies acute pain. She reports she has pain in her tailbone if she is sitting. Patient continues on comfort measures. Patient has a poor appetite. Plan for discharge tomorrow to family members home vs AL facility with family providing ATC care with hospice. Review of Systems Review of Systems: All systems reviewed & are unremarkable except as noted in HPI and below Exam Const: General: comfortable and no acute distress Other: Pleasant elderly female HENMT: Mouth: Yes dry mucous membranes Eyes: General: appearance normal, both eyes and all related structures Sclera: sclerae normal Neck: Neck: supple Resp: Effort & Inspection: normal respiratory effort Auscultation: crackles bilateral, rhonchi and wheezes Other: audible congestion and mild productive cough Cardio: Rate: regular rate Rhythm: abnormal rhythm (AFIB) regularly irregular GI: Auscultation: normal bowel sounds Skin: General skin exam: normal color and no rashes or lesions noted Wounds: no wounds Neuro: Speech: normal speech Sensory Exam: normal sensation Extrem: General: normal to inspection Psych: Affect: normal affect Other: alert and oriented x 1-2, demented Objective Data Vital Signs Vital Signs: Vital Signs - 24 hr 05/27/25 16:00 05/27/25 19:11 05/27/25 19:29 Temperature 97 F L Pulse Rate 88 Respiratory Rate 20 Blood Pressure 156/82 H Pulse Oximetry 88 L 96 99 Oxygen Delivery Room Air Oxygen Flow Rate 05/28/25 00:00 05/28/25 00:20 05/28/25 00:30 Temperature 98.6 F Pulse Rate 78 78 82 Respiratory Rate 16 16 16 Blood Pressure 151/92 H Pulse Oximetry 90 90 93 Oxygen Delivery Room Air Oxygen Flow Rate 05/28/25 05:45 05/28/25 06:05 05/28/25 08:00 Temperature Pulse Rate 69 78 75 Respiratory Rate 16 16 16 Blood Pressure Pulse Oximetry 89 L 91 91 Oxygen Delivery Room Air Oxygen Flow Rate 05/28/25 08:00 05/28/25 11:30 05/28/25 11:45 Temperature 97.5 F L Pulse Rate 75 75 83 Respiratory Rate 16 16 16 Blood Pressure 153/71 H Pulse Oximetry 91 91 94 Oxygen Delivery Room Air Oxygen Flow Rate 0 0 Intake/Output Intake/Output: Intake & Output 05/25/25 05/26/25 05/27/25 05/28/25 23:59 23:59 23:59 23:59 Intake Total 1760 1110 625 450 Output Total 0 Balance 1760 1110 625 450 Meds/Results Medications: Active Medications Generic Name Dose Route Start Last Admin Trade Name Freq PRN Reason Stop Dose Admin Acetaminophen 650 mg 05/21/25 17:58 Acetaminophen 325 Mg Tablet PO Q4H PRN Mild Pain (1-3) or Fever Acetaminophen 650 mg 05/22/25 02:08 05/22/25 02:18 Acetaminophen 650 Mg Suppository RECTAL 650 mg Q6H PRN Administration Mild Pain (1-3) or Fever Hydrocodone Bitart/Acetaminophen 1 tab 05/21/25 17:58 05/25/25 20:20 Hydrocodone/Acetaminophen (*Crx) 5-325 Mg Tablet PO 1 tab Q4H PRN Administration Moderate Pain (4-6) Albuterol/Ipratropium 3 ml 05/23/25 12:30 05/28/25 11:32 Ipratropium 0.5 Mg/Albuterol Sulfate 2.5 Mg (Base) Ampul.Neb 3 Ml INHALATION 3 ml Q6HRT CLEMENTE Administration Amoxicillin/Clavulanate Potassium 1 tablet 05/26/25 21:00 05/28/25 08:08 Amoxicillin/Clavulanate K 875-125 Mg Tab PO 05/30/25 09:01 1 tablet Q12HR CLEMENTE Administration Budesonide 0.5 mg 05/23/25 18:30 05/28/25 05:46 Budesonide Respule Neb 0.5 Mg/2 Ml Amp INHALATION 0.5 mg Q12HRT CLEMENTE Administration Doxycycline Hyclate 100 mg 05/23/25 21:00 05/28/25 08:08 Doxycycline Hyclate 100 Mg Tablet PO 05/30/25 09:01 100 mg Q12HR CLEMENTE Administration Furosemide 20 mg 05/26/25 09:00 05/28/25 08:08 Furosemide 20 Mg Tablet PO 20 mg DAILY CLEMENTE Administration Guaifenesin 400 mg 05/26/25 13:47 Guaifenesin 200 Mg/10 Ml Udc PO Q4H PRN Cough Hyoscyamine 0.125 mg 05/26/25 13:47 Hyoscyamine Sulfate 0.125 Mg Tablet SUBLINGUAL Q4H PRN Secretions Lorazepam 0.5 mg 05/26/25 13:47 05/27/25 20:46 Lorazepam (*Crx) 2 Mg/Ml Oral Concentrate 1 Ml Syringe SUBLINGUAL 0.5 mg Q4H PRN Administration Anxiety Morphine Sulfate 5 mg 05/26/25 13:47 05/28/25 08:07 Morphine Sulfate Oral Conc Racquel (*Crx) 10 Mg/0.5 Ml Syringe PO 5 mg Q4H PRN Administration any pain or dyspnea Scopolamine 1 patch 05/26/25 13:50 05/26/25 14:41 Scopolamine 1 Mg Patch TRANSDERM 1 patch Q72HR CLEMENTE Administration Radiology Results: ITS Impressions Head CT 05/21/25 12:24 IMPRESSION: 1. No acute intracranial findings. Chest/Abdomen/Pelvis CT 05/21/25 12:30 IMPRESSION: CHEST- 1. Dense pneumonia right middle lobe, consider aspiration. Much less severe airspace disease remaining right lung. ABDOMEN/PELVIS- 1. Mild proctitis possible. 2. Otherwise no acute abnormality. 3. Additional findings as above. Chest X-Ray 05/25/25 08:31 Impression: Bilateral pneumonia. Accounting for differences in technique findings appear relatively unchanged compared to the previous CT. Labs Labs: Laboratory Results - last 24 hr 05/26/25 12:16 POC Capillary Glucose 127 H Quality VTE Prophylaxis VTE prophylaxis: pharmacologic ordered
--- NOTE | 2025-05-28 18:35 | PC.NURSE ---
Patient alert and answers questions. Up to BSC with gait belt, walker, 1 assist. In bed. HOB elevated. Tolerated neb treatment.
[2025-05-28] MEDS: LORazepam (*CRX) 2 MG/ML ORAL CONCENTRATE 1 ML SYRINGE 0.5 MG SUBLINGUAL (21:06)
[2025-05-29] VITALS (8 sets, daily range): BP systolic 162–166; BP diastolic 77–86; PULSE 72–96; RESP 12–18; TEMP 36.3–36.7; O2SAT 90–99
[2025-05-29] MEDS: IPRATROPIUM 0.5 MG/ALBUTEROL SULFATE 2.5 MG (BASE) AMPUL.NEB 3 ML INHALATION ×3 (00:56→11:32)
[2025-05-29] MEDS: MORPHINE SULFATE ORAL CONC SOL (*CRX) 10 MG/0.5 ML SYRINGE 5 MG PO ×2 (01:01→14:59)
[2025-05-29] MEDS: BUDESONIDE RESPULE NEB 0.5 MG/2 ML AMP INHALATION (05:52)
[2025-05-29] MEDS: DOXYCYCLINE HYCLATE 100 MG TABLET PO (09:29)
[2025-05-29] MEDS: FUROSEMIDE 20 MG TABLET PO (09:29)
[2025-05-29] MEDS: SCOPOLAMINE 1 MG PATCH 1 PATCH TRANSDERM (09:48)
--- NOTE | 2025-05-29 13:03 | PM.DS ---
DS: Admitting Diagnosis Discharge Date 05/29/2025 Admitting Diagnosis Aspiration pneumonia acute exacerbation of CHF Elevated troponin HTN Atrial Fibrillation Proctitis CVA Diabetes DS: Discharge Diagnosis Discharge Diagnosis (1) Aspiration pneumonia: Qualifiers: Aspiration pneumonia type: unspecified Laterality: right Lung location: middle lobe of lung Qualified Code(s): J69.0 - Pneumonitis due to inhalation of food and vomit Code(s): J69.0 - Pneumonitis due to inhalation of food and vomit Status: Acute (2) Acute exacerbation of CHF (congestive heart failure): Qualifiers: Heart failure type: unspecified Qualified Code(s): I50.9 - Heart failure, unspecified Code(s): I50.9 - Heart failure, unspecified Status: Acute (3) Elevated troponin: Code(s): R79.89 - Other specified abnormal findings of blood chemistry Status: Acute (4) Hypertension: Code(s): I10 - Essential (primary) hypertension Status: Acute (5) Atrial fibrillation: Qualifiers: Atrial fibrillation type: unspecified Qualified Code(s): I48.91 - Unspecified atrial fibrillation Code(s): I48.91 - Unspecified atrial fibrillation Status: Acute (6) Proctitis: Code(s): K62.89 - Other specified diseases of anus and rectum Status: Acute (7) CVA (cerebral vascular accident): Code(s): I63.9 - Cerebral infarction, unspecified Status: Acute (8) Diabetes: Code(s): E11.9 - Type 2 diabetes mellitus without complications Status: Acute (9) Hypokalemia: Code(s): E87.6 - Hypokalemia Status: Acute Plan Code status: DNR/DNI, comfort measures only. Plan for discharge tomorrow to family members home vs AL with ATC care with hospice. DS: Summary Hospital Course Reason for hospitalization: aspiration pneumonia Hospital Course: The patient is an 89-year-old female with a complex medical history including atrial fibrillation, congestive heart failure (CHF), hypertension, prior cerebrovascular accident (CVA), diabetes, and hyperlipidemia, who was admitted from an assisted living facility due to progressive weakness, poor appetite, and intermittent confusion over three days. On presentation, she was noted to have audible congestion and bilateral lower extremity edema, raising concern for CHF exacerbation or possible recurrent CVA. Initial evaluation revealed hypoxemia, mild fever, and laboratory findings significant for hypokalemia, elevated BNP, and mildly elevated troponin without dynamic EKG changes. Imaging demonstrated a dense right middle lobe pneumonia consistent with aspiration, mild proctitis, and no acute intracranial pathology. She was admitted for management of aspiration pneumonia, acute on chronic CHF exacerbation, and evaluation of her altered mental status. She was started on IV Unasyn, later transitioned to oral doxycycline and Augmentin, and placed NPO pending speech evaluation, which ultimately recommended a level 6 diet with thickened liquids. CHF was managed with IV then oral diuretics, daily weights, and supportive measures. Her troponin elevation was attributed to demand ischemia in the setting of CHF and atrial fibrillation, and no further cardiac workup was pursued per family wishes. Her home antihypertensives and anticoagulation were continued initially, but later discontinued as her goals of care shifted. During her stay, the patient?s mental status fluctuated, but no new focal neurological deficits were observed and repeat neuroimaging was unremarkable. She remained hemodynamically stable but continued to have poor oral intake and persistent hypoxemia. After multidisciplinary discussions and a goals of care meeting with her family, the decision was made to transition to comfort measures only. All disease-directed therapies, including anticoagulation, statins, and most chronic medications, were discontinued. She was managed with comfort medications for pain, dyspnea, and secretions, and hospice was consulted. The patient remained comfortable, with no acute distress, and was discharged in stable condition to her assisted living facility with hospice and family providing [id number] care. All further care and medications will be managed by hospice upon discharge. Time Spent with Patient Time attestation: Total time spent providing and/or coordinating discharge services: 40 Minutes Exam Const: General: comfortable and no acute distress Other: Pleasant elderly female HENMT: Mouth: Yes dry mucous membranes Eyes: General: appearance normal, both eyes and all related structures Sclera: sclerae normal Neck: Neck: supple Resp: Effort & Inspection: normal respiratory effort Auscultation: crackles bilateral, rhonchi and wheezes Other: audible congestion and mild productive cough Cardio: Rate: regular rate Rhythm: abnormal rhythm (AFIB) regularly irregular GI: Auscultation: normal bowel sounds Skin: General skin exam: normal color and no rashes or lesions noted Wounds: no wounds Neuro: Speech: normal speech Sensory Exam: normal sensation Extrem: General: normal to inspection Psych: Mental Status: mental status grossly normal Affect: normal affect Other: alert and oriented x 1-2, demented DS: Data Imaging Radiologist's impression: Ordering Physician: Dimas Castillo MD Date of Service: 05/21/25 Procedure(s): CT brain wo con Accession Number(s): [id number] cc: Jimbo Rey MD; Dimas Castillo MD~ CT HEAD NON-CONTRAST Clinical History: AMS/hypoxia/diarrhea Comparison: CT brain 12/11/2024 Technique: Unenhanced axial images skull base to vertex Coronal, sagittal reformats CT images acquired with automatic exposure control for dose reduction DLP: 681 mGy-cm Findings: Age-related global atrophy and chronic white matter microvascular ischemic changes Sulci, ventricles: Unremarkable. No intracerebral hemorrhage. No evidence acute territorial infarct. No mass effect, midline shift. Bony calvarium intact. Visualized paranasal sinuses: Minimal ethmoid and right maxillary fluid. Mastoid air cells: Small fluid left side. IMPRESSION: 1. No acute intracranial findings. Reviewed, dictated and finalized at location [facility] Ordering Physician: Dimas Castillo MD Date of Service: 05/21/25 Procedure(s): CT chest abdomen pelvis wo con Accession Number(s): [id number] cc: Jimbo Rey MD; Dimas Castillo MD~ CHEST ABDOMEN PELVIS WITHOUT CONTRAST CLINICAL HISTORY: AMS/hypoxia/diarrhea . COMPARISON: 12/11/2024 TECHNIQUE: Helical CT performed from thoracic inlet to symphysis pubis Coronal, sagittal reformats CT images acquired with automatic exposure control for dose reduction DLP: 416 mGy-cm FINDINGS: CHEST- Lungs/Pleura: Dense airspace disease right middle lobe. Mild airspace disease right upper and lower lobes. Thoracic Aorta: No aneurysm. Atherosclerotic disease. Pulmonary arteries: Normal caliber. Heart: Cardiomegaly. Coronary artery calcification. Trace pericardial fluid. Tracheobronchial tree: Patent. Nodes: No enlarged nodes. Small mediastinal nodes. Bones: No acute bony abnormality. Cement augmentation T11, L1. Chronic mild superior endplate height loss T12. Soft tissues: Multiple small thyroid nodules and/or heterogeneous gland. ABDOMEN/PELVIS- Liver: Micronodular contour. Gallbladder: Removed. Spleen: Unremarkable. Pancreas: Atrophy. Adrenal glands: Mild nodular thickening left side. Kidneys: Right kidney- No hydronephrosis. No renal stones. Left kidney- No hydronephrosis. No renal stones. Distal esophagus/stomach: Unremarkable. Small bowel loops: Normal caliber and wall thickness. Colon: Minimal, if any, rectal wall thickening. Appendix not seen. Nodes: No enlarged nodes. Peritoneum: No ascites. No free air. Urinary bladder: Unremarkable. Uterus: Unremarkable. Adnexa: No masses. Bones: Minimal, if any, worsening compression deformity L2. Soft tissues: Unremarkable. Aorta: No aneurysm. Atherosclerotic disease. IVC: Unremarkable. IMPRESSION: CHEST- 1. Dense pneumonia right middle lobe, consider aspiration. Much less severe airspace disease remaining right lung. ABDOMEN/PELVIS- 1. Mild proctitis possible. 2. Otherwise no acute abnormality. 3. Additional findings as above. Reviewed, dictated and finalized at location [facility] [employer] [facility] Patient: Starr Whyte : 1935 MR#: [id number] Age: 89 Acct:[id number] Loc: [id number] ADM Date: 05/23/[address]: Vipul Archuleta M.D. Ordering Physician: Cindi Frost APRN Date of Service: 05/25/25 Procedure(s): XR chest 1V portable Accession Number(s): [id number] cc: Gray Archuleta MD; Jimbo Rey MD; Cindi Frost APRN~ EXAMINATION: XR chest 1V portable COMPARISON: No comparisons available. HISTORY: pna/vascular congestion f/u FINDINGS: Mild pulmonary venous congestion. There are infiltrates noted of the right upper and left lower lobes. No pneumothorax. Mild cardiomegaly. Mediastinal and hilar contours are within normal limits. Bony thorax no acute abnormality. Miscellaneous: None Impression: Bilateral pneumonia. Accounting for differences in technique findings appear relatively unchanged compared to the previous CT. Reviewed, dictated and finalized at location [facility] [employer] [facility] Discharge Plan Discharge Attending physician on discharge: Vipul Archuleta Consulting providers: Stephanie Purvis; Cindi Frost; Kenney Hummel; Ramon Bullock; Jorge Houser; Jeffrey Bruno Discharging Clinician: Cindi Frost Patient Disposition: Hospice - Home Activity: as tolerated Diet: as tolerated Discharge Instructions: Patient is discharging to her assisted living facility with hospice and family providing care around the clock. Medication orders and medications will be provided by Hospice when patient arrives at [facility]. Patient Instructions: Hospice Care (GEN), Fall Prevention for Older Adults (DC), Aspiration Pneumonia (DC) Patient Language: Syrian Stand Alone Forms: General Discharge Information Follow-up/Referrals: Jimbo Rey MD [Primary Care Provider, Internal Medicine] Referral Note: Follow up with hospice after discharge. Discharge Medications: Discontinued calcitriol 0.5 mcg capsule 0.5 mcg PO DAILY vitamin B complex [B Complex-Vitamin B12] Tablet 1 tablet PO DAILY galantamine 8 mg tablet 8 mg PO BID Eliquis 2.5 mg tablet 2.5 mg PO BID buspirone 10 mg tablet 10 mg PO BID prednisolone acetate 1 % drops,suspension 1 drp EACH EYE HS Florajen Women 15 billion cell capsule 1 cap PO HS pantoprazole 40 mg tablet,delayed release (DR/EC) 40 mg PO Q12H atorvastatin 10 mg Tablet 10 mg PO DAILY furosemide 20 mg Tablet 20 mg PO EVERY OTHER DAY Tradjenta 5 mg Tablet 5 mg PO QAM losartan 100 mg tablet 100 mg PO DAILY Qty: 90 1RF diltiazem HCl 180 mg capsule,extended release 24 hr 180 mg PO DAILY potassium chloride 20 mEq tablet,ER particles/crystals See Rx Instructions .ROUTE .COMPLEX Qty: 90 0RF Dose Instruction: TAKE ONE TABLET BY MOUTH DAILY Rx Instructions: TAKE ONE TABLET BY MOUTH DAILY metoprolol succinate 25 mg tablet extended release 24 hr See Rx Instructions .ROUTE .COMPLEX Qty: 90 0RF Dose Instruction: TAKE ONE TABLET BY MOUTH EVERY DAY Rx Instructions: TAKE ONE TABLET BY MOUTH EVERY DAY Date of admission: 05/23/25 11:33 Primary Care Provider: Jimbo Rey Admitting Provider: Vipul Archuleta Attending physician on admission: Vipul Archuleta Condition: Stable Quality VTE Prophylaxis VTE prophylaxis: pharmacologic ordered
--- NOTE | 2025-05-29 13:30 | PCSTNOTE ---
Spoke with nursing, patient and family regarding plan for patient and current diet. Over the weekend the patient refused thickened fluids and was placed on comfort care. The family and patient made the decision to change the patient's diet to thin fluids. Risks were explained to both patient and family regarding the risk for aspiration with reported response in understanding. Education with patient and family regarding continued use of trained compensatory techniques to improve airway protection; chin tuck, single/small sips, second dry swallow if needed to clear stasis, upright posture with all intake and decreased rate of intake to improve airway protection.
--- NOTE | 2025-05-29 15:05 | PC.NURSE ---
Dischargeinstructions reviewed with patient's family. Hospice meeting with them this afternoon. Patient assisted into wheelchair, taken off floor and assisted into private vehicle.
--- NOTE | 2025-06-01 12:31 | PC.NURSE ---
spoke with daughter, hospice is set up and doing well, no questions
== END 2025-05-29 15:05 | disposition home health service (06) | DRG 177 ==
LOC: CHSED 14:59 → CHS2ND 15:16
PROVIDERS: Nurse Practitioner Family; Admitting Provider Internal Medicine; Emergency Provider Emergency Medicine; PCP Internal Medicine; Visit Provider Internal Medicine
DX: J69.0 Pneumonitis due to inhalation of food and vomit (principal); I50.33 Acute on chronic diastolic (congestive) heart failure; I11.0 Hypertensive heart disease with heart failure; I48.91 Unspecified atrial fibrillation; K62.89 Other specified diseases of anus and rectum; E87.6 Hypokalemia; E11.9 Type 2 diabetes mellitus without complications; Z66 Do not resuscitate; Z86.73 Personal history of transient ischemic attack (TIA), and cerebral infarction without residual deficits
CPT/HCPCS: 36415; 70450; 71045; 71250; 74176; 80053; 81001; 82948; 83036; 83605; 83690; 83735; 83880; 84145; 84484; 85025; 85610; 85730; 87040; 87637; 92526; 92610; 93005; 93306; 94640; 96365; 96366; 96375; 97161; 97165; 97530; 97535; 99285; A9270; G0378; J0295; J1938; J2405; J2543; J3480; J7030; J7050